=== PATIENT | female | born 1950 | race Caucasian/White ===

== ENCOUNTER → 2016-07-03 | Outpatient (CLI) | payer OTHER ==
[~2016-07-03] MED LIST: CALCTAB5 PO; CHOL100027 PO; CYAN100048 PO; MAGN250T3 PO; METO25TA56 PO; OMEG1CAP26; VNTHFA/IN INH
[2016-07-03 10:44] LABS: HEMATOCRIT 39.1 % (37-47); MEAN CORPUSCULAR HEMOGLOBIN 30.6 pg (25-34); MEAN CORPUSCULAR HGB CONC 33.2 g/dl (32-36); MEAN PLATELET VOLUME 8.8 fL (7.4-10.4); PLATELET COUNT 254 K/uL (130-400); RED BLOOD COUNT 4.25 M/uL (4.2-5.4); WHITE BLOOD COUNT 4.99 K/uL (4.8-10.8)
[2016-07-03 10:50] LABS: POTASSIUM 4.1 mmol/L (3.5-5.1)
[2016-07-03 10:55] LABS: PARTIAL THROMBOPLASTIN RATIO 1.1; PROTHROMBIN TIME (PATIENT) 10.4 SECONDS (9.0-12.0)
== END | disposition home or self-care (01) ==
LOC: C.LAB 08:59
PROVIDERS: ATTEND Physician Assistant
DX: Z01.810 Encounter for preprocedural cardiovascular examination (principal)

== ENCOUNTER → 2016-07-10 | Day surgery (SDC) | payer OTHER ==
[2016-06-26 11:26] VITALS: Ht 165.1 cm; Wt 65.0 kg
[~2016-07-10] VITALS: Ht 165.1 cm; Wt 65.0 kg
[~2016-07-10] MED LIST changes: +ACETAMINOPHEN 325 MG TAB ONE; +ACETAMINOPHEN 325 MG TAB PO PRN; +ARTIFICIAL TEARS OP OINT 3.5 GM TUBE ONE; +ATROPINE SULFATE 0.1 MG/ML 5ML SYR IV PRN; +BSS FLUSH ONE; +CEFAZOLIN 2000 MG/60 ML D5W IV SCH; +ERYTHROMYCIN OP OINT 5 MG/GM 3.5 GM TUBE ONE; +EpHEDrine SULFATE 50MG/5ML SYR ONE; +EpHEDrine SULFATE INJ 50 MG/ML AMP IV PRN; +FENTANYL CITRATE INJ 50 MCG/1 ML 2 ML VIAL IV PRN; +FENTANYL CITRATE INJ 50 MCG/1 ML 2 ML VIAL ONE; +GENTIAN VIOLET TOP SOLN DROP CHARGE ONE; +LACTATED RINGER'S 1000ML 1,000 ML IV SCH; +LIDOCAINE HCL 2% 2 ML VIAL (20MG/ML) ONE; +LIDOCAINE/EPINEPHRINE 1% INJ 50 ML VIAL ONE; +METOCLOPRAMIDE HCL INJ 5 MG/ML 2 ML VIAL IV PRN; +MIDAZOLAM HCL 1 MG/ML 2ML VIAL ONE; +ONDANSETRON INJ 2 MG/ML 2 ML VIAL IV PRN; +ONDANSETRON INJ 2 MG/ML 2 ML VIAL ONE; +OXYCODONE/ACETAMINOPHEN 5-325 TAB PO PRN; +POVIDONE-IODINE OP SOLN 30 ML BTL ONE; +PROPOFOL IV EMULSION 10 MG/ML 20 ML VIAL IV ONE; +SCOPOLAMINE 1.5 MG TDSY TD ONE; +SODIUM CHLORIDE 0.9% 1000ML 1,000 ML IV SCH
--- NOTE | 2016-07-10 11:35 | History & Physical Bridge - [place] ---
H&P Re-Evaluation Bridge Note: I have examined the patient, reviewed the History & Physical and in the interval since the performance of the History & Physical I have noted the following changes of clinical significance: No changes noted
--- NOTE | 2016-07-10 13:00 | [facility] Post Operative Brief Note ---
Immediate Operative Summary Operative Date Jul 10, 2016. Pre-Operative Diagnosis bilateral dermatochalasis Post-Operative Diagnosis same Procedure(s) Performed Bilateral Upper Blepharoplasty Surgeon Dr Cisneros Retouching Operator Surgeon(s) Dennis Newton PA-C Estimated Blood Loss 1 ml Findings good symmetry at close of case Specimens 0 Anesthesia general Disposition Recovery Room / PACU
--- NOTE | 2016-07-10 13:03 | Discharge Instructions ---
Discharge Instructions Date of Service Jul 10, 2016. Admission Reason for Admission: Bilateral Dermatochalasis Discharge Discharge Diagnosis / Problem: dermatochalasis Discharge Goals Goal(s): Decrease discomfort Activity Recommendations Activity Limitations: per Instructions/Follow-up section ACTIVITY RECOMMENDATIONS: __Normal activities _x_No bending, lifting or straining __No driving __Driving allowed when you are off pain medications _x_Walking permitted __You should have help at home for ___ days DRESSINGS: _x_No dressings required __Keep dressings dry/in place until first office visit __Remove dressings ___ and leave dressings off __Apply ice ___ days __Remove dressings and reapply garment _x_Apply antibiotic ointment that was prescribed to you (Bacitracin) to wounds 3 -4 times/day for 10 days BATHING: __Keep dressings dry __Sponge bathing permitted _x_Showering permitted in 48 hours _x_No swimming, hot tubs or soaking in a tub MEDICATIONS: Resume previous medications unless instructed otherwise by your surgeon. _x_Do not use aspirin, Motrin, Advil or Ibuprofen as these may promote bleeding. Please use Tylenol. _x_Prescription(s) provided:pain medication and antibiotic eye ointment were provided at your last office visit OTHER INSTRUCTIONS: __Record drain output 2-3 times per day SPECIAL CARE INSTRUCTIONS: * It is normal to have a mild fever after surgery. If your temperature is higher than 101.5 degrees F, please call the office at [phone]. * Constipation is a typical side effect of pain medication. An over-the- counter stool softener will help relieve this. * Leaking around surgical drains may occur and should not cause concern. Sometimes these drains become clogged. If this happens, remove the bulb and milk the clot out of the tube, then replace the bulb. * Drainage from wounds after liposuction is normal and should be expected. Garments will become soiled. You should protect furniture and bedding. This drainage should mostly subside within 2-3 days. Leave garments in place unless instructed to remove them. * If you have unusual drainage from a wound or are concerned you have an infection or have any questions or concerns, please call the office at [phone]. FOLLOW UP VISIT: If not already scheduled, please call the office, , when you return home after surgery to schedule an appointment to be seen in __3_ days. . Current Hospital Diet Patient's current hospital diet: Discharge Diet Recommended Diet: Regular Diet Procedures Procedures Performed: Bilateral Upper Blepharoplasty Pending Studies Studies pending at discharge: no Medical Emergencies . Who to Call and When: Medical Emergencies: If at any time you feel your situation is an emergency, please call 911 immediately. . Non-Emergent Contact Non-Emergency issues call your: Primary Care Provider, Surgeon . "Provider Documentation" section prepared by Bee Newton. . VTE Core Measure Inpt VTE Proph given/why not?: SCD's [place] Drug Monitoring Program Search Results: no issues identified
[2016-07-10 14:00] VITALS: BP 155/79; PULSE 62; TEMP 36.1; O2SAT 95
--- NOTE | 2016-07-10 14:47 | Anesthesia Progress Nt - [facility] ---
Anesthesia Post Op Note Date & Time Jul 10, 2016 at 14:47 Vital Signs Pain Intensity: 2.0 Vital Signs Past 12 Hours Date Time Temp Pulse Resp B/P Pulse Ox O2 Delivery O2 Flow Rate FiO2 07/10/16 14:00 36.1 62 18 155/79 95 Room Air 07/10/16 13:54 144/82 07/10/16 13:52 62 18 100 07/10/16 13:52 63 18 07/10/16 13:51 36.6 99 Room Air 07/10/16 13:51 67 18 07/10/16 13:51 65 18 100 07/10/16 13:49 148/76 07/10/16 13:46 66 18 07/10/16 13:46 66 18 99 07/10/16 13:44 144/79 07/10/16 13:41 71 18 07/10/16 13:41 71 18 100 07/10/16 13:40 74 18 99 07/10/16 13:40 73 18 07/10/16 13:39 136/84 07/10/16 13:35 66 17 100 07/10/16 13:35 65 17 07/10/16 13:34 139/81 07/10/16 13:30 72 15 100 07/10/16 13:30 72 15 07/10/16 13:29 140/81 07/10/16 13:27 70 17 07/10/16 13:27 70 17 100 07/10/16 13:24 136/81 07/10/16 13:22 66 17 100 07/10/16 13:22 66 17 07/10/16 13:21 76 17 100 07/10/16 13:21 75 17 07/10/16 13:19 143/81 07/10/16 13:16 76 20 07/10/16 13:16 80 20 100 07/10/16 13:15 75 17 100 07/10/16 13:15 76 17 07/10/16 13:14 136/81 07/10/16 13:10 82 17 100 07/10/16 13:10 80 17 07/10/16 13:09 142/78 07/10/16 13:06 73 18 100 07/10/16 13:06 74 18 07/10/16 13:04 134/80 07/10/16 13:01 135/82 07/10/16 13:01 36.4 84 16 135/82 100 Mask 8 07/10/16 10:58 36.8 61 18 152/87 100 Room Air Notes Mental Status: alert / awake / arousable, participated in evaluation Pt Amnestic to Procedure: Yes Nausea / Vomiting: adequately controlled Pain: adequately controlled Airway Patency, RR, SpO2: stable & adequate BP & HR: stable & adequate Hydration State: stable & adequate Anesthetic Complications: no major complications apparent
--- NOTE | 2016-07-10 16:03 | OPERATIVE REPORT ---
DATE OF OPERATION: 07/10/2016 PREOPERATIVE DIAGNOSIS: Bilateral upper eyelid dermatochalasis. POSTOPERATIVE DIAGNOSIS: Same. PROCEDURE: Bilateral noncosmetic upper blepharoplasty. SURGEON: Dr. Cintia Cisneros. TRUCK HOP: Bee Newton PA-C. ANESTHESIA: General. COMPLICATIONS: None. INDICATION FOR THE PROCEDURE: The patient is a 65-year-old female who presented to my office with concerns of visual field obstruction and failed visual field testing due to upper eyelid dermatochalasis. She was felt to be a candidate for noncosmetic upper blepharoplasty. Risks and benefits were discussed. BRIEF DESCRIPTION OF THE PROCEDURE: The risks, benefits and alternatives of the procedure were explained to the patient, who agreed and signed consent. She was identified and marked in the preoperative holding area. She was brought to the operating room, where she was positioned supine and placed under general anesthesia without incident. Surgical site was prepped and draped sterilely. Markings were assessed. The inferior incision was marked at 8 mm above the ciliary margin just inferior to the supratarsal crease on the right, which was measured to be 9 mm and at the supratarsal crease measured to be 8 mm on the left. A trapezoidal shaped incision was marked, taking care not to cross the medial punctum medially and carrying the lateral aspect into the lateral canthal area into one of the pilot station's feet. Superior portion of the incision was marked and this was marked about 1.2 cm superior to the inferior incision making sure it was greater than 1 cm beneath the eyebrow. A Aranda forceps was used to pinch the skin to ensure reasonable possibility of wound closure without lagophthalmos. Similar markings were applied on the right side. I began with the left side. I attempted to place corneal protectors, but due to the small aperture of her lids, I was unable to place these. 1% lidocaine with epinephrine was used to anesthetize the upper lids bilaterally. I began with the left. The incisions as described above were made using a 15 blade scalpel. Skin was removed from the underlying orbicularis muscle in a lateral to medial direction using electrocautery, taking care to provide hemostasis throughout dissection. Once the skin had been removed and the hemostasis was assured, I incised the orbicularis muscle and orbital septum over the medial compartment. There was no return of appreciable fat and therefore, no resection was undertaken. 6-0 nylon sutures were used to reapproximate the incisions beginning in the pupillary line and then closing in a lateral to medial direction. Once the procedure was completed, bacitracin ophthalmic ointment was applied after the eyes were irrigated with BSS. Identical procedure was undertaken on the right hand side. The procedure was tolerated well. The patient was awakened and transferred to recovery room in satisfactory condition. Blood loss was 1 mL. Bee Newton was present and scrubbed throughout the entire procedure and was instrumental in providing retraction as well as assisting in simultaneous wound closure. I attest to the content of the Intraoperative Record and any orders documented therein. Any exceptio ns are noted below.
== END | disposition home or self-care (01) ==
LOC: X.SURG 10:43
PROVIDERS: ATTEND Plastic Surgery
DX: H02.834 Dermatochalasis of left upper eyelid (principal); H02.831 Dermatochalasis of right upper eyelid; J45.909 Unspecified asthma, uncomplicated; I10 Essential (primary) hypertension; I48.0 Paroxysmal atrial fibrillation; Z98.890 Other specified postprocedural states; Z90.89 Acquired absence of other organs; Z98.51 Tubal ligation status; Z98.818 Other dental procedure status; Z80.0 Family history of malignant neoplasm of digestive organs; Z82.0 Family history of epilepsy and other diseases of the nervous system; Z83.3 Family history of diabetes mellitus; Z82.49 Family history of ischemic heart disease and other diseases of the circulatory system; Z80.2 Family history of malignant neoplasm of other respiratory and intrathoracic organs

== ENCOUNTER → 2016-11-27 | Outpatient (CLI) | payer OTHER ==
[~2016-11-27] MED LIST changes: -ACETAMINOPHEN 325 MG TAB ONE; -ACETAMINOPHEN 325 MG TAB PO PRN; -ARTIFICIAL TEARS OP OINT 3.5 GM TUBE ONE; -ATROPINE SULFATE 0.1 MG/ML 5ML SYR IV PRN; -BSS FLUSH ONE; -CEFAZOLIN 2000 MG/60 ML D5W IV SCH; -ERYTHROMYCIN OP OINT 5 MG/GM 3.5 GM TUBE ONE; -EpHEDrine SULFATE 50MG/5ML SYR ONE; -EpHEDrine SULFATE INJ 50 MG/ML AMP IV PRN; -FENTANYL CITRATE INJ 50 MCG/1 ML 2 ML VIAL IV PRN; -FENTANYL CITRATE INJ 50 MCG/1 ML 2 ML VIAL ONE; -GENTIAN VIOLET TOP SOLN DROP CHARGE ONE; -LACTATED RINGER'S 1000ML 1,000 ML IV SCH; -LIDOCAINE HCL 2% 2 ML VIAL (20MG/ML) ONE; -LIDOCAINE/EPINEPHRINE 1% INJ 50 ML VIAL ONE; -METOCLOPRAMIDE HCL INJ 5 MG/ML 2 ML VIAL IV PRN; -MIDAZOLAM HCL 1 MG/ML 2ML VIAL ONE; -OMEG1CAP26; -ONDANSETRON INJ 2 MG/ML 2 ML VIAL IV PRN; -ONDANSETRON INJ 2 MG/ML 2 ML VIAL ONE; -OXYCODONE/ACETAMINOPHEN 5-325 TAB PO PRN; -POVIDONE-IODINE OP SOLN 30 ML BTL ONE; -PROPOFOL IV EMULSION 10 MG/ML 20 ML VIAL IV ONE; -SCOPOLAMINE 1.5 MG TDSY TD ONE; -SODIUM CHLORIDE 0.9% 1000ML 1,000 ML IV SCH
--- NOTE | 2016-11-27 13:42 | MAMMOGRAPHY REPORT ---
BILATERAL DIGITAL SCREENING MAMMOGRAM TOMOSYNTHESIS WITH CAD: 11/27/2016 CLINICAL HISTORY: Routine screening. Patient has no complaints. TECHNIQUE: Breast tomosynthesis in addition to standard 2D mammography was performed. Current study was also evaluated with a Computer Aided Detection (CAD) system. COMPARISON: Comparison is made to exams dated: 11/11/2015 mammogram, 08/24/2014 mammogram, 07/28/2013 m ammogram, 07/01/2012 mammogram, 06/26/2011 mammogram, and 05/23/2010 mammogram - [facility]. BREAST COMPOSITION: There are scattered areas of fibroglandular density in both breasts. FINDINGS: No suspicious masses, calcifications, or areas of architectural distortion are noted in ei ther breast. There has been no significant interval change compared to prior exams. Small benign-daniel earing mass in the left upper outer quadrant is stable dating back to at least the 2008 exam. Bilate ral benign-appearing calcifications are not significantly changed. IMPRESSION: ACR BI-RADS CATEGORY 2: BENIGN There is no mammographic evidence of malignancy. A 1 year screening mammogram is recommended. The pa tient will receive written notification of the results. Approximately 10% of breast cancers are not detected with mammography. A negative mammographic report should not delay biopsy if a clinically suggestive mass is present. Dolly Vivar M.D. /:11/27/2016 13:12:36 Actuarial Intern: Tricia GASTELUM)(Octavio), [facility] letter sent: Normal 1/2 BI-RADS Code: ACR BI-RADS Category 2: Benign
== END | disposition home or self-care (01) ==
LOC: C.MAMM 10:20
PROVIDERS: ATTEND Obstetrics & Gynecology
DX: Z12.31 Encounter for screening mammogram for malignant neoplasm of breast (principal)

== ENCOUNTER → 2016-12-11 | Outpatient (CLI) | payer OTHER | END | disposition home or self-care (01) | LOC: C.PAPS 15:30 | PROVIDERS: ATTEND Obstetrics & Gynecology | DX: Z12.4 Encounter for screening for malignant neoplasm of cervix (principal) ==

== ENCOUNTER → 2017-02-10 | Outpatient (CLI) | payer OTHER ==
--- NOTE | 2017-02-10 15:27 | DIAGNOSTIC IMAGING REPORT ---
L FOOT MIN 3 VIEWS ROUTINE CLINICAL HISTORY: PAIN IN L FOOT COMPARISON: None. DISCUSSION: Moderate generalized degenerative change. Mild soft tissue edema. No evidence for acute fracture or dislocation. Small heel spur. IMPRESSION: Moderate degenerative change. Mild soft tissue edema. Small heel spur. The above report was generated using voice recognition software. It may contain grammatical, syntax or spelling errors. Electronically signed by: Michael Amos M.D. 02/10/2017 3:26 PM Dictated Date/Time: 02/10/2017 3:25 PM
== END | disposition home or self-care (01) ==
LOC: C.RAD 14:57
PROVIDERS: ATTEND Family Medicine
DX: M79.672 Pain in left foot (principal)

== ENCOUNTER 2017-02-26 12:38 | Emergency (ER) | payer OTHER ==
[~2017-02-26] VITALS: Ht 165.1 cm; Wt 66.9 kg
[2017-02-26 12:49] VITALS: TEMP 36.4; Ht 165.1 cm; Wt 66.9 kg
--- NOTE | 2017-02-26 13:15 | EMERGENCY ROOM VISIT NOTE ---
History Report prepared by Camryn: Chadwick Devlin Under the Supervision of: Dr. Bart Garcia M.D. First contact with patient: 13:07 Chief Complaint: HYPERTENSION Stated Complaint: BLOOD PRESSURE HIGH, DIARRHEA, HEAD HURTING History of Present Illness The patient is a 66 year old female who presents to the Emergency Room with complaints of intermittent hypertension beginning a few weeks ago. The patient states she gets intermittent headaches over the past few weeks. She reports she started experiencing diarrhea a few days ago. The patient notes she has not been around anyone sick, and she has not eaten any questionable foods. She states she had a panic attack yesterday. The patient reports she also has a bone spur in her left foot that sometimes causes her to have panic attacks. 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 The patient states she has also been experiencing GERD-like pain which is not normal for her. She reports she is on Metoprolol, and she has not missed a dose. The patient notes she had a laser vein removed in her left leg a few days ago. She denies abdominal pain. Source of History: patient Onset: few weeks ago Position: other (global) Quality: other (HTN) Timing: intermittent Associated Symptoms: + headache, + chest pain, + diarrhea, No abdominal pain Note: Associated symptoms: bone spur, panic attacks Review of Systems See HPI for pertinent positives & negatives. A total of 10 systems reviewed and were otherwise negative. Past Medical & Surgical Medical Problems: (1) Asthma (2) Bronchitis (3) HTN (hypertension) Surgical Problems: (1) Hx of appendectomy Family History Cancer Diabetes mellitus FH: CT (myocardial infarction) Heart disease Heart disease Hypertension Social History Smoking Status: Never Smoker Smokeless Tobacco Use: No Alcohol Use: none Marital Status: Housing Status: lives with significant other Occupation Status: employed Current/Historical Medications Scheduled Calcium (Caltrate), 600 MG PO BID Cholecalciferol (Vitamin D 1000 Unit), 1,000 INTER.UNIT PO DAILY Coenzyme Q10 (Ubidecarenone) (Coq-10), 100 MG PO DAILY Cyanocobalamin (Vitamin B-12), 1 TAB PO DAILY Magnesium (Magnesium 250 mg), 2 TABS PO QAM Metoprolol Tartrate (Lopressor) (Lopressor), 0.5 TAB PO BID Scheduled PRN Albuterol Hfa (Ventolin Hfa), 2-4 PUFFS INH Q6H PRN for SOB/Wheezing Oxycodone/Acetaminophen 5MG/325MG (Percocet 5MG/325MG), 1-2 TAB PO Q4H PRN for Pain Allergies Coded Allergies: No Known Allergies (Unverified , 02/26/17) Physical Exam Vital Signs Date Time Temp Pulse Resp B/P (MAP) Pulse Ox O2 Delivery O2 Flow Rate FiO2 02/26/17 15:18 61 18 137/91 97 Room Air 02/26/17 14:21 66 20 140/85 99 Room Air 02/26/17 12:49 36.4 65 18 174/98 99 Room Air Physical Exam GENERAL: Patient is a healthy-appearing well-nourished 66 year old female. HEAD: Normocephalic atraumatic EYES: Ocular movements intact pupils equal and react to light OROPHARYNX mucous membranes are moist no exudates present no erythema or edema present NECK: Supple no nuchal rigidity CHEST: Good equal expansion LUNGS: Clear and equal to auscultation CARDIAC: Normal S1 and S2 ABDOMEN: Soft nontender no guarding BACK: No CVA tenderness EXTREMITIES: No pain upon palpation normal muscle strength in all groups no clubbing cyanosis or edema NEURO: Patient is following commands and answering questions appropriately. Alert and oriented x3 Cranial Nerves 2-12 grossly intact Medical Decision & Procedures ER Provider Diagnostic Interpretation: Radiology results as stated below per my review and radiologist interpretation: L VENOUS DOPP LOWER EXT UNILAT CLINICAL HISTORY: Pt c/o LLQ abd pain pain. Nausea. TECHNIQUE: Venous Doppler COMPARISON STUDY: None FINDINGS: Superficial thrombophlebitis within the lesser saphenous vein. No evidence for deep venous thrombosis. Compressibility and augmentation characteristics are unremarkable. IMPRESSION: 1. Study is negative for deep venous thrombosis. 2. Study is positive for superficial thrombophlebitis within the lesser saphenous vein. The above report was generated using voice recognition software. It may contain grammatical, syntax or spelling errors. Electronically signed by: Michael Amos M.D. 02/26/2017 2:51 PM Dictated Date/Time: 02/26/2017 2:50 PM CHEST ONE VIEW PORTABLE CLINICAL HISTORY: Severe hypertension. COMPARISON STUDY: Chest radiograph April 24, 2014. FINDINGS: Lung volumes are normal. Lungs are clear. No pneumothorax or pleural effusion is present. Pulmonary vascularity is normal. Cardiomediastinal silhouette is normal. IMPRESSION: No acute cardiopulmonary findings. Electronically signed by: Vinnie Olsen M.D. 02/26/2017 2:00 PM Dictated Date/Time: 02/26/2017 1:57 PM Laboratory Results 02/26/17 13:30 Red Blood Count 4.26, Mean Corpuscular Volume 90.6, Mean Corpuscular Hemoglobin 31.0, Mean Corpuscular Hemoglobin Concent 34.2, Mean Platelet Volume 8.9, Neutrophils (%) (Auto) 72.3, Lymphocytes (%) (Auto) 19.5, Monocytes (%) (Auto) 5.8, Eosinophils (%) (Auto) 1.9, Basophils (%) (Auto) 0.4, Neutrophils # (Auto) 5.38, Lymphocytes # (Auto) 1.45, Monocytes # (Auto) 0.43, Eosinophils # (Auto) 0.14, Basophils # (Auto) 0.03 02/26/17 13:30 Test 02/26/17 00:00 02/26/17 13:30 Urine Color YELLOW Urine Appearance CLEAR (CLEAR) Urine pH 6.5 (4.5-7.5) Urine Specific [place] 1.010 (1.000-1.030) Urine Protein NEG (NEG) Urine Glucose (UA) NEG (NEG) Urine Ketones NEG (NEG) Urine Occult Blood NEG (NEG) Urine Nitrite NEG (NEG) Urine Bilirubin NEG (NEG) Urine Urobilinogen NEG (NEG) Urine Leukocyte Esterase TRACE (NEG) Urine WBC (Auto) /hpf (0-5) Urine RBC (Auto) /hpf (0-4) Urine Hyaline Casts (Auto) /lpf (0-5) Urine Epithelial Cells (Auto) /lpf (0-5) Urine Bacteria (Auto) (NEG) Urine RBC 0-4 /hpf (0-4) Urine WBC 1-5 /hpf (0-5) Urine Epithelial Cells 10-20 /lpf (0-5) Urine Bacteria 1+ (NEG) White Blood Count 7.44 K/uL (4.8-10.8) Red Blood Count 4.26 M/uL (4.2-5.4) Hemoglobin 13.2 g/dL (12.0-16.0) Hematocrit 38.6 % (37-47) Mean Corpuscular Volume 90.6 fL (80-100) Mean Corpuscular Hemoglobin 31.0 pg (25-34) Mean Corpuscular Hemoglobin Concent 34.2 g/dl (32-36) Platelet Count 221 K/uL (130-400) Mean Platelet Volume 8.9 fL (7.4-10.4) Neutrophils (%) (Auto) 72.3 % Lymphocytes (%) (Auto) 19.5 % Monocytes (%) (Auto) 5.8 % Eosinophils (%) (Auto) 1.9 % Basophils (%) (Auto) 0.4 % Neutrophils # (Auto) 5.38 K/uL (1.4-6.5) Lymphocytes # (Auto) 1.45 K/uL (1.2-3.4) Monocytes # (Auto) 0.43 K/uL (0.11-0.59) Eosinophils # (Auto) 0.14 K/uL (0-0.5) Basophils # (Auto) 0.03 K/uL (0-0.2) RDW Standard Deviation 41.4 fL (36.4-46.3) RDW Coefficient of Variation 12.5 % (11.5-14.5) Immature Granulocyte % (Auto) 0.1 % Immature Granulocyte # (Auto) 0.01 K/uL (0.00-0.02) Prothrombin Time 10.2 SECONDS (9.0-12.0) Prothromb Time International Ratio 1.0 (0.9-1.1) Activated Partial Thromboplast Time 26.2 SECONDS (21.0-31.0) Partial Thromboplastin Ratio 1.0 Anion Gap 6.0 mmol/L (3-11) Est Creatinine Clear Calc Drug Dose 69.1 ml/min Estimated GFR () 99.2 Estimated GFR (Non- 85.6 BUN/Creatinine Ratio 9.8 (10-20) Calcium Level 9.1 mg/dl (8.5-10.1) Total Bilirubin 0.9 mg/dl (0.2-1) Direct Bilirubin 0.2 mg/dl (0-0.2) Aspartate Amino Transf (AST/SGOT) 19 U/L (15-37) Alanine Aminotransferase (ALT/SGPT) 25 U/L (12-78) Alkaline Phosphatase 57 U/L (45-117) Total Creatine Kinase 144 U/L (26-192) Creatine Kinase MB 1.5 ng/ml (0.5-3.6) Creatine Kinase MB Ratio 1.0 (0-3.0) Troponin I 0.021 ng/ml (0-0.045) Total Protein 7.5 gm/dl (6.4-8.2) Albumin 3.8 gm/dl (3.4-5.0) Lipase 161 U/L (73-393) Thyroid Stimulating Hormone (TSH) 1.910 uIu/ml (0.300-4.500) Labs reviewed by ED physician. ECG Indication: chest pain Rate (beats per minute): 58 Rhythm: sinus bradycardia Findings: no acute ischemic change, no ectopy ED Course 1309: Past medical records reviewed. The patient was evaluated in room C01B. A complete history and physical examination was performed. 1501: Upon reexamination the patient is resting comfortably. I discussed results and treatment plan with the patient. She verbalizes agreement and understanding. The patient is ready for discharge. Medical Decision Differential diagnosis: Etiologies such as benign hypertension, hypertensive emergency, cardiovascular pathology, pheochromocytoma, electrolyte abnormality, renal disease, endorgan damage, as well as others were entertained. This is a 66-year-old female who presents emergency Department with a number of complaints. The patient is concerned about her blood pressure however I feel this is more in relation to the fact that the patient is on her feet all day and is suffering from leg and foot pain. The patient has not seen an orthopedic tech yet. She refused x-rays of her foot here in the emergency department. She also refused pain medication. She does have a superficial phlebitis in her left lower extremity and I stressed the need for NSAIDs as well as warm compresses for this. She was told to return to the emergency department for leg continues to swell for the pain becomes on parable. She is going to follow-up with orthopedics. I will note that just letting the patient sit and rest will of her blood pressure to come down significantly therefore do not feel it needs to be treated at this point. Patient was in agreement with the treatment plan. Impression Primary Impression: Hypertension Additional Impressions: Thrombophlebitis Foot pain, left Scribe Attestation The scribe's documentation has been prepared under my direction and personally reviewed by me in its entirety. I confirm that the note above accurately reflects all work, treatment, procedures, and medical decision making performed by me. Departure Information Dispostion Home / Self-Care Prescriptions Oxycodone/Acetaminophen 5MG/325MG (PERCOCET 5MG/325MG) Tab 1-2 TAB PO Q4H Y for Pain, #14 TAB Prov: Bart Garcia MD 02/26/17 Referrals Johnathan Cooper DO (PCP) Dannie Barrett DO Forms HOME CARE DOCUMENTATION FORM, IMPORTANT VISIT INFORMATION, WORK / SCHOOL INSTRUCTIONS Patient Instructions ED Phlebitis Superficial, Hypertension Dc, My [facility] Additional Instructions Superficial thrombophlebitis in lesser saphenous vein Take Ibuprofen 600 mg every 6 hours, apply warm compresses Follow up with [facility]/ Dr Barrett's office for continued foot/ leg pain You have been examined and treated today on an emergency basis only. This is not a substitute for, or an effort to provide, complete comprehensive medical care. It is impossible to recognize and treat all injuries or illnesses in a single emergency department visit. It is therefore important that you follow up closely with Dr Cooper. Call as soon as possible for an appointment. Thank you for your time and consideration. I look forward to speaking with you again soon. Please don't hesitate to call us if you have any questions. Problem Qualifiers Primary Impression: Hypertension Hypertension type: unspecified Qualified Codes: I10 - Essential (primary) hypertension
[2017-02-26 13:56] LABS: BASO % 0.4 %; BASO ABS # 0.03 K/uL (0-0.2); COMPLETE YES; EOS % 1.9 %; HEMATOCRIT 38.6 % (37-47); IG% 0.1 %; LYMPH % 19.5 %; LYMPH ABS # 1.45 K/uL (1.2-3.4); MEAN CELL VOLUME 90.6 fL (80-100); MEAN CORPUSCULAR HGB CONC 34.2 g/dl (32-36); MEAN PLATELET VOLUME 8.9 fL (7.4-10.4); MONO % 5.8 %; NEUT % 72.3 %; PLATELET COUNT 221 K/uL (130-400); RED BLOOD COUNT 4.26 M/uL (4.2-5.4); WHITE BLOOD COUNT 7.44 K/uL (4.8-10.8)
--- NOTE | 2017-02-26 14:02 | DIAGNOSTIC IMAGING REPORT ---
CHEST ONE VIEW PORTABLE CLINICAL HISTORY: Severe hypertension. COMPARISON STUDY: Chest radiograph April 24, 2014. FINDINGS: Lung volumes are normal. Lungs are clear. No pneumothorax or pleural effusion is present. Pulmonary vascularity is normal. Cardiomediastinal silhouette is normal. IMPRESSION: No acute cardiopulmonary findings. Electronically signed by: Vinnie Olsen M.D. 02/26/2017 2:00 PM Dictated Date/Time: 02/26/2017 1:57 PM
[2017-02-26 14:09] LABS: PROTHROMBIN TIME (PATIENT) 10.2 SECONDS (9.0-12.0)
[2017-02-26 14:16] LABS: BUN/CREATININE RATIO 9.8 (10-20); CALCIUM 9.1 mg/dl (8.5-10.1); CREATININE 0.74 mg/dl (0.60-1.20); POTASSIUM 3.7 mmol/L (3.5-5.1)
[2017-02-26 14:26] LABS: THYROID STIMULATING HORMONE 1.91 uIu/ml (0.300-4.500)
[2017-02-26 14:40] LABS: URINE APPEARANCE CLEAR (CLEAR); URINE BILIRUBIN NEG (NEG); URINE COLOR YELLOW; URINE NITRITE NEG (NEG); URINE PH 6.5 (4.5-7.5); UROBILINOGEN NEG (NEG)
[2017-02-26 14:44] LABS: MANUAL MICROSCOPIC REQUIRED? YES; REVIEW REQ? NO
--- NOTE | 2017-02-26 14:52 | DIAGNOSTIC IMAGING REPORT ---
L VENOUS DOPP LOWER EXT UNILAT CLINICAL HISTORY: Pt c/o LLQ abd pain pain. Nausea. TECHNIQUE: Venous Doppler COMPARISON STUDY: None FINDINGS: Superficial thrombophlebitis within the lesser saphenous vein. No evidence for deep venous thrombosis. Compressibility and augmentation characteristics are unremarkable. IMPRESSION: 1. Study is negative for deep venous thrombosis. 2. Study is positive for superficial thrombophlebitis within the lesser saphenous vein. The above report was generated using voice recognition software. It may contain grammatical, syntax or spelling errors. Electronically signed by: Michael Amos M.D. 02/26/2017 2:51 PM Dictated Date/Time: 02/26/2017 2:50 PM
[2017-02-26 15:02] LABS: URINE RBC 0-4 /hpf (0-4)
[2017-02-26 15:03] LABS: URINE BACTERIA 1+ (NEG)
[2017-02-26] MEDS ORDERED: OXYC-57 PO (15:10)
[2017-02-26 15:18] VITALS: BP 137/91; PULSE 61; O2SAT 97
[2017-02-26] MEDS ORDERED: COEN100C11 PO (15:22)
== END 2017-02-26 15:20 | disposition home or self-care (01) ==
LOC: C.EDB 12:39 → C.EDC 15:20
DX: I10 Essential (primary) hypertension (principal); I80.02 Phlebitis and thrombophlebitis of superficial vessels of left lower extremity; M79.672 Pain in left foot; J45.909 Unspecified asthma, uncomplicated; Z80.9 Family history of malignant neoplasm, unspecified; Z83.3 Family history of diabetes mellitus; Z82.49 Family history of ischemic heart disease and other diseases of the circulatory system; Z79.899 Other long term (current) drug therapy

== ENCOUNTER → 2017-06-04 | Outpatient (CLI) | payer OTHER ==
[~2017-06-04] MED LIST changes: +COEN100C11 PO; +OXYC-57 PO
== END | disposition home or self-care (01) ==
LOC: C.PATHSPEC 11:04
PROVIDERS: ATTEND Plastic Surgery
DX: L82.1 Other seborrheic keratosis (principal)

== ENCOUNTER → 2017-07-29 | Outpatient (CLI) | payer OTHER ==
[2017-07-29 17:26] LABS: HEMATOCRIT 37.4 % (37-47); HEMOGLOBIN 12.5 g/dL (12.0-16.0); MEAN CELL VOLUME 92.1 fL (80-100); MEAN CORPUSCULAR HEMOGLOBIN 30.8 pg (25-34); MEAN CORPUSCULAR HGB CONC 33.4 g/dl (32-36); MEAN PLATELET VOLUME 8.8 fL (7.4-10.4); PLATELET COUNT 229 K/uL (130-400); RED CELL DISTRIBUTION WIDTH CV 12.4 % (11.5-14.5); RED CELL DISTRIBUTION WIDTH SD 42.3 fL (36.4-46.3); WHITE BLOOD COUNT 5.09 K/uL (4.8-10.8)
[2017-07-29 17:46] LABS: BLOOD UREA NITROGEN 10 mg/dl (7-18); CALCIUM 9.1 mg/dl (8.5-10.1); CARBON DIOXIDE 30 mmol/L (21-32); CREATININE 0.83 mg/dl (0.60-1.20); GLUCOSE 96 mg/dl (70-99); POTASSIUM 4.2 mmol/L (3.5-5.1); SODIUM 139 mmol/L (136-145)
== END | disposition home or self-care (01) ==
LOC: C.LABPBG 12:53
PROVIDERS: ATTEND Family Medicine
DX: I10 Essential (primary) hypertension (principal); I48.0 Paroxysmal atrial fibrillation

== ENCOUNTER → 2017-11-05 | Outpatient (CLI) | payer OTHER ==
[~2017-11-05] MED LIST changes: -OXYC-57 PO
== END | disposition home or self-care (01) ==
LOC: C.PATHSPEC 12:09
PROVIDERS: ATTEND Plastic Surgery
DX: L72.0 Epidermal cyst (principal)

== ENCOUNTER 2019-12-09 19:33 | Observation (INO) ==
[2019-12-09] MEDS ORDERED: ALUMINUM/MAGNESIUM SUSP 30 ML UDC PO STA (20:17)
[2019-12-09 20:28] LABS: Basophils # (auto) 0.02 K/uL (0-0.2); Basophils % (auto) 0.3 %; Eosinophils # (auto) 0.16 K/uL (0-0.5); Eosinophils % (auto) 2.6 %; Hematocrit (blood only) 34.9 % (37-47); Hemoglobin 12.3 g/dL (12.0-16.0); Immature Granulocytes # (auto) 0.01 K/uL (0.00-0.02); Immature Granulocytes % (auto) 0.2 %; Lymphocytes # (auto) 1.81 K/uL (1.2-3.4); Lymphocytes % (auto) 29.7 %; Mean Corpuscular Hemoglobin 31.1 pg (25-34); Mean Corpuscular Hgb Conc 35.2 g/dL (32-36); Mean Corpuscular Volume 88.4 fL (80-100); Mean Platelet Volume 8.5 fL (7.4-10.4); Monocytes # (auto) 0.55 K/uL (0.11-0.59); Neutrophils # (auto) 3.55 K/uL (1.4-6.5); Neutrophils % (auto) 58.2 %; Platelet Count 244 K/uL (130-400); RDW Coefficient of Variation 11.9 % (11.5-14.5); RDW Standard Deviation 38.5 fL (36.4-46.3); Red Blood Count 3.95 M/uL (4.2-5.4)
[2019-12-09] MEDS ORDERED: SODIUM CHLORIDE 0.9% 1000ML 1,000 ML IV SCH (20:30)
[2019-12-09 20:42] LABS: Partial Thromboplastin Ratio 1.1; Partial Thromboplastin Time 31.4 Seconds (21.0-31.0); Prothrombin Time 10.9 Seconds (9.0-12.0)
[2019-12-09 20:44] LABS: Albumin Level 3.5 gm/dl (3.4-5.0); BUN Creatinine Ratio 14.1 (10-20); Calcium 9.2 mg/dl (8.5-10.1); Est GFR (African American) 102.2; Est GFR (Non-African American) 88.1; Potassium 3.5 mmol/L (3.5-5.1)
[2019-12-09 20:49] LABS: Bilirubin,Total 1.1 mg/dl (0.2-1); Globulin 3.4 gm/dl (2.5-4.0); Total Protein 6.9 gm/dl (6.4-8.2); Troponin I 0.025 ng/ml (0-0.045)
--- NOTE | 2019-12-09 21:15 | Emergency Department Note ---
History of Present Illness General Chief complaint: Illness Stated complaint: LIGHTHEADED, SHAKEY, DEHYDRATED, DIARRHEA Time Seen by Provider: 12/09/19 20:01 Source: patient and family ( who is at the bedside) Mode of arrival: ambulatory Limitations: no limitations History of Present Illness Maximum Pain Intensity: 7 This patient comes in after not feeling well for couple days. She said she started with diarrhea a couple days ago but now that is better she had no blood or melena. She said a little bit of nausea but no emesis. She not been eating and feels dehydrated. She is a burning in her throat and towards her chest. No fever. No cough or respiratory symptoms no COVID exposure or body aches flulike symptoms no headache chest pain or abdominal pain. Noticed dysuria hematuria. She says she feels dry in her mouth but denies sore throat. is at the bedside and not sick. Home Medications Home Medications Medication Instructions Recorded Confirmed Type calcium carbonate 600 mg calcium 600 mg PO QAM tab 01/09/19 12/09/19 History (1,500 mg) tablet magnesium 250 mg tablet 250 mg PO QAM tab 01/09/19 12/09/19 History multivitamin 1 tab PO QAM 01/09/19 12/09/19 History omega 4-zvl-hof-fish oil [Fish Oil] 1 cap PO QAM 02/28/19 12/09/19 History metoprolol tartrate 25 mg tablet 12.5 mg PO BID #90 tab 09/14/19 12/09/19 Rx acetaminophen [Tylenol] 325 mg PO QID PRN 12/09/19 12/09/19 History albuterol sulfate [Ventolin HFA] 1 - 2 puff INH .Q4-6H PRN 12/09/19 12/09/19 History Allergies Allergy/AdvReac Type Severity Reaction Status Date / Time No Known Drug Allergies Allergy Verified 12/09/19 21:03 Past Med/Surg History Medical History Anxiety controlled with Medical [facility] Asthma Bony exostosis Chronic sinusitis Hypertension Paroxysmal atrial fibrillation Varicose veins of bilateral lower extremities with other complications Surgical History H/O blepharoplasty H/O ovarian cystectomy right ovary H/O tooth extraction History of appendectomy Hx of tubal ligation S/P skin biopsy benign Family History Mother Colorectal cancer Alzheimer disease Diabetes Hypertension Father Myocardial infarction, Onset Age: 62 Diabetes Hypertension Sister Hypertension Lymphoma Breast cancer, Onset Age: 70 Family/Other Prostate cancer Ovarian cancer Social History Smoking Status: Never smoker Second Hand Exposure: No; Hx Alcohol Use: Yes Alcohol Intake Frequency Comment: occasionally Hx Substance Use: No Preferred Language: Malay Communication Ability: Effective Visual Impairment: No Limitations Hearing Ability: Normal Clean Up Helper Banquet Required: No Beliefs That Will Affect Care: None marital status: Current Living Situation: Spouse current occupational status: retired Feels Safe at Home: Yes Childhood Exposure to Second-Hand Smoke: No caffeine: Yes (Cofee 1 per day. ) during the past year weight has: remained stable Dental Care, Regularly: Yes Physical Activity Frequency: 5-6 Times per Week Seatbelt Use: always Sunscreen Use: No Review of Systems A total of 10 systems reviewed and were otherwise negative Physical Exam Vital Signs Vital Signs - 24 hr 12/09/19 19:50 12/09/19 20:05 12/09/19 20:10 Temperature 36.3 C L Temperature Source Oral Pulse Rate 79 72 Respiratory Rate 20 16 Respiratory Effort / Characteristics Non-Labored Spontaneous Respiratory Depth Normal Blood Pressure 170/99 H 155/88 H Blood Pressure Mean 122 97 Blood Pressure Position Sitting Pulse Oximetry 98 97 97 Oxygen Delivery Method Room Air Room Air Sepsis Recent Fever Within 48 Hours No Sepsis New/Unexplained Change in Mental Status No Sepsis Action Taken by Nursing No Action Required 12/09/19 20:30 12/09/19 21:00 12/09/19 21:30 Temperature Temperature Source Pulse Rate 78 77 70 Respiratory Rate 18 16 20 Respiratory Effort / Characteristics Respiratory Depth Blood Pressure 176/94 H 138/93 135/84 Blood Pressure Mean 127 109 96 Blood Pressure Position Pulse Oximetry 97 96 94 Oxygen Delivery Method Sepsis Recent Fever Within 48 Hours Sepsis New/Unexplained Change in Mental Status Sepsis Action Taken by Nursing 12/09/19 22:00 12/09/19 22:30 12/09/19 23:04 Temperature Temperature Source Pulse Rate 66 64 66 Respiratory Rate 16 20 16 Respiratory Effort / Characteristics Respiratory Depth Blood Pressure 152/96 H 123/70 139/81 Blood Pressure Mean 118 83 97 Blood Pressure Position Pulse Oximetry 96 96 96 Oxygen Delivery Method Sepsis Recent Fever Within 48 Hours Sepsis New/Unexplained Change in Mental Status Sepsis Action Taken by Nursing 12/09/19 23:30 12/10/19 00:00 12/10/19 00:30 Temperature Temperature Source Pulse Rate 68 69 64 Respiratory Rate 20 20 18 Respiratory Effort / Characteristics Respiratory Depth Blood Pressure 130/74 138/77 155/96 H Blood Pressure Mean 93 96 115 Blood Pressure Position Pulse Oximetry 94 95 95 Oxygen Delivery Method Sepsis Recent Fever Within 48 Hours Sepsis New/Unexplained Change in Mental Status Sepsis Action Taken by Nursing General: Well developed well nourished middle-age female who appears in no acute distress, breathing comfortably on room air. Normal speech HEENT: Normal cephalic atraumatic. Pupils are equal round and reactive to light. Extraocular movements are intact. Oropharynx is pink with moist mucous membranes. No swelling of the mouth lips or tongue. Neck: Supple with a midline trachea. No meningeal signs or stiffness, no JVD or bruits. No Stridor. Chest: Clear to auscultation bilaterally. No wheezes or rhonchi. No increased work of breathing. Heart: Regular rate and rhythm without murmurs or gallops. Abdomen: Soft nontender, nondistended without rebound guarding or rigidity. Extremities: No cyanosis clubbing or edema. No calf tenderness or assymetry Spine/Back. Non tender to palpation. No CVA tenderness Skin: Good turgor without rashes. Neurologic exam: Cranial nerves two through 12 are intact. Motor and sensation are intact and symmetrical throughout. Procedures Free Text Procedures ED observation: Indication chest pain Family history: Cardiac diseasefather Due to the patient's complaint of burning in her throat and chest it was felt that a cardiac evaluation needed to be done. She was placed on a leather belt maker and placed in ED observation at 2009. Her initial EKG had some nonspecific ST abnormalities. A follow-up EKG showed no change compared to the first with continuing nonspecific ST abnormalities. Her initial troponin was 0.025. Her 3-hour troponin had increased slightly up 0.035. She was in observation for multiple hours in the ED. Based on her troponin trending upward I have consulted the hospitalist for possible inpatient observation/admission Course Administered Medications Discontinued Medications Al Hydrox/Mg Hydrox/Simethicone (Aluminum/Magnesium Susp 30 Ml Udc) 30 ml PO NOW STA Stop: 12/09/19 20:18 Last Admin: 12/09/19 20:28 Dose: 30 ml Documented by: [id number] Aspirin (Aspirin 81 Mg Chew) 324 mg PO NOW STA Stop: 12/10/19 00:37 Last Admin: 12/10/19 00:46 Dose: 324 mg Documented by: [id number] Sodium Chloride (Nss 1000ml) 1,000 mls @ 999 mls/hr IV .Q1H1M JUWAN Stop: 12/09/19 21:30 Last Infusion: 12/09/19 21:29 Dose: 0 mls/hr Documented by: [id number] Admin: 12/09/19 20:28 Dose: 999 mls/hr Documented by: [id number] Sodium Chloride (Nss 1000ml) 500 mls @ 999 mls/hr IV .Q31M ONE Stop: 12/09/19 22:14 Last Infusion: 12/09/19 22:24 Dose: 0 mls/hr Documented by: [id number] Admin: 12/09/19 21:53 Dose: 999 mls/hr Documented by: [id number] Medical Decision Making Differential Diagnosis Dehydration, acute coronary syndrome, electrolyte or metabolic abnormalities, cardiac disease,infection, GI illness Medical Records Attestation: I reviewed the patient's medical records. Home Medications Current Medication List: was personally reviewed by me Laboratory Data Attestation: I reviewed the patient's lab results. Result diagrams: 12/09/19 20:10 12/09/19 20:10 Lab Results 12/09/19 12/09/19 12/09/19 Range/Units 20:10 20:10 20:10 WBC 6.10 (4.8-10.8) K/uL RBC 3.95 L (4.2-5.4) M/uL Hgb 12.3 (12.0-16.0) g/dL Hct 34.9 L (37-47) % MCV 88.4 (80-100) fL MCH 31.1 (25-34) pg MCHC 35.2 (32-36) g/dL RDW Std Deviation 38.5 (36.4-46.3) fL RDW Coeff of [place] 11.9 (11.5-14.5) % Plt Count 244 (130-400) K/uL MPV 8.5 (7.4-10.4) fL Immature Gran % (Auto) 0.2 % Neut % (Auto) 58.2 % Lymph % (Auto) 29.7 % Mccone % (Auto) 9.0 % Eos % (Auto) 2.6 % Baso % (Auto) 0.3 % Neut # (Auto) 3.55 (1.4-6.5) K/uL Lymph # (Auto) 1.81 (1.2-3.4) K/uL Mccone # (Auto) 0.55 (0.11-0.59) K/uL Eos # (Auto) 0.16 (0-0.5) K/uL Baso # (Auto) 0.02 (0-0.2) K/uL Immature Gran # (Auto) 0.01 (0.00-0.02) K/uL PT 10.9 (9.0-12.0) Seconds INR 1.0 (0.9-1.1) APTT 31.4 H (21.0-31.0) Seconds PTT Ratio 1.1 Sodium 129 L (136-145) mmol/L Potassium 3.5 (3.5-5.1) mmol/L Chloride 94 L (98-107) mmol/L Carbon Dioxide 24 (21-32) mmol/L Anion Gap 11.0 (3-11) BUN 10 (7-18) mg/dl Creatinine 0.71 (0.6-1.2) mg/dl Est Cr Clr Drug Dosing 76.0 ml/min Est GFR ( Amer) 102.2 Est GFR (Non-Af Amer) 88.1 BUN/Creatinine Ratio 14.1 (10-20) Glucose 97 (70-99) mg/dl Calcium 9.2 (8.5-10.1) mg/dl Total Bilirubin 1.1 H (0.2-1) mg/dl AST 23 (15-37) U/L ALT 31 (12-78) U/L Alkaline Phosphatase 52 (45-117) U/L Troponin I 0.025 (0-0.045) ng/ml Total Protein 6.9 (6.4-8.2) gm/dl Albumin 3.5 (3.4-5.0) gm/dl Globulin 3.4 (2.5-4.0) gm/dl Albumin/Globulin Ratio 1.0 (0.9-2) Lipase 99 (73-393) U/L Urine Color Urine Appearance (Clear) Urine pH (4.5-7.5) Ur Specific [place] (1.000-1.030) Urine Protein (Negative) Urine Glucose (UA) (Negative) Urine Ketones (Negative) Urine Blood (Negative) Urine Nitrite (Negative) Urine Bilirubin (Negative) Urine Urobilinogen (Negative) Ur Leukocyte Esterase (Negative) Urine RBC (0-4) /hpf Urine WBC (0-5) /hpf Ur Epithelial Cells (0-5) /lpf Urine Bacteria (Negative) 12/09/19 12/09/19 Range/Units 20:56 23:01 WBC (4.8-10.8) K/uL RBC (4.2-5.4) M/uL Hgb (12.0-16.0) g/dL Hct (37-47) % MCV (80-100) fL MCH (25-34) pg MCHC (32-36) g/dL RDW Std Deviation (36.4-46.3) fL RDW Coeff of [place] (11.5-14.5) % Plt Count (130-400) K/uL MPV (7.4-10.4) fL Immature Gran % (Auto) % Neut % (Auto) % Lymph % (Auto) % Mccone % (Auto) % Eos % (Auto) % Baso % (Auto) % Neut # (Auto) (1.4-6.5) K/uL Lymph # (Auto) (1.2-3.4) K/uL Mccone # (Auto) (0.11-0.59) K/uL Eos # (Auto) (0-0.5) K/uL Baso # (Auto) (0-0.2) K/uL Immature Gran # (Auto) (0.00-0.02) K/uL PT (9.0-12.0) Seconds INR (0.9-1.1) APTT (21.0-31.0) Seconds PTT Ratio Sodium (136-145) mmol/L Potassium (3.5-5.1) mmol/L Chloride (98-107) mmol/L Carbon Dioxide (21-32) mmol/L Anion Gap (3-11) BUN (7-18) mg/dl Creatinine (0.6-1.2) mg/dl Est Cr Clr Drug Dosing ml/min Est GFR ( Amer) Est GFR (Non-Af Amer) BUN/Creatinine Ratio (10-20) Glucose (70-99) mg/dl Calcium (8.5-10.1) mg/dl Total Bilirubin (0.2-1) mg/dl AST (15-37) U/L ALT (12-78) U/L Alkaline Phosphatase (45-117) U/L Troponin I 0.035 (0-0.045) ng/ml Total Protein (6.4-8.2) gm/dl Albumin (3.4-5.0) gm/dl Globulin (2.5-4.0) gm/dl Albumin/Globulin Ratio (0.9-2) Lipase (73-393) U/L Urine Color Yellow Urine Appearance Clear (Clear) Urine pH 5.5 (4.5-7.5) Ur Specific [place] 1.004 (1.000-1.030) Urine Protein Negative (Negative) Urine Glucose (UA) Negative (Negative) Urine Ketones Negative (Negative) Urine Blood Negative (Negative) Urine Nitrite Negative (Negative) Urine Bilirubin Negative (Negative) Urine Urobilinogen Negative (Negative) Ur Leukocyte Esterase 2+ H (Negative) Urine RBC 0-4 (0-4) /hpf Urine WBC 0-5 (0-5) /hpf Ur Epithelial Cells 10-20 H (0-5) /lpf Urine Bacteria Negative (Negative) Imaging Data Attestation: I personally reviewed and interpreted this imaging study as follows: My Impression: Chest x-ray: No acute infiltrate, failure, pneumothorax seen ECG Data Attestation: I personally reviewed and interpreted this ECG as follows: Indication: + weakness Rate (beats per minute): 69 Rhythm: + normal sinus ECG Intervals/blocks: + Normal QRS, + Normal QT and + Normal OR ECG [place]: + Normal ECG ST segments: + Nonspecific ST abnormalities ECG Findings: no PACs and no PVCs Comparison ECG Date: from (03/07/19) Change: no significant change Additional Comments: EKG #2: Normal sinus rhythm [address] abnormality no significant change when compared to EKG #1 Blood Pressure Blood Pressure Findings: Elevated blood pressure Blood Pressure Disposition: elevated BP felt to be situational MDM Narrative This patient comes in as described above. She was placed in room B7. She is here for treatment and evaluation of feeling weak and tired and dehydrated. IV access was established and she was hydrated 1 L IV normal saline bolus. EKG does not suggest any acute ischemic changes or ectopy. Her symptoms are atypical for COVID and she has not had any COVID exposure I offered to test her but she declined. Her main complaint seems to be burning in her throat into her chest I did give her Maalox which did seem to help quite a bit. Her EKG does have some nonspecific ST abnormalities. I did observe her using her heart pathway for over 3 hours. Her second EKG shows no significant change compared to the first however she does have nonspecific ST abnormalities. Her initial troponin is normal at 0.025. The second 3-hour troponin is also in the normal range however it has increased to .035. In light of this increase, I did talk to her more about possible cardiac disease. Her father of a heart attack at age 62 and she also has high blood pressure. I think she may benefit from further cardiac work-up or admission. I have consulted Dr. Gold to see her in the ER for these measures. The patient was given aspirin 324 mg chewable and she will be seen by Dr. Gold Continuous cardiac monitoring: An order in the EMR was placed for continuous cardiac monitoring. She was noted to be in normal sinus rhythm with a rate of 70 Impression & Plan Chest pain, Hypertension, Acute dehydration, Family history of coronary artery disease Discharge Plan Visit Data Chief Complaint: Illness Stated Complaint: LIGHTHEADED, SHAKEY, DEHYDRATED, DIARRHEA ED Provider: Johnathan Avila Discharge Problem: Chest pain, Hypertension, Acute dehydration, Family history of coronary artery disease Forms Stand Alone Forms: My [email or web address] Prescriptions Prescriptions: No Action metoprolol tartrate 25 mg tablet 12.5 mg PO BID Qty: 90 RF: 1 magnesium 250 mg tablet 250 mg PO QAM RF: 0 calcium carbonate [Calcium 600] 600 mg calcium (1,500 mg) tablet 600 mg PO QAM RF: 0 multivitamin tablet 1 tab PO QAM RF: 0 omega 5-wiw-jfw-fish oil [Fish Oil] 1,000 mg (120 mg-180 mg) Capsule 1 cap PO QAM RF: 0 albuterol sulfate [Ventolin HFA] 90 mcg/actuation HFA aerosol inhaler 1 - 2 puff INH .Q4-6H PRN (Reason: shortness of breath or wheezing) RF: 0 acetaminophen [Tylenol] 325 mg Tablet 325 mg PO QID PRN (Reason: Pain) RF: 0 Discharge Problem: Chest pain Qualifiers: Chest pain type: precordial pain Qualified Code(s): R07.2 - Precordial pain Hypertension Qualifiers: Hypertension type: unspecified Qualified Code(s): I10 - Essential (primary) hypertension
[2019-12-09 21:40] LABS: Appearance Urine Clear (Clear); Bilirubin Urine Negative (Negative); Blood Urine Negative (Negative); Color Urine Yellow; Glucose Urine UA Negative (Negative); Ketones Urine Negative (Negative); Leukocyte Esterase Urine 2+ (Negative); Nitrite Urine Negative (Negative); Protein Urine Negative (Negative); Specific Gravity Urine 1.004 (1.000-1.030); Urobilinogen Urine Negative (Negative); pH Urine 5.5 (4.5-7.5)
[2019-12-09] MEDS ORDERED: SODIUM CHLORIDE 0.9% 1000ML 500 ML IV ONE (21:44)
[2019-12-09 22:00] LABS: Bacteria Urine Negative (Negative); RBC Urine 0-4 /hpf (0-4); WBC Urine 0-5 /hpf (0-5)
[2019-12-09 23:32] LABS: Troponin I 0.035 ng/ml (0-0.045)
[2019-12-10] MEDS ORDERED: ASPIRIN 81 MG CHEW PO STA (00:36)
--- NOTE | 2019-12-10 03:46 | History & Physical Report ---
Date of Service December 10, 2019 Assessment & Plan (1) Epigastric pain: Patient describes epigastric burning that started after she had diarrhea. Symptoms are slightly improved with Maalox. Suspect GERD. Her troponin is detectable at baseline. No acute EKG changes. No anginal symptoms. Do not feel strongly that this discomfort is cardiac in nature. -Observation to medical floor -GI cocktail PRN -Repeat troponin in AM Present on Admission?: Yes (2) Hyponatremia: Qp=467. Possibly secondary to mild dehydration. Patient given 1.5L NSS in the ER. She is able to tolerate PO. -Check urine and serum osm, urine Na -Repeat chemistry panel in AM Present on Admission?: Yes (3) Hypertension: Blood pressure well controlled -Continue Metoprolol 12.5mg po BID Present on Admission?: Yes (4) Anxiety: Chronic. Patient uses medical marijuana to manage her anxiety. States she is still trying to find the right balance. She takes marijuana tincture at night to help her nightmares Present on Admission?: Yes (5) Asthma: Exercise induced asthma. Well controlled -Albuterol as needed Present on Admission?: Yes (6) Paroxysmal atrial fibrillation: Rate controlled. Patient is low risk. No anticoagulation -Continue Metoprolol F/E/N - Heplock. Na as above. Heart healthy diet as tolerated Ppx - Low risk for DVT Code - Full Dispo - Observation to medical floor, hyponatremia workup and repeat troponin in AM Present on Admission?: Yes History of Present Illness Chief Complaint: feeling ill Primary Care Provider: DAVIS Arreola Sheila Worthington is a 69yo C female with history of Anxiety, HTN, PAF presenting with feeling ill. Patient reports that she had two days of diarrhea three days ago - watery, non-bloody, 5-6 episodes the first day then 2-3 episodes. Since then she reports epigastric burning and a bad taste in her mouth, tongue feels sore. She took Tylenol with some relief. Patient denies fever/chills/cough/SOB/CP/nausea/vomiting/constipation/palpitations Patient is active and independent at home. She walks frequently and uses a treadmill. No exertional symptoms of dyspnea or chest pain ER Course: ASA, NSS, Maalox with improvement in symptoms Allergies Allergy/AdvReac Type Severity Reaction Status Date / Time No Known Drug Allergies Allergy Verified 12/09/19 21:03 Home Medications Home Medications Medication Instructions Recorded Confirmed Type calcium carbonate 600 mg calcium 600 mg PO QAM tab 01/09/19 12/09/19 History (1,500 mg) tablet magnesium 250 mg tablet 250 mg PO QAM tab 01/09/19 12/09/19 History multivitamin 1 tab PO QAM 01/09/19 12/09/19 History omega 9-oet-fsw-fish oil [Fish Oil] 1 cap PO QAM 02/28/19 12/09/19 History metoprolol tartrate 25 mg tablet 12.5 mg PO BID #90 tab 09/14/19 12/09/19 Rx acetaminophen [Tylenol] 325 mg PO QID PRN 12/09/19 12/09/19 History albuterol sulfate [Ventolin HFA] 1 - 2 puff INH .Q4-6H PRN 12/09/19 12/09/19 History Past Med/Surg History Medical History Anxiety controlled with Medical [facility] Asthma Bony exostosis Chronic sinusitis Hypertension Paroxysmal atrial fibrillation Varicose veins of bilateral lower extremities with other complications Surgical History H/O blepharoplasty H/O ovarian cystectomy right ovary H/O tooth extraction History of appendectomy Hx of tubal ligation S/P skin biopsy benign Family History Mother Colorectal cancer Alzheimer disease Diabetes Hypertension Father Myocardial infarction, Onset Age: 62 Diabetes Hypertension Sister Hypertension Lymphoma Breast cancer, Onset Age: 70 Family/Other Prostate cancer Ovarian cancer Social History Smoking Status: Never smoker Second Hand Exposure: No; Hx Alcohol Use: Yes Alcohol Intake Frequency Comment: occasionally Hx Substance Use: No Preferred Language: Icelandic Communication Ability: Effective Visual Impairment: No Limitations Hearing Ability: Normal Benefits Administrator Required: No Beliefs That Will Affect Care: None marital status: Current Living Situation: Spouse current occupational status: retired Feels Safe at Home: Yes Childhood Exposure to Second-Hand Smoke: No caffeine: Yes (Cofee 1 per day. ) during the past year weight has: remained stable Dental Care, Regularly: Yes Physical Activity Frequency: 5-6 Times per Week Seatbelt Use: always Sunscreen Use: No Review of Systems Review of Systems: All systems reviewed & are unremarkable except as noted in HPI & below +Dry cough - chronic and unchanged Physical Exam Physical Exam: General: patient resting comfortably, NAD, non-toxic in appearance, AA&O x 4 Skin: warm, dry, intact, no rashes or lesions HEENT: NC/AT, PERRL, EOMI, anicteric sclera, conjunctiva without injection, external ear normal to inspection and nontender, nares patent, moist mucus membranes, dentition intact, no oropharyngeal lesions, neck supple, trachea midline, no LAD, no thyromegaly, no JVD Heart: +S1/S2, regular, no m/r/g Lungs: equal air entry bilaterally, no rales/rhonchi/wheezes Abd: +BS, soft, NT/ND, no masses/organomegaly/ascites Ext: warm, 2+ pulses in UE/LE bilaterally, no clubbing/cyanosis or edema Neuro: nonfocal, patient AA&O x 4, speech intact, no facial droop, moving all extremities on command with equal strength 5/5 Results & Data Results & Data ([facility]) Vital Signs (Past 12 Hours) Vital Signs Temp Pulse Resp BP Pulse Ox 12/10/19 03:00 75 18 141/68 H 95 12/10/19 02:30 68 18 110/65 94 12/10/19 02:00 60 18 129/73 95 12/10/19 01:30 65 20 156/73 H 96 12/10/19 01:00 60 20 132/71 95 12/10/19 00:30 64 18 155/96 H 95 12/10/19 00:00 69 20 138/77 95 12/09/19 23:30 68 20 130/74 94 12/09/19 23:04 66 16 139/81 96 12/09/19 22:30 64 20 123/70 96 12/09/19 22:00 66 16 152/96 H 96 12/09/19 21:30 70 20 135/84 94 12/09/19 21:00 77 16 138/93 96 12/09/19 20:30 78 18 176/94 H 97 12/09/19 20:10 97 12/09/19 20:05 72 16 155/88 H 97 12/09/19 19:50 36.3 C L 79 20 170/99 H 98 Laboratory Results Lab Results 12/09/19 12/09/19 12/09/19 Range/Units 20:10 20:10 20:10 WBC 6.10 (4.8-10.8) K/uL RBC 3.95 L (4.2-5.4) M/uL Hgb 12.3 (12.0-16.0) g/dL Hct 34.9 L (37-47) % MCV 88.4 (80-100) fL MCH 31.1 (25-34) pg MCHC 35.2 (32-36) g/dL RDW Std Deviation 38.5 (36.4-46.3) fL RDW Coeff of [place] 11.9 (11.5-14.5) % Plt Count 244 (130-400) K/uL MPV 8.5 (7.4-10.4) fL Immature Gran % (Auto) 0.2 % Neut % (Auto) 58.2 % Lymph % (Auto) 29.7 % Garrett % (Auto) 9.0 % Eos % (Auto) 2.6 % Baso % (Auto) 0.3 % Neut # (Auto) 3.55 (1.4-6.5) K/uL Lymph # (Auto) 1.81 (1.2-3.4) K/uL Garrett # (Auto) 0.55 (0.11-0.59) K/uL Eos # (Auto) 0.16 (0-0.5) K/uL Baso # (Auto) 0.02 (0-0.2) K/uL Immature Gran # (Auto) 0.01 (0.00-0.02) K/uL PT 10.9 (9.0-12.0) Seconds INR 1.0 (0.9-1.1) APTT 31.4 H (21.0-31.0) Seconds PTT Ratio 1.1 Sodium 129 L (136-145) mmol/L Potassium 3.5 (3.5-5.1) mmol/L Chloride 94 L (98-107) mmol/L Carbon Dioxide 24 (21-32) mmol/L Anion Gap 11.0 (3-11) BUN 10 (7-18) mg/dl Creatinine 0.71 (0.6-1.2) mg/dl Est Cr Clr Drug Dosing 76.0 ml/min Est GFR ( Amer) 102.2 Est GFR (Non-Af Amer) 88.1 BUN/Creatinine Ratio 14.1 (10-20) Glucose 97 (70-99) mg/dl Calcium 9.2 (8.5-10.1) mg/dl Total Bilirubin 1.1 H (0.2-1) mg/dl AST 23 (15-37) U/L ALT 31 (12-78) U/L Alkaline Phosphatase 52 (45-117) U/L Troponin I 0.025 (0-0.045) ng/ml Total Protein 6.9 (6.4-8.2) gm/dl Albumin 3.5 (3.4-5.0) gm/dl Globulin 3.4 (2.5-4.0) gm/dl Albumin/Globulin Ratio 1.0 (0.9-2) Lipase 99 (73-393) U/L Urine Color Urine Appearance (Clear) Urine pH (4.5-7.5) Ur Specific [place] (1.000-1.030) Urine Protein (Negative) Urine Glucose (UA) (Negative) Urine Ketones (Negative) Urine Blood (Negative) Urine Nitrite (Negative) Urine Bilirubin (Negative) Urine Urobilinogen (Negative) Ur Leukocyte Esterase (Negative) Urine RBC (0-4) /hpf Urine WBC (0-5) /hpf Ur Epithelial Cells (0-5) /lpf Urine Bacteria (Negative) 12/09/19 12/09/19 Range/Units 20:56 23:01 WBC (4.8-10.8) K/uL RBC (4.2-5.4) M/uL Hgb (12.0-16.0) g/dL Hct (37-47) % MCV (80-100) fL MCH (25-34) pg MCHC (32-36) g/dL RDW Std Deviation (36.4-46.3) fL RDW Coeff of [place] (11.5-14.5) % Plt Count (130-400) K/uL MPV (7.4-10.4) fL Immature Gran % (Auto) % Neut % (Auto) % Lymph % (Auto) % Garrett % (Auto) % Eos % (Auto) % Baso % (Auto) % Neut # (Auto) (1.4-6.5) K/uL Lymph # (Auto) (1.2-3.4) K/uL Garrett # (Auto) (0.11-0.59) K/uL Eos # (Auto) (0-0.5) K/uL Baso # (Auto) (0-0.2) K/uL Immature Gran # (Auto) (0.00-0.02) K/uL PT (9.0-12.0) Seconds INR (0.9-1.1) APTT (21.0-31.0) Seconds PTT Ratio Sodium (136-145) mmol/L Potassium (3.5-5.1) mmol/L Chloride (98-107) mmol/L Carbon Dioxide (21-32) mmol/L Anion Gap (3-11) BUN (7-18) mg/dl Creatinine (0.6-1.2) mg/dl Est Cr Clr Drug Dosing ml/min Est GFR ( Amer) Est GFR (Non-Af Amer) BUN/Creatinine Ratio (10-20) Glucose (70-99) mg/dl Calcium (8.5-10.1) mg/dl Total Bilirubin (0.2-1) mg/dl AST (15-37) U/L ALT (12-78) U/L Alkaline Phosphatase (45-117) U/L Troponin I 0.035 (0-0.045) ng/ml Total Protein (6.4-8.2) gm/dl Albumin (3.4-5.0) gm/dl Globulin (2.5-4.0) gm/dl Albumin/Globulin Ratio (0.9-2) Lipase (73-393) U/L Urine Color Yellow Urine Appearance Clear (Clear) Urine pH 5.5 (4.5-7.5) Ur Specific [place] 1.004 (1.000-1.030) Urine Protein Negative (Negative) Urine Glucose (UA) Negative (Negative) Urine Ketones Negative (Negative) Urine Blood Negative (Negative) Urine Nitrite Negative (Negative) Urine Bilirubin Negative (Negative) Urine Urobilinogen Negative (Negative) Ur Leukocyte Esterase 2+ H (Negative) Urine RBC 0-4 (0-4) /hpf Urine WBC 0-5 (0-5) /hpf Ur Epithelial Cells 10-20 H (0-5) /lpf Urine Bacteria Negative (Negative) ECG Additional Comments: No acute ischemic changes PG Care Time/CCT Total # of Minutes Spent Total Time Spent with Patient: Total time spent is greater than 50% in coordination of care (as documented) at patient's floor/unit and/or counseling patient: Coding Level of Care Code 51745 OBS Care - Level 3 Diagnoses Epigastric pain R10.13 Hyponatremia E87.1 Hypertension I10 Hypertension type: unspecified Anxiety F41.9 Asthma J45.20 Asthma severity: mild Asthma persistence: intermittent Asthma complication type: uncomplicated Paroxysmal atrial fibrillation I48.0 (1) Hypertension Hypertension type: unspecified Qualified Code(s): I10 - Essential (primary) hypertension (2) Asthma Asthma severity: mild Asthma persistence: intermittent Asthma complication type: uncomplicated Qualified Code(s): J45.20 - Mild intermittent asthma, uncomplicated
[2019-12-10] MEDS ORDERED: ACETAMINOPHEN 325 MG TAB PO PRN ×2 (04:10)
[2019-12-10] MEDS ORDERED: ONDANSETRON INJ 2 MG/ML 2 ML VIAL IV PRN (04:10)
[2019-12-10] MEDS ORDERED: ALUMINUM/MAGNESIUM SUSP 72 ML, LIDOCAINE HCL VISCOUS 2% 24 ML, BARCODE IDENTIFIER 1 EA PO PRN (04:10)
[2019-12-10 04:38] LABS: Magnesium 1.4 mg/dl (1.8-2.4)
[2019-12-10] MEDS ORDERED: PNEUMOCOCCAL Polysaccharide Vaccine 25mcg/0.5mL vial/Syr IM ONE (08:00)
[2019-12-10 08:54] LABS: BUN Creatinine Ratio 12.8 (10-20); Creatinine Clr Calc Pharmacy 82.5 ml/min; Est GFR (African American) 106.5; Est GFR (Non-African American) 91.9; Potassium 3.6 mmol/L (3.5-5.1)
[2019-12-10] MEDS ORDERED: METOPROLOL TARTRATE 25 MG TAB PO SCH (09:00)
--- NOTE | 2019-12-10 09:29 | XRay Report ---
XR chest 1V portable HISTORY: 69 years-old Female Chest Pain acute atypical chest pain COMPARISON: Chest radiograph 03/07/2019 TECHNIQUE: Portable AP view of the chest FINDINGS: Cardiomediastinal and hilar silhouettes are within normal limits. There is no pneumothorax, pleural e ffusion, airspace consolidation or overt pulmonary edema. Bones of the chest appear grossly intact. IMPRESSION: No acute process. ACT 112: Negative or not required by law. The above report was generated using voice recognition software. It may contain grammatical, syntax o r spelling errors. Electronically signed by: Dominic Houser M.D. 12/10/2019 9:27 AM
--- NOTE | 2019-12-10 11:32 | Electrocardiogram Report ---
Test Reason : Blood Pressure : / mmHG Vent. Rate : 069 BPM Atrial Rate : 069 BPM P-R Int : 146 ms QRS Dur : 078 ms QT Int : 400 ms P-R-T Axes : 052 055 079 degrees QTc Int : 428 ms Normal sinus rhythm Nonspecific ST abnormality Abnormal ECG When compared with ECG of 07-MAR-2019 10:27, No significant change was found Confirmed by Anders Young ([id number]) on 12/10/2019 11:31:56 AM Referred By: REFERRED SELF Confirmed By:Anders Young
--- NOTE | 2019-12-10 11:34 | Electrocardiogram Report ---
Test Reason : Blood Pressure : / mmHG Vent. Rate : 066 BPM Atrial Rate : 066 BPM P-R Int : 148 ms QRS Dur : 082 ms QT Int : 412 ms P-R-T Axes : 054 056 074 degrees QTc Int : 431 ms Normal sinus rhythm Nonspecific ST abnormality Abnormal ECG When compared with ECG of 09-DEC-2019 20:05, (unconfirmed) No significant change was found Confirmed by Anders Young ([id number]) on 12/10/2019 11:34:20 AM Referred By: REFERRED SELF Confirmed By:Anders Young
--- NOTE | 2019-12-10 14:00 | Discharge Summary ---
Date of Service December 10, 2019 Admission HPI Per Admitting Provider Sheila Worthington is a 69yo C female with history of Anxiety, HTN, PAF presenting with feeling ill. Patient reports that she had two days of diarrhea three days ago - watery, non-bloody, 5-6 episodes the first day then 2-3 episodes. Since then she reports epigastric burning and a bad taste in her mouth, tongue feels sore. She took Tylenol with some relief. Patient denies fever/chills/cough/SOB/CP/nausea/vomiting/con stipation/palpitations Patient is active and independent at home. She walks frequently and uses a treadmill. No exertional symptoms of dyspnea or chest pain ER Course: ASA, NSS, Maalox with improvement in symptoms Principal Diagnosis Mild GI bug with some dehydration Discharge Exam Constitutional WD/WN, vitals as above Eyes EOM intact bilaterally; no conjunctival abnormality ENMT external ear and nose normal, oropharynx normal Neck trachea midline, no thyromegaly normal visual inspection Respiratory normal respiratory effort, lungs clear to auscultation no respiratory distress Cardiovascular RRR, no murmur, no edema Gastrointestinal (Abdomen) Inspection/Auscultation: abdomen normal to inspection; abdomen not distended Musculoskeletal no cyanosis or clubbing, extremities motor strength 5/5 Skin no rashes, warm and dry Neurologic moves all extremities and awake Psychiatric Orientation: alert, oriented to person and cooperative Discharge Data Allergies Allergy/AdvReac Type Severity Reaction Status Date / Time No Known Drug Allergies Allergy Verified 12/09/19 21:03 Consultations 12/10/19 00:35 ED Decision to Admit Stat Hospital Course (1) Epigastric pain: Patient describes epigastric burning that started after she had diarrhea. Symptoms are slightly improved with Maalox. Suspect GERD. Her troponin is detectable at baseline. No acute EKG changes. No anginal symptoms. Do not feel strongly that this discomfort is cardiac in nature. -Observation to medical floor -GI cocktail PRN -Repeat troponin in AM was negative. Improved with Mylanta. Likely heart burn. (2) Hyponatremia: Bn=732. Possibly secondary to mild dehydration. Patient given 1.5L NSS in the ER. She is able to tolerate PO. - Repeat chemistry panel in AM had normal Na (139). Likely hypovolemic hyponatremia from diarrhea and poor PO intake. She was encouraged to drink Pedialyte to stay hydrated if diarrhea returned. (3) Hypertension: Blood pressure well controlled -Continue Metoprolol 12.5mg po BID (4) Anxiety: Chronic. Patient uses medical marijuana to manage her anxiety. States she is still trying to find the right balance. She takes marijuana tincture at night to help her nightmares (5) Asthma: Exercise induced asthma. Well controlled -Albuterol as needed (6) Paroxysmal atrial fibrillation: Rate controlled. Patient is low risk. No anticoagulation -Continue Metoprolol F/E/N - Heplock. Na as above. Heart healthy diet as tolerated Ppx - Low risk for DVT Code - Full Dispo - Observation to medical floor, hyponatremia workup and repeat troponin in AM Total Time Total Time Spent Total Time Spent (In Minutes): 25 Discharge Plan Discharge Items Patient Disposition: Home - Self-Care Reason For Visit: ILLNESS Discharge Diagnosis: GI illness Activity: Resume your previous activity Non-emergency contact: Primary Care Provider Call non-emergency contact if: your symptoms worsen Follow-up/Referrals: Malvin Freeman CRNP [Primary Care Provider] - Diet: Regular Addtl Attending Provider Instructions: You were admitted with some epigastric pain and low sodium. The pain in the chest area was likely not heart-related as your testing came back normal. Additionally, your sodium was a bit low when you first came to the hospital and now it is normal after some IV fluids. This was likely due to your diarrhea. As we discussed, please stay hydrated with Pedia-lyte (mixed with ice or some water if it's too salty). If your diarrhea comes back, please use Imodium a few times to see if that helps. If you feel well by Wednesday, you do not really need to follow up with your PCP apart from your regular check-up. Pending Studies at Discharge: No Stand-Alone Forms: My [employer], Smoking Cessation Medications and DC Order Prescriptions: Continued metoprolol tartrate 25 mg tablet 12.5 mg PO BID Qty: 90 RF: 1 magnesium 250 mg tablet 250 mg PO QAM RF: 0 calcium carbonate [Calcium 600] 600 mg calcium (1,500 mg) tablet 600 mg PO QAM RF: 0 multivitamin tablet 1 tab PO QAM RF: 0 omega 5-usv-kqw-fish oil [Fish Oil] 1,000 mg (120 mg-180 mg) Capsule 1 cap PO QAM RF: 0 albuterol sulfate [Ventolin HFA] 90 mcg/actuation HFA aerosol inhaler 1 - 2 puff INH .Q4-6H PRN (Reason: shortness of breath or wheezing) RF: 0 acetaminophen [Tylenol] 325 mg Tablet 325 mg PO QID PRN (Reason: Pain) RF: 0 Discharge Orders: Discharge Order (Routine); Ordered 12/10/19 Ordered By: Homero Cantrell/Other Patient Handouts: Hyponatremia Dc, ED Dehydration (Adult) Admission Data Admit Date/Time: 12/10/19 01:45 Attending Provider: Homero Bond Admit Provider: Felicia Gold Primary Care Provider: Malvin Freeman Other Providers: Homero Bond Other Interventions: Discharge Summary Assessment (RN) Last Done: 12/10/19 12:16 Coding Level of Care Code 53189 OBS Care - Discharge Diagnoses Epigastric pain R10.13 Hyponatremia E87.1 Hypertension I10 Hypertension type: unspecified Anxiety F41.9 Asthma J45.20 Asthma severity: mild Asthma persistence: intermittent Asthma complication type: uncomplicated Paroxysmal atrial fibrillation I48.0
== END 2019-12-10 13:20 | disposition home or self-care (01) ==
LOC: 3E 19:33 → ED 19:33 → SUATTDRO 12-10 01:45 → 3E 12-10 03:55

== ENCOUNTER 2021-02-16 05:47 | Inpatient (IN) ==
[2021-02-16] MEDS ORDERED: SODIUM CHLORIDE 0.9% 1000ML 500 ML IV ONE ×2 (06:24→06:33)
[2021-02-16 06:31] LABS: Basophils # (auto) 0.01 K/uL (0-0.2); Basophils % (auto) 0.2 %; Eosinophils # (auto) 0.09 K/uL (0-0.5); Eosinophils % (auto) 2.1 %; Hematocrit (blood only) 46.3 % (37-47); Hemoglobin 15.2 g/dL (12.0-16.0); Immature Granulocytes # (auto) 0.01 K/uL (0.00-0.02); Immature Granulocytes % (auto) 0.2 %; Lymphocytes # (auto) 1.94 K/uL (1.2-3.4); Lymphocytes % (auto) 45.1 %; Mean Corpuscular Hgb Conc 32.8 g/dL (32-36); Mean Corpuscular Volume 94.5 fL (80-100); Monocytes # (auto) 0.36 K/uL (0.11-0.59); Monocytes % (auto) 8.4 %; Neutrophils # (auto) 1.89 K/uL (1.4-6.5); Platelet Count 186 K/uL (130-400); RDW Coefficient of Variation 13.1 % (11.5-14.5); RDW Standard Deviation 45.6 fL (36.4-46.3)
[2021-02-16] MEDS ORDERED: METOPROLOL TARTRATE 1 MG/ML VIAL IV STA ×3 (06:33→08:58)
[2021-02-16] MEDS ORDERED: METOPROLOL TARTRATE 50 MG TAB PO STA (06:38)
--- NOTE | 2021-02-16 06:38 | Emergency Department Note ---
Impression & Plan Atrial fibrillation with rapid ventricular response, Pneumonia, Elevated troponin, COVID-19 ED Provider Note NAME: MJ CUETO AGE: 70 SEX: F : 1950 ARRIVES VIA: Walk-In INFORMANT: [Patient] ED PROVIDER(S): [Gallito Berry MD] CHIEF COMPLAINT: Palpitations HISTORY OF PRESENT ILLNESS: The patient is a 70-year-old female presents to the ER with palpitations that h ave been occurring all night. She has had some sweats. No shortness of breath, no chest pain. The patient recently got over a flulike illness but then yesterday, began with some diarrhea. She actually thinks she may be dehydrated. There has been no abdominal pain. The diarrhea is loose and watery, not black or bloody. She has a history of paroxysmal atrial fibrillation and takes metoprolol for rate control, she has not taken any metoprolol yet this morning. The patient is not vaccinated against COVID-19. She was not tested when she was sick with this flulike illness. REVIEW OF SYSTEMS: See HPI for pertinent positives and negatives. A total of ten systems were reviewed and were otherwise negative. PMHx/PSHx: See Below SOCIAL HISTORY: See Below. PHYSICAL EXAM: GENERAL: Patient is in no acute distress. HEENT: No acute trauma, normocephalic atraumatic, mucous membranes moist, no nasal congestion, no scleral icterus. NECK: No stridor, no adenopathy, no meningismus, trachea is midline. LUNGS: A few scattered crackles heard at both bases, no wheezing, no respiratory distress. HEART: Tachycardic with a somewhat irregular rhythm, no murmurs. ABDOMEN: Soft, nontender, bowel sounds positive, no hernias, no peritonitis. EXTREMITIES: No cyanosis or edema, full range of motion of all the joints without pain or difficulty, no signs for acute trauma. NEUROLOGIC: Oriented x 3, no acute motor or sensory deficits, no focal weakness. SKIN: No rash, no jaundice, no diaphoresis. DIFFERENTIAL DIAGNOSIS: Infection, dehydration, metabolic abnormality, hypo/hyperglycemia, dysrhythmia, A. fib, a flutter, SVT, COVID-19, influenza, electrolyte disturbance, anemia, hypoxia, as well as other pathologies. EMERGENCY DEPARTMENT COURSE/PROCEDURES: ECG: Indication was palpitations. The ECG shows a rapid atrial fibrillation with a rate of 150. There is some nonspecific ST change. No ST elevation. No PVCs. The QTc is 474. Continuous Cardiac Monitoring: An order was placed for continuous cardiac monitoring. The monitor shows a rate of 131 with atrial fibrillation. Critical Care Note: I have personally spent 46 minutes of critical care time in the direct management of this patient. This includes bedside care, interpretation of diagnostic studies, and testing, discussion with consultants, patient, and family members, and other required patient management activities. This 46 minutes is in excess of all separately billable procedures. MEDICAL DECISION MAKING: There is no leukocytosis, in fact, the white count is slightly low and more consistent with a viral illness. There is a normal hemoglobin and platelet count. No coagulopathy. No significant electrolyte abnormality or kidney failure. No liver enzyme elevation. The patient had a mildly elevated TSH however, her T4 was normal. Covid testing returned positive. ECG showed a rapid A. fib without any acute ischemia. Cardiac enzyme testing x1 was slightly elevated. This elevation is likely consistent with her tachycardia and some cardiac strain. Chest film does show some parenchymal congestion consistent with potential viral pneumonia or atelectasis. No pneumothorax, no CHF. Chest CT does not show PE, a viral pneumonia was suspected. On exam, the patient did not seem distressed. She was nontoxic-appearing. The patient was given 1 L of IV saline. She was given IV Lopressor 5 mg and then another 5 mg IV. She received oral metoprolol, 25 mg. The patient's heart rate has decreased. She does seem more comfortable. The patient is in need of a hospital stay. She presents in rapid A. fib and has an elevated troponin. She is testing positive for COVID-19. Her troponin will need to be trended. Her heart rate needs controlled, she may qualify for anticoagulation. I did speak with the patient and case management. The on-call hospitalist was consulted. Patient is aware of all her findings. Past Med/Surg History Medical History Anxiety controlled with Medical MJ Asthma Bony exostosis Chronic sinusitis GERD without esophagitis Hyperlipidemia Hypertension Paroxysmal atrial fibrillation Varicose veins of bilateral lower extremities with other complications Surgical History H/O blepharoplasty H/O ovarian cystectomy right ovary H/O tooth extraction History of appendectomy Hx of tubal ligation S/P skin biopsy benign Family History Mother Colorectal cancer Alzheimer disease Diabetes Hypertension Father Myocardial infarction, Onset Age: 62 Diabetes Hypertension Sister Hypertension Lymphoma Breast cancer, Onset Age: 70 Family/Other Prostate cancer Ovarian cancer Social History Smoking Status: Never smoker Second Hand Exposure: No; Hx Alcohol Use: No Hx Substance Use: No Preferred Language: Vietnamese Communication Ability: Effective Visual Impairment: No Limitations Hearing Ability: Normal Marble Cleaner Required: No Beliefs That Will Affect Care: None marital status: Current Living Situation: Spouse current occupational status: retired Feels Safe at Home: Yes Childhood Exposure to Second-Hand Smoke: No caffeine: Yes (Cofee 1 per day. ) during the past year weight has: remained stable Dental Care, Regularly: Yes Physical Activity Frequency: 5-6 Times per Week Seatbelt Use: always Sunscreen Use: No Assistive Devices: None Allergies Allergies Allergy/AdvReac Type Severity Reaction Status Date / Time No Known Drug Allergies Allergy Verified 02/16/21 07:32 Home Meds Home Medications Medication Instructions Recorded Confirmed calcium carbonate 600 mg calcium 600 mg PO QAM tab 01/09/19 02/16/21 (1,500 mg) tablet (Calcium) magnesium 250 mg tablet 250 mg PO QAM tab 01/09/19 02/16/21 omega 0-[id number]-fish oil 1,000 mg 1 cap PO QAM 02/28/19 02/16/21 (120 mg-180 mg) capsule (Fish Oil) albuterol sulfate 90 mcg/actuation 1 - 2 puff INH .Q4-6H PRN 12/09/19 02/16/21 aerosol inhaler (Ventolin HFA) cholecalciferol (vitamin D3) 25 25 mcg PO QAM 03/02/20 02/16/21 mcg (1,000 unit) tablet zinc 50 mg tablet 0 mg PO DAILY 02/16/21 02/16/21 Previous Rx's Medication Instructions Recorded metoprolol tartrate 25 mg tablet 12.5 mg PO BID #90 tab 08/28/20 Results & Data (ED) Vital Signs Vital Signs - 24 hr 02/16/21 05:52 02/16/21 06:16 02/16/21 06:17 Temperature 36.9 C Temperature Source Temporal Artery Scan Pulse Rate 132 H 140 H 159 H Pulse Rate [Apical] Pulse Rate from SpO2 Sensor 115 H Pulse Rhythm Irregular Pulse Rhythm [Apical] Respiratory Rate 20 14 14 Respiratory Effort / Characteristics Respiratory Depth Blood Pressure 130/91 144/102 H Blood Pressure [Right Arm] Blood Pressure Mean 104 116 Blood Pressure Mean [Right Arm] Blood Pressure Position [Right Arm] Pulse Oximetry 97 100 100 Oxygen Delivery Method Room Air Room Air Sepsis Recent Fever Within 48 Hours No Sepsis New/Unexplained Change in Mental Status N/A Sepsis Action Taken by Nursing No Action Required 02/16/21 06:30 02/16/21 06:38 02/16/21 07:12 Temperature Temperature Source Pulse Rate 153 H 118 H Pulse Rate [Apical] 123 H Pulse Rate from SpO2 Sensor 84 Pulse Rhythm Pulse Rhythm [Apical] Irregular Respiratory Rate 12 18 Respiratory Effort / Characteristics Non-Labored Respiratory Depth Normal Blood Pressure 128/88 Blood Pressure [Right Arm] 133/98 Blood Pressure Mean Blood Pressure Mean [Right Arm] 109 Blood Pressure Position [Right Arm] Sitting Pulse Oximetry 98 99 Oxygen Delivery Method Room Air Sepsis Recent Fever Within 48 Hours Sepsis New/Unexplained Change in Mental Status Sepsis Action Taken by Nursing 02/16/21 07:19 02/16/21 07:23 02/16/21 09:00 Temperature Temperature Source Pulse Rate 117 H Pulse Rate [Apical] 87 89 Pulse Rate from SpO2 Sensor Pulse Rhythm Pulse Rhythm [Apical] Irregular Respiratory Rate 18 18 Respiratory Effort / Characteristics Non-Labored Non-Labored Respiratory Depth Normal Normal Blood Pressure 133/98 Blood Pressure [Right Arm] 140/89 142/94 H Blood Pressure Mean Blood Pressure Mean [Right Arm] 106 110 Blood Pressure Position [Right Arm] Sitting Pulse Oximetry 98 95 Oxygen Delivery Method Room Air Room Air Sepsis Recent Fever Within 48 Hours Sepsis New/Unexplained Change in Mental Status Sepsis Action Taken by Snf Medications Current Medication List: was personally reviewed by me Laboratory Data Attestation: I reviewed the patient's lab results. Result diagrams: 02/16/21 06:20 02/16/21 06:20 Lab Results 02/16/21 02/16/21 02/16/21 Range/Units 06:20 06:20 06:20 WBC 4.30 L (4.8-10.8) K/uL RBC 4.90 (4.2-5.4) M/uL Hgb 15.2 (12.0-16.0) g/dL Hct 46.3 (37-47) % MCV 94.5 (80-100) fL MCH 31.0 (25-34) pg MCHC 32.8 (32-36) g/dL RDW Std Deviation 45.6 (36.4-46.3) fL RDW Coeff of Vernon 13.1 (11.5-14.5) % Plt Count 186 (130-400) K/uL MPV 9.0 (7.4-10.4) fL Immature Gran % (Auto) 0.2 % Neut % (Auto) 44.0 % Lymph % (Auto) 45.1 % Barber % (Auto) 8.4 % Eos % (Auto) 2.1 % Baso % (Auto) 0.2 % Neut # (Auto) 1.89 (1.4-6.5) K/uL Lymph # (Auto) 1.94 (1.2-3.4) K/uL Barber # (Auto) 0.36 (0.11-0.59) K/uL Eos # (Auto) 0.09 (0-0.5) K/uL Baso # (Auto) 0.01 (0-0.2) K/uL Immature Gran # (Auto) 0.01 (0.00-0.02) K/uL PT 9.8 (9.0-12.0) Seconds INR 1.0 (0.9-1.1) APTT 30.3 (21.0-31.0) Seconds PTT Ratio 1.2 Sodium 136 (136-145) mmol/L Potassium 3.8 (3.5-5.1) mmol/L Chloride 102 (98-107) mmol/L Carbon Dioxide 28 (21-32) mmol/L Anion Gap 6.0 (3-11) BUN 8 (7-18) mg/dl Creatinine 0.81 (0.6-1.2) mg/dl Est Cr Clr Drug Dosing 59.8 ml/min Est GFR ( Amer) 86.5 ml/min Est GFR (Non-Af Amer) 74.6 ml/min BUN/Creatinine Ratio 10.0 (10-20) Glucose 127 H (70-99) mg/dl Calcium 9.4 (8.5-10.1) mg/dl Magnesium 1.9 (1.8-2.4) mg/dl Total Bilirubin 0.6 (0.2-1) mg/dl AST 33 (15-37) U/L ALT 57 (12-78) Alkaline Phosphatase 63 (45-117) U/L Troponin I 0.106 H* (0-0.045) ng/ml Total Protein 8.1 (6.4-8.2) gm/dl Albumin 3.8 (3.4-5.0) gm/dl Globulin 4.3 H (2.5-4.0) gm/dl Albumin/Globulin Ratio 0.9 (0.9-2) Lipase 180 (73-393) U/L TSH 5.950 H (0.300-4.500) uIu/ml Free T4 1.30 (0.8-1.6) ng/dl SARS-CoV-2, RNA, NAAT (NEGATIVE) 02/16/21 Range/Units 06:45 WBC (4.8-10.8) K/uL RBC (4.2-5.4) M/uL Hgb (12.0-16.0) g/dL Hct (37-47) % MCV (80-100) fL MCH (25-34) pg MCHC (32-36) g/dL RDW Std Deviation (36.4-46.3) fL RDW Coeff of Vernon (11.5-14.5) % Plt Count (130-400) K/uL MPV (7.4-10.4) fL Immature Gran % (Auto) % Neut % (Auto) % Lymph % (Auto) % Barber % (Auto) % Eos % (Auto) % Baso % (Auto) % Neut # (Auto) (1.4-6.5) K/uL Lymph # (Auto) (1.2-3.4) K/uL Barber # (Auto) (0.11-0.59) K/uL Eos # (Auto) (0-0.5) K/uL Baso # (Auto) (0-0.2) K/uL Immature Gran # (Auto) (0.00-0.02) K/uL PT (9.0-12.0) Seconds INR (0.9-1.1) APTT (21.0-31.0) Seconds PTT Ratio Sodium (136-145) mmol/L Potassium (3.5-5.1) mmol/L Chloride (98-107) mmol/L Carbon Dioxide (21-32) mmol/L Anion Gap (3-11) BUN (7-18) mg/dl Creatinine (0.6-1.2) mg/dl Est Cr Clr Drug Dosing ml/min Est GFR ( Amer) ml/min Est GFR (Non-Af Amer) ml/min BUN/Creatinine Ratio (10-20) Glucose (70-99) mg/dl Calcium (8.5-10.1) mg/dl Magnesium (1.8-2.4) mg/dl Total Bilirubin (0.2-1) mg/dl AST (15-37) U/L ALT (12-78) Alkaline Phosphatase (45-117) U/L Troponin I (0-0.045) ng/ml Total Protein (6.4-8.2) gm/dl Albumin (3.4-5.0) gm/dl Globulin (2.5-4.0) gm/dl Albumin/Globulin Ratio (0.9-2) Lipase (73-393) U/L TSH (0.300-4.500) uIu/ml Free T4 (0.8-1.6) ng/dl SARS-CoV-2, RNA, NAAT POSITIVE A* (NEGATIVE) Administered Medications Sodium Chloride (Nss 1000ml) 1,000 mls @ 125 mls/hr IV .Q8H JUWAN Stop: 02/16/21 16:59 Last Admin: 02/16/21 09:11 Dose: 125 mls/hr Documented by: [id number] Discontinued Medications Sodium Chloride (Nss 1000ml) 500 mls @ 999 mls/hr IV .Q31M ONE Stop: 02/16/21 06:54 Last Infusion: 02/16/21 07:25 Dose: 999 mls/hr Documented by: [id number] Admin: 02/16/21 06:29 Dose: 999 mls/hr Documented by: [id number] Sodium Chloride (Nss 1000ml) 500 mls @ 999 mls/hr IV .Q31M ONE Stop: 02/16/21 07:03 Last Infusion: 02/16/21 07:30 Dose: 999 mls/hr Documented by: [id number] Admin: 02/16/21 06:56 Dose: 999 mls/hr Documented by: [id number] Ioversol (Optiray 320 125ml) 120 ml IV ONCE ONE Stop: 02/16/21 08:10 Last Admin: 02/16/21 08:10 Dose: 120 ml Documented by: [id number] Metoprolol Tartrate (Metoprolol Tartrate 1 Mg/Ml Vial) 5 mg IV NOW STA Stop: 02/16/21 06:34 Last Admin: 02/16/21 06:38 Dose: 5 mg Documented by: [id number] Metoprolol Tartrate (Metoprolol Tartrate 50 Mg Tab) 25 mg PO NOW STA Stop: 02/16/21 06:39 Last Admin: 02/16/21 06:47 Dose: 25 mg Documented by: [id number] Metoprolol Tartrate (Metoprolol Tartrate 1 Mg/Ml Vial) 5 mg IV NOW STA Stop: 02/16/21 07:01 Last Admin: 02/16/21 07:19 Dose: 5 mg Documented by: [id number] Metoprolol Tartrate (Metoprolol Tartrate 1 Mg/Ml Vial) 5 mg IV NOW STA Stop: 02/16/21 08:59 Last Admin: 02/16/21 09:12 Dose: 5 mg Documented by: [id number] Metoprolol Tartrate (Metoprolol Tartrate 1 Mg/Ml Vial) Confirm Administered Dose 5 mg IV .STK-MED ONE Stop: 02/16/21 09:06 Last Admin: 02/16/21 11:31 Dose: Not Given Documented by: [id number] Imaging Data Radiologist's Impression: Chest X-Ray 02/16/21 06:01 XR chest 1V portable HISTORY: Atypical Chest Pain COMPARISON: Chest 03/10/2020. FINDINGS: No pneumothorax. No pleural effusions. The heart is normal in size. There is mild interstitial thickening at the lung bases. No evidence for pulmonary edema. IMPRESSION: Mild interstitial thickening at the lung bases which may represent atelectasis. Otherwise, no acute process within the chest. ACT 112: Negative or not required by law. Electronically signed by: Vinayak Gomez M.D. 02/16/2021 8:05 AM Chest CTA 02/16/21 07:13 CT ANGIOGRAPHY OF THE CHEST, PULMONARY EMBOLUS PROTOCOL CLINICAL HISTORY: Shortness of breath. Evaluate for pulmonary embolus. COMPARISON STUDY: Chest CT March 10, 2020. Chest radiograph performed earlier today. TECHNIQUE: Following IV administration of 120 mL of Optiray, helical axial images of the chest were obtained utilizing the pulmonary embolus protocol. Maximal intensity projections and sagittal and coronal reformats were viewed on an independent 3D workstation. IV contrast was administered without complication. Automated exposure control was utilized for the study. A dose lowering technique was utilized adhering to the principles of ALARA. CT DOSE: 284.18 mGy.cm FINDINGS: No pulmonary emboli are identified. Mild cardiomegaly is noted. No pericardial effusion. The thoracic aorta is not significantly opacified. No pneumothorax or pleural effusion is noted. There are mild multifocal groundglass opacities within the lungs. There is no consolidation. Central airways are patent. No pneumomediastinum is present. No acute fracture or suspicious lesion is identified within visualized portions of the bony thorax. There is mild elevation of the left hemidiaphragm. IMPRESSION: 1. No pulmonary emboli identified. 2. Mild multifocal groundglass opacities within the lungs suggestive of viral pneumonia. 3. Mild cardiomegaly. ACT 112: Negative or not required by law. Electronically signed by: Vinnie Olsen M.D. 02/16/2021 8:20 AM Discharge Plan Visit Data Chief Complaint: Arrhythmia/Palpitations Stated Complaint: RAPID HEART RATE,SWEATING,DON'T FEEL GOOD ED Provider: Gallito Berry Discharge Problem: Atrial fibrillation with rapid ventricular response, Pneumonia, Elevated troponin, COVID-19 Patient Disposition: Admitted As Inpatient Condition: Fair Discharge Instructions Interventions: ED Discharge Assessment Last Done: 02/16/21 12:04
[2021-02-16 06:48] LABS: Albumin Level 3.8 gm/dl (3.4-5.0); Calcium 9.4 mg/dl (8.5-10.1); Creatinine Clr Calc Pharmacy 59.8 ml/min; Est GFR (African American) 86.5 ml/min; Est GFR (Non-African American) 74.6 ml/min; Magnesium 1.9 mg/dl (1.8-2.4); Partial Thromboplastin Ratio 1.2; Partial Thromboplastin Time 30.3 Seconds (21.0-31.0); Potassium 3.8 mmol/L (3.5-5.1); Prothrombin Time 9.8 Seconds (9.0-12.0)
[2021-02-16 07:09] LABS: Albumin Globulin Ratio 0.9 (0.9-2); Bilirubin,Total 0.6 mg/dl (0.2-1); Globulin 4.3 gm/dl (2.5-4.0); Thyroid Stimulating Hormone 5.95 uIu/ml (0.300-4.500); Total Protein 8.1 gm/dl (6.4-8.2); Troponin I 0.106 ng/ml (0-0.045)
[2021-02-16 07:26] LABS: T4 Free Thyroxine 1.3 ng/dl (0.8-1.6)
--- NOTE | 2021-02-16 08:06 | XRay Report ---
XR chest 1V portable HISTORY: Atypical Chest Pain COMPARISON: Chest 03/10/2020. FINDINGS: No pneumothorax. No pleural effusions. The heart is normal in size. There is mild interstit ial thickening at the lung bases. No evidence for pulmonary edema. IMPRESSION: Mild interstitial thickening at the lung bases which may represent atelectasis. Otherwise, no acute p rocess within the chest. ACT 112: Negative or not required by law. Electronically signed by: Vinayak Gomez M.D. 02/16/2021 8:05 AM
[2021-02-16] MEDS ORDERED: OPTIRAY 320 125ml IV ONE (08:09)
--- NOTE | 2021-02-16 08:21 | CT Scan Report ---
CT ANGIOGRAPHY OF THE CHEST, PULMONARY EMBOLUS PROTOCOL CLINICAL HISTORY: Shortness of breath. Evaluate for pulmonary embolus. COMPARISON STUDY: Chest CT March 10, 2020. Chest radiograph performed earlier today. TECHNIQUE: Following IV administration of 120 mL of Optiray, helical axial images of the chest were o btained utilizing the pulmonary embolus protocol. Maximal intensity projections and sagittal and cor onal reformats were viewed on an independent 3D workstation. IV contrast was administered without co mplication. Automated exposure control was utilized for the study. A dose lowering technique was ut ilized adhering to the principles of ALARA. CT DOSE: 284.18 mGy.cm FINDINGS: No pulmonary emboli are identified. Mild cardiomegaly is noted. No pericardial effusion. T he thoracic aorta is not significantly opacified. No pneumothorax or pleural effusion is noted. There are mild multifocal groundglass opacities within the lungs. There is no consolidation. Central airwa ys are patent. No pneumomediastinum is present. No acute fracture or suspicious lesion is identified within visualized portions of the bony thorax. There is mild elevation of the left hemidiaphragm. IMPRESSION: 1. No pulmonary emboli identified. 2. Mild multifocal groundglass opacities within the lungs suggestive of viral pneumonia. 3. Mild cardiomegaly. ACT 112: Negative or not required by law. Electronically signed by: Vinnie Olsen M.D. 02/16/2021 8:20 AM
[2021-02-16] MEDS ORDERED: SODIUM CHLORIDE 0.9% 1000ML 1,000 ML IV SCH (09:00)
[2021-02-16] MEDS ORDERED: METOPROLOL TARTRATE 1 MG/ML VIAL IV ONE (09:05)
--- NOTE | 2021-02-16 09:15 | History & Physical Report ---
Date of Service February 16, 2021 Assessment & Plan (1) Atrial fibrillation with RVR: Plan: admit to med tele floor give 1L NSS at 125cc/hr, give Lopressor 5mg IV x 1 now for total of 15mg this morning continue metoprolol tartrate 25mg BID cycle troponin q6 for 2 more sets no need for echo at this time as she is COVID positive, can get echo as outpatient and follow up with cardiology (2) Dehydration: Plan: received 2L of NSS in the ED, still appears slightly dry, due to diarrhea give 1L at 125cc/hr, encourage PO intake BUN/Cr are normal and K is 3.8 BMP in the morning (3) COVID-19: Plan: negative pressure isolation saturations are > 95% on room air, no distress minimal changes on CTA chest, no PE no indication for dexamethasone, likely through the worst of her symptoms (4) Hypertension: Plan: BP is stable, continue metoprolol (5) Anxiety: Plan: mood is stable at this time History of Present Illness Chief Complaint: I had palpitations Primary Care Provider: DAVIS Arreola 70 yo female with past history of HTN, paroxysmal atrial fibrillation who presented to the ED this morning due to 2 weeks of flu like symptoms and then developed palpitations. She felt like her heart was racing, she has a history of atrial fibrillation so she came to the ED to get checked out. She says that her grandson tested positive for COVID about 2 weeks ago, she was exposed to him and she herself had symptoms. She said she had malaise, poor appetite, diarrhea. She never felt short of breath or had a cough. No fevers/chills. She never got tested for COVID, she just stayed home. Over the past two days she has felt more dehydrated, could not drink enough fluids, mouth was dry. She then felt like her heart was racing and skipping, she never had chest pain or pressure. She says in the past she would get afib/palpitations associated with GI issues so this does not surprise her. In the ED her HR was 150's, EKG shows atrial fibrillation. CXR had minimal changes, CTA chest negative for PE and minimal ground glass changes. Cr and K were normal, WBC normal. She was breathing comfortably on room air, saturations > 95%. She was given total of 2 liters of NSS and Lopressor 5mg IV x 2 doses and metoprolol tartrate 25mg PO x 1. HR is better, down to 80-120's at rest. 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 She stresses natural therapy and diet, she says she takes supplements to help control blood pressure and they have been working well. Allergies Allergy/AdvReac Type Severity Reaction Status Date / Time No Known Drug Allergies Allergy Verified 02/16/21 07:32 Home Medications Medication Instructions Recorded Confirmed Type calcium carbonate 600 mg calcium 600 mg PO QAM tab 01/09/19 02/16/21 History (1,500 mg) tablet (Calcium) magnesium 250 mg tablet 250 mg PO QAM tab 01/09/19 02/16/21 History omega 1-ydn-cga-fish oil 1,000 mg 1 cap PO QAM 02/28/19 02/16/21 History (120 mg-180 mg) capsule (Fish Oil) albuterol sulfate 90 mcg/actuation 1 - 2 puff INH .Q4-6H PRN 12/09/19 02/16/21 History aerosol inhaler (Ventolin HFA) cholecalciferol (vitamin D3) 25 25 mcg PO QAM 03/02/20 02/16/21 History mcg (1,000 unit) tablet metoprolol tartrate 25 mg tablet 12.5 mg PO BID #90 tab 08/28/20 02/16/21 Rx zinc 50 mg tablet 0 mg PO DAILY 02/16/21 02/16/21 History Past Med/Surg History Medical History Anxiety controlled with Medical MJ Asthma Bony exostosis Chronic sinusitis GERD without esophagitis Hyperlipidemia Hypertension Paroxysmal atrial fibrillation Varicose veins of bilateral lower extremities with other complications Surgical History H/O blepharoplasty H/O ovarian cystectomy right ovary H/O tooth extraction History of appendectomy Hx of tubal ligation S/P skin biopsy benign Family History Mother Colorectal cancer Alzheimer disease Diabetes Hypertension Father Myocardial infarction, Onset Age: 62 Diabetes Hypertension Sister Hypertension Lymphoma Breast cancer, Onset Age: 70 Family/Other Prostate cancer Ovarian cancer Social History Smoking Status: Never smoker Second Hand Exposure: No; Hx Alcohol Use: No Hx Substance Use: No Preferred Language: Lithuanian Communication Ability: Effective Visual Impairment: No Limitations Hearing Ability: Normal Principal Archaeologist Required: No Beliefs That Will Affect Care: None marital status: Current Living Situation: Spouse current occupational status: retired Feels Safe at Home: Yes Childhood Exposure to Second-Hand Smoke: No caffeine: Yes (Cofee 1 per day. ) during the past year weight has: remained stable Dental Care, Regularly: Yes Physical Activity Frequency: 5-6 Times per Week Seatbelt Use: always Sunscreen Use: No Assistive Devices: None Review of Systems Review of Systems: All systems reviewed & are unremarkable except as noted in HPI & below Physical Exam Physical Exam: General: well developed, well nourished, no acute distress, comfortable Neck: supple, trachea midline, normal thyroid Lungs: clear to auscultation bilaterally, normal respiratory effort, no accessory muscle use, no distress Heart: irreg irreg, tachycardic S1 and S2 normal, no murmur, peripheral pulses normal, capillary refill normal, no edema Abdomen: soft, NT, ND, + BS, no hepatomegaly, normal to percussion Extremities: normal in appearance, no cyanosis, no petechiae, strength is 5/5 bilaterally Neuro: awake, cooperative, moves all extremities, no focal motor deficits, CN II-XII intact, sensation in extremities intact, normal speech Skin: warm, dry, no rash, normal turgor Psych: Awake, alert oriented x 3, euthymic affect Results & Data Results & Data ([facility]) Vital Signs (Past 12 Hours) Vital Signs Temp Pulse Pulse Resp BP BP Pulse Ox 02/16/21 09:00 89 18 142/94 H 95 02/16/21 07:23 87 18 140/89 98 02/16/21 07:19 117 H 133/98 02/16/21 07:12 123 H 18 133/98 99 02/16/21 06:38 118 H 128/88 02/16/21 06:30 153 H 12 98 02/16/21 06:17 159 H 14 144/102 H 100 02/16/21 06:16 140 H 14 100 02/16/21 05:52 36.9 C 132 H 20 130/91 97 Laboratory Results Laboratory Results - last 24 hr 02/16/21 02/16/21 02/16/21 06:20 06:20 06:20 WBC 4.30 L RBC 4.90 Hgb 15.2 Hct 46.3 MCV 94.5 MCH 31.0 MCHC 32.8 RDW Std Deviation 45.6 RDW Coeff of [place] 13.1 Plt Count 186 MPV 9.0 Immature Gran % (Auto) 0.2 Neut % (Auto) 44.0 Lymph % (Auto) 45.1 [place] % (Auto) 8.4 Eos % (Auto) 2.1 Baso % (Auto) 0.2 Neut # (Auto) 1.89 Lymph # (Auto) 1.94 [place] # (Auto) 0.36 Eos # (Auto) 0.09 Baso # (Auto) 0.01 Immature Gran # (Auto) 0.01 PT 9.8 INR 1.0 APTT 30.3 PTT Ratio 1.2 Sodium 136 Potassium 3.8 Chloride 102 Carbon Dioxide 28 Anion Gap 6.0 BUN 8 Creatinine 0.81 Est Cr Clr Drug Dosing 59.8 Est GFR ( Amer) 86.5 Est GFR (Non-Af Amer) 74.6 BUN/Creatinine Ratio 10.0 Glucose 127 H Calcium 9.4 Magnesium 1.9 Total Bilirubin 0.6 AST 33 ALT 57 Alkaline Phosphatase 63 Troponin I 0.106 H* Total Protein 8.1 Albumin 3.8 Globulin 4.3 H Albumin/Globulin Ratio 0.9 Lipase 180 TSH 5.950 H Free T4 1.30 SARS-CoV-2, RNA, NAAT 02/16/21 06:45 WBC RBC Hgb Hct MCV MCH MCHC RDW Std Deviation RDW Coeff of [place] Plt Count MPV Immature Gran % (Auto) Neut % (Auto) Lymph % (Auto) [place] % (Auto) Eos % (Auto) Baso % (Auto) Neut # (Auto) Lymph # (Auto) [place] # (Auto) Eos # (Auto) Baso # (Auto) Immature Gran # (Auto) PT INR APTT PTT Ratio Sodium Potassium Chloride Carbon Dioxide Anion Gap BUN Creatinine Est Cr Clr Drug Dosing Est GFR ( Amer) Est GFR (Non-Af Amer) BUN/Creatinine Ratio Glucose Calcium Magnesium Total Bilirubin AST ALT Alkaline Phosphatase Troponin I Total Protein Albumin Globulin Albumin/Globulin Ratio Lipase TSH Free T4 SARS-CoV-2, RNA, NAAT POSITIVE A* Diagnostic Findings CTA chest: no pulmonary emboli, minimal ground glass changes to suggest viral pneumonia ECG Indication: palpitations and tachycardia Rate (beats per minute): 150 Rhythm: atrial fibrillation Code Status & VTE Plan VTE Prophylaxis Plan VTE Prophylaxis will be ordered: Yes PG Care Time/CCT Total # of Minutes Spent Total Time Spent with Patient: Total time spent is greater than 50% in coordination of care (as documented) at patient's floor/unit and/or counseling patient: Coding Level of Care Code 00959 Initial Inpt Care Lvl 3 Diagnoses Atrial fibrillation with RVR I48.91 Dehydration E86.0 COVID-19 U07.1 Hypertension I10 Hypertension type: unspecified Anxiety F41.9 (1) Hypertension Hypertension type: unspecified Qualified Code(s): I10 - Essential (primary) hypertension
--- NOTE | 2021-02-16 13:09 | Electrocardiogram Report ---
Test Reason : Blood Pressure : / mmHG Vent. Rate : 150 BPM Atrial Rate : 277 BPM P-R Int : 000 ms QRS Dur : 068 ms QT Int : 300 ms P-R-T Axes : 000 027 071 degrees QTc Int : 474 ms Poor data quality, interpretation may be adversely affected Atrial fibrillation with rapid ventricular response Nonspecific ST and T wave abnormality Abnormal ECG When compared with ECG of 11-APR-2020 12:48, Atrial fibrillation has replaced Sinus rhythm Vent. rate has increased BY [address] now depressed in Anterior leads Confirmed by Phong Finnegan ([id number]) on 02/16/2021 1:09:16 PM Referred By: ED Confirmed By:Phong Finnegan
--- NOTE | 2021-02-16 13:13 | Electrocardiogram Report ---
Test Reason : Blood Pressure : / mmHG Vent. Rate : 074 BPM Atrial Rate : 074 BPM P-R Int : 144 ms QRS Dur : 066 ms QT Int : 402 ms P-R-T Axes : 038 029 077 degrees QTc Int : 446 ms Poor data quality, interpretation may be adversely affected Normal sinus rhythm Nonspecific ST and T wave abnormality Abnormal ECG When compared with ECG of 16-FEB-2021 05:59, (unconfirmed) Sinus rhythm has replaced Atrial fibrillation Vent. rate has decreased BY [address] no longer depressed in Inferior leads Confirmed by Phong Finnegan ([id number]) on 02/16/2021 1:13:16 PM Referred By: REFERRED SELF Confirmed By:Phong Finnegan
[2021-02-16] MEDS ORDERED: ONDANSETRON INJ 2 MG/ML 2 ML VIAL IV PRN (16:33)
[2021-02-16] MEDS ORDERED: ACETAMINOPHEN 325 MG TAB PO PRN (16:33)
[2021-02-16] MEDS: METOPROLOL TARTRATE 25 MG TAB PO SCH (20:06)
[2021-02-16] MEDS: ENOXAPARIN 80 MG/0.8 ML SYR SQ SCH (20:06)
[2021-02-17 07:34] LABS: Hematocrit (blood only) 42.8 % (37-47); Hemoglobin 14.2 g/dL (12.0-16.0); Mean Corpuscular Hemoglobin 31.5 pg (25-34); Mean Corpuscular Hgb Conc 33.2 g/dL (32-36); Mean Corpuscular Volume 94.9 fL (80-100); Platelet Count 188 K/uL (130-400); RDW Coefficient of Variation 12.8 % (11.5-14.5); RDW Standard Deviation 44.8 fL (36.4-46.3); Red Blood Count 4.51 M/uL (4.2-5.4); White Blood Count 3.56 K/uL (4.8-10.8)
[2021-02-17 08:04] LABS: BUN Creatinine Ratio 12.1 (10-20); Calcium 8.7 mg/dl (8.5-10.1); Creatinine Clr Calc Pharmacy 79.1 ml/min; Est GFR (African American) 104.7 ml/min; Est GFR (Non-African American) 90.3 ml/min; Potassium 3.9 mmol/L (3.5-5.1)
[2021-02-17] MEDS: METOPROLOL TARTRATE 25 MG TAB PO SCH (08:49)
--- NOTE | 2021-02-17 08:53 | Discharge Summary ---
Date of Service February 17, 2021 Admission HPI Per Admitting Provider 70 yo female with past history of HTN, paroxysmal atrial fibrillation who presented to the ED this morning due to 2 weeks of flu like symptoms and then developed palpitations. She felt like her heart was racing, she has a history of atrial fibrillation so she came to the ED to get checked out. She says that her grandson tested positive for COVID about 2 weeks ago, she was exposed to him and she herself had symptoms. She said she had malaise, poor appetite, diarrhea. She never felt short of breath or had a cough. No fevers/chills. She never got tested for COVID, she just stayed home. Over the past two days she has felt more dehydrated, could not drink enough fluids, mouth was dry. She then felt like her heart was racing and skipping, she never had chest pain or pressure. She says in the past she would get afib/palpitations associated with GI issues so this does not surprise her. In the ED her HR was 150's, EKG shows atrial fibrillation. CXR had minimal changes, CTA chest negative for PE and minimal ground glass changes. Cr and K were normal, WBC normal. She was breathing comfortably on room air, saturations > 95%. She was given total of 2 liters of NSS and Lopressor 5mg IV x 2 doses and metoprolol tartrate 25mg PO x 1. HR is better, down to 80-120's at rest. 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 She stresses natural therapy and diet, she says she takes supplements to help control blood pressure and they have been working well. Principal Diagnosis Atrial fibrillation with RVR COVID 19 Discharge Exam General: well developed, well nourished, no acute distress, comfortable Neck: supple, trachea midline, normal thyroid Lungs: clear to auscultation bilaterally, normal respiratory effort, no accessory muscle use, no distress Heart: regular rate and rhythm, S1 and S2 normal, no murmur, peripheral pulses normal, capillary refill normal, no edema Abdomen: soft, NT, ND, + BS, no hepatomegaly, normal to percussion Extremities: normal in appearance, no cyanosis, no petechiae, strength is 5/5 bilaterally Neuro: awake, cooperative, moves all extremities, no focal motor deficits, CN II-XII intact, sensation in extremities intact, normal speech Skin: warm, dry, no rash, normal turgor Psych: Awake, alert oriented x 3, euthymic affect Discharge Data Allergies Allergy/AdvReac Type Severity Reaction Status Date / Time No Known Drug Allergies Allergy Verified 02/16/21 07:32 Consultations 02/16/21 07:24 ED Decision to Admit Stat Ordered Studies 02/16/21 07:13 CT angio chest PE protocol Stat Hospital Course (1) Atrial fibrillation with RVR: admit [facility] give 1L NSS at 125cc/hr, give Lopressor 5mg IV x 1 now for total of 15mg this morning continue metoprolol tartrate 25mg BID cycle troponin q6 for 2 more sets no need for echo at this time as she is COVID positive, can get echo as outpatient and follow up with cardiology troponin was 0.1 for three sets, likely just from COVID, demand ischemia from RVR no chest pain converted to NSR on 02/16 and remained in NSR discharge on metoprolol 25mg BID prescribed her Eliquis 5mg BID, explained that it reduces risk of stroke, she will think about it, speak with PCP and cardiology (2) Dehydration: received 2L of NSS in the ED, still appears slightly dry, due to diarrhea gave 1L at 125cc/hr, encourage PO intake BUN/Cr are normal and K is 3.8 drinking much better, appears euvolemic (3) COVID-19: negative pressure isolation saturations are > 95% on room air, no distress minimal changes on CTA chest, no PE no indication for dexamethasone, likely through the worst of her symptoms (4) Hypertension: BP is elevated, she says it is always like that, follow up with PCP continue metoprolol (5) Anxiety: mood is stable at this time Total Time Total Time Spent Total Time Spent (In Minutes): 31 Discharge Plan Discharge Items Patient Disposition: Home - Self-Care Reason For Visit: AFIB WITH RVR Discharge Diagnosis: Atrial fibrillation with rapid ventricular response COVID 19 infection Dehydration Hypertension Condition on Discharge: Good Goals: follow up with cardiology in 2 weeks Activity: Resume your previous activity Driving/Machine Use: No limitations Weightbearing: Full weightbearing Non-emergency contact: Primary Care Provider and [employer] Call non-emergency contact if: you have any medication questions and your symptoms worsen Follow-up/Referrals: Malvin Freeman CRNP [Primary Care Provider] - (one week) Raúl Crawley MD [Physician] - (2 weeks, any provider is ERIS mendoza or physician, for afib) Diet: Heart Healthy Addtl Attending Provider Instructions: Medications: - METOPROLOL: dose increased to 25mg (whole tablet) twice a day for rate and rhythm control - ELIQUIS: 5mg twice a day, this is for stroke protection, start this evening Atrial fibrillation with rapid response likely induced by COVID infection, dehydration, stress from being ill converted to sinus rhythm after extra doses of metoprolol recommend continuing with slightly higher dose of metoprolol, 25mg twice a day recommend taking Eliquis for stroke prevention recommend follow up with cardiology in 2 weeks, can get echo as outpatient COVID 19, dehydration, hypertension no hypoxia, lungs are clear and there are minimal changes on CT of the chest likely through the worst of the infection focus on staying well hydrated, well nourished follow up with PCP in a week no need for further quarantine Pending Studies at Discharge: No Stand-Alone Forms: My [facility], Smoking Cessation Medications and DC Order Prescriptions: New metoprolol tartrate 25 mg Tablet 25 mg PO BID 30 Days Qty: 60 RF: 3 Eliquis 5 mg tablet 5 mg PO BID Qty: 60 RF: 3 Continued magnesium 250 mg tablet 250 mg PO QAM RF: 0 calcium carbonate [Calcium 600] 600 mg calcium (1,500 mg) tablet 600 mg PO QAM RF: 0 omega 3-gol-dbe-fish oil [Fish Oil] 1,000 mg (120 mg-180 mg) Capsule 1 cap PO QAM RF: 0 albuterol sulfate [Ventolin HFA] 90 mcg/actuation HFA aerosol inhaler 1 - 2 puff INH .Q4-6H PRN (Reason: shortness of breath or wheezing) RF: 0 cholecalciferol (vitamin D3) 25 mcg (1,000 unit) Tablet 25 mcg PO QAM RF: 0 zinc 50 mg Tablet 0 mg PO DAILY RF: 0 Discontinued metoprolol tartrate 25 mg tablet 12.5 mg PO BID Qty: 90 RF: 1 Discharge Orders: Discharge Order (Routine); Ordered 02/17/21 Ordered By: Mendoza Pryor Admission Data Admit Date/Time: 02/16/21 09:03 Attending Provider: Mendoza Pryor Admit Provider: Mendoza Pryor Primary Care Provider: Malvin Freeman Other Providers: Mendoza Pryor Coding Level of Care Code D/C DAY MANAGEMENT >30 MINS Diagnoses Atrial fibrillation with RVR I48.91 Dehydration E86.0 COVID-19 U07.1 Hypertension I10 Hypertension type: unspecified Anxiety F41.9
[2021-02-17] MEDS ORDERED: CALCIUM CARBONATE 1250MG TAB PO SCH (09:00)
[2021-02-17] MEDS ORDERED: ZINC SULFATE 220 MG CAPSULE PO SCH (09:00)
[2021-02-17] MEDS ORDERED: CHOLECALCIFEROL 1,000 UNITS 25 MCG TAB PO SCH (09:00)
[2021-02-17] MEDS ORDERED: OMEGA-3 (PURIFIED FISH OIL) 1 GM CAP PO SCH (09:00)
[2021-02-17] MEDS ORDERED: MAGNESIUM OXIDE 400 MG TAB PO SCH (09:00)
[2021-02-17] MEDS: ENOXAPARIN 80 MG/0.8 ML SYR SQ SCH (09:38)
[2021-02-17 10:10] VITALS: BP 155/78; PULSE 68; TEMP 98.2; O2SAT 99
== END 2021-02-17 10:10 | disposition home or self-care (01) | DRG 308 ==
LOC: ED 05:47 → EDINP 09:03

== ENCOUNTER 2021-02-18 18:51 | Observation (INO) ==
[2021-02-18 19:22] LABS: Basophils # (auto) 0.01 K/uL (0-0.2); Basophils % (auto) 0.2 %; Eosinophils % (auto) 2.4 %; Hematocrit (blood only) 41.8 % (37-47); Hemoglobin 14.3 g/dL (12.0-16.0); Immature Granulocytes # (auto) 0.01 K/uL (0.00-0.02); Immature Granulocytes % (auto) 0.2 %; Lymphocytes # (auto) 1.71 K/uL (1.2-3.4); Lymphocytes % (auto) 41.6 %; Mean Corpuscular Hemoglobin 31.8 pg (25-34); Mean Corpuscular Hgb Conc 34.2 g/dL (32-36); Mean Corpuscular Volume 93.1 fL (80-100); Monocytes # (auto) 0.49 K/uL (0.11-0.59); Monocytes % (auto) 11.9 %; Neutrophils # (auto) 1.79 K/uL (1.4-6.5); Neutrophils % (auto) 43.7 %; Platelet Count 204 K/uL (130-400); RDW Coefficient of Variation 12.7 % (11.5-14.5); RDW Standard Deviation 43.6 fL (36.4-46.3); Red Blood Count 4.49 M/uL (4.2-5.4); White Blood Count 4.11 K/uL (4.8-10.8)
[2021-02-18 19:37] LABS: Partial Thromboplastin Ratio 1.1; Partial Thromboplastin Time 28.8 Seconds (21.0-31.0); Prothrombin Time 9.9 Seconds (9.0-12.0)
--- NOTE | 2021-02-18 19:48 | Emergency Department Note ---
Impression & Plan Atrial fibrillation with rapid ventricular response ED Provider Note NAME: MJ CUETO AGE: 70 SEX: F : 1950 ARRIVES VIA: Walk-In INFORMANT: Patient, ED PROVIDER(S): Asaf Carver MD Chief Complaint: Palpitations HPI: Patient does present with concern for palpitations. The patient states that this began today. The patient did have a recent hospitalization was prescribed new medications which the patient states she has been compliant. Patient states from a Covid perspective the patient felt much improved. Patient Nuys any fevers chills chest pains. Patient states that with the tachycardia sometimes she does feel somewhat short of breath and fatigue. Patient denies any orthopnea or lower extremity swelling. Patient denies any prior history of thyroid issues. Patient denies any alcohol tobacco or drug use. Patient denies any caffeine use. Patient denies any leg swelling. Patient is not vaccinated for COVID-19. Patient was discharged yesterday due to concern for flulike symptoms and palpitations. Patient did have A. fib and negative CT angiography for PE. She did receive fluids Lopressor metoprolol. Patient's heart rate did improve. Patient did have a troponin 0.1 likely thought secondary to demand ischemia from Covid and rapid ventricular rate. Patient converted to normal sinus rhythm on 12 5. Patient is to be on 25 mg metoprolol twice daily and Eliquis 5 mg twice daily. ROS: See HPI for pertinent positives and negatives. A total of 10 systems were reviewed and otherwise negative. Past medical history: See below Surgical history: See below Social history: See below Physical Exam: GENERAL: NAD, wearing a mask, non-toxic. EYE EXAM: Normal conjunctiva. PERRL, no anisocoria and EOM's grossly intact w/o pain. NECK: Supple, no nuchal rigidity, no adenopathy, non-tender. No signs of meningismus. LUNGS: Clear to auscultation. Normal chest wall mechanics. HEART: NSR, no MRG. ABDOMEN: Abdomen soft, non-tender, normo-active bowel sounds, no masses, no rebound or guarding. BACK: No CVA TTP. SKIN: No rashes and no bruising. UPPER EXTREMITIES: Upper extremities are grossly normal. LOWER EXTREMITIES: Grossly normal, no edema. Negative Homans' sign bilaterally. NEURO EXAM: A&O x3, cranial nerves II-XII grossly intact, normal speech, moves all 4 extremities on command w/o issue. Differential diagnoses: Premature contractions, electrolyte abnormality, cardiac dysrhythmia, thyroid dysfunction, pulmonary embolism, infection, gastrointestinal, as well as other pathologies. Course: Patient was seen and evaluated the bedside. Full history physical exam was performed. EKG interpreted by me Likely a flutter with variable block, rate of 114, normal QRS and normal axis, T wave inversion in aVL. No obvious ST changes. Repeat EKG A. fib with RVR, rate 134, normal QRS, normal axis. Imaging Studies: See Below Cardiac monitoring: An order was placed for continuous cardiac monitoring. The monitor shows a rate of 85 with regular rhythm. MDM: Patient seen due to concern for palpitations and patient was in A. fib RVR. Patient blood work completed. Patient does have a positive troponin but it was improved compared to prior. A. fib has been intermittent even as I see the patient in the room she seemed to be more irregular sinus rhythm. The patient was given 3 doses of IV metoprolol in addition to p.o. dose. Patient was still having intermittent A. fib with RVR. Patient was admitted to the medicine service by Dr. Hall. Critical Care: I have personally spent 47 minutes of critical care time in direct management of this patient. This includes bedside care, interpretation of diagnostic studies, and testing, discussion with consultants, patient, and family members, and other require inpatient management activities. This 47 minutes is in excess of all separately billable procedures. Past Med/Surg History Medical History Anxiety controlled with Medical MJ Asthma Bony exostosis Chronic sinusitis GERD without esophagitis Hyperlipidemia Hypertension Paroxysmal atrial fibrillation Varicose veins of bilateral lower extremities with other complications Surgical History H/O blepharoplasty H/O ovarian cystectomy right ovary H/O tooth extraction History of appendectomy Hx of tubal ligation S/P skin biopsy benign Family History Mother Colorectal cancer Alzheimer disease Diabetes Hypertension Father Myocardial infarction, Onset Age: 62 Diabetes Hypertension Sister Hypertension Lymphoma Breast cancer, Onset Age: 70 Family/Other Prostate cancer Ovarian cancer Social History Smoking Status: Never smoker Second Hand Exposure: No; Hx Alcohol Use: No Hx Substance Use: No Preferred Language: Azerbaijani Communication Ability: Effective Visual Impairment: No Limitations Hearing Ability: Normal Manager [employer]iting Required: No Beliefs That Will Affect Care: None marital status: Current Living Situation: Spouse current occupational status: retired Feels Safe at Home: Yes Childhood Exposure to Second-Hand Smoke: No caffeine: Yes (Cofee 1 per day. ) during the past year weight has: remained stable Dental Care, Regularly: Yes Physical Activity Frequency: 5-6 Times per Week Seatbelt Use: always Sunscreen Use: No Assistive Devices: None Allergies Allergies Allergy/AdvReac Type Severity Reaction Status Date / Time No Known Drug Allergies Allergy Unknown Verified 02/18/21 22:55 Home Meds Home Medications Medication Instructions Recorded Confirmed calcium carbonate 600 mg calcium 600 mg PO QAM tab 01/09/19 02/18/21 (1,500 mg) tablet (Calcium) magnesium 250 mg tablet 250 mg PO QAM tab 01/09/19 02/18/21 omega 9-bfg-acd-fish oil 1,000 mg 1 cap PO QAM 02/28/19 02/18/21 (120 mg-180 mg) capsule (Fish Oil) albuterol sulfate 90 mcg/actuation 1 - 2 puff INH .Q4-6H PRN 12/09/19 02/18/21 aerosol inhaler (Ventolin HFA) cholecalciferol (vitamin D3) 25 25 mcg PO QAM 03/02/20 02/18/21 mcg (1,000 unit) tablet zinc 50 mg tablet 50 mg PO DAILY 02/16/21 02/18/21 Previous Rx's Medication Instructions Recorded apixaban 5 mg tablet (Eliquis) 5 mg PO BID #60 tab 02/17/21 metoprolol tartrate 25 mg tablet 25 mg PO BID 30 Days #60 tab 02/17/21 Results & Data (ED) Vital Signs Vital Signs - 24 hr 02/18/21 18:57 02/18/21 20:42 02/18/21 20:50 Temperature 37.1 C Temperature Source Temporal Artery Scan Pulse Rate 128 H 127 H 116 H Pulse Rhythm Respiratory Rate 16 19 14 Respiratory Effort / Characteristics Non-Labored Spontaneous Respiratory Depth Normal Blood Pressure 127/83 146/100 H Blood Pressure Mean 97 115 Pulse Oximetry 98 96 95 Oxygen Delivery Method Room Air Room Air Room Air Sepsis Recent Fever Within 48 Hours No Sepsis New/Unexplained Change in Mental Status N/A Sepsis Action Taken by Nursing No Action Required 02/18/21 21:00 02/18/21 21:10 02/18/21 21:15 Temperature Temperature Source Pulse Rate 129 H 126 H 118 H Pulse Rhythm Irregular Respiratory Rate 17 20 20 Respiratory Effort / Characteristics Respiratory Depth Blood Pressure 133/113 H Blood Pressure Mean 119 Pulse Oximetry 94 97 Oxygen Delivery Method Room Air Room Air Room Air Sepsis Recent Fever Within 48 Hours Sepsis New/Unexplained Change in Mental Status Sepsis Action Taken by Nursing 02/18/21 21:20 02/18/21 21:30 02/18/21 21:40 Temperature Temperature Source Pulse Rate 75 86 74 Pulse Rhythm Respiratory Rate 18 22 22 Respiratory Effort / Characteristics Respiratory Depth Blood Pressure 186/127 H 168/117 H Blood Pressure Mean 146 134 Pulse Oximetry 97 96 96 Oxygen Delivery Method Room Air Room Air Room Air Sepsis Recent Fever Within 48 Hours Sepsis New/Unexplained Change in Mental Status Sepsis Action Taken by Nursing 02/18/21 21:50 02/18/21 22:00 02/18/21 22:10 Temperature Temperature Source Pulse Rate 122 H 137 H 85 Pulse Rhythm Respiratory Rate 18 23 21 Respiratory Effort / Characteristics Respiratory Depth Blood Pressure 152/91 H Blood Pressure Mean 111 Pulse Oximetry 97 95 95 Oxygen Delivery Method Room Air Room Air Room Air Sepsis Recent Fever Within 48 Hours Sepsis New/Unexplained Change in Mental Status Sepsis Action Taken by Nursing 02/18/21 22:20 02/18/21 22:30 02/18/21 22:40 Temperature Temperature Source Pulse Rate 93 H 131 H 113 H Pulse Rhythm Respiratory Rate 20 22 18 Respiratory Effort / Characteristics Respiratory Depth Blood Pressure 141/118 H Blood Pressure Mean 125 Pulse Oximetry 96 95 Oxygen Delivery Method Sepsis Recent Fever Within 48 Hours Sepsis New/Unexplained Change in Mental Status Sepsis Action Taken by Nursing 02/18/21 22:50 02/18/21 23:00 02/18/21 23:10 Temperature Temperature Source Pulse Rate 94 H 106 H 121 H Pulse Rhythm Respiratory Rate 23 22 23 Respiratory Effort / Characteristics Respiratory Depth Blood Pressure Blood Pressure Mean Pulse Oximetry 96 96 97 Oxygen Delivery Method Sepsis Recent Fever Within 48 Hours Sepsis New/Unexplained Change in Mental Status Sepsis Action Taken by Nursing 02/18/21 23:20 02/18/21 23:30 02/18/21 23:40 Temperature Temperature Source Pulse Rate 120 H 109 H 102 H Pulse Rhythm Respiratory Rate 14 19 18 Respiratory Effort / Characteristics Respiratory Depth Blood Pressure 146/87 H Blood Pressure Mean 106 Pulse Oximetry 96 93 96 Oxygen Delivery Method Sepsis Recent Fever Within 48 Hours Sepsis New/Unexplained Change in Mental Status Sepsis Action Taken by Nursing 02/18/21 23:50 02/19/21 00:00 02/19/21 00:10 Temperature Temperature Source Pulse Rate 104 H 125 H 95 H Pulse Rhythm Respiratory Rate 14 17 20 Respiratory Effort / Characteristics Respiratory Depth Blood Pressure Blood Pressure Mean Pulse Oximetry 97 95 96 Oxygen Delivery Method Sepsis Recent Fever Within 48 Hours Sepsis New/Unexplained Change in Mental Status Sepsis Action Taken by Nursing 02/19/21 00:20 02/19/21 00:30 Temperature Temperature Source Pulse Rate 112 H 83 Pulse Rhythm Respiratory Rate 15 12 Respiratory Effort / Characteristics Respiratory Depth Blood Pressure 133/82 Blood Pressure Mean 99 Pulse Oximetry 96 95 Oxygen Delivery Method Sepsis Recent Fever Within 48 Hours Sepsis New/Unexplained Change in Mental Status Sepsis Action Taken by Long-Term Medications Current Medication List: was personally reviewed by me Laboratory Data Attestation: I reviewed the patient's lab results. Result diagrams: 02/18/21 19:05 02/18/21 20:40 Lab Results 02/18/21 02/18/21 02/18/21 Range/Units 19:05 19:05 19:05 WBC 4.11 L (4.8-10.8) K/uL RBC 4.49 (4.2-5.4) M/uL Hgb 14.3 (12.0-16.0) g/dL Hct 41.8 (37-47) % MCV 93.1 (80-100) fL MCH 31.8 (25-34) pg MCHC 34.2 (32-36) g/dL RDW Std Deviation 43.6 (36.4-46.3) fL RDW Coeff of [place] 12.7 (11.5-14.5) % Plt Count 204 (130-400) K/uL MPV 9.0 (7.4-10.4) fL Immature Gran % (Auto) 0.2 % Neut % (Auto) 43.7 % Lymph % (Auto) 41.6 % [place] % (Auto) 11.9 % Eos % (Auto) 2.4 % Baso % (Auto) 0.2 % Neut # (Auto) 1.79 (1.4-6.5) K/uL Lymph # (Auto) 1.71 (1.2-3.4) K/uL [place] # (Auto) 0.49 (0.11-0.59) K/uL Eos # (Auto) 0.10 (0-0.5) K/uL Baso # (Auto) 0.01 (0-0.2) K/uL Immature Gran # (Auto) 0.01 (0.00-0.02) K/uL PT 9.9 (9.0-12.0) Seconds INR 1.0 (0.9-1.1) APTT 28.8 (21.0-31.0) Seconds PTT Ratio 1.1 Sodium 136 (136-145) mmol/L Potassium (3.5-5.1) mmol/L Chloride 108 H (98-107) mmol/L Carbon Dioxide 22 (21-32) mmol/L Anion Gap 5.0 (3-11) BUN 10 (7-18) mg/dl Creatinine 0.74 (0.6-1.2) mg/dl Est Cr Clr Drug Dosing 65.5 ml/min Est GFR ( Amer) 96.5 ml/min Est GFR (Non-Af Amer) 83.2 ml/min BUN/Creatinine Ratio 13.0 (10-20) Glucose 116 H (70-99) mg/dl Calcium 9.5 (8.5-10.1) mg/dl Phosphorus (2.5-4.9) mg/dl Magnesium (1.8-2.4) mg/dl Total Bilirubin 0.7 (0.2-1) mg/dl AST (15-37) U/L ALT 75 (12-78) Alkaline Phosphatase 62 (45-117) U/L Troponin I 0.066 H* (0-0.045) ng/ml Total Protein 7.8 (6.4-8.2) gm/dl Albumin 3.3 L (3.4-5.0) gm/dl Globulin 4.5 H (2.5-4.0) gm/dl Albumin/Globulin Ratio 0.7 L (0.9-2) 02/18/21 02/18/21 Range/Units 20:40 20:40 WBC (4.8-10.8) K/uL RBC (4.2-5.4) M/uL Hgb (12.0-16.0) g/dL Hct (37-47) % MCV (80-100) fL MCH (25-34) pg MCHC (32-36) g/dL RDW Std Deviation (36.4-46.3) fL RDW Coeff of [place] (11.5-14.5) % Plt Count (130-400) K/uL MPV (7.4-10.4) fL Immature Gran % (Auto) % Neut % (Auto) % Lymph % (Auto) % [place] % (Auto) % Eos % (Auto) % Baso % (Auto) % Neut # (Auto) (1.4-6.5) K/uL Lymph # (Auto) (1.2-3.4) K/uL [place] # (Auto) (0.11-0.59) K/uL Eos # (Auto) (0-0.5) K/uL Baso # (Auto) (0-0.2) K/uL Immature Gran # (Auto) (0.00-0.02) K/uL PT (9.0-12.0) Seconds INR (0.9-1.1) APTT (21.0-31.0) Seconds PTT Ratio Sodium (136-145) mmol/L Potassium 3.7 (3.5-5.1) mmol/L Chloride (98-107) mmol/L Carbon Dioxide (21-32) mmol/L Anion Gap (3-11) BUN (7-18) mg/dl Creatinine (0.6-1.2) mg/dl Est Cr Clr Drug Dosing ml/min Est GFR ( Amer) ml/min Est GFR (Non-Af Amer) ml/min BUN/Creatinine Ratio (10-20) Glucose (70-99) mg/dl Calcium (8.5-10.1) mg/dl Phosphorus 2.9 (2.5-4.9) mg/dl Magnesium 1.8 (1.8-2.4) mg/dl Total Bilirubin (0.2-1) mg/dl AST 32 (15-37) U/L ALT (12-78) Alkaline Phosphatase (45-117) U/L Troponin I (0-0.045) ng/ml Total Protein (6.4-8.2) gm/dl Albumin (3.4-5.0) gm/dl Globulin (2.5-4.0) gm/dl Albumin/Globulin Ratio (0.9-2) Administered Medications Metoprolol Tartrate (Metoprolol Tartrate 1 Mg/Ml Vial) 5 mg IV Q5M PRN PRN Reason: Tachycardia Stop: 03/20/21 20:56 Last Admin: 02/18/21 21:20 Dose: 5 mg Documented by: [id number] Discontinued Medications Sodium Chloride (Nss 1000ml) 500 mls @ 999 mls/hr IV .Q31M ONE Stop: 02/18/21 20:24 Last Infusion: 02/18/21 21:08 Dose: 999 mls/hr Documented by: [id number] Admin: 02/18/21 20:35 Dose: 999 mls/hr Documented by: [id number] Sodium Chloride (Nss 1000ml) 500 mls @ 999 mls/hr IV .Q31M ONE Stop: 02/18/21 21:27 Last Infusion: 02/18/21 21:56 Dose: 999 mls/hr Documented by: [id number] Admin: 02/18/21 21:17 Dose: 999 mls/hr Documented by: [id number] Magnesium Sulfate/Dextrose (Magnesium Sulfate / D5w) 1 gm in 100 mls @ 100 mls/hr IV NOW STA Stop: 02/19/21 00:40 Last Admin: 02/19/21 00:39 Dose: 100 mls/hr Documented by: [id number] Metoprolol Tartrate (Metoprolol Tartrate 1 Mg/Ml Vial) 5 mg IV NOW STA Stop: 02/18/21 19:55 Last Admin: 02/18/21 20:42 Dose: 5 mg Documented by: [id number] Metoprolol Tartrate (Metoprolol Tartrate 50 Mg Tab) 25 mg PO NOW STA Stop: 02/18/21 20:58 Last Admin: 02/18/21 21:17 Dose: 25 mg Documented by: [id number] Potassium Chloride (Potassium Chloride Crtab 20 Meq Tabcr) 40 meq PO NOW STA Stop: 02/18/21 23:41 Last Admin: 02/19/21 00:37 Dose: 40 meq Documented by: [id number] Discharge Plan Visit Data Chief Complaint: Tachycardia Stated Complaint: HEART BEAT IRREGULAR ED Provider: Asaf Carver Discharge Problem: Atrial fibrillation with rapid ventricular response Patient Disposition: Admitted As Inpatient Prescriptions Prescriptions: No Action magnesium 250 mg tablet 250 mg PO QAM RF: 0 calcium carbonate [Calcium 600] 600 mg calcium (1,500 mg) tablet 600 mg PO QAM RF: 0 omega 7-lgm-egi-fish oil [Fish Oil] 1,000 mg (120 mg-180 mg) Capsule 1 cap PO QAM RF: 0 albuterol sulfate [Ventolin HFA] 90 mcg/actuation HFA aerosol inhaler 1 - 2 puff INH .Q4-6H PRN (Reason: shortness of breath or wheezing) RF: 0 cholecalciferol (vitamin D3) 25 mcg (1,000 unit) Tablet 25 mcg PO QAM RF: 0 zinc 50 mg Tablet 50 mg PO DAILY RF: 0 metoprolol tartrate 25 mg Tablet 25 mg PO BID 30 Days Qty: 60 RF: 3 Eliquis 5 mg tablet 5 mg PO BID Qty: 60 RF: 3 Referrals Referrals: Malvin Freeman CRNP [Primary Care Provider] -
[2021-02-18] MEDS ORDERED: METOPROLOL TARTRATE 1 MG/ML VIAL IV STA (19:54)
[2021-02-18] MEDS ORDERED: SODIUM CHLORIDE 0.9% 1000ML 500 ML IV ONE ×2 (19:54→20:57)
[2021-02-18 20:16] LABS: Albumin Globulin Ratio 0.7 (0.9-2); Albumin Level 3.3 gm/dl (3.4-5.0); Bilirubin,Total 0.7 mg/dl (0.2-1); Calcium 9.5 mg/dl (8.5-10.1); Creatinine Clr Calc Pharmacy 65.5 ml/min; Est GFR (African American) 96.5 ml/min; Est GFR (Non-African American) 83.2 ml/min; Globulin 4.5 gm/dl (2.5-4.0); Total Protein 7.8 gm/dl (6.4-8.2); Troponin I 0.066 ng/ml (0-0.045)
[2021-02-18] MEDS ORDERED: METOPROLOL TARTRATE 1 MG/ML VIAL IV PRN (20:57)
[2021-02-18] MEDS ORDERED: METOPROLOL TARTRATE 50 MG TAB PO STA (20:57)
[2021-02-18 21:07] LABS: Potassium 3.7 mmol/L (3.5-5.1)
[2021-02-18 21:12] LABS: Magnesium 1.8 mg/dl (1.8-2.4); Phosphorus 2.9 mg/dl (2.5-4.9)
[2021-02-18] MEDS ORDERED: POTASSIUM CHLORIDE CRTAB 20 MEQ TABCR PO STA (23:40)
--- NOTE | 2021-02-18 23:40 | History & Physical Report ---
Date of Service February 18, 2021 Assessment & Plan (1) Atrial fibrillation with rapid ventricular response: Plan: Atrial fibrillation/atrial flutter with RVR/hypertension- The patient will be admitted to telemetry for serial cardiac enzymes, serial EKG's, cardiac rhythm monitoring and a 2-D echocardiogram with Dopplers. Since this is a recurrence, in a few days, will order an echocardiogram and ask cardiology to see. Potassium 3.8 and magnesium 1.8 upon admission We will give Klor-Con 40 mEq p.o. and magnesium sulfate 1 g IV to target potassium of 4 and magnesium of 2 Increase metoprolol tartrate from 25 mg p.o. twice daily to 50 mg p.o. twice daily Troponin 0.066 upon admission, which is lower than at recent admission from 02/16-02/17 Continue apixaban for now (2) Atrial flutter with rapid ventricular response: Plan: See above (3) Multifocal pneumonia: Plan: Multifocal pneumonia due to COVID-19- As with most recent hospitalization, patient does not have symptoms that are significant enough to require treatment She will however, be admitted with Covid precautions (4) COVID-19: Plan: See above (5) Hypertension: Plan: See above (6) Asthma: Plan: On Ventolin HFA as outpatient (7) Hyperlipidemia: Plan: Continue fish oil History of Present Illness Chief Complaint: The patient presents to the emergency department with complaint of palpitations, with recent admission to [facility] for atrial fibrillation with RVR and COVID-19 infection Primary Care Provider: DAVIS Arreola The patient is a 70-year-old female with a past medical history including atrial fibrillation with RVR, hyperlipidemia, GERD without esophagitis, family history of CAD, bilateral lower extremity varicose veins, hypertension, anxiety and asthma. She was recently admitted to [facility] from 02/16-02/17 for atrial fibrillation with RVR, and was tested positive for COVID-19 infection, but not actively treated due to no active symptoms. Patient presents without the palpitations as noted above developed today, and upon arrival to the emergency department was found in atrial fibrillation/atrial flutter with RVR. She did receive Lopressor 5 mg IV x3 from the ED, and received 1 L of normal saline, with improved rate control and ultimately converted to low rate sinus tachycardia. Allergies Allergy/AdvReac Type Severity Reaction Status Date / Time No Known Drug Allergies Allergy Unknown Verified 02/18/21 22:55 Home Medications Medication Instructions Recorded Confirmed Type calcium carbonate 600 mg calcium 600 mg PO QAM tab 01/09/19 02/18/21 History (1,500 mg) tablet (Calcium) magnesium 250 mg tablet 250 mg PO QAM tab 01/09/19 02/18/21 History omega 6-dls-elk-fish oil 1,000 mg 1 cap PO QAM 02/28/19 02/18/21 History (120 mg-180 mg) capsule (Fish Oil) albuterol sulfate 90 mcg/actuation 1 - 2 puff INH .Q4-6H PRN 12/09/19 02/18/21 History aerosol inhaler (Ventolin HFA) cholecalciferol (vitamin D3) 25 25 mcg PO QAM 03/02/20 02/18/21 History mcg (1,000 unit) tablet zinc 50 mg tablet 50 mg PO DAILY 02/16/21 02/18/21 History apixaban 5 mg tablet (Eliquis) 5 mg PO BID #60 tab 02/17/21 02/18/21 Rx metoprolol tartrate 25 mg tablet 25 mg PO BID 30 Days #60 tab 02/17/21 02/18/21 Rx Past Med/Surg History Medical History Anxiety controlled with Medical MJ Asthma Bony exostosis Chronic sinusitis GERD without esophagitis Hyperlipidemia Hypertension Paroxysmal atrial fibrillation Varicose veins of bilateral lower extremities with other complications Surgical History H/O blepharoplasty H/O ovarian cystectomy right ovary H/O tooth extraction History of appendectomy Hx of tubal ligation S/P skin biopsy benign Family History Mother Colorectal cancer Alzheimer disease Diabetes Hypertension Father Myocardial infarction, Onset Age: 62 Diabetes Hypertension Sister Hypertension Lymphoma Breast cancer, Onset Age: 70 Family/Other Prostate cancer Ovarian cancer Social History Smoking Status: Never smoker Second Hand Exposure: No; Hx Alcohol Use: No Hx Substance Use: No Preferred Language: Greek Communication Ability: Effective Visual Impairment: No Limitations Hearing Ability: 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 ) during the past year weight has: remained stable Dental Care, Regularly: Yes Physical Activity Frequency: 5-6 Times per Week Seatbelt Use: always Sunscreen Use: No Assistive Devices: Glasses Review of Systems Review of Systems: The patient denies chest pain, cough, lower extremity swelling, sore throat, fevers, chills, sweats, nausea, vomiting, diarrhea , constipation, abdominal pain, pelvic pain, blood in urine or stool, dysuria, urinary frequency or urgency, lightheadedness, dizziness, headache, memory loss, loss of consciousness, rash, abnormal bruising or bleeding, imbalance, focal or generalized weakness, numbness or tingling in arms or legs, generalized arthralgias or myalgias, back or neck pain, or night sweats. The review of systems is otherwise negative other than for that already noted above, and at least 10 systems have been reviewed. Physical Exam Physical Exam: The patient is awake, alert and oriented 3, well developed and well nourished, normocephalic and atraumatic, lying in bed and in no acute distress. HEENT--PERRL, EOMI, mucous membranes and oropharynx dry. Neck--supple. No JVD. No bruits. Thyroid normal, trachea midline, no adenopathy. Heart--tachycardic and regular. No murmurs, rubs or gallops. Lungs--clear bilaterally, no respiratory distress, no accessory muscle use. Abdomen--normal bowel sounds and soft. Nontender. Nondistended, no hernias or masses, no organomegaly. Extremities--no cyanosis or clubbing. No edema. Dermatologic--normal skin turgor, normal color, no abnormal lymph nodes, no rash. Neurologic--cranial nerves II through XII grossly intact. Rheumatologic--normal range of motion. Psychiatric--normal affect. Results & Data Results & Data ([facility]) Vital Signs (Past 12 Hours) Vital Signs Temp Pulse Resp BP Pulse Ox 02/18/21 23:00 106 H 22 96 02/18/21 22:50 94 H 23 96 02/18/21 22:40 113 H 18 02/18/21 22:30 131 H 22 141/118 H 95 02/18/21 22:20 93 H 20 96 02/18/21 22:10 85 21 152/91 H 95 02/18/21 22:00 137 H 23 95 02/18/21 21:50 122 H 18 97 02/18/21 21:40 74 22 96 02/18/21 21:30 86 22 168/117 H 96 02/18/21 21:20 75 18 186/127 H 97 02/18/21 21:15 118 H 20 97 02/18/21 21:10 126 H 20 133/113 H 02/18/21 21:00 129 H 17 94 02/18/21 20:50 116 H 14 95 02/18/21 20:42 127 H 19 146/100 H 96 02/18/21 18:57 37.1 C 128 H 16 127/83 98 Laboratory Results Laboratory Results WBC 3.92 K/uL (4.8-10.8) L 02/19/21 04:37 RBC 4.27 M/uL (4.2-5.4) 02/19/21 04:37 Hgb 13.3 g/dL (12.0-16.0) 02/19/21 04:37 Hct 40.1 % (37-47) 02/19/21 04:37 MCV 93.9 fL (80-100) 02/19/21 04:37 MCH 31.1 pg (25-34) 02/19/21 04:37 MCHC 33.2 g/dL (32-36) 02/19/21 04:37 RDW Std Deviation 44.6 fL (36.4-46.3) 02/19/21 04:37 RDW Coeff of [place] 12.9 % (11.5-14.5) 02/19/21 04:37 Plt Count 204 K/uL (130-400) 02/19/21 04:37 MPV 9.0 fL (7.4-10.4) 02/19/21 04:37 Immature Gran % (Auto) 0.0 % 02/19/21 04:37 Neut % (Auto) 44.6 % 02/19/21 04:37 Lymph % (Auto) 41.3 % 02/19/21 04:37 Irion % (Auto) 11.5 % 02/19/21 04:37 Eos % (Auto) 2.3 % 02/19/21 04:37 Baso % (Auto) 0.3 % 02/19/21 04:37 Neut # (Auto) 1.75 K/uL (1.4-6.5) 02/19/21 04:37 Lymph # (Auto) 1.62 K/uL (1.2-3.4) 02/19/21 04:37 Irion # (Auto) 0.45 K/uL (0.11-0.59) 02/19/21 04:37 Eos # (Auto) 0.09 K/uL (0-0.5) 02/19/21 04:37 Baso # (Auto) 0.01 K/uL (0-0.2) 02/19/21 04:37 Immature Gran # (Auto) 0.00 K/uL (0.00-0.02) 02/19/21 04:37 PT 9.9 Seconds (9.0-12.0) 02/18/21 19:05 INR 1.0 (0.9-1.1) 02/18/21 19:05 APTT 28.8 Seconds (21.0-31.0) 02/18/21 19:05 PTT Ratio 1.1 02/18/21 19:05 Sodium 136 mmol/L (136-145) 02/18/21 19:05 Potassium 3.7 mmol/L (3.5-5.1) 02/18/21 20:40 Chloride 108 mmol/L (98-107) H 02/18/21 19:05 Carbon Dioxide 22 mmol/L (21-32) 02/18/21 19:05 Anion Gap 5.0 (3-11) 02/18/21 19:05 BUN 10 mg/dl (7-18) 02/18/21 19:05 Creatinine 0.74 mg/dl (0.6-1.2) 02/18/21 19:05 Est Cr Clr Drug Dosing 65.5 ml/min 02/18/21 19:05 Est GFR ( Amer) 96.5 ml/min 02/18/21 19:05 Est GFR (Non-Af Amer) 83.2 ml/min 02/18/21 19:05 BUN/Creatinine Ratio 13.0 (10-20) 02/18/21 19:05 Glucose 116 mg/dl (70-99) H 02/18/21 19:05 Calcium 9.5 mg/dl (8.5-10.1) 02/18/21 19:05 Phosphorus 2.9 mg/dl (2.5-4.9) 02/18/21 20:40 Magnesium 1.8 mg/dl (1.8-2.4) 02/18/21 20:40 Total Bilirubin 0.7 mg/dl (0.2-1) 02/18/21 19:05 AST 32 U/L (15-37) 02/18/21 20:40 ALT 75 (12-78) 02/18/21 19:05 Alkaline Phosphatase 62 U/L (45-117) 02/18/21 19:05 Troponin I 0.066 ng/ml (0-0.045) H* 02/18/21 19:05 Total Protein 7.8 gm/dl (6.4-8.2) 02/18/21 19:05 Albumin 3.3 gm/dl (3.4-5.0) L 02/18/21 19:05 Globulin 4.5 gm/dl (2.5-4.0) H 02/18/21 19:05 Albumin/Globulin Ratio 0.7 (0.9-2) L 02/18/21 19:05 Diagnostic Findings [place], [place] [phone] CT Scan Report Patient:MJ CUETO Admit Date:02/16/21 MR#:[id number] Address1:[address] [facility] Acct ID:[id number] Address2: Date:1950 [facility] [place] [id number] Age:70 Location:ED Sex:F Room/Bed: Att Phy: Diagnosis:RAPID HEART RATE,SWEATING,DON'T FEEL GOOD,WEAK Lucy Phy:Malvin Freeman CRNP Service Date:02/16/21 Fam Phy: Interpreting Phy:Vinnie Bartlettit Phy: Ordering Phy:Gallito Berry M.D. cc: ~ CT ANGIOGRAPHY OF THE CHEST, PULMONARY EMBOLUS PROTOCOL CLINICAL HISTORY: Shortness of breath. Evaluate for pulmonary embolus. COMPARISON STUDY: Chest CT March 10, 2020. Chest radiograph performed earlier today. TECHNIQUE: Following IV administration of 120 mL of Optiray, helical axial images of the chest were obtained utilizing the pulmonary embolus protocol. Maximal intensity projections and sagittal and coronal reformats were viewed on an independent 3D workstation. IV contrast was administered without complication. Automated exposure control was utilized for the study. A dose lowering technique was utilized adhering to the principles of ALARA. CT DOSE: 284.18 mGy.cm FINDINGS: No pulmonary emboli are identified. Mild cardiomegaly is noted. No pericardial effusion. The thoracic aorta is not significantly opacified. No pneumothorax or pleural effusion is noted. There are mild multifocal groundglass opacities within the lungs. There is no consolidation. Central airways are patent. No pneumomediastinum is present. No acute fracture or suspicious lesion is identified within visualized portions of the bony thorax. There is mild elevation of the left hemidiaphragm. IMPRESSION: 1. No pulmonary emboli identified. 2. Mild multifocal groundglass opacities within the lungs suggestive of viral pneumonia. 3. Mild cardiomegaly. ACT 112: Negative or not required by law. Electronically signed by: Vinnie Olsen M.D. 02/16/2021 8:20 AM Dictated:02/16/21814 Transcribed: 02/16/21814 Code Status & VTE Plan Code Status Full code VTE Prophylaxis Plan VTE Prophylaxis will be ordered: Yes PG Care Time/CCT Total # of Minutes Spent Total Time Spent with Patient: Total time spent is greater than 50% in coordination of care (as documented) at patient's floor/unit and/or counseling patient: Coding Level of Care Code INT OBSERVATION CARE 70M LVL 3 Diagnoses Atrial fibrillation with rapid ventricular response I48.91 Atrial flutter with rapid ventricular response I48.92 Multifocal pneumonia J18.9 COVID-19 U07.1 Hypertension I10 Hypertension type: unspecified Asthma J45.20 Asthma severity: mild Asthma persistence: intermittent Asthma complication type: uncomplicated Hyperlipidemia E78.5 (1) Hypertension Hypertension type: unspecified Qualified Code(s): I10 - Essential (primary) hypertension (2) Asthma Asthma severity: mild Asthma persistence: intermittent Asthma complication type: uncomplicated Qualified Code(s): J45.20 - Mild intermittent asthma, uncomplicated
[2021-02-18] MEDS ORDERED: MAGNESIUM SULFATE / D5W 1 GM/100 ML BAG IV STA (23:41)
[2021-02-19] MEDS ORDERED: ACETAMINOPHEN 325 MG TAB PO PRN (01:59)
[2021-02-19] MEDS ORDERED: NSS + 20MEQ KCL 20 MEQ/1,000 ML BAG IV SCH (01:59)
[2021-02-19] MEDS ORDERED: ONDANSETRON INJ 2 MG/ML 2 ML VIAL IV PRN (01:59)
[2021-02-19 04:54] LABS: Basophils # (auto) 0.01 K/uL (0-0.2); Basophils % (auto) 0.3 %; Eosinophils # (auto) 0.09 K/uL (0-0.5); Eosinophils % (auto) 2.3 %; Hematocrit (blood only) 40.1 % (37-47); Hemoglobin 13.3 g/dL (12.0-16.0); Lymphocytes # (auto) 1.62 K/uL (1.2-3.4); Lymphocytes % (auto) 41.3 %; Mean Corpuscular Hemoglobin 31.1 pg (25-34); Mean Corpuscular Hgb Conc 33.2 g/dL (32-36); Mean Corpuscular Volume 93.9 fL (80-100); Monocytes # (auto) 0.45 K/uL (0.11-0.59); Monocytes % (auto) 11.5 %; Neutrophils # (auto) 1.75 K/uL (1.4-6.5); Neutrophils % (auto) 44.6 %; Platelet Count 204 K/uL (130-400); RDW Coefficient of Variation 12.9 % (11.5-14.5); RDW Standard Deviation 44.6 fL (36.4-46.3); Red Blood Count 4.27 M/uL (4.2-5.4); White Blood Count 3.92 K/uL (4.8-10.8)
[2021-02-19 05:28] LABS: Potassium 4.1 mmol/L (3.5-5.1)
[2021-02-19 05:29] LABS: Albumin Level 3.1 gm/dl (3.4-5.0); BUN Creatinine Ratio 12.4 (10-20); Calcium 8.8 mg/dl (8.5-10.1); Creatinine Clr Calc Pharmacy 79.6 ml/min; Est GFR (African American) 105.2 ml/min; Est GFR (Non-African American) 90.8 ml/min; Magnesium 2.3 mg/dl (1.8-2.4)
[2021-02-19 06:06] LABS: Albumin Globulin Ratio 0.8 (0.9-2); Bilirubin,Total 0.6 mg/dl (0.2-1); Globulin 3.9 gm/dl (2.5-4.0); Troponin I 0.081 ng/ml (0-0.045)
[2021-02-19] MEDS ORDERED: APIXABAN 5 MG TABLET PO SCH (09:00)
[2021-02-19] MEDS ORDERED: ZINC SULFATE 220 MG CAPSULE PO SCH (09:00)
[2021-02-19] MEDS ORDERED: CALCIUM CARBONATE 1250MG TAB PO SCH (09:00)
[2021-02-19] MEDS ORDERED: OMEGA-3 (PURIFIED FISH OIL) 1 GM CAP PO SCH (09:00)
[2021-02-19] MEDS ORDERED: METOPROLOL TARTRATE 50 MG TAB PO SCH (09:00)
[2021-02-19] MEDS ORDERED: MAGNESIUM OXIDE 400 MG TAB PO SCH (09:00)
[2021-02-19] MEDS ORDERED: CHOLECALCIFEROL 1,000 UNITS 25 MCG TAB PO SCH (09:00)
[2021-02-19 10:33] VITALS: TEMP 99
--- NOTE | 2021-02-19 13:33 | Discharge Summary ---
Date of Service February 19, 2021 Admission HPI Per Admitting Provider The patient is a 70-year-old female with a past medical history including atrial fibrillation with RVR, hyperlipidemia, GERD without esophagitis, family history of CAD, bilateral lower extremity varicose veins, hypertension, anxiety and asthma. She was recently admitted to [facility] from 02/16-02/17 for atrial fibrillation with RVR, and was tested positive for COVID-19 infection, but not actively treated due to no active symptoms. Patient presents without the palpitations as noted above developed today, and upon arrival to the emergency department was found in atrial fibrillation/atrial flutter with RVR. She did receive Lopressor 5 mg IV x3 from the ED, and received 1 L of normal saline, with improved rate control and ultimately converted to low rate sinus tachycardia. Principal Diagnosis Paroxysmal atrial fibrillation with rapid ventricular response Discharge Exam General: well developed, well nourished, no acute distress, comfortable Neck: supple, trachea midline, normal thyroid Lungs: clear to auscultation bilaterally, normal respiratory effort, no accessory muscle use, no distress Heart: regular S1 and S2, no murmur, peripheral pulses normal, capillary refill normal, no edema Abdomen: soft, NT, ND, + BS, no hepatomegaly, normal to percussion Extremities: normal in appearance, no cyanosis, no petechiae, strength is 5/5 bilaterally Neuro: awake, cooperative, moves all extremities, no focal motor deficits, CN II-XII intact, sensation in extremities intact, normal speech Skin: warm, dry, no rash, normal turgor Psych: Awake, alert oriented x 3, euthymic affect Discharge Data Allergies Allergy/AdvReac Type Severity Reaction Status Date / Time No Known Drug Allergies Allergy Unknown Verified 02/18/21 22:55 Consultations 02/18/21 22:28 ED Decision to Admit Stat 02/19/21 01:59 Consult Cardiology Routine Hospital Course (1) Atrial fibrillation with rapid ventricular response: Atrial fibrillation/atrial flutter with RVR/hypertension- converted quickly to NSR and has remained in NSR discharge on metoprolol 50mg BID continue Eliquis 5mg BID continue magnesium, potassium stay well hydrated troponin minimally elevated at 0.06, lower than it was two days prior TSH was 5 on 02/16, T4 normal repeat TSH in a few weeks with PCP instructed to avoid caffeine and alcohol follow up with cardiology if these episodes would keep happening would consider referral to EP for possible ablation (2) Atrial flutter with rapid ventricular response: See above (3) Multifocal pneumonia: Multifocal pneumonia due to COVID-19- not on oxygen symptoms for several weeks, no need for dexamethasone (4) COVID-19: See above (5) Hypertension: See above (6) Asthma: On Ventolin HFA as outpatient (7) Hyperlipidemia: Continue fish oil Total Time Total Time Spent Total Time Spent (In Minutes): 31 Total Time Includes: Examination of the Patient, Discharge Planning, Medication Reconciliation and Communication With Other Providers Discharge Plan Discharge Items Patient Disposition: Home - Self-Care Reason For Visit: A-FIB / A-FLUTTER, COVID-19 Discharge Diagnosis: Atrial fibrillation with RVR Condition on Discharge: Good Goals: stay on metoprolol 50mg twice a day follow up with cardiology stay on Eliquis Activity: Resume your previous activity Driving/Machine Use: No limitations Weightbearing: Full weightbearing Non-emergency contact: Primary Care Provider Call non-emergency contact if: you have any medication questions Follow-up/Referrals: Malvin Freeman CRNP [Primary Care Provider] - Diet: Regular Addtl Attending Provider Instructions: Medications: - METOPROLOL: increase to 50mg twice a day, you received 50mg this morning, due for 50mg this evening Paroxysmal atrial fibrillation, recurrent episodes of rapid ventricular response again, this resolved quickly with higher dose of metoprolol, now on 50mg twice a day important that you follow up with cardiology as soon as possible stay well nourished and well hydrated of note, your magnesium and potassium were normal your TSH was slightly elevated last admission but free T4 was normal, recommend repeating outpatient in a few weeks possible triggers for atrial fibrillation are caffeine, excess alcohol, avoid these for time being as we discussed, if you continue to have episodes of rapid heart rate, it may be worthwhile to see electrophysiology with cardiology to discuss ablation procedure you want to remain on Eliquis as an ablation won't be done right away if you are not on anticoagulation cardiology should arrange a follow up please call their office if you do not hear from them by end of the week [phone] Pending Studies at Discharge: No Stand-Alone Forms: My [employer], Smoking Cessation Medications and DC Order Prescriptions: New metoprolol tartrate 50 mg Tablet 50 mg PO BID 30 Days Qty: 60 RF: 3 Continued magnesium 250 mg tablet 250 mg PO QAM RF: 0 calcium carbonate [Calcium 600] 600 mg calcium (1,500 mg) tablet 600 mg PO QAM RF: 0 omega 9-fze-yqn-fish oil [Fish Oil] 1,000 mg (120 mg-180 mg) Capsule 1 cap PO QAM RF: 0 albuterol sulfate [Ventolin HFA] 90 mcg/actuation HFA aerosol inhaler 1 - 2 puff INH .Q4-6H PRN (Reason: shortness of breath or wheezing) RF: 0 cholecalciferol (vitamin D3) 25 mcg (1,000 unit) Tablet 25 mcg PO QAM RF: 0 zinc 50 mg Tablet 50 mg PO DAILY RF: 0 Eliquis 5 mg tablet 5 mg PO BID Qty: 60 RF: 3 Discontinued metoprolol tartrate 25 mg Tablet 25 mg PO BID 30 Days Qty: 60 RF: 3 Discharge Orders: Discharge Order (Routine); Ordered 02/19/21 Ordered By: Mendoza Pryor Admission Data Admit Date/Time: 02/18/21 23:39 Attending Provider: Mendoza Pryor Admit Provider: Reji Bautista Primary Care Provider: Malvin Freeman Other Providers: Reji Bautista ; Phong Finnegan Coding Level of Care Code D/C DAY MANAGEMENT >30 MINS Diagnoses Atrial fibrillation with rapid ventricular response I48.91 Atrial flutter with rapid ventricular response I48.92 Multifocal pneumonia J18.9 COVID-19 U07.1 Hypertension I10 Hypertension type: unspecified Asthma J45.20 Asthma severity: mild Asthma persistence: intermittent Asthma complication type: uncomplicated Hyperlipidemia E78.5
[2021-02-19 13:57] VITALS: BP 158/97; PULSE 81; O2SAT 97
--- NOTE | 2021-02-19 15:44 | Electrocardiogram Report ---
Test Reason : Blood Pressure : / mmHG Vent. Rate : 114 BPM Atrial Rate : 245 BPM P-R Int : 000 ms QRS Dur : 074 ms QT Int : 342 ms P-R-T Axes : 000 047 067 degrees QTc Int : 471 ms Atrial fibrillation with rapid ventricular response Nonspecific ST abnormality Abnormal ECG When compared with ECG of 16-FEB-2021 12:37, Atrial fibrillation has replaced Sinus rhythm Vent. rate has increased BY [address] now depressed in Inferior leads Confirmed by Phong Finnegan ([id number]) on 02/19/2021 3:44:16 PM Referred By: REFERRED SELF Confirmed By:Phong Finnegan
--- NOTE | 2021-02-19 15:51 | Electrocardiogram Report ---
Test Reason : Blood Pressure : / mmHG Vent. Rate : 134 BPM Atrial Rate : 101 BPM P-R Int : 000 ms QRS Dur : 068 ms QT Int : 324 ms P-R-T Axes : 000 033 069 degrees QTc Int : 483 ms Poor data quality, interpretation may be adversely affected Atrial fibrillation with rapid ventricular response Abnormal ECG When compared with ECG of 18-FEB-2021 19:03, (unconfirmed) No significant change Confirmed by Phong Finnegan ([id number]) on 02/19/2021 3:50:40 PM Referred By: REFERRED SELF Confirmed By:Phong Finnegan
--- NOTE | 2021-02-19 16:00 | Electrocardiogram Report ---
Test Reason : Blood Pressure : / mmHG Vent. Rate : 068 BPM Atrial Rate : 068 BPM P-R Int : 148 ms QRS Dur : 078 ms QT Int : 428 ms P-R-T Axes : 048 027 067 degrees QTc Int : 455 ms Normal sinus rhythm Normal ECG When compared with ECG of 18-FEB-2021 20:37, (unconfirmed) Sinus rhythm has replaced Atrial fibrillation Vent. rate has decreased BY 66 BPM Confirmed by Phong Finnegan ([id number]) on 02/19/2021 4:00:02 PM Referred By: REFERRED SELF Confirmed By:Phong Finnegan
== END 2021-02-19 14:28 | disposition home or self-care (01) ==
LOC: ED 18:51 → EDINP 18:51 → SUATTDRO 23:39 → EDINP 02-19 01:59

== ENCOUNTER 2021-08-22 17:07 | Observation (INO) ==
[2021-08-22] MEDS ORDERED: SODIUM CHLORIDE 0.9% 1000ML 500 ML IV ONE (17:54)
--- NOTE | 2021-08-22 17:58 | Emergency Department Note ---
History of Present Illness General Chief complaint: Arrhythmia/Palpitations Stated complaint: PALPITATIONS, HIGH BLOOD PRESSURE Time Seen by Provider: 08/22/21 17:44 Source: patient and family ( who is at the bedside) Mode of arrival: ambulatory Limitations: no limitations History of Present Illness This patient is a 70-year-old female comes in complaining of palpitations. She says this started about an hour and half or 2 ago. She says it feels like her heart is doing funny things she says she is had this before but it is now persistent. She gets this frequently but not persistently. Looking through her chart she does have a history of A. fib and flutter. She is on no blood thinners she tells me. She did take an aspirin and a half dose of metoprolol which she believes was 50 mg at around 3:00. She feels winded when she takes a deep breath no chest pain no fever chills no cough no blood or melena stool no recent illness she has not had the COVID-vaccine but did have COVID back in February she has some chronic mild extremity edema of the left leg after having trauma but has no acute findings in that leg. No numbness or weakness. No redness or warmth Home Medications Medication Instructions Recorded Confirmed Type calcium carbonate 600 mg calcium 600 mg PO QAM tab 01/09/19 08/22/21 History (1,500 mg) tablet (Calcium) magnesium 250 mg tablet 250 mg PO QAM tab 01/09/19 08/22/21 History omega 1-ezy-dmm-fish oil 1,000 mg 1 cap PO QAM 02/28/19 08/22/21 History (120 mg-180 mg) capsule (Fish Oil) albuterol sulfate 90 mcg/actuation 1 - 2 puff INH .Q4-6H PRN 12/09/19 08/22/21 History aerosol inhaler (Ventolin HFA) cholecalciferol (vitamin D3) 25 25 mcg PO QAM 03/02/20 08/22/21 History mcg (1,000 unit) tablet escitalopram oxalate 10 mg tablet 10 mg PO QAM #90 tab 06/03/21 08/22/21 Rx metoprolol tartrate 50 mg tablet 25 mg PO BID #90 tab 06/27/21 08/22/21 Rx Allergies Allergy/AdvReac Type Severity Reaction Status Date / Time No Known Drug Allergies Allergy Unknown Verified 08/22/21 19:59 Past Med/Surg History Medical History Anxiety Atrial fibrillation recent hospital admission A-Fib/RVR. discharged on Eliquis and instructed to follow up with cardiology. pt reports she never followed up and never started the Eliquis. Chronic sinusitis Exercise-induced asthma GERD without esophagitis History of colon polyps History of COVID-19 01/2021; body aches, fatigue, loss taste/smell; resolved. History of DVT (deep vein thrombosis) lower extremity dvt > 40 years ago d/t control Hyperlipidemia Hypertension Non compliance with medical treatment recent hospital admission at [place] w/ A-Fib/RVR. discharged on Eliquis and instructed to follow up with cardiology. pt reports she never followed up and never started the Eliquis. 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 Poor historian Varicose veins of bilateral lower extremities with other complications White coat syndrome with hypertension Surgical History H/O blepharoplasty H/O ovarian cystectomy right ovary H/O tooth extraction History of appendectomy History of colonoscopy History of esophagogastroduodenoscopy (EGD) History of sinus surgery Hx of tubal ligation S/P skin biopsy benign Family History Mother Diabetes Alzheimer disease Colorectal cancer Hypertension Father Diabetes Myocardial infarction, Onset Age: 62 Hypertension Sister Lymphoma Breast cancer, Onset Age: 70 Hypertension Family/Other Ovarian cancer Prostate cancer Other No family history of adverse response to anesthesia Social History Smoking Status: Never smoker Second Hand Exposure: No; Hx Alcohol Use: Yes Alcohol type: wine Hx Substance Use: No Preferred Language: Bulgarian Communication Ability: Effective Visual Impairment: No Limitations Hearing Ability: Normal Relationship Manager Required: No Beliefs That Will Affect Care: None marital status: Current Living Situation: Spouse current occupational status: retired Other Information That Helps Us Care for You: No Feels Safe at Home: Yes Safety Concerns: Feels Safe At This Time Childhood Exposure to Second-Hand Smoke: No caffeine: Yes (Cofee 1 per day. ) during the past year weight has: remained stable Dental Care, Regularly: Yes Physical Activity Frequency: 5-6 Times per Week Seatbelt Use: always Sunscreen Use: No Assistive Devices: None Review of Systems A total of 10 systems reviewed and were otherwise negative Physical Exam Vital Signs Vital Signs - 24 hr 08/22/21 17:11 08/22/21 17:48 08/22/21 18:00 Temperature 36.6 C Temperature Source Temporal Artery Scan Pulse Rate 106 H Pulse Rate [Right Finger] 125 H Pulse Rhythm [Right Finger] Regular Pulse Strength [Right Finger] Normal Respiratory Rate 18 18 Respiratory Effort / Characteristics Non-Labored Non-Labored Respiratory Depth Normal Normal Respiratory Pattern Regular Blood Pressure 124/94 Blood Pressure [Left Arm] 170/138 H Blood Pressure Mean 104 Blood Pressure Mean [Left Arm] 148 Blood Pressure Position [Left Arm] Lying Pulse Oximetry 97 97 Oxygen Delivery Method Room Air Room Air Room Air Sepsis Recent Fever Within 48 Hours No Sepsis New/Unexplained Change in Mental Status No Sepsis Action Taken by Nursing No Action Required 08/22/21 18:47 08/22/21 19:12 08/22/21 20:00 Temperature Temperature Source Pulse Rate 108 H 132 H Pulse Rate [Right Finger] 140 H Pulse Rhythm [Right Finger] Regular Pulse Strength [Right Finger] Normal Respiratory Rate 18 Respiratory Effort / Characteristics Non-Labored Respiratory Depth Normal Respiratory Pattern Blood Pressure 182/147 H 154/94 H Blood Pressure [Left Arm] 126/100 Blood Pressure Mean Blood Pressure Mean [Left Arm] 108 Blood Pressure Position [Left Arm] Lying Pulse Oximetry 98 Oxygen Delivery Method Room Air Sepsis Recent Fever Within 48 Hours Sepsis New/Unexplained Change in Mental Status Sepsis Action Taken by Nursing General: Well developed well nourished older female who appears in no acute distress, breathing comfortably on room air. Normal speech HEENT: Normal cephalic atraumatic. Pupils are equal round and reactive to light. Extraocular movements are intact. Oropharynx is pink with moist mucous membranes. No swelling of the mouth lips or tongue. Neck: Supple with a midline trachea. No meningeal signs or stiffness, no JVD or bruits. No Stridor. Chest: Clear to auscultation bilaterally. No wheezes or rhonchi. No increased work of breathing. Heart: Regular rate and rhythm without murmurs or gallops. Irregularly irregular and mildly tachycardic. Abdomen: Soft nontender, nondistended without rebound guarding or rigidity. Extremities: No cyanosis clubbing or edema. No calf tenderness or assymetry Spine/Back. Non tender to palpation. No CVA tenderness Skin: Good turgor without rashes. Neurologic exam: Cranial nerves two through 12 are intact. Motor and sensation are intact and symmetrical throughout. Course Administered Medications Discontinued Medications Sodium Chloride (Nss 1000ml) 500 mls @ 999 mls/hr IV .Q31M ONE Stop: 08/22/21 18:24 Last Infusion: 08/22/21 19:10 Dose: 0 mls/hr Documented by: [id number] Admin: 08/22/21 18:33 Dose: 999 mls/hr Documented by: [id number] Potassium Chloride (K Faraz / Wtr) 10 meq in 100 mls @ 100 mls/hr IV ONE ONE; Protocol Stop: 08/22/21 22:03 Last Admin: 08/22/21 23:12 Dose: 100 mls/hr Documented by: [id number] Magnesium Sulfate/Dextrose (Magnesium Sulfate / D5w) 1 gm in 100 mls @ 50 mls /hr IV ONE ONE Stop: 08/22/21 23:03 Last Admin: 08/22/21 21:45 Dose: 50 mls/hr Documented by: [id number] Metoprolol Tartrate (Metoprolol Tartrate 1 Mg/Ml Vial) 5 mg IV NOW STA Stop: 08/22/21 18:35 Last Admin: 08/22/21 18:47 Dose: 5 mg Documented by: [id number] Metoprolol Tartrate (Metoprolol Tartrate 1 Mg/Ml Vial) 5 mg IV NOW STA Stop: 08/22/21 19:03 Last Admin: 08/22/21 19:12 Dose: 5 mg Documented by: [id number] Potassium Chloride (Potassium Chloride Crtab 20 Meq Tabcr) 40 meq PO NOW STA Stop: 08/22/21 21:05 Last Admin: 08/22/21 21:45 Dose: 40 meq Documented by: [id number] Medical Decision Making Differential Diagnosis Rapid A. fib, arrhythmia, acute coronary syndrome, electrolyte or metabolic abnormality, PE, thyroid disease, valvular heart disease, CHF, infection Medical Records Attestation: I reviewed the patient's medical records. Home Medications Current Medication List: was personally reviewed by me Laboratory Data Attestation: I reviewed the patient's lab results. Result diagrams: 08/22/21 17:42 08/22/21 17:42 Lab Results 08/22/21 08/22/21 08/22/21 Range/Units 17:42 17:42 17:42 WBC 6.16 (4.8-10.8) K/uL RBC 4.07 L (4.2-5.4) M/uL Hgb 13.3 (12.0-16.0) g/dL Hct 37.9 (37-47) % MCV 93.1 (80-100) fL MCH 32.7 (25-34) pg MCHC 35.1 (32-36) g/dL RDW Std Deviation 43.4 (36.4-46.3) fL RDW Coeff of [place] 12.8 (11.5-14.5) % Plt Count 250 (130-400) K/uL MPV 8.7 (7.4-10.4) fL Immature Gran % (Auto) 0.2 % Neut % (Auto) 62.5 % Lymph % (Auto) 25.8 % Moca % (Auto) 6.5 % Eos % (Auto) 4.5 % Baso % (Auto) 0.5 % Neut # (Auto) 3.85 (1.4-6.5) K/uL Lymph # (Auto) 1.59 (1.2-3.4) K/uL Moca # (Auto) 0.40 (0.11-0.59) K/uL Eos # (Auto) 0.28 (0-0.5) K/uL Baso # (Auto) 0.03 (0-0.2) K/uL Immature Gran # (Auto) 0.01 (0.00-0.02) K/uL PT (9.0-12.0) Seconds INR (0.9-1.1) APTT (21.0-31.0) Seconds PTT Ratio Sodium 139 (136-145) mmol/L Potassium 3.5 (3.5-5.1) mmol/L Chloride 105 (98-107) mmol/L Carbon Dioxide 27 (21-32) mmol/L Anion Gap 7 (3-11) BUN 10 (6-23) mg/dl Creatinine 0.74 (0.6-1.2) mg/dl Est Cr Clr Drug Dosing 71.5 ml/min Est GFR ( Amer) 96.5 ml/min Est GFR (Non-Af Amer) 83.2 ml/min BUN/Creatinine Ratio 13.5 (10-20) Glucose 149 H (70-99(Fasting)) mg/dl Calcium 9.6 (8.5-10.1) mg/dl Total Bilirubin 0.9 (0.2-1.0) mg/dl AST 21 (13-39) U/L ALT 19 (7-52) U/L Alkaline Phosphatase 56 (34-104) U/L Troponin I High Sens 5.3 (0-14) pg/ml Total Protein 7.1 (6.0-8.3) gm/dl Albumin 4.2 (3.4-5.0) gm/dl Globulin 2.9 (2.5-4.0) gm/dl Albumin/Globulin Ratio 1.4 (0.9-2) Lipase 31 (11-82) U/L TSH 3.122 (0.300-4.500) uIu/ml 08/22/21 Range/Units 17:42 WBC (4.8-10.8) K/uL RBC (4.2-5.4) M/uL Hgb (12.0-16.0) g/dL Hct (37-47) % MCV (80-100) fL MCH (25-34) pg MCHC (32-36) g/dL RDW Std Deviation (36.4-46.3) fL RDW Coeff of [place] (11.5-14.5) % Plt Count (130-400) K/uL MPV (7.4-10.4) fL Immature Gran % (Auto) % Neut % (Auto) % Lymph % (Auto) % Moca % (Auto) % Eos % (Auto) % Baso % (Auto) % Neut # (Auto) (1.4-6.5) K/uL Lymph # (Auto) (1.2-3.4) K/uL Moca # (Auto) (0.11-0.59) K/uL Eos # (Auto) (0-0.5) K/uL Baso # (Auto) (0-0.2) K/uL Immature Gran # (Auto) (0.00-0.02) K/uL PT 10.6 (9.0-12.0) Seconds INR 1.0 (0.9-1.1) APTT 28.8 (21.0-31.0) Seconds PTT Ratio 1.0 Sodium (136-145) mmol/L Potassium (3.5-5.1) mmol/L Chloride (98-107) mmol/L Carbon Dioxide (21-32) mmol/L Anion Gap (3-11) BUN (6-23) mg/dl Creatinine (0.6-1.2) mg/dl Est Cr Clr Drug Dosing ml/min Est GFR ( Amer) ml/min Est GFR (Non-Af Amer) ml/min BUN/Creatinine Ratio (10-20) Glucose (70-99(Fasting)) mg/dl Calcium (8.5-10.1) mg/dl Total Bilirubin (0.2-1.0) mg/dl AST (13-39) U/L ALT (7-52) U/L Alkaline Phosphatase (34-104) U/L Troponin I High Sens (0-14) pg/ml Total Protein (6.0-8.3) gm/dl Albumin (3.4-5.0) gm/dl Globulin (2.5-4.0) gm/dl Albumin/Globulin Ratio (0.9-2) Lipase (11-82) U/L TSH (0.300-4.500) uIu/ml Imaging Data Attestation: I personally reviewed and interpreted this imaging study as follows: My Impression: Chest x-rayno acute infiltrate, failure, pneumothorax seen. Radiologist's Impression: Chest X-Ray 08/22/21 17:53 XR chest 1V portable CLINICAL HISTORY: Chest Pain. COMPARISON STUDY: 02/16/2021 TECHNIQUE: 1 view of the chest FINDINGS: Single frontal view of the chest demonstrates the cardiomediastinal silhouette to be within normal limits. The lungs are clear of alveolar opacities. There is no evidence for pleural effusion. There is no evidence for vascular congestion. There is no acute osseous pathology. IMPRESSION: 1. No acute cardiopulmonary disease. ACT 112: Negative or not required by law. Electronically signed by: Carlos Cano M.D. 08/22/2021 6:13 PM ECG Data Attestation: I personally reviewed and interpreted this ECG as follows: Indication: + palpitations Rate (beats per minute): 116 Rhythm: + atrial fibrillation ECG Intervals/blocks: + Normal QRS and + Normal QT ECG [place]: + Normal ECG ST segments: + Nonspecific ST abnormalities ECG Findings: no PACs or no PVCs Comparison ECG Date: from (04/22/20) Change: the following changes noted (A flutter has replaced normal sinus rhythm) MDM Narrative This patient comes in as described above. She was placed on a driveway attendant room a 10 she has a history of A. fib. Looking through the chart she is supposed be on Eliquis but never got it filled. She did take aspirin and 25 of metoprolol before arrival. Her heart rate is ranging from the low 100s up to 130. IV access was established and she was given an IV normal saline bolus. Multiple blood testing was obtained EKG was obtained as well as chest x-ray. She was reassessed frequently. She did receive 2 doses of IV metoprolol 5 mg and her heart rate is trending downward but is still tachycardic. She has no significant electrolyte or metabolic abnormalities. Chest x-ray was unremarkable. she has no fever or white count to suggest infection. She has no significant anemia. She has nothing to suggest thyroid disease or PE. Her Her troponin is not elevated. COVID test was negative. I do think she needs to be admitted/observed for rate control and further treatment and evaluation. I have consulted Dr. Hall to see the patient in ER for these measures Continuous cardiac monitoring: Orders placed in EMR for continuous cardiac monitoring. Upon my interpretation was noted to be in rapid A. fib with a rate averaging about 110. Impression & Plan Atrial fibrillation with rapid ventricular response, Palpitation, Lab test negative for COVID-19 virus, Family history of coronary artery disease Discharge Plan Visit Data Chief Complaint: Arrhythmia/Palpitations Stated Complaint: PALPITATIONS, HIGH BLOOD PRESSURE ED Provider: Johnathan Avila Discharge Problem: Atrial fibrillation with rapid ventricular response, Palpitation, Lab test negative for COVID-19 virus, Family history of coronary artery disease Patient Disposition: Admitted As Inpatient Discharge Instructions Interventions: ED Discharge Assessment Last Done: 08/22/21 22:07
[2021-08-22 18:05] LABS: Basophils # (auto) 0.03 K/uL (0-0.2); Basophils % (auto) 0.5 %; Eosinophils # (auto) 0.28 K/uL (0-0.5); Eosinophils % (auto) 4.5 %; Hematocrit (blood only) 37.9 % (37-47); Hemoglobin 13.3 g/dL (12.0-16.0); Immature Granulocytes # (auto) 0.01 K/uL (0.00-0.02); Immature Granulocytes % (auto) 0.2 %; Lymphocytes # (auto) 1.59 K/uL (1.2-3.4); Lymphocytes % (auto) 25.8 %; Mean Corpuscular Hemoglobin 32.7 pg (25-34); Mean Corpuscular Hgb Conc 35.1 g/dL (32-36); Mean Corpuscular Volume 93.1 fL (80-100); Mean Platelet Volume 8.7 fL (7.4-10.4); Monocytes % (auto) 6.5 %; Neutrophils # (auto) 3.85 K/uL (1.4-6.5); Neutrophils % (auto) 62.5 %; Platelet Count 250 K/uL (130-400); RDW Coefficient of Variation 12.8 % (11.5-14.5); RDW Standard Deviation 43.4 fL (36.4-46.3); Red Blood Count 4.07 M/uL (4.2-5.4); White Blood Count 6.16 K/uL (4.8-10.8)
[2021-08-22 18:13] LABS: Partial Thromboplastin Time 28.8 Seconds (21.0-31.0); Prothrombin Time 10.6 Seconds (9.0-12.0)
--- NOTE | 2021-08-22 18:14 | XRay Report ---
XR chest 1V portable CLINICAL HISTORY: Chest Pain. COMPARISON STUDY: 02/16/2021 TECHNIQUE: 1 view of the chest FINDINGS: Single frontal view of the chest demonstrates the cardiomediastinal silhouette to be within normal li mits. The lungs are clear of alveolar opacities. There is no evidence for pleural effusion. There is no evidence for vascular congestion. There is no acute osseous pathology. IMPRESSION: 1. No acute cardiopulmonary disease. ACT 112: Negative or not required by law. Electronically signed by: Carlos Cano M.D. 08/22/2021 6:13 PM
[2021-08-22 18:29] LABS: Albumin Globulin Ratio 1.4 (0.9-2); Albumin Level 4.2 gm/dl (3.4-5.0); BUN Creatinine Ratio 13.5 (10-20); Bilirubin,Total 0.9 mg/dl (0.2-1.0); Calcium 9.6 mg/dl (8.5-10.1); Creatinine Clr Calc Pharmacy 71.5 ml/min; Est GFR (African American) 96.5 ml/min; Est GFR (Non-African American) 83.2 ml/min; Globulin 2.9 gm/dl (2.5-4.0); Potassium 3.5 mmol/L (3.5-5.1); Total Protein 7.1 gm/dl (6.0-8.3)
[2021-08-22 18:33] LABS: Troponin I High Sensitivity 5.3 pg/ml (0-14)
[2021-08-22] MEDS ORDERED: METOPROLOL TARTRATE 1 MG/ML VIAL IV STA ×2 (18:34→19:02)
[2021-08-22] MEDS ORDERED: POTASSIUM CHLORIDE CRTAB 20 MEQ TABCR PO STA (21:04)
[2021-08-22] MEDS ORDERED: MAGNESIUM SULFATE / D5W 1 GM/100 ML BAG IV ONE (21:04)
[2021-08-22] MEDS ORDERED: POTASSIUM CHLORIDE / WTR 10 MEQ/100 ML PLCT IV ONE (21:04)
[2021-08-22] MEDS ORDERED: METOPROLOL TARTRATE 1 MG/ML VIAL IV PRN (21:15)
--- NOTE | 2021-08-22 21:17 | History & Physical Report ---
Date of Service August 22, 2021 Assessment & Plan (1) Atrial fibrillation with rapid ventricular response: Plan: Atrial fibrillation with RVR/history of paroxysmal A. fib/hypertension- Patient did receive Lopressor 5 mg IV x2 from the emergency department, and 1 L of normal saline. Her potassium was 3.5, for which we will give Klor-Con 40 mEq p.o. and 1 10 mEq K rider Magnesium is 1.8, for which we will give magnesium sulfate 1 g IV. After the above supplementations, patient changed from a A. fib with RVR with variable from 1 20-1 40, to normal sinus rhythm with heart rate in the 60s to low 70s. The patient will be admitted to telemetry for serial cardiac enzymes, serial EKG's, cardiac rhythm monitoring and a 2-D echocardiogram with Dopplers. Increase magnesium sulfate from 200 mg every morning to magnesium oxide 400 mg p.o. twice daily (2) Anxiety: Plan: Continue escitalopram 10 mg p.o. every morning (3) Asthma: Plan: Continue Ventolin HFA 2 puffs every 6 hours as needed (4) Hyperlipidemia: Plan: Continue omega-3 fish oil (5) Hypertension: Plan: See above History of Present Illness Chief Complaint: The patient presents to the emergency department with complaint of palpitations that started about 2 hours prior to arrival to the ED Primary Care Provider: DAVIS Arreola The patient is a 70-year-old female with a past medical history including paroxysmal atrial fibrillation, anxiety, asthma, atrial for with RVR, atrial flutter with RVR, hyperlipidemia, GERD, chronic sinusitis and hypertension. She reports that about 2 hours prior to arrival she developed symptoms of palpitations, which she has had in the past, but these have lasted significantly longer and are more intense. She reports that she did take an extra metoprolol tartrate when she noticed the symptoms first occurring without significant alejandra e. She feels dyspnea on exertion. She denies any recent travels or sick exposures. She did have COVID-19 infection back in February, from which she recovered. Allergies Allergy/AdvReac Type Severity Reaction Status Date / Time No Known Drug Allergies Allergy Unknown Verified 08/22/21 19:59 Home Medications Medication Instructions Recorded Confirmed Type calcium carbonate 600 mg calcium 600 mg PO QAM tab 01/09/19 08/22/21 History (1,500 mg) tablet (Calcium) magnesium 250 mg tablet 250 mg PO QAM tab 01/09/19 08/22/21 History omega 1-gjy-tuc-fish oil 1,000 mg 1 cap PO QAM 02/28/19 08/22/21 History (120 mg-180 mg) capsule (Fish Oil) albuterol sulfate 90 mcg/actuation 1 - 2 puff INH .Q4-6H PRN 12/09/19 08/22/21 History aerosol inhaler (Ventolin HFA) cholecalciferol (vitamin D3) 25 25 mcg PO QAM 03/02/20 08/22/21 History mcg (1,000 unit) tablet escitalopram oxalate 10 mg tablet 10 mg PO QAM #90 tab 06/03/21 08/22/21 Rx metoprolol tartrate 50 mg tablet 25 mg PO BID #90 tab 06/27/21 08/22/21 Rx Past Med/Surg History Medical History (Updated 08/23/21 @ 03:11 by Reji Bautista MD) Anxiety Atrial fibrillation recent hospital admission A-Fib/RVR. discharged on Eliquis and instructed to follow up with cardiology. pt reports she never followed up and never started the Eliquis. Chronic sinusitis Exercise-induced asthma GERD without esophagitis History of colon polyps History of COVID-19 01/2021; body aches, fatigue, loss taste/smell; resolved. History of DVT (deep vein thrombosis) lower extremity dvt > 40 years ago d/t control Hyperlipidemia Hypertension Non compliance with medical treatment recent hospital admission at [place] w/ A-Fib/RVR. discharged on Eliquis and instructed to follow up with cardiology. pt reports she never followed up and never started the Eliquis. 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 Poor historian Varicose veins of bilateral lower extremities with other complications White coat syndrome with hypertension Surgical History H/O blepharoplasty H/O ovarian cystectomy right ovary H/O tooth extraction History of appendectomy History of colonoscopy History of esophagogastroduodenoscopy (EGD) History of sinus surgery Hx of tubal ligation S/P skin biopsy benign Family History Mother Diabetes Alzheimer disease Colorectal cancer Hypertension Father Diabetes Myocardial infarction, Onset Age: 62 Hypertension Sister Lymphoma Breast cancer, Onset Age: 70 Hypertension Family/Other Ovarian cancer Prostate cancer Other No family history of adverse response to anesthesia Social History Smoking Status: Never smoker Second Hand Exposure: No; Hx Alcohol Use: Yes Alcohol type: wine Hx Substance Use: No Preferred Language: Korean Communication Ability: Effective Visual Impairment: No Limitations Hearing Ability: Normal Regional Commercial Sales Manager Required: No Beliefs That Will Affect Care: None marital status: Current Living Situation: Spouse current occupational status: retired Other Information That Helps Us Care for You: No Feels Safe at Home: Yes Safety Concerns: Feels Safe At This Time Childhood Exposure to Second-Hand Smoke: No caffeine: Yes (Cofee 1 per day. ) during the past year weight has: remained stable Dental Care, Regularly: Yes Physical Activity Frequency: 5-6 Times per Week Seatbelt Use: always Sunscreen Use: No Assistive Devices: None Review of Systems Review of Systems: The patient denies chest pain, cough, lower extremity swelling, sore throat, fevers, chills, sweats, nausea, vomiting, diarrhea , constipation, abdominal pain, pelvic pain, blood in urine or stool, dysuria, urinary frequency or urgency, lightheadedness, dizziness, headache, memory loss, loss of consciousness, rash, abnormal bruising or bleeding, imbalance, focal or generalized weakness, numbness or tingling in arms or legs, generalized arthralgias or myalgias, back or neck pain, or night sweats. The review of systems is otherwise negative other than for that already noted above, and at least 10 systems have been reviewed. Physical Exam Physical Exam: The patient is awake, alert and oriented 3, well developed and well nourished, normocephalic and atraumatic, lying in bed and in no acute distress. HEENT--PERRL, EOMI, mucous membranes and oropharynx dry. Neck--supple. No JVD. No bruits. Thyroid normal, trachea midline, no adenopathy. Heart--irregularly irregular. No murmurs, rubs or gallops. Lungs--clear bilaterally, no respiratory distress, no accessory muscle use. Abdomen--normal bowel sounds and soft. Nontender. Nondistended, no hernias or masses, no organomegaly. Extremities--no cyanosis or clubbing. No edema. There are good distal pulses b/l. Dermatologic--normal skin turgor, normal color, no abnormal lymph nodes, no r rose. Neurologic--cranial nerves II through XII grossly intact. Rheumatologic--normal range of motion. Psychiatric--normal affect. Results & Data Results & Data ([facility]) Vital Signs (Past 12 Hours) Vital Signs Temp Pulse Pulse Resp BP BP Pulse Ox 08/22/21 19:12 132 H 154/94 H 08/22/21 18:47 108 H 182/147 H 08/22/21 18:00 125 H 18 170/138 H 97 08/22/21 17:11 36.6 C 106 H 18 124/94 97 Laboratory Results Laboratory Results WBC 6.16 K/uL (4.8-10.8) 08/22/21 17:42 RBC 4.07 M/uL (4.2-5.4) L 08/22/21 17:42 Hgb 13.3 g/dL (12.0-16.0) 08/22/21 17:42 Hct 37.9 % (37-47) 08/22/21 17:42 MCV 93.1 fL (80-100) 08/22/21 17:42 MCH 32.7 pg (25-34) 08/22/21 17:42 MCHC 35.1 g/dL (32-36) 08/22/21 17:42 RDW Std Deviation 43.4 fL (36.4-46.3) 08/22/21 17:42 RDW Coeff of [place] 12.8 % (11.5-14.5) 08/22/21 17:42 Plt Count 250 K/uL (130-400) 08/22/21 17:42 MPV 8.7 fL (7.4-10.4) 08/22/21 17:42 Immature Gran % (Auto) 0.2 % 08/22/21 17:42 Neut % (Auto) 62.5 % 08/22/21 17:42 Lymph % (Auto) 25.8 % 08/22/21 17:42 Andrew % (Auto) 6.5 % 08/22/21 17:42 Eos % (Auto) 4.5 % 08/22/21 17:42 Baso % (Auto) 0.5 % 08/22/21 17:42 Neut # (Auto) 3.85 K/uL (1.4-6.5) 08/22/21 17:42 Lymph # (Auto) 1.59 K/uL (1.2-3.4) 08/22/21 17:42 Andrew # (Auto) 0.40 K/uL (0.11-0.59) 08/22/21 17:42 Eos # (Auto) 0.28 K/uL (0-0.5) 08/22/21 17:42 Baso # (Auto) 0.03 K/uL (0-0.2) 08/22/21 17:42 Immature Gran # (Auto) 0.01 K/uL (0.00-0.02) 08/22/21 17:42 PT 10.6 Seconds (9.0-12.0) 08/22/21 17:42 INR 1.0 (0.9-1.1) 08/22/21 17:42 APTT 28.8 Seconds (21.0-31.0) 08/22/21 17:42 PTT Ratio 1.0 08/22/21 17:42 Sodium 139 mmol/L (136-145) 08/22/21 17:42 Potassium 3.5 mmol/L (3.5-5.1) 08/22/21 17:42 Chloride 105 mmol/L (98-107) 08/22/21 17:42 Carbon Dioxide 27 mmol/L (21-32) 08/22/21 17:42 Anion Gap 7 (3-11) 08/22/21 17:42 BUN 10 mg/dl (6-23) 08/22/21 17:42 Creatinine 0.74 mg/dl (0.6-1.2) 08/22/21 17:42 Est Cr Clr Drug Dosing 71.5 ml/min 08/22/21 17:42 Est GFR ( Amer) 96.5 ml/min 08/22/21 17:42 Est GFR (Non-Af Amer) 83.2 ml/min 08/22/21 17:42 BUN/Creatinine Ratio 13.5 (10-20) 08/22/21 17:42 Glucose 149 mg/dl (70-99(Fasting)) H 08/22/21 17:42 Calcium 9.6 mg/dl (8.5-10.1) 08/22/21 17:42 Magnesium 1.8 mg/dl (1.7-2.4) 08/22/21 Unknown Total Bilirubin 0.9 mg/dl (0.2-1.0) 08/22/21 17:42 AST 21 U/L (13-39) 08/22/21 17:42 ALT 19 U/L (7-52) 08/22/21 17:42 Alkaline Phosphatase 56 U/L (34-104) 08/22/21 17:42 Troponin I High Sens 5.3 pg/ml (0-14) 08/22/21 17:42 Total Protein 7.1 gm/dl (6.0-8.3) 08/22/21 17:42 Albumin 4.2 gm/dl (3.4-5.0) 08/22/21 17:42 Globulin 2.9 gm/dl (2.5-4.0) 08/22/21 17:42 Albumin/Globulin Ratio 1.4 (0.9-2) 08/22/21 17:42 Lipase 31 U/L (11-82) 08/22/21 17:42 TSH 3.122 uIu/ml (0.300-4.500) 08/22/21 17:42 SARS-CoV-2, RNA, NAAT NEGATIVE (NEGATIVE) 08/22/21 Unknown Impressions Chest X-Ray 08/22/21 17:53 XR chest 1V portable CLINICAL HISTORY: Chest Pain. COMPARISON STUDY: 02/16/2021 TECHNIQUE: 1 view of the chest FINDINGS: Single frontal view of the chest demonstrates the cardiomediastinal silhouette to be within normal limits. The lungs are clear of alveolar opacities. There is no evidence for pleural effusion. There is no evidence for vascular congestion. There is no acute osseous pathology. IMPRESSION: 1. No acute cardiopulmonary disease. ACT 112: Negative or not required by law. Electronically signed by: Carlos Cano M.D. 08/22/2021 6:13 PM Code Status & VTE Plan Code Status Full code PG Care Time/CCT Total # of Minutes Spent Total Time Spent with Patient: Total time spent is greater than 50% in coordination of care (as documented) at patient's floor/unit and/or counseling patient: Coding Level of Care Code INT OBSERVATION CARE 70M LVL 3 Diagnoses Atrial fibrillation with rapid ventricular response I48.91 Anxiety F41.9 Asthma J45.20 Asthma severity: mild Asthma persistence: intermittent Asthma complication type: uncomplicated Hyperlipidemia E78.5 Hypertension I10 Hypertension type: unspecified (1) Asthma Asthma severity: mild Asthma persistence: intermittent Asthma complication type: uncomplicated Qualified Code(s): J45.20 - Mild intermittent asthma, uncomplicated (2) Hypertension Hypertension type: unspecified Qualified Code(s): I10 - Essential (primary) hypertension
[2021-08-22] MEDS ORDERED: ALBUTEROL HFA 8 GM INHALER INH PRN (22:59)
[2021-08-22] MEDS ORDERED: ACETAMINOPHEN 325 MG TAB PO PRN (22:59)
[2021-08-22] MEDS ORDERED: ONDANSETRON INJ 2 MG/ML 2 ML VIAL IV PRN (22:59)
[2021-08-23 06:47] LABS: Albumin Level 3.9 gm/dl (3.4-5.0); BUN Creatinine Ratio 15.4 (10-20); Creatinine Clr Calc Pharmacy 81.2 ml/min; Est GFR (African American) 105.7 ml/min; Est GFR (Non-African American) 91.2 ml/min; Phosphorus 2.9 mg/dl (2.5-4.9); Potassium 4.1 mmol/L (3.5-5.1)
[2021-08-23] MEDS ORDERED: OMEGA-3 (PURIFIED FISH OIL) 1 GM CAP PO SCH (09:00)
[2021-08-23] MEDS ORDERED: CALCIUM 600MG + VIT D 400 IU TAB PO SCH (09:00)
[2021-08-23] MEDS ORDERED: CHOLECALCIFEROL 1,000 UNITS 25 MCG TAB PO SCH (09:00)
[2021-08-23] MEDS ORDERED: MAGNESIUM OXIDE 400 MG TAB PO SCH (09:00)
[2021-08-23] MEDS ORDERED: METOPROLOL TARTRATE 25 MG TAB PO SCH (09:00)
[2021-08-23] MEDS ORDERED: ESCITALOPRAM OXALATE 10 MG TAB PO SCH (09:00)
--- NOTE | 2021-08-23 10:40 | Discharge Summary ---
Date of Service August 23, 2021 Admission HPI Per Admitting Provider The patient is a 70-year-old female with a past medical history including paroxysmal atrial fibrillation, anxiety, asthma, atrial for with RVR, atrial flutter with RVR, hyperlipidemia, GERD, chronic sinusitis and hypertension. She reports that about 2 hours prior to arrival she developed symptoms of palpitations, which she has had in the past, but these have lasted significantly longer and are more intense. She reports that she did take an extra metoprolol tartrate when she noticed the symptoms first occurring without significant change. She feels dyspnea on exertion. She denies any recent travels or sick exposures. She did have COVID-19 infection back in February, from which she recovered. Principal Diagnosis Atrial fibrillation with RVR Discharge Exam General: A&Ox3. NAD. Cooperative. HEENT: Atraumatic, normocephalic. Vision/hearing intact Pulm: CTAB A&P. -wheezes, -rales, -rhonchi. Symmetrical chest rise. No increase in work of breathing. No respiratory distress. Cardiac: RRR, -mrg. Radial pulses intact and symmetrical. Abdominal: Nontender, nondistended, soft. BS present. Discharge Data Allergies Allergy/AdvReac Type Severity Reaction Status Date / Time No Known Drug Allergies Allergy Unknown Verified 08/22/21 19:59 Consultations 08/22/21 19:49 ED Decision to Admit Stat Hospital Course (1) Atrial fibrillation with rapid ventricular response: Atrial fibrillation with RVR/history of paroxysmal A. fib/hypertension- Patient had previously been prescribed anticoagulation with Eliquis but had never started this, reports she prefers not to be on medications if possible In ER was in A. fib with RVR with potassium 3.5. Did receive 2 doses of IV Lopressor, 1 L of normal saline, and potassium repletion and converted to normal sinus rhythm and maintained a regular rate overnight Patient remained in normal sinus rhythm on telemetry, high-sensitivity troponin was normal Home magnesium dose was increased from 250 mg daily to twice daily Metoprolol tartrate dose home dose was increased to 25 mg twice daily to 50 mg twice daily Did have a long discussion about stroke risk with A. karyna with patient. She reports that she has never taken a blood thinner for this, and it has never been fully discussed just recommended with her in the past. Did review CHADS2 Vasc = 3 and overall risk of stroke versus risk of bleeding. Patient is agreeable to take Eliquis at this time, and reports does not like getting old but did not realize that her stroke risk was several percent per year. She would like outpatient cardiology referral to discuss potential ablation/watchman procedure if she were able to qualify for these, but feels comfortable following up as an outpatient and continuing anticoagulation at this time. She denies any history of bleeding/bleeding complication/need for transfusion. (2) Anxiety: Continue escitalopram 10 mg p.o. every morning (3) Asthma: Continue Ventolin HFA 2 puffs every 6 hours as needed (4) Hyperlipidemia: Continue omega-3 fish oil (5) Hypertension: See above Total Time Total Time Spent Total Time Spent (In Minutes): Time spend day of discharge 50 minutes including direct patient care, documentation, review of labs and images, and coordination of care. Discharge Plan Discharge Items Patient Disposition: Home - Self-Care Reason For Visit: ATRIAL FIB WITH RVR Discharge Diagnosis: Atrial fibrillation with RVR Activity: As commented below Non-emergency contact: Primary Care Provider and Net Technical Architect Call non-emergency contact if: you have any medication questions and your symptoms worsen Follow-up/Referrals: Malvin Freeman CRNP [Primary Care Provider] - Phong Finnegan MD [Physician] - (Afib followup. Pt would like ablation discussion as outpt) Diet: Heart Healthy Addtl Attending Provider Instructions: You are seen in the hospital for atrial fibrillation with a fast heart rate, called RVR. You received IV heart rate medication and returned to a normal heart rhythm with a normal rate. Your home metoprolol has been increased from 25 mg twice daily to 50 mg twice daily.Your potassium was repleated during admission as it was slightly low. Your [id number] score, a risk score for stroke and A. fib, was >=3 indicating high risk for stroke due to your A. fib for which a blood thinner has been recommended. You have been prescribed Eliquis, a blood thinner to protect you from strokes. You were interested in alternative treatments including ablation/watchman if these could help you come off of a blood thinner, a outpatient evaluation with cardiology is being scheduled for you as above. You have been prescribed a blood thinner, Eliquis. Please take Eliquis 5 mg by mouth twice daily. This is a blood thinner, and will make it easier to bleed. If you sustain a small cut or small nosebleed apply firm direct pressure for 10 minutes without checking the bleed. For any bleed that does not stop or for larger bleeds or injuries please seek medical evaluation. Your high-sensitivity troponin, a sensitive measure for heart attack, was normal and there were no signs of a heart attack during admission Your magnesium has been increased from 2 to 50 mg in the morning to to 50 mg twice daily. This can cause diarrhea, if you do have loose bowels with a twice daily dose please discuss alternatives with your primary care physician at follow-up Please avoid caffeine and alcohol as this may make your A. fib worse/provoke your A. fib. If you develop any new or worsening symptoms including fever, chills, sweats, chest pain, chest pressure, difficulty breathing, uncontrolled nausea/vomiting, rash, wheezing, passing out or nearly passing out, bleeding, black/bloody bowel movements, or other new or concerning symptoms please call your primary care physician, or call 911 for re-evaluation in the emergency department if you are very concerned. Pending Studies at Discharge: No Stand-Alone Forms: My [facility], Smoking Cessation Medications and DC Order Prescriptions: New Eliquis 5 mg tablet 5 mg PO BID Qty: 60 RF: 1 Continued escitalopram oxalate 10 mg tablet 10 mg PO QAM Qty: 90 RF: 1 calcium carbonate [Calcium 600] 600 mg calcium (1,500 mg) tablet 600 mg PO QAM RF: 0 omega 0-opp-bvg-fish oil [Fish Oil] 1,000 mg (120 mg-180 mg) Capsule 1 cap PO QAM RF: 0 albuterol sulfate [Ventolin HFA] 90 mcg/actuation HFA aerosol inhaler 1 - 2 puff INH .Q4-6H PRN (Reason: shortness of breath or wheezing) RF: 0 cholecalciferol (vitamin D3) 25 mcg (1,000 unit) Tablet 25 mcg PO QAM RF: 0 Changed metoprolol tartrate 50 mg tablet 50 mg PO BID Qty: 90 RF: 1 magnesium 250 mg tablet 250 mg PO BID Qty: 0 RF: 0 Discharge Orders: Discharge Order (Routine); Ordered 08/23/21 Ordered By: Moises Gomez Admission Data Admit Date/Time: 08/22/21 21:47 Attending Provider: Moises Gomez Admit Provider: Reji Bautista Primary Care Provider: Malvin Freeman Other Providers: Reji Bautista Coding Level of Care Code D/C DAY MANAGEMENT >30 MINS Diagnoses Atrial fibrillation with rapid ventricular response I48.91 Anxiety F41.9 Asthma J45.20 Asthma severity: mild Asthma persistence: intermittent Asthma complication type: uncomplicated Hyperlipidemia E78.5 Hypertension I10 Hypertension type: unspecified
--- NOTE | 2021-08-23 10:46 | Electrocardiogram Report ---
Test Reason : Blood Pressure : / mmHG Vent. Rate : 116 BPM Atrial Rate : 326 BPM P-R Int : 000 ms QRS Dur : 074 ms QT Int : 340 ms P-R-T Axes : 000 035 070 degrees QTc Int : 472 ms Sinus rhythm with atrial ectopy transitioning to atrial fibrillation Nonspecific ST and T wave abnormality Abnormal ECG When compared with ECG of 19-FEB-2021 06:29, Atrial fibrillation has replaced Sinus rhythm Vent. rate has increased BY 48 BPM Confirmed by Armand Walker ([id number]) on 08/23/2021 10:45:53 AM Referred By: REFERRED SELF Confirmed By:Kenroy Walker
--- NOTE | 2021-08-24 12:33 | Electrocardiogram Report ---
Test Reason : Blood Pressure : / mmHG Vent. Rate : 063 BPM Atrial Rate : 063 BPM P-R Int : 164 ms QRS Dur : 076 ms QT Int : 444 ms P-R-T Axes : 037 029 069 degrees QTc Int : 454 ms Normal sinus rhythm Normal ECG When compared with ECG of 22-AUG-2021 17:28, ST no longer depressed in Inferior leads Confirmed by Armand Walker ([id number]) on 08/24/2021 12:32:59 PM Referred By: REFERRED SELF Confirmed By:Kenroy Walker
== END 2021-08-23 12:19 | disposition home or self-care (01) ==
LOC: 2E 17:07 → ED 17:07 → SUATTDRO 21:47 → 2E 22:07

== ENCOUNTER 2023-03-21 14:22 | Inpatient (IN) ==
--- NOTE | 2023-03-21 14:30 | ED Triage Note ---
Date of Service March 21, 2023 Provider in Triage Author: Yinka Rodriguez History of Present Illness This patient was briefly evaluated while in triage. An abbreviated physical exam was performed. This patient is a 72-year-old Female who presents to the ED for evaluation of confusion. Approximate 35 minutes ago, the patient was curling her hair when the noticed that she was lethargic and not thinking correctly. Physical Exam CONSTITUTIONAL: Healthy and well nourished. Patient appears confused, and does not respond immediately to questions. HEENT: Patient has a mild right facial droop. INTEGUMENTARY: No rash or other significant dermatologic conditions noted. HEMATOLOGIC: No ecchymosis or petechiae. PSYCHIATRIC: Positive affect. Initial orders for labs and / or imaging were placed and patient was placed in the waiting area until a bed is available. Please see further documentation for the full ED course.
--- NOTE | 2023-03-21 14:33 | Emergency Department Note ---
Impression & Plan Acute CVA (cerebrovascular accident) ED Provider Note HISTORY OF PRESENT ILLNESS: Patient is a 72-year-old female presenting with confusion and right-sided facial droop. provides most of the history. Reports that he went to check on her at 1:50 and found her to be curling her hair and told him that something felt off. He states the patient seemed confused and very slow to respond. She is not on any anticoagulation. Patient denies any headache or changes in vision. Denies any numbness or tingling or weakness in extremities. Per report from triage, she had an unsteady gait while ambulating into triage. Patient is not on any anticoagulation. Patient has a history of paroxysmal A-fib and is not currently on any anticoagulation. She is supposed to be on Eliquis but did not take it. Last known well was 12:30. ROS: as above PHYSICAL EXAM: Constitutional: Patient appears in no acute distress. HENT: Head: Normocephalic and atraumatic. Eyes: EOMI, PERRL Mouth/Throat: Mucous membranes moist. Neck: Trachea midline. Neck supple. Cardiovascular: RRR, No murmurs, rubs or gallops. Intact distal pulses. Pulmonary/Chest: No respiratory distress. Breath sounds clear and equal bilaterally. No wheezes or rales. Abdominal: Abdomen soft, no tenderness, rebound or guarding. Musculoskeletal: No edema, tenderness or deformity noted. Skin: Warm and dry. No rash, erythema, pallor or cyanosis Psychiatric: Appropriate mood and affect for situation. Neurological: Alert and keenly responsive. Slight right lower facial droop (+1). Able to raise eyebrows, close eyes, smile, puff mouth, stick out tongue, move tongue left and right and raise palate symmetrically. Able to shrug shoulders. PERRLA. SILT to forehead below eye and at jawline. Can hear soft noise bilaterally. Good finger to nose. Strength 5/5 in bilateral upper and lower extremities. SILT throughout bilateral upper and lower extremities. MDM: - Vitals signs showed hypertension. - History obtained via patient. Patient presents with confusion and right-sided facial droop. reports that patient was last known well at 12:30 PM on 03/21/2023. Reports that he went to check on her at 1:50 PM and found her to be curling her hair and she told him that something was abnormal. States the patient seemed slow to respond and confused. She is not on any anticoagulation. Denies any headache or changes in vision. Denies any numbness or tingling or weakness in extremities. Patient actively was unsteady walking into triage. Not on any anticoagulation. - Chronic conditions affecting care: Paroxysmal A-fib; HTN; HLD - Differential diagnoses include, but are not limited to: CVA; intracranial hemorrhage; ACS; electrolyte abnormality - Order placed for continuous cardiac monitoring. At this time, monitor showed rate of 76 bpm with normal sinus rhythm, per my interpretation. - External medical records reviewed. Primary care visit note dated 06/17/2022 was reviewed. Patient has paroxysmal A-fib. They started on metoprolol. She was instructed to take Eliquis but declines to take it. - CT head wo contrast negative for acute intracranial hemorrhage, per my interpretation - Consulted [facility] teleneurologist, Dr. Cowan, at 14:45. Patient's NIHSS 1 and within the window of TNK. Discussed patient's case and she plans to hop on the total cart to assess the patient. She assessed the patient and discussed plan of care at 1503. - Given patient's low NIH score, as well as her improving symptoms, she is not a TNKase candidate at this time, per Dr. Cowan at 15:12. Recommends obtaining MRI with DWI flair and ADC to determine if stroke vs hypertensive encephalopathy. Recommended aspirin and 300 mg PO plavix. - EKG interpreted by myself showed normal sinus rhythm. Rate 88 bpm. QTc 471. No acute ischemic changes. - Laboratory workup interpreted by myself showed normal WBC; stable electrolytes; normal lactate; normal troponin - CTA head/neck negative - MRI brain showed 3.4 cm acute infarct within the left parieto-occipital region. - Patient given 325 mg PO aspirin and 300 mg PO plavix - Discussion was had with family member caretaker about patient's case and need for admission - Hospitalist consulted for admission - [facility] ASSESSMENT AND PLAN: Diagnosis: Acute CVA Plan: Abdomen Past Med/Surg History Medical History Anxiety Atrial fibrillation Atrial fibrillation with rapid ventricular response Atrial fibrillation with RVR Chronic sinusitis Exercise-induced asthma GERD without esophagitis History of colon polyps History of COVID-19 History of DVT (deep vein thrombosis) Hyperlipidemia Hypertension Non compliance with medical treatment Palpitation Poor historian Varicose veins of bilateral lower extremities with other complications White coat syndrome with hypertension Surgical History H/O blepharoplasty H/O ovarian cystectomy H/O tooth extraction History of appendectomy History of colonoscopy History of esophagogastroduodenoscopy (EGD) History of sinus surgery Hx of tubal ligation S/P skin biopsy Family History Mother Diabetes Alzheimer disease Colorectal cancer Hypertension Father Diabetes Myocardial infarction, Onset Age: 62 Hypertension Sister Lymphoma Breast cancer, Onset Age: 70 Hypertension Family/Other Ovarian cancer Prostate cancer Other No family history of adverse response to anesthesia Social History Smoking Status: Never smoker Second Hand Exposure: No; Do You Dip or Chew Tobacco: No; Hx Alcohol Use: Yes Alcohol type: wine Hx Substance Use: No Preferred Language: Malay Communication Ability: Effective Visual Impairment: No Limitations Hearing Ability: Normal Pen Tender Required: No Beliefs That Will Affect Care: None marital status: Current Living Situation: Spouse current occupational status: retired Feels Safe at Home: Yes Childhood Exposure to Second-Hand Smoke: No Diet: regular Diet Comment: regular caffeine: Yes (Cofee 1 per day. ) during the past year weight has: remained stable Dental Care, Regularly: Yes Physical Activity Frequency: 5-6 Times per Week Seatbelt Use: always Sunscreen Use: No Assistive Devices: None Allergies Allergies Allergy/AdvReac Type Severity Reaction Status Date / Time No Known Drug Allergies Allergy Unknown Verified 06/17/22 10:05 Home Meds Home Medications Medication Instructions Recorded Confirmed calcium carbonate 600 mg calcium 600 mg PO QAM 01/09/19 06/17/22 (1,500 mg) tablet (Calcium) albuterol sulfate 90 mcg/actuation 1 - 2 puff inhalation .Q4-6H PRN 12/09/19 03/21/23 aerosol inhaler (Ventolin HFA) shortness of breath or wheezing cholecalciferol (vitamin D3) 25 25 mcg PO QAM 03/02/20 03/21/23 mcg (1,000 unit) tablet magnesium 250 mg tablet 250 mg PO BID 08/27/21 03/21/23 omega 8-paw-tkx-fish oil 1,000 mg 3 cap PO QAM 08/27/21 03/21/23 (120 mg-180 mg) capsule (Fish Oil) potassium gluconate [potassium] PO DAILY 08/27/21 06/17/22 Previous Rx's Medication Instructions Recorded metoprolol tartrate 50 mg tablet 25 mg (1/2 x 50 mg) PO BID #180 06/17/22 tabs escitalopram oxalate 10 mg tablet 10 mg PO QAM #90 tabs 11/27/22 Results & Data (ED) Vital Signs Vital Signs - 24 hr 03/21/23 14:26 03/21/23 14:43 03/21/23 14:45 Temperature 36.7 C Temperature Source Temporal Artery Scan Pulse Rate 76 88 Pulse Rate [Apical] 83 Pulse Rate from SpO2 Sensor Respiratory Rate 18 24 21 Respiratory Effort / Characteristics Non-Labored Spontaneous Non-Labored Spontaneous Respiratory Depth Normal Normal Respiratory Pattern Blood Pressure 216/112 H 232/130 H Blood Pressure [Right Arm] 232/130 H Blood Pressure Mean 146 164 Blood Pressure Mean [Right Arm] 164 Blood Pressure Position Sitting Pulse Oximetry 99 95 Oxygen Delivery Method Room Air Room Air Room Air Sepsis Recent Fever Within 48 Hours No Sepsis New/Unexplained Change in Mental Status No Sepsis Action Taken by Nursing No Action Required 03/21/23 14:57 03/21/23 15:00 03/21/23 15:09 Temperature Temperature Source Pulse Rate 78 79 Pulse Rate [Apical] Pulse Rate from SpO2 Sensor 78 Respiratory Rate 16 15 Respiratory Effort / Characteristics Respiratory Depth Respiratory Pattern Blood Pressure 220/124 H 229/120 H Blood Pressure [Right Arm] Blood Pressure Mean 156 156 Blood Pressure Mean [Right Arm] Blood Pressure Position Pulse Oximetry 94 97 Oxygen Delivery Method Room Air Room Air Room Air Sepsis Recent Fever Within 48 Hours Sepsis New/Unexplained Change in Mental Status Sepsis Action Taken by Nursing 03/21/23 15:41 03/21/23 15:56 03/21/23 15:58 Temperature Temperature Source Pulse Rate 89 Pulse Rate [Apical] 73 78 Pulse Rate from SpO2 Sensor Respiratory Rate 18 18 Respiratory Effort / Characteristics Non-Labored Spontaneous Non-Labored Spontaneous Respiratory Depth Normal Normal Respiratory Pattern Blood Pressure Blood Pressure [Right Arm] 172/105 H 207/104 H Blood Pressure Mean Blood Pressure Mean [Right Arm] 127 138 Blood Pressure Position Pulse Oximetry 95 96 Oxygen Delivery Method Room Air Room Air Sepsis Recent Fever Within 48 Hours Sepsis New/Unexplained Change in Mental Status Sepsis Action Taken by Nursing 03/21/23 16:08 03/21/23 16:15 03/21/23 16:30 Temperature Temperature Source Pulse Rate Pulse Rate [Apical] 74 79 76 Pulse Rate from SpO2 Sensor Respiratory Rate 18 16 21 Respiratory Effort / Characteristics Non-Labored Spontaneous Non-Labored Spontaneous Non-Labored Spontaneous Respiratory Depth Normal Normal Normal Respiratory Pattern Regular Regular Blood Pressure Blood Pressure [Right Arm] 196/103 H 201/104 H 204/102 H Blood Pressure Mean Blood Pressure Mean [Right Arm] 134 136 136 Blood Pressure Position Pulse Oximetry 94 96 96 Oxygen Delivery Method Room Air Room Air Room Air Sepsis Recent Fever Within 48 Hours Sepsis New/Unexplained Change in Mental Status Sepsis Action Taken by Nursing Laboratory Data 03/21/23 14:48 03/21/23 14:48 Lab Results 03/21/23 03/21/23 03/21/23 Range/Units 14:44 14:48 14:53 WBC 5.73 (4.8-10.8) K/ul RBC 3.99 L (4.20-5.40) M/uL Hgb 12.4 (12.0-16.0) g/dl POC Hgb 12.2 (12.0-16.0) g/dl Hct 37.7 (37.0-47.0) % POC Hct 36 L (37-47) % MCV 94.5 (80.0-100.0) fL MCH 31.1 (25.0-34.0) pg MCHC 32.9 (32.0-36.0) g/dL RDW Std Deviation 43.5 (36.4-46.3) fL RDW Coeff of [place] 12.5 (11.5-14.5) % Plt Count 223 (130-400) K/uL MPV 8.7 L (9.4-12.4) fL Immature Gran % (Auto) 0.2 % Neut % (Auto) 53.4 % Lymph % (Auto) 34.7 % [place] % (Auto) 8.4 % Eos % (Auto) 3.0 % Baso % (Auto) 0.3 % Neut # (Auto) 3.06 (1.40-6.50) K/uL Lymph # (Auto) 1.99 (1.20-3.40) K/uL [place] # (Auto) 0.48 (0.11-0.59) K/uL Eos # (Auto) 0.17 (0.00-0.50) K/uL Baso # (Auto) 0.02 (0.00-0.20) K/uL Immature Gran # (Auto) 0.01 (0.01-0.20) K/uL PT 11.0 (9.0-12.0) Seconds INR 1.0 (0.9-1.1) APTT 29 (21-31) Seconds PTT Ratio 1.0 POC Sodium 137 (135-144) mmol/L Sodium 134 L (136-145) mmol/L POC Potassium 3.7 (3.3-5.0) mmol/L Potassium 3.7 (3.5-5.1) mmol/L POC Chloride 97 L (101-112) mmol/L Chloride 101 (98-107) mmol/L Carbon Dioxide 29 (21-32) mmol/L POC Total CO2 25 (24-31) mmol/L Anion Gap 4 (3-11) POC Anion Gap 19.0 (16-25) mmol/L POC BUN 12 (7-18) mg/dl BUN 13 (6-23) mg/dl Creatinine 0.75 (0.6-1.2) mg/dl POC Creatinine 0.7 (0.6-1.3) mg/dl Est Cr Clr Drug Dosing 68.1 ml/min Est GFR ( Amer) 93.6 ml/min Est GFR (Non-Af Amer) 80.8 ml/min BUN/Creatinine Ratio 17.3 (10-20) Glucose 125 H (70-99(Fasting)) mg/dl POC Glucose 133 H (70-99) mg/dl POC Glucose (other) 121 H (70-99) mg/dl Lactate 1.1 (0.4-2.0) mmol/L Calcium 8.8 (8.6-10.3) mg/dl POC Ioniz Calcium Liu 1.20 (1.12-1.32) mmol/l Magnesium 1.7 (1.7-2.4) mg/dl Total Bilirubin 0.8 (0.2-1.0) mg/dl AST 30 (13-39) U/L ALT 32 (7-52) U/L Alkaline Phosphatase 57 (34-104) U/L Troponin I High Sens 5.0 (0-14) pg/ml Total Protein 6.2 (6.0-8.3) gm/dl Albumin 3.6 (3.4-5.0) gm/dl Globulin 2.6 (2.5-4.0) gm/dl Albumin/Globulin Ratio 1.4 (0.9-2) Blood Type O Negative Antibody Screen NEGATIVE Administered Medications Discontinued Medications Aspirin (Aspirin Chew 324 Mg) 324 mg PO NOW STA Stop: 03/21/23 16:13 Last Admin: 03/21/23 16:35 Dose: 324 mg Documented By: NICOLLE Clopidogrel Bisulfate (Clopidogrel Bisulfate 300 Mg Tab) 300 mg PO NOW STA Stop: 03/21/23 16:13 Last Admin: 03/21/23 16:35 Dose: 300 mg Documented By: NICOLLE Ioversol (Optiray 320 125ml) 118 ml IV ONCE ONE Stop: 03/21/23 14:46 Last Admin: 03/21/23 14:45 Dose: 118 ml Documented By: YARITZA Labetalol HCl (Labetalol Hcl Iv 5 Mg/Ml 20ml) Confirm Administered Dose 5 mg IV .STK-MED ONE Stop: 03/21/23 14:48 Last Admin: 03/21/23 15:21 Dose: Not Given Documented By: SOLE Imaging Data Radiologist's Impression: Head CT 03/21/23 14:33 CT OF THE HEAD WITHOUT CONTRAST CLINICAL HISTORY: neuro deficit, acute stroke suspected. Left facial droop. COMPARISON STUDY: MRI of the brain and head CT March 07, 2019. Sinus CT March 25, 2020. CT DOSE: 1724.9 mGy.cm TECHNIQUE: Helical axial images of the head were obtained without IV contrast. Automated exposure control was utilized for the study. A dose lowering technique was utilized adhering to the principles of ALARA. FINDINGS: No acute intracranial hemorrhage, midline shift or mass effect is present. The ventricular system is unremarkable. Basal cisterns are patent. There are no extra-axial collections. There is a 3.2 x 1.5 cm hypodense focus with loss of berger-white differentiation within the left occipital lobe on image 11 of 20. This is new since head CT of March 07, 2019. Mild white matter hypodensity suggests small vessel disease. Postoperative findings within the sinuses are partially imaged. Air-fluid level within left maxillary sinus is partially imaged IMPRESSION: 1. No acute intracranial hemorrhage. 2. 3.2 x 1.5 cm hypodense focus with loss of berger-white differentiation within the left occipital lobe which is new since head CT of March 07, 2019. This represents an age indeterminate infarct. ACT 112: Negative or not required by law. Electronically signed by: Vinnie Olsen M.D. 03/21/2023 2:48 PM Head CTA 03/21/23 14:33 CTA ANGIOGRAPHY OF THE HEAD CLINICAL HISTORY: neuro deficit, acute stroke suspected COMPARISON STUDY: MRI brain and head CT March 07, 2019. TECHNIQUE: Helical axial images of the head were obtained following uneventful intravenous administration of 118 cc of Optiray. Sagittal and coronal reconstructions were viewed as well as maximal intensity projections on an independent 3-D workstation. Automated exposure control was utilized for the study. A dose lowering technique was utilized adhering to the principles of ALARA. FINDINGS: No acute intracranial hemorrhage was identified head CT which will be reported separately. Vertebral system is unremarkable. Basal cisterns are patent. There are no extra-axial collections. Air-fluid level within the left maxillary sinus is noted. There are postoperative findings within the sinuses. The right A1 segment is diminutive, likely on a congenital basis. No intracranial aneurysm is identified. Posterior circulation is intact. IMPRESSION: No large vessel occlusion. No intracranial aneurysm. ACT 112: Negative or not required by law. Electronically signed by: Vinnie Olsen M.D. 03/21/2023 2:57 PM Neck CTA 03/21/23 14:33 CT ANGIOGRAPHY OF THE NECK WITH CONTRAST CLINICAL HISTORY: neuro deficit, acute stroke suspected COMPARISON STUDY: No previous studies for comparison. Technique: CT angiography of the carotid and vertebral arteries was obtained using Optiray and 3D reconstruction on an independent workstation. NASCET criteria was utilized. Automated exposure control was utilized for the study. A dose lowering technique was utilized adhering to the principles of ALARA. Findings: Visualized portions of the lung apices are unremarkable. There is no cervical lymphadenopathy. There are no cervical spine fractures. The bilateral common carotid, cervical internal carotid and vertebral arteries are patent. There is no stenosis or dissection within these vessels. No significant plaque formation is present. There is no aneurysm within the neck. CTA of the head will be reported separately. Air-fluid level within left maxillary sinus is incidentally noted. There are postoperative findings within the sinuses. IMPRESSION: Unremarkable CTA of the neck. ACT 112: Negative or not required by law. Electronically signed by: Vinnie Olsen M.D. 03/21/2023 2:52 PM Brain MRI 03/21/23 15:10 MRI OF THE BRAIN WITHOUT CONTRAST CLINICAL HISTORY: Stroke. COMPARISON STUDY: MRI of the brain March 07, 2019. Head CT and CTA of the head performed earlier today. TECHNIQUE: Utilizing a 1.5 Yasemin magnet and dedicated coil, multiplanar, multiecho imaging of the brain was performed without IV contrast. FINDINGS: There is a 3.4 cm focus of restricted diffusion within the left parieto-occipital region on axial image 14 of 24. This is hypointense on the ADC map. This was not evident on the CT. No corresponding FLAIR signal abnormality is present. Note is made of a small 3 mm hypointense focus adjacent to this infarct on axial gradient echo sequence image 16 of 24. No additional foci of acute infarction are present. Note is made of a 2.3 cm hyperintense focus within the left occipital lobe which corresponds to the finding on head CT from earlier today. This has gyral T1 hyperintensity consistent with laminar necrosis. There is also minimal T2 hypointensity suggestive of old blood products. This represents a subacute to chronic infarct. Ventricular system is unremarkable. Basal cisterns are patent. No acute intracranial hemorrhage is present. Air- fluid level within the left maxillary sinus with mucosal thickening is present. No intracranial masses identified on unenhanced exam. Catheter white matter T2 hyperintense foci suggest mild small vessel disease. IMPRESSION: 1. 3.4 cm acute infarct within the left parieto-occipital region, not evident on head CT. No corresponding FLAIR signal abnormality. No mass effect. No acute hemorrhage. Adjacent tiny 3 mm hypointense focus on gradient echo sequence probably reflects the associated intraluminal thrombus. Less likely, this could reflect petechial hemorrhage. 2. 2.3 cm left occipital lobe subacute to chronic infarct which corresponds to the finding on head CT. Trace associated old blood products. ACT 112: Negative or not required by law. Electronically signed by: Vinnie Olsen M.D. 03/21/2023 4:31 PM Discharge Plan Visit Data Chief Complaint: Altered Mental Status Stated Complaint: ALTERED MENTAL STATUS ED Provider: Kenyatta Fish Discharge Problem: Acute CVA (cerebrovascular accident) Forms Stand Alone Forms: My [facility] Prescriptions Prescriptions: No Action escitalopram oxalate 10 mg tablet 10 mg PO QAM Qty: 90 1RF calcium carbonate [Calcium 600] 600 mg calcium (1,500 mg) tablet 600 mg PO QAM magnesium 250 mg tablet 250 mg PO BID potassium gluconate [potassium] PO DAILY metoprolol tartrate 50 mg tablet 25 mg PO BID Qty: 180 1RF omega 6-lnv-hxl-fish oil [Fish Oil] 1,000 mg (120 mg-180 mg) capsule 3 cap PO QAM albuterol sulfate [Ventolin HFA] 90 mcg/actuation HFA aerosol inhaler 1 - 2 puff INH .Q4-6H PRN (Reason: shortness of breath or wheezing) Rx Instructions: 1-2puffs inhalation every 4-6 hrs PRN; cholecalciferol (vitamin D3) 25 mcg (1,000 unit) Tablet 25 mcg PO QAM Referrals Referrals: Malvin Freeman CRNP [Primary Care Provider] -
[2023-03-21] MEDS ORDERED: hydrALAZINE HCL 20 MG/ML VIAL IV STA (14:44)
[2023-03-21] MEDS ORDERED: OPTIRAY 320 125ml IV ONE (14:45)
[2023-03-21] MEDS ORDERED: LABETALOL HCL IV 5 MG/ML 20ML IV ONE (14:47)
--- NOTE | 2023-03-21 14:49 | CT Scan Report ---
CT OF THE HEAD WITHOUT CONTRAST CLINICAL HISTORY: neuro deficit, acute stroke suspected. Left facial droop. COMPARISON STUDY: MRI of the brain and head CT March 07, 2019. Sinus CT March 25, 2020. CT DOSE: 1724.9 mGy.cm TECHNIQUE: Helical axial images of the head were obtained without IV contrast. Automated exposure con trol was utilized for the study. A dose lowering technique was utilized adhering to the principles o f ALARA. FINDINGS: No acute intracranial hemorrhage, midline shift or mass effect is present. The ventricular system is unremarkable. Basal cisterns are patent. There are no extra-axial collections. There is a 3 .2 x 1.5 cm hypodense focus with loss of berger-white differentiation within the left occipital lobe on image 11 of 20. This is new since head CT of March 07, 2019. Mild white matter hypodensity sugges ts small vessel disease. Postoperative findings within the sinuses are partially imaged. Air-fluid le [place] within left maxillary sinus is partially imaged IMPRESSION: 1. No acute intracranial hemorrhage. 2. 3.2 x 1.5 cm hypodense focus with loss of berger-white differentiation within the left occipital lob e which is new since head CT of March 07, 2019. This represents an age indeterminate infarct. ACT 112: Negative or not required by law. Electronically signed by: Vinnie Olsen M.D. 03/21/2023 2:48 PM
--- NOTE | 2023-03-21 14:53 | CT Scan Report ---
CT ANGIOGRAPHY OF THE NECK WITH CONTRAST CLINICAL HISTORY: neuro deficit, acute stroke suspected COMPARISON STUDY: No previous studies for comparison. Technique: CT angiography of the carotid and vertebral arteries was obtained using Optiray and 3D rec onstruction on an independent workstation. NASCET criteria was utilized. Automated exposure control was utilized for the study. A dose lowering technique was utilized adhering to the principles of ALA RA. Findings: Visualized portions of the lung apices are unremarkable. There is no cervical lymphadenopat hy. There are no cervical spine fractures. The bilateral common carotid, cervical internal carotid an d vertebral arteries are patent. There is no stenosis or dissection within these vessels. No signific ant plaque formation is present. There is no aneurysm within the neck. CTA of the head will be report ed separately. Air-fluid level within left maxillary sinus is incidentally noted. There are postopera tive findings within the sinuses. IMPRESSION: Unremarkable CTA of the neck. ACT 112: Negative or not required by law. Electronically signed by: Vinnie Olsen M.D. 03/21/2023 2:52 PM
--- NOTE | 2023-03-21 14:59 | CT Scan Report ---
CTA ANGIOGRAPHY OF THE HEAD CLINICAL HISTORY: neuro deficit, acute stroke suspected COMPARISON STUDY: MRI brain and head CT March 07, 2019. TECHNIQUE: Helical axial images of the head were obtained following uneventful intravenous administr ation of 118 cc of Optiray. Sagittal and coronal reconstructions were viewed as well as maximal inten sity projections on an independent 3-D workstation. Automated exposure control was utilized for the study. A dose lowering technique was utilized adhering to the principles of ALARA. FINDINGS: No acute intracranial hemorrhage was identified head CT which will be reported separately. Vertebral system is unremarkable. Basal cisterns are patent. There are no extra-axial collections. r-fluid level within the left maxillary sinus is noted. There are postoperative findings within the s inuses. The right A1 segment is diminutive, likely on a congenital basis. No intracranial aneurysm is identified. Posterior circulation is intact. IMPRESSION: No large vessel occlusion. No intracranial aneurysm. ACT 112: Negative or not required by law. Electronically signed by: Vinnie Olsen M.D. 03/21/2023 2:57 PM
[2023-03-21 15:01] LABS: Basophils # (auto) 0.02 K/uL (0.00-0.20); Basophils % (auto) 0.3 %; Eosinophils # (auto) 0.17 K/uL (0.00-0.50); Hematocrit (blood only) 37.7 % (37.0-47.0); Hemoglobin 12.4 g/dl (12.0-16.0); Immature Granulocytes # (auto) 0.01 K/uL (0.01-0.20); Immature Granulocytes % (auto) 0.2 %; Lymphocytes # (auto) 1.99 K/uL (1.20-3.40); Lymphocytes % (auto) 34.7 %; Mean Corpuscular Hemoglobin 31.1 pg (25.0-34.0); Mean Corpuscular Hgb Conc 32.9 g/dL (32.0-36.0); Mean Corpuscular Volume 94.5 fL (80.0-100.0); Mean Platelet Volume 8.7 fL (9.4-12.4); Monocytes # (auto) 0.48 K/uL (0.11-0.59); Monocytes % (auto) 8.4 %; Neutrophils # (auto) 3.06 K/uL (1.40-6.50); Neutrophils % (auto) 53.4 %; Platelet Count 223 K/uL (130-400); RDW Coefficient of Variation 12.5 % (11.5-14.5); RDW Standard Deviation 43.5 fL (36.4-46.3); Red Blood Count 3.99 M/uL (4.20-5.40); White Blood Count 5.73 K/ul (4.8-10.8)
[2023-03-21 15:04] LABS: iSTAT Creatinine 0.7 mg/dl (0.6-1.3); iSTAT Hemoglobin 12.2 g/dl (12.0-16.0); iSTAT Ionized Calcium 1.2 mmol/l (1.12-1.32); iSTAT Potassium 3.7 mmol/L (3.3-5.0)
[2023-03-21 15:19] LABS: Albumin Globulin Ratio 1.4 (0.9-2); Albumin Level 3.6 gm/dl (3.4-5.0); BUN Creatinine Ratio 17.3 (10-20); Bilirubin,Total 0.8 mg/dl (0.2-1.0); Calcium 8.8 mg/dl (8.6-10.3); Creatinine Clr Calc Pharmacy 68.1 ml/min; Est GFR (African American) 93.6 ml/min; Est GFR (Non-African American) 80.8 ml/min; Globulin 2.6 gm/dl (2.5-4.0); Magnesium 1.7 mg/dl (1.7-2.4); Potassium 3.7 mmol/L (3.5-5.1); Total Protein 6.2 gm/dl (6.0-8.3)
[2023-03-21 15:30] LABS: Partial Thromboplastin Time 29 Seconds (21-31)
[2023-03-21] MEDS ORDERED: ASPIRIN CHEW 324 MG PO STA (16:12)
[2023-03-21] MEDS ORDERED: CLOPIDOGREL BISULFATE 300 MG TAB PO STA (16:12)
--- NOTE | 2023-03-21 16:14 | History & Physical Report ---
Date of Service March 21, 2023 Assessment & Plan (1) Stroke-like symptoms: Plan: Confusion, unsteady gait, and right-sided facial droop starting around 1350 on 03/21 LKW at 1230 on 03/21 Per neurostroke, TNKase not given as symptoms had started to resolve while in the ED They recommended loading dose of Plavix and ASA (given in the ED) as well as atorvastatin 80 mg daily (with first dose to be given in the ED) Head CT on arrival revealed no acute intracranial hemorrhage, but noted a 3.2 x 1.5 cm hypodense focus in the left occipital lobe (age-indeterminate infarct) Head/neck CTA revealed NAF Brain MRI ordered, pending Echo on 10/02/2021 revealed LVEF 55-60% with no evidence of ASD Repeat echocardiogram with bubble study ordered (per neurostroke) EKG NSR at 88 bpm; QTc 471 Neurochecks q4h Permissive HTN; labetalol 5 mg q10m as needed for SBP>220 or DBP>120 Keep n.p.o. pending dysphagia screen, then advance diet as tolerated Continuous telemetry monitoring PT/OT consulted A.m. CBC, BMP, fasting lipid panel, A1c (2) Paroxysmal atrial fibrillation: Plan: [facility] admissions in February 2021 and August 2021 for A-fib with RVR Not currently on anticoagulation Per review of PCP note on 06/17/2022, patient declined Eliquis Discussed this with patient, who reported she normally does not like taking medications Continue metoprolol while inpatient (3) Anxiety: Plan: Continue escitalopram (4) Hypertension: Plan: Permissive HTN in the setting of stroke like symptoms Resume metoprolol tomorrow on 03/22 Plan Disposition: Admit to PCU telemetry Condition code Keep n.p.o. pending dysphagia screen, then advance to regular diet as tolerated VTE PPx: SCDs (hold chemical DVT PPx for 24h in setting of strokelike symptoms, pending MRI) History of Present Illness Chief Complaint: Strokelike symptoms Primary Care Provider: DAVIS Arreola Sheila is a 72-year-old female with PMH of HTN, GERD, HLD, A-fib with RVR, asthma, anxiety, and chronic sinusitis. She presented for confusion, unsteady gait, and mild right-sided facial droop that started around 1310 on 03/21. Her (Kurt) is present at the bedside and provides additional history. Patient reports that she was curling her hair when she came out of living room and said that something was not right. She reports that she was feeling lethargic, and was slow to respond to questioning. No slurred speech. Mild right-sided facial droop (which resolved in the ED). Patient denies numbness or tingling on the right-side of the face, UEs, or LEs. She denies history of strokes. She took all of her regular morning medications today. She reports that she is not on anticoagulation. She notes that she had not recent visual disturbances (blurred vision) around 2 weeks ago, but thought little of them; she denies loss of vision, diplopia, or photophobia. She has never had a prior experience like this today. She denies tobacco, alcohol, and recreational drug use. Patient is hypertensive at 207/104 at time of admission. ED course: Hydralazine 10 mg IV Labetalol 5 mg IV ROS: Patient endorses fatigue, balance issues, intermittent chest palpitations (ongoing), and recent visual changes (blurry vision 2 weeks ago). Patient denies fever, chills, night-sweats, unilateral deficits, slurred speech, HERBERT, diplopia, photophobia, changes in hearing, CP, SOB, abdominal pain, N/V/D, or numbness/tingling in the face, arms, or legs. Allergies Allergy/AdvReac Type Severity Reaction Status Date / Time No Known Drug Allergies Allergy Unknown Verified 03/21/23 17:12 Home Medications Medication Instructions Recorded Confirmed Type calcium carbonate 600 mg calcium 600 mg PO QAM 01/09/19 03/21/23 History (1,500 mg) tablet (Calcium) albuterol sulfate 90 mcg/actuation 1 - 2 puff inhalation .Q4-6H PRN 12/09/19 03/21/23 History aerosol inhaler (Ventolin HFA) shortness of breath or wheezing cholecalciferol (vitamin D3) 25 25 mcg PO QAM 03/02/20 03/21/23 History mcg (1,000 unit) tablet magnesium 250 mg tablet 250 mg PO BID 08/27/21 03/21/23 History omega 5-ehq-nlm-fish oil 1,000 mg 3 cap PO QAM 08/27/21 03/21/23 History (120 mg-180 mg) capsule (Fish Oil) metoprolol tartrate 50 mg tablet 25 mg (1/2 x 50 mg) PO BID #180 06/17/22 03/21/23 Rx tabs escitalopram oxalate 10 mg tablet 10 mg PO QAM #90 tabs 11/27/22 03/21/23 Rx potassium gluconate 595 mg (99 mg) 0 mg PO DAILY 03/21/23 03/21/23 History tablet Past Med/Surg History Medical History Anxiety Atrial fibrillation Atrial fibrillation with rapid ventricular response Atrial fibrillation with RVR Chronic sinusitis Exercise-induced asthma GERD without esophagitis History of colon polyps History of COVID-19 History of DVT (deep vein thrombosis) Hyperlipidemia Hypertension Non compliance with medical treatment Palpitation Poor historian Varicose veins of bilateral lower extremities with other complications White coat syndrome with hypertension Surgical History H/O blepharoplasty H/O ovarian cystectomy H/O tooth extraction History of appendectomy History of colonoscopy History of esophagogastroduodenoscopy (EGD) History of sinus surgery Hx of tubal ligation S/P skin biopsy Family History Mother Diabetes Alzheimer disease Colorectal cancer Hypertension Father Diabetes Myocardial infarction, Onset Age: 62 Hypertension Sister Lymphoma Breast cancer, Onset Age: 70 Hypertension Family/Other Ovarian cancer Prostate cancer Other No family history of adverse response to anesthesia Social History Smoking Status: Never smoker Second Hand Exposure: No; Do You Dip or Chew Tobacco: No; Hx Alcohol Use: No Hx Substance Use: No Preferred Language: Vietnamese Communication Ability: Effective Visual Impairment: No Limitations Hearing Ability: Normal Reference Librarian Required: Yes Beliefs That Will Affect Care: None marital status: Current Living Situation: Spouse current occupational status: retired Other Information That Helps Us Care for You: No Feels Safe at Home: Yes Safety Concerns: Feels Safe At This Time Childhood Exposure to Second-Hand Smoke: No Diet: regular Diet Comment: regular caffeine: Yes (Cofee 1 per day. ) during the past year weight has: remained stable Dental Care, Regularly: Yes Physical Activity Frequency: 5-6 Times per Week Seatbelt Use: always Sunscreen Use: No Assistive Devices: None Review of Systems Review of Systems: See HPI above Physical Exam Physical Exam: General: Mild confusion; no acute distress; non-toxic appearing; well-nourished; cooperative HEENT: normocephalic, atraumatic; no scleral icterus; PERRLA w/ EOMs intact; moist mucus membrane; vision and hearing grossly intact; sensation intact and symmetric in the face bilaterally Neck: supple; no lymphadenopathy; trachea midline; patient is able to shrug shoulders against resistance; she reports some dizziness when turning her head left or right Skin: warm, dry without signs of tenting; no cyanosis; no rashes, bruising, lesions, or erythema noted CV: chest wall NTP; RRR; S1/S2 normal; no murmurs/rubs/gallops; pulses intact and symmetric at radial, DP, and PT Lungs: no acute respiratory distress; symmetrical chest wall expansion; clear breath sounds across all lung spring w/o adventitious sounds; no wheezing ABD: Soft, NTP; BS present; no rebound/guarding; no distention MSK: no tics or fasciculations; no edema noted in the LEs b/l, nonerythematous; patient demonstrates the ability to wiggle toes Neuro: Oriented to name and month; not oriented to or location; normal mood and affect; fluent speech; CN2-12 intact; no focal deficits; sensation grossly intact in LEs/UEs bilaterally Results & Data Results & Data Vital Signs (Past 12 Hours) Vital Signs Temp Pulse Pulse Resp BP BP Pulse Ox 03/21/23 15:58 78 18 207/104 H 96 03/21/23 15:56 73 18 172/105 H 95 03/21/23 15:41 89 03/21/23 15:09 03/21/23 15:00 79 15 229/120 H 97 03/21/23 14:57 78 16 220/124 H 94 03/21/23 14:45 83 21 232/130 H 03/21/23 14:43 88 24 232/130 H 95 03/21/23 14:26 36.7 C 76 18 216/112 H 99 O2 Del Method 03/21/23 15:58 Room Air 03/21/23 15:56 Room Air 03/21/23 15:41 03/21/23 15:09 Room Air 03/21/23 15:00 Room Air 03/21/23 14:57 Room Air 03/21/23 14:45 Room Air 03/21/23 14:43 Room Air 03/21/23 14:26 Room Air Laboratory Results Abnormal lab results 03/21/23 03/21/23 03/21/23 Range/Units 14:44 14:48 14:53 RBC 3.99 L (4.20-5.40) M/uL POC Hct 36 L (37-47) % MPV 8.7 L (9.4-12.4) fL Sodium 134 L (136-145) mmol/L POC Chloride 97 L (101-112) mmol/L Glucose 125 H (70-99(Fasting)) mg/dl POC Glucose 133 H (70-99) mg/dl POC Glucose (other) 121 H (70-99) mg/dl Diagnostic Findings Head CT 03/21/23 14:33 CT OF THE HEAD WITHOUT CONTRAST CLINICAL HISTORY: neuro deficit, acute stroke suspected. Left facial droop. COMPARISON STUDY: MRI of the brain and head CT March 07, 2019. Sinus CT March 25, 2020. CT DOSE: 1724.9 mGy.cm TECHNIQUE: Helical axial images of the head were obtained without IV contrast. Automated exposure control was utilized for the study. A dose lowering technique was utilized adhering to the principles of ALARA. FINDINGS: No acute intracranial hemorrhage, midline shift or mass effect is present. The ventricular system is unremarkable. Basal cisterns are patent. There are no extra-axial collections. There is a 3.2 x 1.5 cm hypodense focus with loss of berger-white differentiation within the left occipital lobe on image 11 of 20. This is new since head CT of March 07, 2019. Mild white matter hypodensity suggests small vessel disease. Postoperative findings within the sinuses are partially imaged. Air-fluid level within left maxillary sinus is partially imaged IMPRESSION: 1. No acute intracranial hemorrhage. 2. 3.2 x 1.5 cm hypodense focus with loss of berger-white differentiation within the left occipital lobe which is new since head CT of March 07, 2019. This represents an age indeterminate infarct. ACT 112: Negative or not required by law. Electronically signed by: Vinnie Olsen M.D. 03/21/2023 2:48 PM Head CTA 03/21/23 14:33 CTA ANGIOGRAPHY OF THE HEAD CLINICAL HISTORY: neuro deficit, acute stroke suspected COMPARISON STUDY: MRI brain and head CT March 07, 2019. TECHNIQUE: Helical axial images of the head were obtained following uneventful intravenous administration of 118 cc of Optiray. Sagittal and coronal reconstructions were viewed as well as maximal intensity projections on an independent 3-D workstation. Automated exposure control was utilized for the study. A dose lowering technique was utilized adhering to the principles of ALARA. FINDINGS: No acute intracranial hemorrhage was identified head CT which will be reported separately. Vertebral system is unremarkable. Basal cisterns are patent. There are no extra-axial collections. Air-fluid level within the left maxillary sinus is noted. There are postoperative findings within the sinuses. The right A1 segment is diminutive, likely on a congenital basis. No intracranial aneurysm is identified. Posterior circulation is intact. IMPRESSION: No large vessel occlusion. No intracranial aneurysm. ACT 112: Negative or not required by law. Electronically signed by: Vinnie Olsen M.D. 03/21/2023 2:57 PM Neck CTA 03/21/23 14:33 CT ANGIOGRAPHY OF THE NECK WITH CONTRAST CLINICAL HISTORY: neuro deficit, acute stroke suspected COMPARISON STUDY: No previous studies for comparison. Technique: CT angiography of the carotid and vertebral arteries was obtained using Optiray and 3D reconstruction on an independent workstation. NASCET crite rahel was utilized. Automated exposure control was utilized for the study. A dose lowering technique was utilized adhering to the principles of ALARA. Findings: Visualized portions of the lung apices are unremarkable. There is no cervical lymphadenopathy. There are no cervical spine fractures. The bilateral common carotid, cervical internal carotid and vertebral arteries are patent. There is no stenosis or dissection within these vessels. No significant plaque formation is present. There is no aneurysm within the neck. CTA of the head will be reported separately. Air-fluid level within left maxillary sinus is incidentally noted. There are postoperative findings within the sinuses. IMPRESSION: Unremarkable CTA of the neck. ACT 112: Negative or not required by law. Electronically signed by: Vinnie Olsen M.D. 03/21/2023 2:52 PM Code Status & VTE Plan Code Status Conditional code Patient does not want a breathing tube under any conditions VTE Prophylaxis Plan VTE Prophylaxis will be ordered: Yes Supervising Physician Co-Signing Physician Notes Patient seen and examined, chart reviewed, case discussed with Vinayak Hankins PA-C and I agree with the assessment and plan as above except as otherwise noted Labs and images reviewed Sheila is a 72-year-old female with a past medical history of A-fib not on anticoagulation after extensive risk/benefit discussions with inpatient/outpatient providers, hyperlipidemia, GERD, hypertension who presented for evaluation of strokelike symptoms. MRI shows a 3.4 acute infarct in the left parieto-occipital region. CThead without acute findings, no acute intracranial hemorrhage is noted, focus of the left occipital is noted compared to 2019.. CTA head and neck are negative. Patient admitted for CVA evaluation. MRI subsequently shows a 3.4 cm acute infarct in the left parieto-occipital region, small/tiny adjacent focus on gradient echo suspected to represent associated intraluminal thrombus but from which petechial hemorrhage cannot be ruled out. 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 Case was [place] [facility] [place] Recommended to continue aspirin/Plavix load. Atorvastatin 80 mg daily. Permissive hypertension with labetalol for systolic pressure greater than 200 and diastolic greater than 100 then lowered to goal [id number] systolic. Intraluminal thrombus versus petechial hemorrhage discussed with neuro Dr. Cowan who recommended. No change in management, neurology consult in the morning, and repeat head CT no sooner than 24-48 hours from admission unless any neurologic change occurs.Patient is nontoxic on admitting assessment. Ironer Hand strength, elbow flexion, ankle dorsiflexion/plantarflexion, hip flexion 5/5 bilaterally without asymmetry. Sensation soft touch in hands and feet is intact without deficit or asymmetry. Heart rate is regular. Agree with BP control as noted, statin therapy, DAPT treatment. Repeat CThead in 24-48 hours. Otherwise agree with assessment and management as above PG Care Time/CCT Total # of Minutes Spent Total Time Spent with Patient: Total time spent is greater than 50% in coordination of care (as documented) at patient's floor/unit and/or counseling patient: [place] [address] INT INP/OBS CARE 2/55MIN Patient Type Established History Comprehensive Exam Comprehensive Medical Decision Making Moderate Complexity Diagnoses Stroke-like symptoms R29.90 Paroxysmal atrial fibrillation I48.0 Anxiety F41.9 Hypertension I10 Hypertension type: unspecified (4) Hypertension Hypertension type: unspecified Qualified Code(s): I10 - Essential (primary) hypertension
--- NOTE | 2023-03-21 16:34 | Magnetic Resonance Report ---
MRI OF THE BRAIN WITHOUT CONTRAST CLINICAL HISTORY: Stroke. COMPARISON STUDY: MRI of the brain March 07, 2019. Head CT and CTA of the head performed earlier t rell. TECHNIQUE: Utilizing a 1.5 Yasemin magnet and dedicated coil, multiplanar, multiecho imaging of the bra in was performed without IV contrast. FINDINGS: There is a 3.4 cm focus of restricted diffusion within the left parieto-occipital region on axial image 14 of 24. This is hypointense on the ADC map. This was not evident on the CT. No corresp onding FLAIR signal abnormality is present. Note is made of a small 3 mm hypointense focus adjacent t o this infarct on axial gradient echo sequence image 16 of 24. No additional foci of acute infarction are present. Note is made of a 2.3 cm hyperintense focus within the left occipital lobe which corres ponds to the finding on head CT from earlier today. This has gyral T1 hyperintensity consistent with laminar necrosis. There is also minimal T2 hypointensity suggestive of old blood products. This repre sents a subacute to chronic infarct. Ventricular system is unremarkable. Basal cisterns are patent. N o acute intracranial hemorrhage is present. Air-fluid level within the left maxillary sinus with muco sebastian thickening is present. No intracranial masses identified on unenhanced exam. Catheter white matte r T2 hyperintense foci suggest mild small vessel disease. IMPRESSION: 1. 3.4 cm acute infarct within the left parieto-occipital region, not evident on head CT. No correspo nding FLAIR signal abnormality. No mass effect. No acute hemorrhage. Adjacent tiny 3 mm hypointense f ocus on gradient echo sequence probably reflects the associated intraluminal thrombus. Less likely, t his could reflect petechial hemorrhage. 2. 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 Trace associated old blood products. ACT 112: Negative or not required by law. Electronically signed by: Vinnie Olsen M.D. 03/21/2023 4:31 PM
[2023-03-21] MEDS ORDERED: PHARMACIST DISCHARGE MED REC CONSULT PRN (18:33)
[2023-03-21] MEDS ORDERED: ALBUTEROL HFA 8 GM INHALER INH PRN (18:33)
[2023-03-21] MEDS ORDERED: ONDANSETRON INJ 2 MG/ML 2 ML VIAL IV PRN (18:33)
[2023-03-21] MEDS ORDERED: ACETAMINOPHEN 325 MG TAB PO PRN (18:33)
[2023-03-21] MEDS ORDERED: LABETALOL HCL IV 5 MG/ML 20ML IV PRN (18:33)
[2023-03-21] MEDS: ATORVASTATIN 40 MG TAB PO SCH (21:23)
[2023-03-21] MEDS: MAGNESIUM OXIDE 400 MG TAB PO SCH (21:24)
--- NOTE | 2023-03-22 00:28 | Electrocardiogram Report ---
Test Reason : Blood Pressure : / mmHG Vent. Rate : 088 BPM Atrial Rate : 088 BPM P-R Int : 166 ms QRS Dur : 076 ms QT Int : 390 ms P-R-T Axes : 050 048 079 degrees QTc Int : 471 ms Normal sinus rhythm Possible Left atrial enlargement Nonspecific ST and T wave abnormality Abnormal ECG When compared with ECG of 23-AUG-2021 06:03, ST now depressed in Inferior leads Confirmed by Raúl Crawley ([id number]) on 03/22/2023 12:28:12 AM Referred By: Confirmed By:Raúl Crawley
[2023-03-22 06:10] LABS: Basophils # (auto) 0.03 K/uL (0.00-0.20); Basophils % (auto) 0.5 %; Eosinophils # (auto) 0.13 K/uL (0.00-0.50); Eosinophils % (auto) 2.3 %; Hematocrit (blood only) 39.1 % (37.0-47.0); Hemoglobin 13.5 g/dl (12.0-16.0); Immature Granulocytes # (auto) 0.01 K/uL (0.01-0.20); Immature Granulocytes % (auto) 0.2 %; Mean Corpuscular Hemoglobin 31.5 pg (25.0-34.0); Mean Corpuscular Hgb Conc 34.5 g/dL (32.0-36.0); Mean Corpuscular Volume 91.1 fL (80.0-100.0); Mean Platelet Volume 8.9 fL (9.4-12.4); Monocytes # (auto) 0.39 K/uL (0.11-0.59); Monocytes % (auto) 6.8 %; Neutrophils # (auto) 3.71 K/uL (1.40-6.50); Neutrophils % (auto) 64.2 %; Platelet Count 212 K/uL (130-400); RDW Coefficient of Variation 12.5 % (11.5-14.5); RDW Standard Deviation 41.5 fL (36.4-46.3); Red Blood Count 4.29 M/uL (4.20-5.40); White Blood Count 5.77 K/ul (4.8-10.8)
[2023-03-22 06:31] LABS: BUN Creatinine Ratio 15.9 (10-20); Calcium 9.1 mg/dl (8.6-10.3); Chol HDL Ratio 2.8 (0-5); Creatinine Clr Calc Pharmacy 75.1 ml/min; Est GFR (African American) 102.2 ml/min; Est GFR (Non-African American) 88.2 ml/min; Potassium 3.5 mmol/L (3.5-5.1)
[2023-03-22 07:53] LABS: Estimated Average Glucose 123 mg/dl; Hemoglobin A1C 5.9 % (4.5-5.6)
[2023-03-22] MEDS: SODIUM CHLORIDE 0.9% 1,000 ML IV SCH (08:56)
[2023-03-22] MEDS: ASPIRIN 81 MG ECTAB PO SCH (08:56)
[2023-03-22] MEDS: ESCITALOPRAM OXALATE 10 MG TAB PO SCH (10:01)
[2023-03-22] MEDS: METOPROLOL TARTRATE 25 MG TAB PO SCH ×2 (10:02→20:14)
[2023-03-22] MEDS: MAGNESIUM OXIDE 400 MG TAB PO SCH ×2 (10:02→20:14)
[2023-03-22] MEDS: CLOPIDOGREL BISULFATE 75 MG TAB PO SCH (10:02)
--- NOTE | 2023-03-22 10:07 | XCELERA ---
[id number]
--- NOTE | 2023-03-22 11:07 | Hospitalist Progress Note ---
Date of Service March 22, 2023 Assessment & Plan (1) Stroke-like symptoms: Plan: Patient came in for confusion, unsteady gait, and right-sided facial droop starting on 03/21 Per neurostroke, patient was not TNKase eligible given symptoms began to resolve in the ED Head CT on 03/21 revealed no acute intracranial hemorrhage, but noted a 3.2 x 1.5 cm hypodense focus in the left occipital lobe (age-indeterminate infarct) Head/neck CTA on 03/21 revealed NAF Brain MRI revealed: - 3.4 cm acute infarct within the left parieto-occipital region, not evident on head CT - 2.3 cm left occipital lobe subacute to chronic infarct which corresponds to the finding on head CT Will defer repeat head CT at this time Neurochecks q4h Permissive HTN; hydralazine 10 mg IV q8h for SBP>220 or DBP>120 Echocardiogram revealed LVEF 60-65% and elevated RVSP at 3040mmHg; injection of contrast documented no interatrial shunt Hemoglobin 5.9% on 03/22/2023 Fasting lipid panel WNL; per neuro's recommendation, will continue atorvastatin 80 mg daily while inpatient Patient will need DAPT x 21 days minimum, with plan to continue Plavix 75 mg daily and follow-up outpatient with neurology Patient passed dysphagia screen, okay to eat Continuous telemetry monitoring PT/OT consulted A.m. CBC, BMP (2) Paroxysmal atrial fibrillation: Plan: [facility] admissions in February 2021 and August 2021 for A-fib with RVR Not currently on anticoagulation Per review of PCP note on 06/17/2022, patient declined Eliquis Discussed this with patient, who reported she normally does not like taking medications Continue metoprolol while inpatient (3) Anxiety: Plan: Continue escitalopram (4) Hypertension: Plan: Permissive HTN in the setting of stroke like symptoms However, given continued high blood pressure and HR 62bpm, hydralazine 10 mg IV (as above) Continue home dose of metoprolol Plan Disposition: PCU telemetry Condition code AHA diet VTE PPx: SCDs (hold chemical DVT PPx for now, encourage ambulation) Admission and Anticipated Discharge Date Admission Date: March 21, 2023 Supervising Physician Co-Signing Physician Notes The patient was not seen by me. The chart was reviewed. Case discussed with ERIS Szymanski. Agree with assessment and plan Subjective Patient has no new complaints at this time She reports that she is feeling better and is experiencing no unilateral deficits; facial droop has fully resolved Review of Systems Review of Systems: See HPI above Physical Exam Physical Exam: General: no acute distress; pleasant affect; non-toxic appearing; well- nourished; cooperative HEENT: normocephalic, atraumatic; no scleral icterus; PERRLA; patient expresses some difficulty/fatigue when looking to the right; negative for nystagmus; moist mucus membrane; hearing intact; facial droop has fully resolved Neck: supple; no lymphadenopathy; trachea midline Skin: warm, dry without signs of tenting; no cyanosis; no rashes, bruising, lesions, or erythema noted CV: chest wall NTP; RRR; S1/S2 normal; no murmurs/rubs/gallops; pulses intact and symmetric at radial, DP, and PT Lungs: no acute respiratory distress; symmetrical chest wall expansion; clear breath sounds across all lung spring w/o adventitious sounds; no wheezing ABD: Soft, NTP; BS present; no rebound/guarding; no distention MSK: no tics or fasciculations; no edema noted in the LEs b/l Neuro: Oriented to name, location, time; still exhibiting some difficulty with her birthday (able to get the date, but not the year); normal mood and affect; fluent speech; no focal deficits; sensation grossly intact in LEs B/L; negative pronator drift; no unilateral deficits; patient demonstrates ability to perform rapid alternating movements without difficulty Results & Data Results & Data Vital Signs (Past 12 Hours) Vital Signs Pulse Resp BP Pulse Ox 03/22/23 09:30 207/117 H 03/22/23 09:30 79 16 97 03/22/23 09:00 70 18 98 03/22/23 09:00 186/105 H 03/22/23 08:30 75 19 97 03/22/23 08:30 171/90 H 03/22/23 08:15 193/100 H 03/22/23 08:15 68 19 96 03/22/23 08:14 66 03/22/23 08:00 72 21 96 03/22/23 07:30 178/96 H 03/22/23 07:30 66 21 96 03/22/23 07:00 76 14 97 03/22/23 07:00 175/99 H 03/22/23 04:30 64 19 157/104 H 95 03/22/23 04:00 67 20 163/101 H 92 03/22/23 03:31 67 17 129/90 95 03/22/23 03:00 62 16 162/85 H 96 03/22/23 02:30 67 20 165/98 H 95 03/22/23 02:00 69 21 155/98 H 96 03/22/23 01:30 65 20 165/83 H 95 03/22/23 01:00 62 16 144/90 H 92 03/22/23 00:00 69 16 125/75 94 03/21/23 23:30 61 16 144/82 H 95 03/21/23 23:20 57 L Laboratory Results Abnormal lab results 03/21/23 03/21/23 03/21/23 Range/Units 14:44 14:48 14:53 RBC 3.99 L (4.20-5.40) M/uL POC Hct 36 L (37-47) % MPV 8.7 L (9.4-12.4) fL Sodium 134 L (136-145) mmol/L POC Chloride 97 L (101-112) mmol/L Glucose 125 H (70-99(Fasting)) mg/dl POC Glucose 133 H (70-99) mg/dl POC Glucose (other) 121 H (70-99) mg/dl Hemoglobin A1c (4.5-5.6) % 03/22/23 Range/Units 05:38 RBC (4.20-5.40) M/uL POC Hct (37-47) % MPV 8.9 L (9.4-12.4) fL Sodium (136-145) mmol/L POC Chloride (101-112) mmol/L Glucose 115 H (70-99(Fasting)) mg/dl POC Glucose (70-99) mg/dl POC Glucose (other) (70-99) mg/dl Hemoglobin A1c 5.9 H (4.5-5.6) % Diagnostic Findings Head CT 03/21/23 14:33 CT OF THE HEAD WITHOUT CONTRAST CLINICAL HISTORY: neuro deficit, acute stroke suspected. Left facial droop. COMPARISON STUDY: MRI of the brain and head CT March 07, 2019. Sinus CT March 25, 2020. CT DOSE: 1724.9 mGy.cm TECHNIQUE: Helical axial images of the head were obtained without IV contrast. Automated exposure control was utilized for the study. A dose lowering technique was utilized adhering to the principles of ALARA. FINDINGS: No acute intracranial hemorrhage, midline shift or mass effect is present. The ventricular system is unremarkable. Basal cisterns are patent. There are no extra-axial collections. There is a 3.2 x 1.5 cm hypodense focus with loss of berger-white differentiation within the left occipital lobe on image 11 of 20. This is new since head CT of March 07, 2019. Mild white matter hypodensity suggests small vessel disease. Postoperative findings within the sinuses are partially imaged. Air-fluid level within left maxillary sinus is partially imaged IMPRESSION: 1. No acute intracranial hemorrhage. 2. 3.2 x 1.5 cm hypodense focus with loss of berger-white differentiation within the left occipital lobe which is new since head CT of March 07, 2019. This represents an age indeterminate infarct. ACT 112: Negative or not required by law. Electronically signed by: Vinnie Olsen M.D. 03/21/2023 2:48 PM Head CTA 03/21/23 14:33 CTA ANGIOGRAPHY OF THE HEAD CLINICAL HISTORY: neuro deficit, acute stroke suspected COMPARISON STUDY: MRI brain and head CT March 07, 2019. TECHNIQUE: Helical axial images of the head were obtained following uneventful intravenous administration of 118 cc of Optiray. Sagittal and coronal reconstructions were viewed as well as maximal intensity projections on an independent 3-D workstation. Automated exposure control was utilized for the study. A dose lowering technique was utilized adhering to the principles of ALARA. FINDINGS: No acute intracranial hemorrhage was identified head CT which will be reported separately. Vertebral system is unremarkable. Basal cisterns are patent. There are no extra-axial collections. Air-fluid level within the left maxillary sinus is noted. There are postoperative findings within the sinuses. The right A1 segment is diminutive, likely on a congenital basis. No intracranial aneurysm is identified. Posterior circulation is intact. IMPRESSION: No large vessel occlusion. No intracranial aneurysm. ACT 112: Negative or not required by law. Electronically signed by: Vinnie Olsen M.D. 03/21/2023 2:57 PM Neck CTA 03/21/23 14:33 CT ANGIOGRAPHY OF THE NECK WITH CONTRAST CLINICAL HISTORY: neuro deficit, acute stroke suspected COMPARISON STUDY: No previous studies for comparison. Technique: CT angiography of the carotid and vertebral arteries was obtained using Optiray and 3D reconstruction on an independent workstation. NASCET criteria was utilized. Automated exposure control was utilized for the study. A dose lowering technique was utilized adhering to the principles of ALARA. Findings: Visualized portions of the lung apices are unremarkable. There is no cervical lymphadenopathy. There are no cervical spine fractures. The bilateral common carotid, cervical internal carotid and vertebral arteries are patent. There is no stenosis or dissection within these vessels. No significant plaque formation is present. There is no aneurysm within the neck. CTA of the head will be reported separately. Air-fluid level within left maxillary sinus is incidentally noted. There are postoperative findings within the sinuses. IMPRESSION: Unremarkable CTA of the neck. ACT 112: Negative or not required by law. Electronically signed by: Vinnie Olsen M.D. 03/21/2023 2:52 PM Brain MRI 03/21/23 15:10 MRI OF THE BRAIN WITHOUT CONTRAST CLINICAL HISTORY: Stroke. COMPARISON STUDY: MRI of the brain March 07, 2019. Head CT and CTA of the head performed earlier today. TECHNIQUE: Utilizing a 1.5 Yasemin magnet and dedicated coil, multiplanar, multiecho imaging of the brain was performed without IV contrast. FINDINGS: There is a 3.4 cm focus of restricted diffusion within the left parieto-occipital region on axial image 14 of 24. This is hypointense on the ADC map. This was not evident on the CT. No corresponding FLAIR signal abnormality is present. Note is made of a small 3 mm hypointense focus adjacent to this infarct on axial gradient echo sequence image 16 of 24. No additional foci of acute infarction are present. Note is made of a 2.3 cm hyperintense focus within the left occipital lobe which corresponds to the finding on head CT from earlier today. This has gyral T1 hyperintensity consistent with laminar necrosis. There is also minimal T2 hypointensity suggestive of old blood products. This represents a subacute to chronic infarct. Ventricular system is unremarkable. Basal cisterns are patent. No acute intracranial hemorrhage is present. Air- fluid level within the left maxillary sinus with mucosal thickening is present. No intracranial masses identified on unenhanced exam. Catheter white matter T2 hyperintense foci suggest mild small vessel disease. IMPRESSION: 1. 3.4 cm acute infarct within the left parieto-occipital region, not evident on head CT. No corresponding FLAIR signal abnormality. No mass effect. No acute hemorrhage. Adjacent tiny 3 mm hypointense focus on gradient echo sequence probably reflects the associated intraluminal thrombus. Less likely, this could reflect petechial hemorrhage. 2. 2.3 cm left occipital lobe subacute to chronic infarct which corresponds to the finding on head CT. Trace associated old blood products. ACT 112: Negative or not required by law. Electronically signed by: Vinnie Olsen M.D. 03/21/2023 4:31 PM PG Care Time/CCT Total # of Minutes Spent Total Time Spent with Patient: Total time spent is greater than 50% in coordination of care (as documented) at patient's floor/unit and/or counseling patient: Coding [place] [address] SUB INP/OBS CARE 3/50MIN Patient Type Established Medical Decision Making High Complexity Diagnoses Stroke-like symptoms R29.90 Paroxysmal atrial fibrillation I48.0 Anxiety F41.9 Hypertension I10 Hypertension type: unspecified (4) Hypertension Hypertension type: unspecified Qualified Code(s): I10 - Essential (primary) hypertension
[2023-03-22] MEDS ORDERED: hydrALAZINE HCL 20 MG/ML VIAL IV STA (12:37)
--- NOTE | 2023-03-22 13:03 | Pharmacy Report ---
- Date of Service March 22, 2023 - Pharmacy CVA/TIA Medication Review Medications to Prevent Stroke handout has been added to the patients discharge packet. Antiplatelet(s) * Aspirin, clopidogrel Cholesterol * High intensity statin: atorvastatin 80 mg daily DVT Prophylaxis * SCD knee Therapeutic Anticoagulation * Hx Afib/Aflutter noted, but anticoagulation is being deferred due to patient refusal Type 2 Diabetes * Patient does not have T2DM
[2023-03-22] MEDS: ATORVASTATIN 40 MG TAB PO SCH (13:55)
[2023-03-22] MEDS ORDERED: hydrALAZINE HCL 20 MG/ML VIAL ONE (15:03)
[2023-03-22] MEDS ORDERED: hydrALAZINE HCL 20 MG/ML VIAL IV PRN ×3 (15:29→20:40)
[2023-03-22] MEDS ORDERED: LORazepam 0.5 MG TAB PO PRN (16:29)
[2023-03-22] MEDS ORDERED: LORazepam 0.5 MG TAB PO STA (16:29)
[2023-03-22] MEDS ORDERED: Nursing to Pharmacy Communication SCH (20:30)
[2023-03-23] MEDS: SODIUM CHLORIDE 0.9% 1,000 ML IV SCH (03:55)
[2023-03-23 06:29] LABS: Basophils # (auto) 0.02 K/uL (0.00-0.20); Basophils % (auto) 0.3 %; Eosinophils # (auto) 0.09 K/uL (0.00-0.50); Eosinophils % (auto) 1.4 %; Hematocrit (blood only) 38.8 % (37.0-47.0); Hemoglobin 13.4 g/dl (12.0-16.0); Immature Granulocytes # (auto) 0.01 K/uL (0.01-0.20); Immature Granulocytes % (auto) 0.2 %; Lymphocytes # (auto) 1.89 K/uL (1.20-3.40); Mean Corpuscular Hemoglobin 31.7 pg (25.0-34.0); Mean Corpuscular Hgb Conc 34.5 g/dL (32.0-36.0); Mean Corpuscular Volume 91.7 fL (80.0-100.0); Mean Platelet Volume 9.1 fL (9.4-12.4); Monocytes # (auto) 0.47 K/uL (0.11-0.59); Monocytes % (auto) 7.4 %; Neutrophils # (auto) 3.83 K/uL (1.40-6.50); Neutrophils % (auto) 60.7 %; Platelet Count 217 K/uL (130-400); RDW Coefficient of Variation 12.9 % (11.5-14.5); RDW Standard Deviation 43.1 fL (36.4-46.3); Red Blood Count 4.23 M/uL (4.20-5.40); White Blood Count 6.31 K/ul (4.8-10.8)
[2023-03-23 06:54] LABS: BUN Creatinine Ratio 21.5 (10-20); Calcium 8.7 mg/dl (8.6-10.3); Est GFR (African American) 87.9 ml/min; Est GFR (Non-African American) 75.8 ml/min; Potassium 3.8 mmol/L (3.5-5.1)
[2023-03-23 07:25] VITALS: TEMP 98.2; O2SAT 94
[2023-03-23] MEDS: CLOPIDOGREL BISULFATE 75 MG TAB PO SCH (09:57)
[2023-03-23] MEDS: ASPIRIN 81 MG ECTAB PO SCH (09:57)
[2023-03-23] MEDS: ATORVASTATIN 40 MG TAB PO SCH (09:57)
[2023-03-23] MEDS: ESCITALOPRAM OXALATE 10 MG TAB PO SCH (09:58)
[2023-03-23] MEDS: MAGNESIUM OXIDE 400 MG TAB PO SCH (09:58)
[2023-03-23] MEDS: METOPROLOL TARTRATE 25 MG TAB PO SCH (09:59)
[2023-03-23 11:15] VITALS: BP 148/88; PULSE 74; RESP 19
--- NOTE | 2023-03-23 13:24 | Discharge Summary ---
Date of Service March 23, 2023 Admission HPI Per Admitting Provider Sheila is a 72-year-old female with PMH of HTN, GERD, HLD, A-fib with RVR, asthma, anxiety, and chronic sinusitis. She presented for confusion, unsteady gait, and mild right-sided facial droop that started around 1310 on 03/21. Her (Kurt) is present at the bedside and provides additional history. Patient reports that she was curling her hair when she came out of living room and said that something was not right. She reports that she was feeling lethargic, and was slow to respond to questioning. No slurred speech. Mild right-sided facial droop (which resolved in the ED). Patient denies numbness or tingling on the right-side of the face, UEs, or LEs. She denies history of strokes. She took all of her regular morning medications today. She reports that she is not on anticoagulation. She notes that she had not recent visual disturbances (blurred vision) around 2 weeks ago, but thought little of them; she denies loss of vision, diplopia, or photophobia. She has never had a prior experience like this today. She denies tobacco, alcohol, and recreational drug use. Patient is hypertensive at 207/104 at time of admission. ED course: Hydralazine 10 mg IV Labetalol 5 mg IV ROS: Patient endorses fatigue, balance issues, intermittent chest palpitations (ongoing), and recent visual changes (blurry vision 2 weeks ago). Patient denies fever, chills, night-sweats, unilateral deficits, slurred speech, HERBERT, diplopia, photophobia, changes in hearing, CP, SOB, abdominal pain, N/V/D, or numbness/tingling in the face, arms, or legs. Principal Diagnosis Left parietal occipital ischemic CVA, uncontrolled hypertension Discharge Exam General: no acute distress; pleasant affect; non-toxic appearing; well- nourished; cooperative HEENT: normocephalic, atraumatic; no scleral icterus; PERRLA; patient expresses some difficulty/fatigue when looking to the right; negative for nystagmus; moist mucus membrane; hearing intact; facial droop has fully resolved Neck: supple; no lymphadenopathy; trachea midline Skin: warm, dry without signs of tenting; no cyanosis; no rashes, bruising, lesions, or erythema noted CV: chest wall NTP; RRR; S1/S2 normal; no murmurs/rubs/gallops; pulses intact and symmetric at radial, DP, and PT Lungs: no acute respiratory distress; symmetrical chest wall expansion; clear breath sounds across all lung spring w/o adventitious sounds; no wheezing ABD: Soft, NTP; BS present; no rebound/guarding; no distention MSK: no tics or fasciculations; no edema noted in the LEs b/l Neuro: Oriented to name, location, time; still exhibiting some difficulty with her birthday (able to get the date, but not the year); normal mood and affect; fluent speech; no focal deficits; sensation grossly intact in LEs B/L; negative pronator drift; no unilateral deficits; patient demonstrates ability to perform rapid alternating movements without difficulty Discharge Data Allergies Allergy/AdvReac Type Severity Reaction Status Date / Time No Known Drug Allergies Allergy Unknown Verified 03/21/23 17:12 Consultations 03/21/23 16:31 ED Decision to Admit Stat Ordered Studies 03/21/23 14:33 CT angio head w con Stat CT angio neck with con Stat CT head/brain wo con Stat 03/21/23 15:10 MRI Brain [MR brain wo con] Stat Hospital Course (1) Stroke-like symptoms: Ischemic left parietal occipital CVA seen on imaging. Neurology evaluation appreciated. OT and PT assessments have been completed and they recommend out patient therapy. Speech therapy has also been completed. She is now on aspirin Plavix and atorvastatin. She will be discharged home with home health services. (2) Paroxysmal atrial fibrillation: Rate controlled. She has refused systemic anticoagulation. It is uncertain if she is suffering from an embolic events causing the CVA. She has agreed however to take aspirin 81 mg daily. (3) Anxiety: Stable. Continue escitalopram (4) Hypertension: Required several doses of intravenous hydralazine for control. Now at baseline. Continue current medical management orally. Plan Home today, March 23, with home health services and home therapies. Total Time Total Time Spent Total Time Spent (In Minutes): 45 minutes Discharge Plan Discharge Items Patient Disposition: Home - Home Health Services Reason For Visit: STROKE-LIKE SYMPTOMS Discharge Diagnosis: Ischemic left parietal/occipital CVA, uncontrolled hypertension Activity: Resume your previous activity Non-emergency contact: Primary Care Provider and Neurologist Call non-emergency contact if: you have any medication questions and your symptoms worsen Follow-up/Referrals: Malvin Freeman CRNP [Primary Care Provider] - Diet: Regular and Heart Healthy Addtl Attending Provider Instructions: Continue aspirin, Plavix, atorvastatin as directed Pending Studies at Discharge: No Stand-Alone Forms: [facility], Smoking Cessation, Medications to Prevent Stroke Medications and DC Order Prescriptions: New atorvastatin 40 mg Tablet 80 mg PO QAM Qty: 3 0RF clopidogrel 75 mg Tablet 75 mg PO QAM Qty: 30 0RF aspirin 81 mg Tablet,Delayed Release (Dr/Ec) 81 mg PO QAM Qty: 0 0RF Continued escitalopram oxalate 10 mg tablet 10 mg PO QAM Qty: 90 1RF calcium carbonate [Calcium 600] 600 mg calcium (1,500 mg) tablet 600 mg PO QAM magnesium 250 mg tablet 250 mg PO BID metoprolol tartrate 50 mg tablet 25 mg PO BID Qty: 180 1RF omega [id number] oil [Fish Oil] 1,000 mg (120 mg-180 mg) capsule 3 cap PO QAM albuterol sulfate [Ventolin HFA] 90 mcg/actuation HFA aerosol inhaler 1 - 2 puff INH .Q4-6H PRN (Reason: shortness of breath or wheezing) Rx Instructions: 1-2puffs inhalation every 4-6 hrs PRN; cholecalciferol (vitamin D3) 25 mcg (1,000 unit) Tablet 25 mcg PO QAM potassium gluconate 595 mg (99 mg) Tablet 0 mg PO DAILY Discharge Orders: Discharge Order (Routine); Ordered 03/23/23 Ordered By: Pacheco Dugan Admission Data Admit Date/Time: 03/21/23 17:08 Attending Provider: Pacheco Dugan Admit Provider: Moises Gomez Primary Care Provider: Malvin Freeman Other Providers: Moises Gomez Coding Level of Care Code 03629 INP/OBS DISCH >30 MIN Diagnoses Stroke-like symptoms R29.90 Paroxysmal atrial fibrillation I48.0 Anxiety F41.9 Hypertension I10 Hypertension type: unspecified
== END 2023-03-23 14:28 | disposition home or self-care (01) | DRG 66 ==
LOC: ED 14:22 → SUATTDRO 17:08 → EDINP 17:08 → 4W 18:33

== ENCOUNTER 2024-09-26 21:57 | Inpatient (IN) ==
[2024-09-26 23:01] LABS: Hematocrit (blood only) 33.6 % (37.0-47.0); Hemoglobin 12.1 g/dl (12.0-16.0); Immature Granulocytes # (auto) 0.02 K/uL (0.01-0.20); Immature Granulocytes % (auto) 0.3 %; Mean Corpuscular Hemoglobin 33.2 pg (25.0-34.0); Mean Corpuscular Volume 92.3 fL (80.0-100.0); Platelet Count 227 K/uL (130-400); RDW Standard Deviation 37.6 fL (36.4-46.3); Red Blood Count 3.64 M/uL (4.20-5.40); White Blood Count 7.06 K/ul (4.8-10.8)
[2024-09-26 23:18] LABS: Alanine Aminotransferase 19.0 U/L (7-52); Albumin Globulin Ratio 1.7 (0.9-2); Alkaline Phosphatase 38.0 U/L (34-104); Anion Gap 10.0 (3-11); Bilirubin,Total 1.5 mg/dl (0.2-1.0); Blood Urea Nitrogen 9.0 mg/dl (6-23); Calcium 9.6 mg/dl (8.6-10.3); Carbon Dioxide 28.0 mmol/L (21-32); Chloride 90.0 mmol/L (98-107); Creatinine Clr Calc Pharmacy 58.8 ml/min; Globulin 2.5 gm/dl (2.5-4.0); Glucose 98.0 mg/dl (70-99(Fasting)); Potassium 3.5 mmol/L (3.5-5.1); Sodium 128.0 mmol/L (136-145); Total Protein 6.7 gm/dl (6.0-8.3)
[2024-09-26] MEDS: SODIUM CHLORIDE 0.9% 1,000 ML IV ONE (23:45)
[2024-09-26] MEDS: ACETAMINOPHEN 1,000 MG/100 ML VIAL IV STA (23:45)
[2024-09-26 23:47] LABS: INR 1.1 (0.9-1.1); Prothrombin Time 11.8 Seconds (9.0-12.0)
[2024-09-27] MEDS: OPTIRAY 320 125ml IV ONE (00:18)
[2024-09-27 00:35] LABS: Magnesium 1.3 mg/dl (1.7-2.4)
--- NOTE | 2024-09-27 00:44 | Emergency Department Note ---
Impression & Plan Acute hyponatremia, Hypomagnesemia, Generalized weakness Admit to the [facility] service ED Provider Note NAME: MJ CUETO AGE: 73 SEX: Female INFORMANT: Patient ED PROVIDER(S): Ibeth Ribera DO CHIEF COMPLAINT: Weakness and shaking PLAN: admit to the [facility] MEDICAL DECISION MAKING: this is a 73-year-old female patient with remote history of stroke who presents to the emergency department with increased weakness and shaking. Patient describes some very mild right sided shake as a result of the stroke but it has been exacerbated over the past couple of days. She describes decreased sleep, headaches and dizziness. Much of the history is obtained from the patient's who is at the bedside. He explains that she was in her usual state of health earlier today. She drove a car and was able to walk normally and unassisted. However tonight, she became significantly weak and he thought it was secondary to dehydration. Laboratory studies here tonight showed significant hyponatremia and hypomagnesemia. There was no leukocytosis or anemia noted. Troponin was normal. Renal function and glucose were normal. Patient began to receive IV normal saline solution along with IV magnesium replacement. She was given a dose of IV Tylenol for the pain she was experiencing in her back. Patient went for CT scan of the brain because of the increased tremor in her right arm as well as the profound generalized weakness and slow response to questioning. [facility] for [facility] care. Care/management discussed with: avionics manager and [facility] Triage Nursing notes: reviewed and agree with them. Vital Signs: reviewed and unremarkable Additional History obtained from: Patient's who is at the bedside Chronic Medical/Social Conditions affecting care: Previous stroke which left her with no acute deficits Differential Diagnosis: TIA, acute CVA, hypoglycemia, hyponatremia, UTI Diagnostics, independently interpreted by me: ECG: normal sinus rhythm at a rate of 87 with a poor baseline secondary to the patient's tremors. Cardiac Monitoring: Normal sinus rhythm at a rate of 91 Imaging studies: CT scan of the brain: As per [facility] CTA of the brain: As per [facility] CTA of the neck: As per [facility] HPI: 73 year old Female arrives for evaluation of dizziness and weakness. Patient has become significantly dizzy and weak tonight. She has noticed that her right arm has begun to shake more than usual. Her is concerned that she may be dehydrated. PAST MEDICAL HISTORY: See Below, PAST SURGICAL HISTORY: See Below, SOCIAL HISTORY: See Below, HOME MEDICATIONS: See list ALLERGIES: None VITALS: See Below PHYSICAL EXAMINATION: HEENT: Head - normocephalic and atraumatic. Pupils are equal, round, and reactive to light. Extraocular eye muscles are intact and sclera are anicteric. Ears - bilaterally patent canals with noninjected tympanic membranes and no evidence of hemotympanum. Nose - moist nasal mucosa without discharge. Mouth - moist buccal mucosa. Oropharynx is nonerythematous and there is no tonsillar exudate or edema noted. Neck: Supple; no JVD, nuchal rigidity, cervical lymphadenopathy, or auscultated bruits. Heart: Regular rate and rhythm. There is a normal S1 and S2 with no murmurs, clicks, or gallops appreciated. Lungs: Clear to auscultation bilaterally with no wheezes, rales, or rhonchi. Abdomen: Soft, completely nontender, nondistended, with good bowel sounds. There are no palpable pulsatile masses or hepatosplenomegaly. There is no guarding, rigidity, or rebound noted. Extremities: No evidence of cyanosis, clubbing, or edema. There are easily palpable peripheral pulses. Neuro:The patient is awake and alert, oriented to day, time, and place. Muscle strength is 5/5 in all 4 extremities. The patient has equal recreation therapy teacher strength and equal pedal push and pull. There are no cerebellar signs. Emergency Department treatment: front desk monitor, IV normal saline solution, IV magnesium, IV Tylenol Emergency Department course: The patient was evaluated in room C-3. A complete history and physical was performed. An order was placed for continuous cardiac monitoring. The patient was in a normal sinus rhythm at a rate of 91. Twelve- lead EKG was obtained as described above. Patient went for CT scan of the brain along with CT angiogram of the head and neck. These were unremarkable and did not show anything new. Patient was started on IV normal saline drip as she appeared somewhat dehydrated and her sodium was low. Magnesium was also noted to be low and she was started on a magnesium IV replacement. [facility] for further inpatient care and additional testing. Past Med/Surg History Problem List (Updated 09/27/24 @ 21:59 by Ibeth Ribera DO) Generalized weakness (Acute) Hypomagnesemia (Acute) Acute hyponatremia (Acute) Tremor H/O: stroke with residual effects Hyponatremia Hypomagnesemia Stroke-like symptoms Cystocele with prolapse (Acute) Acute pelvic pain (Acute) Anticoagulant long-term use Hypertension Paroxysmal atrial fibrillation Anxiety Exercise-induced asthma Asthma (Chronic) Bony exostosis Hyperlipidemia GERD without esophagitis Varicose veins of bilateral lower extremities with other complications Chronic sinusitis Medical History Acute CVA (cerebrovascular accident) Family history of colon cancer Family history of coronary artery disease Multifocal pneumonia Palpitation Non compliance with medical treatment Atrial fibrillation History of COVID-19 White coat syndrome with hypertension History of DVT (deep vein thrombosis) Poor historian History of colon polyps Surgical History History of sinus surgery History of esophagogastroduodenoscopy (EGD) History of colonoscopy Hx of tubal ligation H/O ovarian cystectomy H/O tooth extraction H/O blepharoplasty S/P skin biopsy History of appendectomy Family History Mother Diabetes Alzheimer disease Colorectal cancer Hypertension Father Diabetes Myocardial infarction, Onset Age: 62 Hypertension Sister Lymphoma Breast cancer, Onset Age: 70 Hypertension Family/Other Ovarian cancer Prostate cancer Other No family history of adverse response to anesthesia Social History Smoking Status: Never smoker Second Hand Exposure: No; Do You Dip or Chew Tobacco: No; Hx Alcohol Use: No Hx Substance Use: No Preferred Language: Ghanaian Communication Ability: Impaired Communication Tools: Other Visual Impairment: No Limitations Hearing Ability: Normal Finance Officer Required: No Beliefs That Will Affect Care: None marital status: Current Living Situation: Spouse current occupational status: retired Feels Safe at Home: Yes Childhood Exposure to Second-Hand Smoke: No Diet: regular Diet Comment: regular caffeine: Yes (Cofee 1 per day. ) during the past year weight has: remained stable Dental Care, Regularly: Yes Physical Activity Frequency: 5-6 Times per Week Seatbelt Use: always Sunscreen Use: No Assistive Devices: None Allergies Allergies Allergy/AdvReac Type Severity Reaction Status Date / Time No Known Drug Allergies Allergy Unknown Verified 09/20/24 13:14 Home Meds Home Medications Medication Instructions Recorded Confirmed calcium carbonate (Calcium 600) 600 mg PO QAM 01/09/19 09/27/24 albuterol sulfate 90 mcg/actuation 1 - 2 puff inhalation .Q4-6H PRN 12/09/19 09/27/24 aerosol inhaler (Ventolin HFA) shortness of breath or wheezing cholecalciferol (vitamin D3) 25 25 mcg PO QAM 03/02/20 09/27/24 mcg (1,000 unit) tablet magnesium 250 mg tablet 250 mg PO BID 08/27/21 09/27/24 omega 3-[id number]-otb-fish oil 1,000 mg 3 cap PO QAM 08/27/21 09/27/24 (120 mg-180 mg) capsule (Fish Oil) Previous Rx's Medication Instructions Recorded atorvastatin 80 mg tablet 80 mg PO DAILY #90 tabs 02/25/24 indapamide 1.25 mg tablet 1.25 mg PO QAM #90 tabs 02/25/24 omeprazole 40 mg capsule,delayed 40 mg PO DAILY #90 caps 05/09/24 release escitalopram oxalate 10 mg tablet 10 mg PO QAM #90 tabs 05/29/24 oxycodone 5 mg tablet 5 mg PO Q8H PRN pain #20 tabs 06/26/24 nebivolol 10 mg tablet 10 mg PO DAILY #90 tabs 07/06/24 apixaban 5 mg tablet (Eliquis) 5 mg PO BID #180 tabs 07/17/24 fluticasone propionate 50 2 spray intranasal DAILY #48 grams 07/17/24 mcg/actuation nasal spray,suspension hydralazine 25 mg tablet 25 mg PO BID #180 tabs 09/18/24 estradiol 0.01% (0.1 mg/gram) 1 g vaginal .COMPLEX #42.5 grams 09/20/24 vaginal cream lorazepam 0.5 mg tablet 0.5 mg PO DAILY PRN anxiety #20 09/22/24 tabs Results & Data (ED) Vital Signs Vital Signs - 24 hr 09/26/24 22:00 09/26/24 22:36 09/26/24 22:40 Temperature 36.7 C Temperature Source Temporal Artery Scan Pulse Rate 80 89 89 Pulse Rate [Finger] Pulse Rate from SpO2 Sensor Pulse Rhythm Regular Pulse Rhythm [Finger] Pulse Strength Normal Pulse Strength [Finger] Respiratory Rate 18 23 Respiratory Effort / Characteristics Non-Labored Spontaneous Respiratory Depth Normal Respiratory Pattern Regular Blood Pressure 184/77 H 197/115 H Blood Pressure [Right Arm] Blood Pressure Mean 112 142 Blood Pressure Mean [Right Arm] Blood Pressure Position Sitting Blood Pressure Position [Right Arm] Pulse Oximetry 96 Oxygen Delivery Method Room Air Sepsis Recent Fever Within 48 Hours No Sepsis New/Unexplained Change in Mental Status N/A Sepsis Action Taken by Nursing No Action Required 09/26/24 22:42 09/26/24 23:00 09/26/24 23:09 Temperature Temperature Source Pulse Rate 90 Pulse Rate [Finger] Pulse Rate from SpO2 Sensor Pulse Rhythm Pulse Rhythm [Finger] Pulse Strength Pulse Strength [Finger] Respiratory Rate 21 Respiratory Effort / Characteristics Respiratory Depth Respiratory Pattern Blood Pressure 175/101 H Blood Pressure [Right Arm] Blood Pressure Mean 125 Blood Pressure Mean [Right Arm] Blood Pressure Position Blood Pressure Position [Right Arm] Pulse Oximetry Oxygen Delivery Method Room Air Room Air Sepsis Recent Fever Within 48 Hours Sepsis New/Unexplained Change in Mental Status Sepsis Action Taken by Nursing 09/26/24 23:30 09/26/24 23:58 09/27/24 00:30 Temperature Temperature Source Pulse Rate 88 95 H Pulse Rate [Finger] 91 H Pulse Rate from SpO2 Sensor Pulse Rhythm Pulse Rhythm [Finger] Regular Pulse Strength Pulse Strength [Finger] Normal Respiratory Rate 17 24 20 Respiratory Effort / Characteristics Non-Labored Spontaneous Respiratory Depth Normal Respiratory Pattern Regular Blood Pressure 166/108 H 178/104 H Blood Pressure [Right Arm] 182/102 H Blood Pressure Mean 127 143 Blood Pressure Mean [Right Arm] 128 Blood Pressure Position Blood Pressure Position [Right Arm] Sitting Pulse Oximetry 95 Oxygen Delivery Method Room Air Sepsis Recent Fever Within 48 Hours Sepsis New/Unexplained Change in Mental Status Sepsis Action Taken by Nursing 09/27/24 01:00 09/27/24 02:45 Temperature Temperature Source Pulse Rate 96 H 97 H Pulse Rate [Finger] Pulse Rate from SpO2 Sensor 96 H Pulse Rhythm Pulse Rhythm [Finger] Pulse Strength Pulse Strength [Finger] Respiratory Rate Respiratory Effort / Characteristics Respiratory Depth Respiratory Pattern Blood Pressure 167/99 H Blood Pressure [Right Arm] Blood Pressure Mean 121 Blood Pressure Mean [Right Arm] Blood Pressure Position Blood Pressure Position [Right Arm] Pulse Oximetry 94 Oxygen Delivery Method Sepsis Recent Fever Within 48 Hours Sepsis New/Unexplained Change in Mental Status Sepsis Action Taken by Nursing Laboratory Data 09/26/24 20:22 09/27/24 20:28 Lab Results 09/26/24 09/26/24 09/27/24 Range/Units 20:22 23:56 01:15 WBC 7.06 (4.8-10.8) K/ul RBC 3.64 L (4.20-5.40) M/uL Hgb 12.1 (12.0-16.0) g/dl Hct 33.6 L (37.0-47.0) % MCV 92.3 (80.0-100.0) fL MCH 33.2 (25.0-34.0) pg MCHC 36.0 (32.0-36.0) g/dL RDW Std Deviation 37.6 (36.4-46.3) fL RDW Coeff of [place] 10.9 L (11.5-14.5) % Plt Count 227 (130-400) K/uL MPV 8.6 L (9.4-12.4) fL Immature Gran % (Auto) 0.3 % Neut % (Auto) 57.3 % Lymph % (Auto) 31.3 % Blair % (Auto) 9.9 % Eos % (Auto) 0.8 % Baso % (Auto) 0.4 % Neut # (Auto) 4.04 (1.40-6.50) K/uL Lymph # (Auto) 2.21 (1.20-3.40) K/uL Blair # (Auto) 0.70 H (0.11-0.59) K/uL Eos # (Auto) 0.06 (0.00-0.50) K/uL Baso # (Auto) 0.03 (0.00-0.20) K/uL Immature Gran # (Auto) 0.02 (0.01-0.20) K/uL PT 11.8 (9.0-12.0) Seconds INR 1.1 (0.9-1.1) Sodium 128 L (136-145) mmol/L Potassium 3.5 (3.5-5.1) mmol/L Chloride 90 L (98-107) mmol/L Carbon Dioxide 28 (21-32) mmol/L Anion Gap 10 (3-11) BUN 9 (6-23) mg/dl Creatinine 0.79 (0.6-1.2) mg/dl Est Cr Clr Drug Dosing 58.8 ml/min eGFR 79.92 BUN/Creatinine Ratio 11.4 (10-20) Glucose 98 (70-99(Fasting)) mg/dl Calcium 9.6 (8.6-10.3) mg/dl Magnesium 1.3 L (1.7-2.4) mg/dl Total Bilirubin 1.5 H (0.2-1.0) mg/dl AST 21 (13-39) U/L ALT 19 (7-52) U/L Alkaline Phosphatase 38 (34-104) U/L Troponin I High Sens 4.4 4.8 (0-14) pg/ml Total Protein 6.7 (6.0-8.3) gm/dl Albumin 4.2 (3.4-5.0) gm/dl Globulin 2.5 (2.5-4.0) gm/dl Albumin/Globulin Ratio 1.7 (0.9-2) Urine Color Yellow Urine Appearance Clear (Clear) Urine pH 7.5 (4.5-7.5) Ur Specific [place] 1.022 (1.000-1.030) Urine Protein Negative (Negative) Urine Glucose (UA) Negative (Negative) Urine Ketones 1+ H (Negative) Urine Blood Negative (Negative) Urine Nitrite Negative (Negative) Urine Bilirubin Negative (Negative) Urine Urobilinogen Negative (Negative) Ur Leukocyte Esterase 2+ H (Negative) Urine WBC (Auto) 0-5 (0-5) /hpf Urine RBC (Auto) 0-2 (0-2) /hpf U Hyaline Cast (Auto) 0-2 (0-2) /lpf U Epithel Cells (Auto) 0-2 (0-2) /hpf Urine Bacteria (Auto) None Seen (None Seen) Urine Osmolality 308 L (500-800) mOsm/kg Ur Random Sodium 69 mmol/L Urine Comment Administered Medications Acetaminophen (Acetaminophen 325 Mg Tab) 650 mg PO Q4H PRN PRN Reason: Pain or Fever Stop: 10/27/24 04:53 Last Admin: 09/27/24 05:27 Dose: 650 mg Documented By: CUAUHTEMOC Apixaban (Apixaban 5 Mg Tablet) 5 mg PO BID [facility] Stop: 10/27/24 08:59 Last Admin: 09/27/24 20:36 Dose: 5 mg Documented By: Admin: 09/27/24 08:40 Dose: 5 mg Documented By: MALI Atorvastatin Calcium (Atorvastatin 40 Mg Tab) 80 mg PO HS JUWAN Stop: 10/27/24 20:59 Last Admin: 09/27/24 20:36 Dose: 80 mg Documented By: CUAUHTEMOC Escitalopram Oxalate (Escitalopram Oxalate 10 Mg Tab) 10 mg PO QAM JUWAN Stop: 10/27/24 08:59 Last Admin: 09/27/24 08:40 Dose: 10 mg Documented By: MALI Fluticasone Propionate (Fluticasone Propionate Na Spr 16 Gm Btl) 2 sprays JEAN CARLOS DAILY JUWAN Stop: 10/27/24 08:59 Last Admin: 09/27/24 08:43 Dose: Not Given Documented By: MALI Hydralazine HCl (Hydralazine Hcl 25 Mg Tab) 25 mg PO BID JUWAN Stop: 10/27/24 08:59 Last Admin: 09/27/24 20:36 Dose: 25 mg Documented By: Admin: 09/27/24 08:40 Dose: 25 mg Documented By: MALI Lorazepam (Lorazepam 0.5 Mg Tab) 0.5 mg PO DAILY PRN PRN Reason: anxiety Stop: 10/27/24 04:16 Last Admin: 09/27/24 11:27 Dose: 0.5 mg Documented By: MALI Magnesium Oxide (Magnesium Oxide 400 Mg Tab) 400 mg PO BID [facility] Stop: 10/27/24 08:59 Last Admin: 09/27/24 20:36 Dose: 400 mg Documented By: Admin: 09/27/24 08:40 Dose: 400 mg Documented By: MALI Metoprolol Tartrate (Metoprolol Tartrate 50 Mg Tab) 50 mg PO BID [facility] Stop: 10/27/24 08:59 Last Admin: 09/27/24 20:36 Dose: 50 mg Documented By: Admin: 09/27/24 08:40 Dose: 50 mg Documented By: MALI Miscellaneous (Premarin Vaginal Cream - Order Awaiting Action) 1 each N/A QS [facility] Stop: 10/27/24 07:59 Last Admin: 09/27/24 15:28 Dose: Not Given Documented By: Admin: 09/27/24 12:25 Dose: Not Given Documented By: DIOR Pantoprazole Sodium (Pantoprazole 40 Mg Tab) 40 mg PO DAILY JUWAN Stop: 10/27/24 08:59 Last Admin: 09/27/24 08:40 Dose: 40 mg Documented By: MALI Discontinued Medications Sodium Chloride (Nss) 1,000 mls @ 999 mls/hr IV .Q1H1M ONE Stop: 09/27/24 00:39 Last Infusion: 09/27/24 00:59 Dose: Infused Documented By: Admin: 09/26/24 23:45 Dose: 999 mls/hr Documented By: PAULA Acetaminophen (Ofirmev) 1,000 mg in 100 mls @ 400 mls/hr IV NOW STA Stop: 09/26/24 23:53 Last Infusion: 09/27/24 00:59 Dose: Infused Documented By: Admin: 09/26/24 23:45 Dose: 400 mls/hr Documented By: PAULA Magnesium Sulfate/Dextrose (Magnesium Sulfate / D5w) 1 gm in 100 mls @ 100 mls/hr IV NOW STA Stop: 09/27/24 02:17 Last Infusion: 09/27/24 02:38 Dose: Infused Documented By: Admin: 09/27/24 01:32 Dose: 100 mls/hr Documented By: PAULA Sodium Chloride (Nss) 1,000 mls @ 125 mls/hr IV .Q8H JUWAN Stop: 09/27/24 10:59 Last Infusion: 09/27/24 13:20 Dose: Infused Documented By: Admin: 09/27/24 04:21 Dose: 125 mls/hr Documented By: CUAUHTEMOC Magnesium Sulfate/Dextrose (Magnesium Sulfate / D5w) 1 gm in 100 mls @ 50 mls/hr IV Q2H JUWAN Stop: 09/27/24 10:16 Last Infusion: 09/27/24 10:39 Dose: Infused Documented By: Admin: 09/27/24 08:38 Dose: 50 mls/hr Documented By: Infusion: 09/27/24 08:38 Dose: Infused Documented By: Admin: 09/27/24 06:38 Dose: 50 mls/hr Documented By: Infusion: 09/27/24 06:38 Dose: Infused Documented By: Admin: 09/27/24 04:56 Dose: 50 mls/hr Documented By: CUAUHTEMOC Sodium Chloride (Hypertonic Saline 3%) 100 mls @ 600 mls/hr IV .Q10M ONE; Protocol Stop: 09/27/24 12:39 Last Infusion: 09/27/24 14:14 Dose: Infused Documented By: DIOR Co-signed By: CHITO Admin: 09/27/24 13:53 Dose: 600 mls/hr Documented By: DIOR Co-signed By: BLESSING Sodium Chloride (Hypertonic Saline 3%) 100 mls @ 600 mls/hr IV .Q10M ONE; Protocol Stop: 09/27/24 16:11 Last Infusion: 09/27/24 17:18 Dose: Infused Documented By: DIOR Co-signed By: HUSEYIN Admin: 09/27/24 17:03 Dose: 600 mls/hr Documented By: DIOR Co-signed By: BLESSING Indapamide (Indapamide 1.25 Mg Tab) 1.25 mg PO QAM [facility] Stop: 10/27/24 08:59 Last Admin: 09/27/24 08:41 Dose: 1.25 mg Documented By: MALI Ioversol (Optiray 320 125ml) 125 ml IV ONCE ONE Stop: 09/27/24 00:18 Last Admin: 09/27/24 00:18 Dose: 118 ml Documented By: ISAÍAS Discharge Plan Visit Data Chief Complaint: Dizziness Stated Complaint: DIZZINESS, HEADACHES, WEAKNESS ED Provider: Ibeth Ribera Discharge Problem: Acute hyponatremia, Hypomagnesemia, Generalized weakness Patient Disposition: Admitted As Inpatient Condition: Serious Discharge Instructions Interventions: ED Discharge Assessment Last Done: 09/27/24 03:48
[2024-09-27] MEDS: MAGNESIUM SULFATE / D5W 1 GM/100 ML BAG IV STA (01:32)
--- NOTE | 2024-09-27 01:39 | CT Scan Report ---
EXAM: CT angio neck with con CLINICAL HISTORY: neuro deficit, acute stroke suspected TECHNIQUE: Contrast enhanced thin slice CT angiography scan of the carotid vessels was performed with intravenous contrast. Angiographic images were processed, 3D MIP images were acquired for interpretation.Contiguous axial images were obtained. Reformatted coronal and sagittal images were also reviewed. If IV contrast material had not been administered, the likelihood of detecting abnormalities relevant to the patients condition would have been substantially decreased. CT scan was performed according to ALARA (as low as reasonable achievable). 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 FINDINGS: Included great vessels of the aortic arch are grossly unremarkable. Common carotid artery, carotid Bulb, internal carotid artery , and origin of the external carotid artery are well opacified. Vertebral arteries are well opacified. Jugular veins are well opacified. Included lung apices are grossly unremarkable. Thyroid gland appears unremarkable. IMPRESSION: No evidence of stenosis or aneurysm. No evidence of dissection. No other new interval abnormality since prior study. Electronically signed by Luis Lombardi 09-27-2024 01:39 AM
--- NOTE | 2024-09-27 01:39 | CT Scan Report ---
EXAM: CT angio head w con CLINICAL HISTORY: neuro deficit, acute stroke suspected TECHNIQUE: Contrast enhanced thin slice CT angiography scan of the cerebral vessels was performed with intravenous contrast. Angiographic images were processed, 3D MIP images were acquired for interpretation. Contiguous axial images were obtained. Reformatted coronal and sagittal images were also reviewed. If IV contrast material had not been administered, the likelihood of detecting abnormalities relevant to the patients condition would have been substantially decreased. CT scan was performed according to ALARA (as low as reasonable achievable). 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 FINDINGS: Bilateral internal carotid arteries show normal course, calibre and opacification in the canalicular and cavernous part. Their division into the anterior cerebral artery and middle cerebral artery is defined. A1, A2 and M1, M2 segments are normal on both the sides. Bilateral vertebral arteries are seen to unite the form the basilar artery in a normal fashion. Basilar artery shows normal course, caliber and opacification. Its division into the posterior cerebral arteries is defined. Bilateral P1 and P2 segments are normal. Visualized venous structures show normal opacification. No evidence of intracranial aneurysm or AV malformation is seen. IMPRESSION: No evidence of stenosis or aneurysm. No evidence of dissection. No other new interval abnormality since prior study. Electronically signed by Luis Lombardi 09-27-2024 01:39 AM
--- NOTE | 2024-09-27 01:51 | CT Scan Report ---
EXAM: CT head/brain wo con CLINICAL HISTORY: neuro deficit, acute stroke suspected TECHNIQUE: Multiple axial images are obtained from the skull base to the vertex without contrast. CT scan was performed according to ALARA (as low as reasonable achievable). COMPARISON: 21 mar 2023. FINDINGS: Patch of hypodensity is noted involving left parietal lobe cortex, subcortical white matter and left occipital lobe. There is cerebral atrophy. No evidence of space occupying lesion, hemorrhage, edema, mass effect, midline shift, extra axial collection, or hydrocephalus is noted. Basal cisterns are symmetric and normal in size and configuration. There are scattered periventricular hypodensities as can be seen with chronic microvascular ischemic changes. The berger-white matter differentiation is preserved. Left maxillary sinusitis. Rest of paranasal sinuses and mastoid air cells are well aerated. Orbital contents are within normal limits. Bony structures are intact. IMPRESSION: 1. Patch of hypodensity is noted involving left parietal lobe cortex, subcortical white matter and left occipital lobe- likely sequelae of prior insult. Changes n left parietal lobe are new findings. Advised further evaluation with MRI brain with diffusion weighted imaging. 2. Chronic microvascular ischemic changes.-stable. 3. Cerebral atrophy.-stable. Electronically signed by Luis Lombardi 09-27-2024 01:51 AM
[2024-09-27 01:57] LABS: Appearance Urine Clear (Clear); Bacteria Urine Automated None Seen (None Seen); Cast Urine Automated 0-2 /lpf (0-2); Epithelial Cell Urine Auto 0-2 /hpf (0-2); Glucose Urine UA Negative (Negative); RBC Urine Automated 0-2 /hpf (0-2); WBC Urine Automated 0-5 /hpf (0-5)
--- NOTE | 2024-09-27 01:58 | History & Physical Report ---
Date of Service September 27, 2024 Assessment & Plan (1) Cystocele with prolapse: (2) Stroke-like symptoms: (3) Paroxysmal atrial fibrillation: (4) Hypertension: (5) Hypomagnesemia: (6) Hyponatremia: Plan 73 year old female presents to the ER with dizziness, loss of balance, worsening of prior stroke symptoms #Stroke like symptoms Some concern for malingering or anxiety/depression contributing as minimal movement of her right lower extremity on exam (reportedly afraid of moving as she is concerned it'll cause her to go back into atrial fibrillation) although she walked in to the ER therefore clearly had better movement earlier MRI brain to r/o new CVA Possible recrudescence of prior stroke symptoms from a generalized illness however no acute infection found ?hyponatremia/hypomagnesemia contributing vs. episodes of atrial of fibrillation PT/OT #Hyponatremia Unclear cause on admission, urine Na and osm added NSS @ 125ml/hr Repeat sodium tomorrow #Hypomagnesemia Mg level 1.3, Mg sulfate 3g IV, repeat level in AM #Paroxysmal atrial fibrillation Continue nebivolol and apixaban #Anxiety/depression Continue Lexapro, lorazepam PRN #GERD Continue omeprazole #Hypertension Continue hydralazine and nebivolol VTE Prophylaxis - apixaban Disposition - admit to med/tele Admission and Anticipated Discharge Date Admission Date: September 27, 2024 History of Present Illness Chief Complaint: Headache, dizziness, off balance Primary Care Provider: DAVIS Arreola Sheila Worthington is a 73 year old female who presents to the ER with dizziness, headache and off balance. She reports bad headache for the last 4-5 days with insomnia although currently not having any headache. Headache was on the sides of her head as a constant ache. She reports the dizziness if most like lightheadedness but no syncopal episodes. This is usually first thing in the morning when she is getting up. She denies any current lightheadedness. Her reports her balance is getting progressively much worse and she is generally weak with her right hand tremor being much worse. Reportedly she is having atrial fibrillation episodes at home and he wonders whether these episodes are making her more tired but unclear whether these episodes are becoming more frequent. She is planning on following up with the [facility] for possible ablation of this. She denies any fever, chills, respiratory, urinary or gastrointestinal symptoms. No recent medication changes. Although she recently filled lorazepam she reports only using this once a week. She was prescribed oxycodone in June but reports not taking any of this recently Allergies Allergy/AdvReac Type Severity Reaction Status Date / Time No Known Drug Allergies Allergy Unknown Verified 09/20/24 13:14 Home Medications Medication Instructions Recorded Confirmed Type calcium carbonate (Calcium 600) 600 mg PO QAM 01/09/19 09/27/24 History albuterol sulfate 90 mcg/actuation 1 - 2 puff inhalation .Q4-6H PRN 12/09/19 09/27/24 History aerosol inhaler (Ventolin HFA) shortness of breath or wheezing cholecalciferol (vitamin D3) 25 25 mcg PO QAM 03/02/20 09/27/24 History mcg (1,000 unit) tablet magnesium 250 mg tablet 250 mg PO BID 08/27/21 09/27/24 History omega 1-fld-vhj-fish oil 1,000 mg 3 cap PO QAM 08/27/21 09/27/24 History (120 mg-180 mg) capsule (Fish Oil) atorvastatin 80 mg tablet 80 mg PO DAILY #90 tabs 02/25/24 09/27/24 Rx indapamide 1.25 mg tablet 1.25 mg PO QAM #90 tabs 02/25/24 09/27/24 Rx omeprazole 40 mg capsule,delayed 40 mg PO DAILY #90 caps 05/09/24 09/27/24 Rx release escitalopram oxalate 10 mg tablet 10 mg PO QAM #90 tabs 05/29/24 09/27/24 Rx oxycodone 5 mg tablet 5 mg PO Q8H PRN pain #20 tabs 06/26/24 09/27/24 Rx nebivolol 10 mg tablet 10 mg PO DAILY #90 tabs 07/06/24 09/27/24 Rx apixaban 5 mg tablet (Eliquis) 5 mg PO BID #180 tabs 07/17/24 09/27/24 Rx fluticasone propionate 50 2 spray intranasal DAILY #48 grams 07/17/24 09/27/24 Rx mcg/actuation nasal spray,suspension hydralazine 25 mg tablet 25 mg PO BID #180 tabs 09/18/24 09/27/24 Rx estradiol 0.01% (0.1 mg/gram) 1 g vaginal .COMPLEX #42.5 grams 09/20/24 09/27/24 Rx vaginal cream lorazepam 0.5 mg tablet 0.5 mg PO DAILY PRN anxiety #20 09/22/24 09/27/24 Rx tabs Past Med/Surg History Problem List (Updated 09/27/24 @ 05:22 by Oliver Mauricio MD) Hyponatremia Hypomagnesemia Stroke-like symptoms Cystocele with prolapse (Acute) Acute pelvic pain (Acute) Anticoagulant long-term use Hypertension Paroxysmal atrial fibrillation Anxiety Exercise-induced asthma Asthma (Chronic) Bony exostosis Hyperlipidemia GERD without esophagitis Varicose veins of bilateral lower extremities with other complications Chronic sinusitis Medical History Acute CVA (cerebrovascular accident) Family history of colon cancer Family history of coronary artery disease Multifocal pneumonia Palpitation Non compliance with medical treatment Atrial fibrillation History of COVID-19 White coat syndrome with hypertension History of DVT (deep vein thrombosis) Poor historian History of colon polyps Surgical History History of sinus surgery History of esophagogastroduodenoscopy (EGD) History of colonoscopy Hx of tubal ligation H/O ovarian cystectomy H/O tooth extraction H/O blepharoplasty S/P skin biopsy History of appendectomy Family History Mother Diabetes Alzheimer disease Colorectal cancer Hypertension Father Diabetes Myocardial infarction, Onset Age: 62 Hypertension Sister Lymphoma Breast cancer, Onset Age: 70 Hypertension Family/Other Ovarian cancer Prostate cancer Other No family history of adverse response to anesthesia Social History Smoking Status: Never smoker Second Hand Exposure: No; Do You Dip or Chew Tobacco: No; Hx Alcohol Use: No Hx Substance Use: No Preferred Language: [place] Communication Ability: Impaired Communication Tools: Other Visual Impairment: No Limitations Hearing Ability: Normal Complaints Coordinator Required: No Beliefs That Will Affect Care: None marital status: Current Living Situation: Spouse current occupational status: retired Feels Safe at Home: Yes Childhood Exposure to Second-Hand Smoke: No Diet: regular Diet Comment: regular caffeine: Yes (Cofee 1 per day. ) during the past year weight has: remained stable Dental Care, Regularly: Yes Physical Activity Frequency: 5-6 Times per Week Seatbelt Use: always Sunscreen Use: No Assistive Devices: None Review of Systems Review of Systems: All systems reviewed & are unremarkable except as noted in HPI & below Physical Exam Constitutional: WD/WN, vitals as above ENMT: external ear and nose normal, oropharynx normal Respiratory: normal respiratory effort, lungs clear to auscultation Cardiovascular: RRR, no murmur, no edema Gastrointestinal (Abdomen): normal bowel sounds, soft, nontender, no hepatosplenomegaly Skin: no rashes, warm and dry Neurologic: + focal motor deficit (Right manufacturing engineering technician streng th) and awake; not confused Speech / Cognition: normal speech Motor/Sensory: + tremor (right upper extremity action and resting); no pronator drift Cranial Nerves: PERRL, EOM intact bilaterally (bilateral lateral nystagmus), normal facial strength, tongue midline, able to rotate head bilaterally, able to elevate shoulders bilaterally, no nystagmus and symmetric palate elevation Coordination: normal [id number] test Psychiatric: Eye Contact: + fair eye contact Affect: + flat affect Results & Data Results & Data Vital Signs (Past 12 Hours) Vital Signs Temp Pulse Pulse Resp BP BP Pulse Ox 09/27/24 01:00 96 H 167/99 H 94 09/27/24 00:30 95 H 20 178/104 H 09/26/24 23:58 91 H 24 182/102 H 95 09/26/24 23:30 88 17 166/108 H 09/26/24 23:09 90 21 175/101 H 09/26/24 23:00 09/26/24 22:42 09/26/24 22:40 89 09/26/24 22:36 89 23 197/115 H 09/26/24 22:00 36.7 C 80 18 184/77 H 96 O2 Del Method 09/27/24 01:00 09/27/24 00:30 09/26/24 23:58 Room Air 09/26/24 23:30 09/26/24 23:09 09/26/24 23:00 Room Air 09/26/24 22:42 Room Air 09/26/24 22:40 09/26/24 22:36 09/26/24 22:00 Room Air Laboratory Results Abnormal lab results 09/26/24 09/26/24 Range/Units 20:22 23:56 RBC 3.64 L (4.20-5.40) M/uL Hct 33.6 L (37.0-47.0) % RDW Coeff of [place] 10.9 L (11.5-14.5) % MPV 8.6 L (9.4-12.4) fL [place] # (Auto) 0.70 H (0.11-0.59) K/uL Sodium 128 L (136-145) mmol/L Chloride 90 L (98-107) mmol/L Magnesium 1.3 L (1.7-2.4) mg/dl Total Bilirubin 1.5 H (0.2-1.0) mg/dl Diagnostic Findings CT head/brain wo con CLINICAL HISTORY: neuro deficit, acute stroke suspected TECHNIQUE: Multiple axial images are obtained from the skull base to the vertex without contrast. CT scan was performed according to ALARA (as low as reasonable achievable). COMPARISON: 21 mar 2023. FINDINGS: Patch of hypodensity is noted involving left parietal lobe cortex, subcortical white matter and left occipital lobe. There is cerebral atrophy. No evidence of space occupying lesion, hemorrhage, edema, mass effect, midline shift, extra axial collection, or hydrocephalus is noted. Basal cisterns are symmetric and normal in size and configuration. There are scattered periventricular hypodensities as can be seen with chronic microvascular ischemic changes. The berger-white matter differentiation is preserved. Left maxillary sinusitis. Rest of paranasal sinuses and mastoid air cells are well aerated. Orbital contents are within normal limits. Bony structures are intact. IMPRESSION: 1. Patch of hypodensity is noted involving left parietal lobe cortex, subcortical white matter and left occipital lobe- likely sequelae of prior insult. Changes n left parietal lobe are new findings. Advised further evaluation with MRI brain with diffusion weighted imaging. 2. Chronic microvascular ischemic changes.-stable. 3. Cerebral atrophy.-stable. CT angio head w con CLINICAL HISTORY: neuro deficit, acute stroke suspected TECHNIQUE: Contrast enhanced thin slice CT angiography scan of the cerebral vessels was performed with intravenous contrast. Angiographic images were processed, 3D MIP images were acquired for interpretation. Contiguous axial images were obtained. Reformatted coronal and sagittal images were also reviewed. If IV contrast material had not been administered, the likelihood of detecting abnormalities relevant to the patients condition would have been substantially decreased. CT scan was performed according to ALARA (as low as reasonable achievable). COMPARISON: mar 13:34:01 TELEGRAPH OFFICE ROUTE AIDE FINDINGS: Bilateral internal carotid arteries show normal course, calibre and opacification in the canalicular and cavernous part. Their division into the anterior cerebral artery and middle cerebral artery is defined. A1, A2 and M1, M2 segments are normal on both the sides. Bilateral vertebral arteries are seen to unite the form the basilar artery in a normal fashion. Basilar artery shows normal course, caliber and opacification. Its division into the posterior cerebral arteries is defined. Bilateral P1 and P2 segments are normal. Visualized venous structures show normal opacification. No evidence of intracranial aneurysm or AV malformation is seen. IMPRESSION: No evidence of stenosis or aneurysm. No evidence of dissection. No other new interval abnormality since prior study. CT angio neck with con CLINICAL HISTORY: neuro deficit, acute stroke suspected TECHNIQUE: Contrast enhanced thin slice CT angiography scan of the carotid vessels was performed with intravenous contrast. Angiographic images were processed, 3D MIP images were acquired for interpretation.Contiguous axial images were obtained. Reformatted coronal and sagittal images were also reviewed. If IV contrast material had not been administered, the likelihood of detecting abnormalities relevant to the patients condition would have been substantially decreased. CT scan was performed according to ALARA (as low as reasonable achievable). COMPARISON: 13:34:01 TELEGRAPH OFFICE ROUTE AIDE FINDINGS: Included great vessels of the aortic arch are grossly unremarkable. Common carotid artery, carotid Bulb, internal carotid artery , and origin of the external carotid artery are well opacified. Vertebral arteries are well opacified. Jugular veins are well opacified. Included lung apices are grossly unremarkable. Thyroid gland appears unremarkable. IMPRESSION: No evidence of stenosis or aneurysm. No evidence of dissection. No other new interval abnormality since prior study. XR chest 1V portable CLINICAL HISTORY: altered mental status TECHNIQUE: An X-ray image of the chest is obtained in AP projection. COMPARISON: 03/24/2023. FINDINGS: Pulmonary Parenchyma: Lungs are clear bilaterally. No evidence of consolidation, collapse, or focal opacities. No pulmonary nodules are identified. No evidence of pleural effusion or pleural thickening. Heart and Mediastinum: Heart size and shape are normal. No mediastinal widening or masses. No hilar or mediastinal lymphadenopathy. Bony Thorax: Bilateral AC joint osteoarthritic changes seen. Bony thorax appears intact without fractures or deformities. Soft Tissues: Soft tissues overlying the chest wall are unremarkable. IMPRESSION: Normal chest X-ray. No acute cardiopulmonary abnormalities are identified. No significant time interval changes. Medications Administered ER Medications Given: Normal saline 1000ml bolus Acetaminophen 1000mg IV Magnesium sulfate 1g IV ECG Rate (beats per minute): 87 Rhythm: normal sinus Findings: no acute ischemic change Comparison ECG Date: from (September 26, 2024) Change: no significant change Code Status & VTE Plan Code Status Full VTE Prophylaxis Plan VTE Prophylaxis will be ordered: Yes PG Care Time/CCT Total # of Minutes Spent Total Time Spent with Patient: Total time spent is greater than 50% in coordination of care (as documented) at patient's floor/unit and/or counseling patient: Coding Level of Care Code 33817 INT INP/OBS CARE 375MIN Diagnoses Cystocele with prolapse N81.4 Stroke-like symptoms R29.90 Paroxysmal atrial fibrillation I48.0 Hypertension I10 Hypertension type: unspecified Hypomagnesemia E83.42 Hyponatremia E87.1 (4) Hypertension Hypertension type: unspecified Qualified Code(s): I10 - Essential (primary) hypertension
--- NOTE | 2024-09-27 03:02 | XRay Report ---
EXAM: XR chest 1V portable CLINICAL HISTORY: altered mental status TECHNIQUE: An X-ray image of the chest is obtained in AP projection. COMPARISON: 03/24/2023. FINDINGS: Pulmonary Parenchyma: Lungs are clear bilaterally. No evidence of consolidation, collapse, or focal opacities. No pulmonary nodules are identified. No evidence of pleural effusion or pleural thickening. Heart and Mediastinum: Heart size and shape are normal. No mediastinal widening or masses. No hilar or mediastinal lymphadenopathy. Bony Thorax: Bilateral AC joint osteoarthritic changes seen. Bony thorax appears intact without fractures or deformities. Soft Tissues: Soft tissues overlying the chest wall are unremarkable. IMPRESSION: Normal chest X-ray. No acute cardiopulmonary abnormalities are identified. No significant time interval changes. Electronically signed by Latrell Watts 09-27-2024 03:02 AM
[2024-09-27] MEDS: SODIUM CHLORIDE 0.9% 1,000 ML IV SCH (04:21)
[2024-09-27] MEDS: MAGNESIUM SULFATE / D5W 1 GM/100 ML BAG IV SCH (04:56)
[2024-09-27] MEDS: ACETAMINOPHEN 325 MG TAB PO PRN (05:27)
[2024-09-27] MEDS: ESCITALOPRAM OXALATE 10 MG TAB PO SCH (08:40)
[2024-09-27] MEDS: APIXABAN 5 MG TABLET PO SCH (08:40)
[2024-09-27] MEDS: METOPROLOL TARTRATE 50 MG TAB PO SCH (08:40)
[2024-09-27] MEDS: MAGNESIUM OXIDE 400 MG TAB PO SCH (08:40)
[2024-09-27] MEDS: INDAPAMIDE 1.25 MG TAB PO SCH (08:41)
[2024-09-27] MEDS: FLUTICASONE PROPIONATE NA SPR 16 GM BTL NAE SCH (08:43)
[2024-09-27 10:29] LABS: Alanine Aminotransferase 21.0 U/L (7-52); Alkaline Phosphatase 39.0 U/L (34-104); Anion Gap 5.0 (3-11); Bilirubin,Total 1.6 mg/dl (0.2-1.0); Blood Urea Nitrogen 7.0 mg/dl (6-23); Calcium 8.2 mg/dl (8.6-10.3); Carbon Dioxide 26.0 mmol/L (21-32); Chloride 93.0 mmol/L (98-107); Creatinine Clr Calc Pharmacy 77.4 ml/min; Glucose 157.0 mg/dl (70-99(Fasting)); Magnesium 2.2 mg/dl (1.7-2.4); Potassium 3.5 mmol/L (3.5-5.1); Sodium 124.0 mmol/L (136-145); Total Protein 6.3 gm/dl (6.0-8.3)
[2024-09-27] MEDS: LORazepam 0.5 MG TAB PO PRN (11:27)
[2024-09-27] MEDS ORDERED: SODIUM CHLORIDE 3 % 100 ML IV ONE (11:40)
[2024-09-27] MEDS ORDERED: STAT IV/IM STA ×2 (11:40→16:02)
--- NOTE | 2024-09-27 12:32 | Nephrology Consultation ---
Date of Consultation September 27, 2024 Assessment & Plan (1) Hyponatremia: (2) Hypomagnesemia: (3) Stroke-like symptoms: (4) Hypertension: (5) Paroxysmal atrial fibrillation: Plan 73-year-old female with past medical history significant for paroxysmal atrial fibrillation, on anticoagulation, hypertension, admitted to the hospital fluid worsening symptoms for few days of fatigue, anxiety, tremor as well as imbalance with walking or standing. On admission she was noted to have hyponatremia and hypomagnesemia, sodium was 128 and magnesium 1.3. Urine osmolality was above 300. She received IV normal saline almost 3 L since admission and her sodium this morning dropped further at 124. Magnesium improved. Has normal kidney function. Vital sign has been stable. Heart rate has been controlled. Hyponatremia could be related to some component of high ADH state and some contribution from excessive free water intake last few days. -- Advised to limit free water intake to less than 1.5 L/day, liberalize salt in diet. Unlikely to be from SSRI which she has been on for years. Indapamide has been on hold since admission although unlikely to be the primary cause for hyponatremia as her serum sodium was normal just a week ago. -- Discontinue normal saline, repeat serum sodium this afternoon. If sodium drops further, will consider low-dose loop diuretics. Thank you for allowing me to participate in your patient's care. It was a pleasure to see Sheila. History of Present Illness Reason for Consultation: Hyponatremia, hypomagnesemia. Attending Physician: Cecilia Nunez MD History of Present Illness Ms. Sheila Worthington is a 73 year old F with PMH of A fib, HTN, Dyslipidemia admitted with Hyponatremia, concern for CVA after she presented with dizziness, headache, dizziness and imbalance. Nephrology consult requested for management of above. EMR records were reviewed in detail during patient's visit. Sheila presented to ER yesterday with dizziness, lightheadedness, headache, imbalance and insomnia which has been progressively worsening over last 4 to 5 days. BP slightly elevated since arrival, she has been on indapamide, received the dose this morning but now on hold. Labs notable for normal kidney function, creatinine 0.8 mg/dl, hyponatremia and hypomagnesemia. Sodium was 128, magnesium was 1.3. CT head with questionable abnormality in the left parietal lobe, recommending MRI for further evaluation, consider she did have prior history of CVA in March 2023. Sodium was normal just a week ago on outpatient lab. TSH was normal about 6 months ago. Prior colonoscopy and mammogram was normal. Denies any significant weight loss over last few months. Appetite has b een okay until recently but last few days she has not been eating well although she reports drinking lots of liquids. Since admission she received more than 2 L of IV normal saline. Urine osmolality was above 300. Repeat serum sodium this morning dropped further to 124, magnesium normal. Never smoker, no personal history of malignancy. No history of adrenal insufficiency or hypothyroidism. Past medical history significant for hypertension, has been on indapamide 1.25 mg daily, hydralazine 25 mg twice a day and every prologue 10 mg daily. History of paroxysmal atrial fibrillation, on Eliquis and may be borderline, plan to go to [facility] next week for further management. No history of diabetes or known coronary artery disease. 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 History of anxiety, depression has been on citalopram for years. She reports continuing to feel quite tired, continues to feel imbalance while getting out of the bed and still having some tremor and shaking in her hands but slightly improved. She reports her tremor and shaking gets worse if she hears something she does not like to hear. Denies any shortness of breath or chest pain. No lower extremity edema. Reports voiding normally. Allergies Allergy/AdvReac Type Severity Reaction Status Date / Time No Known Drug Allergies Allergy Unknown Verified 09/20/24 13:14 Home Medications Medication Instructions Recorded Confirmed Type calcium carbonate (Calcium 600) 600 mg PO QAM 01/09/19 09/27/24 History albuterol sulfate 90 mcg/actuation 1 - 2 puff inhalation .Q4-6H PRN 12/09/19 09/27/24 History aerosol inhaler (Ventolin HFA) shortness of breath or wheezing cholecalciferol (vitamin D3) 25 25 mcg PO QAM 03/02/20 09/27/24 History mcg (1,000 unit) tablet magnesium 250 mg tablet 250 mg PO BID 08/27/21 09/27/24 History omega 5-dcd-fel-fish oil 1,000 mg 3 cap PO QAM 08/27/21 09/27/24 History (120 mg-180 mg) capsule (Fish Oil) atorvastatin 80 mg tablet 80 mg PO DAILY #90 tabs 02/25/24 09/27/24 Rx indapamide 1.25 mg tablet 1.25 mg PO QAM #90 tabs 02/25/24 09/27/24 Rx omeprazole 40 mg capsule,delayed 40 mg PO DAILY #90 caps 05/09/24 09/27/24 Rx release escitalopram oxalate 10 mg tablet 10 mg PO QAM #90 tabs 05/29/24 09/27/24 Rx oxycodone 5 mg tablet 5 mg PO Q8H PRN pain #20 tabs 06/26/24 09/27/24 Rx nebivolol 10 mg tablet 10 mg PO DAILY #90 tabs 07/06/24 09/27/24 Rx apixaban 5 mg tablet (Eliquis) 5 mg PO BID #180 tabs 07/17/24 09/27/24 Rx fluticasone propionate 50 2 spray intranasal DAILY #48 grams 07/17/24 09/27/24 Rx mcg/actuation nasal spray,suspension hydralazine 25 mg tablet 25 mg PO BID #180 tabs 09/18/24 09/27/24 Rx estradiol 0.01% (0.1 mg/gram) 1 g vaginal .COMPLEX #42.5 grams 09/20/24 09/27/24 Rx vaginal cream lorazepam 0.5 mg tablet 0.5 mg PO DAILY PRN anxiety #20 09/22/24 09/27/24 Rx tabs Patient History Medical History Acute CVA (cerebrovascular accident) Family history of colon cancer Family history of coronary artery disease Multifocal pneumonia Palpitation Non compliance with medical treatment Atrial fibrillation History of COVID-19 White coat syndrome with hypertension History of DVT (deep vein thrombosis) Poor historian History of colon polyps Surgical History History of sinus surgery History of esophagogastroduodenoscopy (EGD) History of colonoscopy Hx of tubal ligation H/O ovarian cystectomy H/O tooth extraction H/O blepharoplasty S/P skin biopsy History of appendectomy Family History Mother Diabetes Alzheimer disease Colorectal cancer Hypertension Father Diabetes Myocardial infarction, Onset Age: 62 Hypertension Sister Lymphoma Breast cancer, Onset Age: 70 Hypertension Family/Other Ovarian cancer Prostate cancer Other No family history of adverse response to anesthesia Social History Smoking Status: Never smoker Second Hand Exposure: No; Do You Dip or Chew Tobacco: No; Hx Alcohol Use: No Hx Substance Use: No Preferred Language: Venezuelan Communication Ability: Impaired Communication Tools: Other Visual Impairment: No Limitations Hearing Ability: Normal Lockstitch Lining Maker Required: No Beliefs That Will Affect Care: None marital status: Current Living Situation: Spouse current occupational status: retired Feels Safe at Home: Yes Childhood Exposure to Second-Hand Smoke: No Diet: regular Diet Comment: regular caffeine: Yes (Cofee 1 per day. ) during the past year weight has: remained stable Dental Care, Regularly: Yes Physical Activity Frequency: 5-6 Times per Week Seatbelt Use: always Sunscreen Use: No Assistive Devices: None Review of Systems Review of Systems: All systems reviewed & are unremarkable except as noted in HPI & below Physical Exam Constitutional: WD/WN, vitals as above no acute distress Eyes: + anicteric sclerae Neck: normal visual inspection Respiratory: normal respiratory effort Auscultation: lungs clear to auscultation bilaterally Cardiovascular: RRR, no murmur, no edema Gastrointestinal (Abdomen): Inspection/Auscultation: abdomen normal to inspection Musculoskeletal: Extremities: extremities normal to inspection Neurologic: no focal motor deficits Psychiatric: Orientation: alert and oriented x 3 Affect: euthymic affect Results & Data Vital Signs (Past 12 Hours) Vital Signs Temp Pulse Pulse Resp BP BP Pulse Ox 09/27/24 11:21 36.4 C L 61 20 158/88 H 96 09/27/24 08:29 85 09/27/24 08:06 36.5 C 81 20 171/76 H 96 09/27/24 05:00 84 159/83 H 09/27/24 04:32 82 09/27/24 04:05 36.8 C 91 H 18 193/104 H 95 09/27/24 03:48 09/27/24 02:45 97 H 09/27/24 01:00 96 H 167/99 H 94 O2 Del Method 09/27/24 11:21 Room Air 09/27/24 08:29 09/27/24 08:06 Room Air 09/27/24 05:00 09/27/24 04:32 09/27/24 04:05 Room Air 09/27/24 03:48 Room Air 09/27/24 02:45 09/27/24 01:00 PG Care Time/CCT Total # of Minutes Spent Total Time Spent with Patient: Total time spent is greater than 50% in coordination of care (as documented) at patient's floor/unit and/or counseling patient: Coding Level of Care Code 41123 INT INP/OBS CARE 3/75MIN Diagnoses Hyponatremia E87.1 Hypomagnesemia E83.42 Stroke-like symptoms R29.90 Hypertension I10 Hypertension type: unspecified Paroxysmal atrial fibrillation I48.0 (4) Hypertension Hypertension type: unspecified Qualified Code(s): I10 - Essential (primary) hypertension
--- NOTE | 2024-09-27 13:07 | Electrocardiogram Report ---
Test Reason : Blood Pressure : */* mmHG Vent. Rate : 76 BPM Atrial Rate : 76 BPM P-R Int : 134 ms QRS Dur : 80 ms QT Int : 384 ms P-R-T Axes : 66 63 76 degrees QTcB Int : 432 ms Normal sinus rhythm Nonspecific ST abnormality Abnormal ECG When compared with ECG of 06-Jul-2024 10:56, (unconfirmed) Sinus rhythm has replaced Atrial flutter Confirmed by Phong Finnegan ([id number]) on 09/27/2024 1:07:14 PM Referred By: REFERRED SELF Confirmed By: Phong Finnegan
--- NOTE | 2024-09-27 13:08 | Electrocardiogram Report ---
Test Reason : Blood Pressure : */* mmHG Vent. Rate : 87 BPM Atrial Rate : 87 BPM P-R Int : 138 ms QRS Dur : 78 ms QT Int : 378 ms P-R-T Axes : 56 52 73 degrees QTcB Int : 454 ms Poor data quality, interpretation may be adversely affected Normal sinus rhythm Normal ECG When compared with ECG of 26-Sep-2024 22:11, (unconfirmed) No significant change was found Confirmed by Phong Finnegan ([id number]) on 09/27/2024 1:08:17 PM Referred By: REFERRED SELF Confirmed By: Phong Finnegan
[2024-09-27] MEDS: SODIUM CHLORIDE 3 % 100 ML IV ONE ×2 (13:53→17:03)
[2024-09-27 14:39] LABS: Chlamydia pneumoniae PCR Not Detected (NotDetected); Coronavirus 229E PCR Not Detected (NotDetected); Coronavirus CoV-2 (COVID19)PCR Not Detected (NotDetected); Coronavirus HKU1 PCR Not Detected (NotDetected); Coronavirus NL63 PCR Not Detected (NotDetected); Coronavirus OC43PCR Not Detected (NotDetected); Human Metapneumovirus PCR Not Detected (NotDetected); Parainfluenza Virus 1 PCR Not Detected (NotDetected); Parainfluenza Virus 2 PCR Not Detected (NotDetected); Parainfluenza Virus 3 PCR Not Detected (NotDetected); Parainfluenza Virus 4 PCR Not Detected (NotDetected); Respiratory Syncytial VirusPCR Not Detected (NotDetected); Rhinovirus/Enterovirus PCR Not Detected (NotDetected)
[2024-09-27 15:43] LABS: Anion Gap 7.0 (3-11); Blood Urea Nitrogen 7.0 mg/dl (6-23); Calcium 8.2 mg/dl (8.6-10.3); Carbon Dioxide 25.0 mmol/L (21-32); Chloride 94.0 mmol/L (98-107); Creatinine Clr Calc Pharmacy 74.9 ml/min; Glucose 139.0 mg/dl (70-99(Fasting)); Potassium 3.5 mmol/L (3.5-5.1); Sodium 126.0 mmol/L (136-145)
--- NOTE | 2024-09-27 16:06 | Magnetic Resonance Report ---
MR brain wo con CLINICAL HISTORY: RLE weakness, RUE tremor COMPARISON STUDY: 03/21/[address] of 09/27/2024 FINDINGS: No restricted diffusion seen to suggest acute infarction. No mass effect, midline shift, or hydrocephalus. There is a small to moderate-sized old infarction at the posterior left parietal lobe and adjacent left occipital lobe. There are mild chronic small vessel ischemic changes otherwise. No intracranial hemorrhage seen. There is mucosal thickening and fluid at the left maxillary sinus. IMPRESSION: 1. No evidence of acute infarction. 2. Old infarction at the left parieto-occipital junction. 3. Left maxillary sinusitis. ACT 112: Negative or not required by law. Electronically signed by: Moncho Enciso M.D. 09/27/2024 4:03 PM
--- NOTE | 2024-09-27 16:56 | Neurology Consultation ---
Date of Consultation September 27, 2024 Assessment & Plan (1) H/O: stroke with residual effects: (2) Paroxysmal atrial fibrillation: (3) Hyponatremia: (4) Tremor: Plan 73-year-old female with a history of several chronic cardioembolic strokes due to paroxysmal atrial fibrillation, has been on Eliquis. She has a chronic left occipital stroke, and a chronic left parietal lobe infarct. MRI negative for any acute process at this time. She has a chronic residual mild right hemip aresis and associated right upper limb action tremor. She presents with some escalation in her chronic neurologic symptoms in the context of hyponatremia, hypomagnesemia, and has developed a mild hypocalcemia today. She has seen nephrology, limitation of free water and liberalization of sodium intake have been recommended. Although her presentation does not seem highly suggestive of seizures, she does have several chronic cortical infarcts that could increase her seizure risk. I have ordered a routine EEG. She may continue with Eliquis and atorvastatin for secondary stroke risk reduction. Her LDL completed this past March was 40. She may not require high-dose atorvastatin going forward, consider reducing the dosage. She does not have any evidence of significant atherosclerotic disease on CTA of the head and neck. I do not think she requires the addition of daily low-dose aspirin to her medication regimen at this time. She has endorsed significant anxiety related to her chronic neurologic symptoms related to her previous stroke and does admit to some feelings of low mood and depression. She has been on Lexapro 10 mg/day. Would consider increasing her dosage of Lexapro, switching to an alternative SSRI such as fluoxetine or sertraline, or switching to an SNRI such as venlafaxine or duloxetine. If the above EEG reveals epileptiform abnormalities potentially indicating an increased risk for seizures, would consider starting lamotrigine which tends to be beneficial for mood. I suspect her action tremor is related to her chronic left parietal infarct. She does not have signs or symptoms suggestive of Parkinson's disease. I would not recommend a trial of propranolol as she has already been on metoprolol, most recently switched to Nebivolol for management of her paroxysmal atrial fibrillation. Further, I would not recommend a trial of primidone as this medication may worsen fatigue and feelings of depression. I do suspect gradual improvement in her neurologic symptoms with medical management of her hyponatremia, hypocalcemia, and hypomagnesemia. She can be seen in neurology clinic by myself or one of our [facility]'s in 2 to 3 weeks for reassessment of her neurological status. Please call with any questions. History of Present Illness Reason for Consultation: Tremor, history of stroke Requesting Physician: Enrique Attending Physician: Cecilia Nunez MD History of Present Illness Patient is a 73-year-old female with a history of left parieto-occipital stroke occurring in March 2023. A chronic left occipital stroke was identified at that time as well. She was diagnosed with atrial fibrillation and started on Eliquis. She has associated anxiety related to her chronic health issues and has been prescribed Lexapro and lorazepam. She has been functioning independently since her stroke, ambulates independently, able to drive, lives with her spouse, independent for all ADLs. She does have some persistent mild right sided weakness and associated action tremor. She continues to experience palpitations, fatigue, and dizziness associated with her atrial fibrillation and follows with [facility] cardiology. Metoprolol was discontinued in favor of Nebivolol this past June. The patient and her spouse inform me that they are planning to see cardiology at the [facility] at the end of the month for another opinion regarding her management. She has considerable anxiety regarding her atrial fibrillation, associated symptoms, history of stroke, and concern for possible future strokes. She presented to the emergency department earlier today with a feeling of increasing weakness and tremulousness. She had been experiencing a headache for several days and associated insomnia. Her right sided weakness and tremor seem to be worse than baseline according to her spouse. She was hyponatremic and had a low calcium and magnesium at the time of presentation. She denies drinking excessive amounts of water and reports compliance with her medications. She has not had any obvious seizures. A CT of the head was negative for hemorrhage or acute process, chronic infarcts identified in the left parietal and occipital lobes. CTA of the head and neck were unremarkable. Brain MRI completed today was negative for acute stroke. The above chronic infarcts were again seen. I independently reviewed these images. An electrocardiogram has revealed a normal sinus rhythm. An echocardiogram completed in March 2023 was negative for obvious cardioembolic source, negative bubble study, left atrium mildly dilated, normal ejection fraction, normal left ventricular systolic function. Allergies Allergy/AdvReac Type Severity Reaction Status Date / Time No Known Drug Allergies Allergy Unknown Verified 09/20/24 13:14 Home Medications Medication Instructions Recorded Confirmed Type calcium carbonate (Calcium 600) 600 mg PO QAM 01/09/19 09/27/24 History albuterol sulfate 90 mcg/actuation 1 - 2 puff inhalation .Q4-6H PRN 12/09/19 09/27/24 History aerosol inhaler (Ventolin HFA) shortness of breath or wheezing cholecalciferol (vitamin D3) 25 25 mcg PO QAM 03/02/20 09/27/24 History mcg (1,000 unit) tablet magnesium 250 mg tablet 250 mg PO BID 08/27/21 09/27/24 History omega 4-mbp-zid-fish oil 1,000 mg 3 cap PO QAM 08/27/21 09/27/24 History (120 mg-180 mg) capsule (Fish Oil) atorvastatin 80 mg tablet 80 mg PO DAILY #90 tabs 02/25/24 09/27/24 Rx indapamide 1.25 mg tablet 1.25 mg PO QAM #90 tabs 02/25/24 09/27/24 Rx omeprazole 40 mg capsule,delayed 40 mg PO DAILY #90 caps 05/09/24 09/27/24 Rx release escitalopram oxalate 10 mg tablet 10 mg PO QAM #90 tabs 05/29/24 09/27/24 Rx oxycodone 5 mg tablet 5 mg PO Q8H PRN pain #20 tabs 06/26/24 09/27/24 Rx nebivolol 10 mg tablet 10 mg PO DAILY #90 tabs 07/06/24 09/27/24 Rx apixaban 5 mg tablet (Eliquis) 5 mg PO BID #180 tabs 07/17/24 09/27/24 Rx fluticasone propionate 50 2 spray intranasal DAILY #48 grams 07/17/24 09/27/24 Rx mcg/actuation nasal spray,suspension hydralazine 25 mg tablet 25 mg PO BID #180 tabs 09/18/24 09/27/24 Rx estradiol 0.01% (0.1 mg/gram) 1 g vaginal .COMPLEX #42.5 grams 09/20/24 09/27/24 Rx vaginal cream lorazepam 0.5 mg tablet 0.5 mg PO DAILY PRN anxiety #20 09/22/24 09/27/24 Rx tabs Patient History Medical History Acute CVA (cerebrovascular accident) Family history of colon cancer Family history of coronary artery disease Multifocal pneumonia Palpitation Non compliance with medical treatment Atrial fibrillation History of COVID-19 White coat syndrome with hypertension History of DVT (deep vein thrombosis) Poor historian History of colon polyps Surgical History History of sinus surgery History of esophagogastroduodenoscopy (EGD) History of colonoscopy Hx of tubal ligation H/O ovarian cystectomy H/O tooth extraction H/O blepharoplasty S/P skin biopsy History of appendectomy Family History Mother Diabetes Alzheimer disease Colorectal cancer Hypertension Father Diabetes Myocardial infarction, Onset Age: 62 Hypertension Sister Lymphoma Breast cancer, Onset Age: 70 Hypertension Family/Other Ovarian cancer Prostate cancer Other No family history of adverse response to anesthesia Social History Smoking Status: Never smoker Second Hand Exposure: No; Do You Dip or Chew Tobacco: No; Hx Alcohol Use: No Hx Substance Use: No Preferred Language: French Communication Ability: Impaired Communication Tools: Other Visual Impairment: No Limitations Hearing Ability: Normal Photogrammetric Engineer Required: No Beliefs That Will Affect Care: None marital status: Current Living Situation: Spouse current occupational status: retired Feels Safe at Home: Yes Childhood Exposure to Second-Hand Smoke: No Diet: regular Diet Comment: regular caffeine: Yes (Cofee 1 per day. ) during the past year weight has: remained stable Dental Care, Regularly: Yes Physical Activity Frequency: 5-6 Times per Week Seatbelt Use: always Sunscreen Use: No Assistive Devices: None Review of Systems Constitutional: + fatigue Eyes: no blind spots and no diplopia Ear, Nose, Mouth, Throat: no hearing loss Respiratory: no cough and no dyspnea Cardiovascular: as per Subjective / HPI and + palpitations Gastrointestinal: no nausea and no vomiting Genitourinary: no dysuria Musculoskeletal: no myalgia Integumentary: no rash and no lesions Neurologic: as per Subjective / HPI, + localized weakness and + tremor(s); no abnormal speech, no confusion and no memory loss Psychiatric: + depression and + anxiety Hematologic / Lymphatic: no easy bleeding and no easy bruising Exam (Neuro) Constitutional: well developed and well nourished; no acute distress Eyes: normal visual spring by confrontation, PERRL and EOM intact bilaterally; no nystagmus Neurologic: Oriented to:: Person, Place and Time Memory: Short Term Intact and Remote Intact Attention: Span Intact and Concentration Intact Speech Fluency: Slowed; negative Dysarthria or Dysfluency Speech Aphasia: negative Aphasia Fund of Knowledge: Current Events, Past History and Vocabulary Cranial Nerves: Normal II, III, IV, , V, VII, VIII, IX, X, XI and XII Motor Strength: Hemiparesis (Mild) Laterality: Right Motor Tone: Normal Lower Extremities and Normal Upper Extremities Muscle Bulk/Involuntary Movements: Action Tremor Laterality: Right Sensation: Light Touch Intact, Pain/Temperature Intact and Proprioception Intact Coordination: Finger-Nose Abnormal Laterality: Right and Heel-Long Abnormal Laterality: Right Deep Tendon Reflexes: Rt Triceps: 2+, Lt Triceps: 2+, Rt Biceps: 2+, Lt Biceps: 2+, Rt Brachioradialis: 2+, Lt Brachioradialis: 2+, Rt Patellar: 2+, Lt Patellar: 2+, Rt Ankle: 2+ and Lt Ankle: 2+ Special Tests: negative Babinski Present Results & Data Vital Signs (Past 12 Hours) Vital Signs Temp Pulse Pulse Resp BP Pulse Ox O2 Del Method 09/27/24 15:40 69 09/27/24 14:53 36.7 C 69 20 136/78 95 Room Air 09/27/24 11:21 36.4 C L 61 20 158/88 H 96 Room Air 09/27/24 08:29 85 09/27/24 08:06 36.5 C 81 20 171/76 H 96 Room Air 09/27/24 05:00 84 159/83 H Laboratory Results WBC 7.06, hemoglobin 12.1, hematocrit 33.6, platelet count 227, sodium 126, potassium 3.5, BUN 7, creatinine 0.62, glucose 139, calcium 8.2, magnesium 1.3 at time of presentation, 2.2 today, AST 34, ALT 21, triglycerides 62, cholesterol 118, LDL 40, HDL 66 PG Care Time/CCT Total # of Minutes Spent Total Time Spent with Patient: Coding Level of Care Code 64315 INT INP/OBS CARE 3/75MIN Diagnoses H/O: stroke with residual effects I69.30 Paroxysmal atrial fibrillation I48.0 Hyponatremia E87.1 Tremor R25.1 Time Spent (min) 80 Comment Total time includes patient contact, chart review, counseling, note preparation
--- NOTE | 2024-09-27 17:21 | History & Physical Bridge Note ---
Date of Service September 27, 2024 History & Physical Bridge Note I have examined the patient, reviewed the History & Physical and in the interval since the performance of the History & Physical I have noted the following changes of clinical significance: Patient seen in the late afternoon after having her brain MRI which revealed her old stroke but nothing new. Her reports that her mentation is "100% better" than yesterday but she is still little bit slow to respond at times. She describes feeling like she is in a fog. No further headaches since yesterday. Still having generalized weakness and feels she has trouble walking. She is walking to the bathroom and back with her holding onto her with doing so. She does report that she takes a lot of [id number] supplements including Gastrex, turmeric, and recently started ashwagandha in the last 2 weeks. Otherwise, none of her other medications have changed. BMP ordered this morning which shows sodium down further to 124. Urine sodium high at 69 and urine osmolality high at 308 but she has been on indapamide which could falsely raise the urine sodium. 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 Up-to-date only offered that this supplement can cause drug-induced liver injury which she does also have a mildly elevated bilirubin. Repeat magnesium improved/normalized. Also checked respiratory bio fire given headache and weakness-this is negative. - Give 3% saline 100 mL bolus-sodium improved 126 but continues to have symptoms of fogginess, weakness, mild increase in right upper extremity tremor. - Give another bolus of 3% saline and check BMP at 2000 tonight - Appreciate neurology consultation-MRI of the brain with old stroke but nothing new. Ordered EEG to look for seizures -Advised to stop taking turmeric and ashwagandha - Follow [facility] in the morning - OT recommending rehab, awaiting PT evaluation-will ask social work case manager to make referral to [facility] at patient's request
[2024-09-27] MEDS: ATORVASTATIN 40 MG TAB PO SCH (20:36)
[2024-09-27 21:06] LABS: Anion Gap 5.0 (3-11); Blood Urea Nitrogen 8.0 mg/dl (6-23); Calcium 8.7 mg/dl (8.6-10.3); Carbon Dioxide 28.0 mmol/L (21-32); Chloride 99.0 mmol/L (98-107); Creatinine Clr Calc Pharmacy 61.1 ml/min; Glucose 111.0 mg/dl (70-99(Fasting)); Potassium 3.5 mmol/L (3.5-5.1); Sodium 132.0 mmol/L (136-145)
[2024-09-28 06:30] LABS: Alanine Aminotransferase 22.0 U/L (7-52); Albumin Globulin Ratio 1.6 (0.9-2); Alkaline Phosphatase 36.0 U/L (34-104); Anion Gap 6.0 (3-11); Bilirubin,Total 1.6 mg/dl (0.2-1.0); Blood Urea Nitrogen 6.0 mg/dl (6-23); Calcium 8.8 mg/dl (8.6-10.3); Carbon Dioxide 27.0 mmol/L (21-32); Chloride 103.0 mmol/L (98-107); Creatinine Clr Calc Pharmacy 69.3 ml/min; Globulin 2.3 gm/dl (2.5-4.0); Glucose 93.0 mg/dl (70-99(Fasting)); Magnesium 1.8 mg/dl (1.7-2.4); Potassium 3.4 mmol/L (3.5-5.1); Sodium 136.0 mmol/L (136-145); Total Protein 5.9 gm/dl (6.0-8.3)
[2024-09-28 06:49] VITALS: RESP 18
--- NOTE | 2024-09-28 10:42 | Nephrology Progress Note ---
Date of Service September 28, 2024 Assessment & Plan (1) Hyponatremia: (2) Hypomagnesemia: (3) Stroke-like symptoms: (4) Hypertension: (5) Paroxysmal atrial fibrillation: Plan 73-year-old female with past medical history significant for paroxysmal atrial fibrillation, on anticoagulation, hypertension, admitted to the hospital fluid worsening symptoms for few days of fatigue, anxiety, tremor as well as imbalance with walking or standing. On admission she was noted to have hyponatremia and hypomagnesemia, sodium was 128 and magnesium 1.3. Urine osmolality was above 300. She received IV normal saline almost 3 L since admission and her sodium this morning dropped further at 124. Magnesium improved. Has normal kidney function. Vital sign has been stable. Heart rate has been controlled. Hyponatremia could be related to some component of high ADH state and some cont ribution from excessive free water intake last few days. ? possibly related to recent use of Ashwagandha. Sodium normalized. --avoid excessive free water intake but no need for strict fluid restriction, liberalize salt in diet. --advised to avoid Ashwagandha in future. Will sign off. Admission and Anticipated Discharge Date Admission Date: September 27, 2024 Subjective Sheila was seen and evaluated this morning. Reports appetite has been improving. Feels thirsty and would like to drink more as she has been on fluid restriction. Blood pressure stable but she is back on A fib. Sodium low improved to 136 this morning, kidney function normal and other electrolyte acceptable. Review of Systems Review of Systems: All systems reviewed & are unremarkable except as noted in Subjective Physical Exam Constitutional: WD/WN, vitals as above no acute distress Eyes: + anicteric sclerae Respiratory: normal respiratory effort Auscultation: lungs clear to auscultation bilaterally Cardiovascular: Rate/Rhythm: + irregularly irregular Heart Sounds: normal S1 and normal S2 Extremities: no edema Musculoskeletal: Extremities: extremities normal to inspection Neurologic: no focal motor deficits Psychiatric: Orientation: alert and oriented x 3 Affect: euthymic affect Results & Data Vital Signs (Past 12 Hours) Vital Signs Temp Pulse Pulse Resp BP BP Pulse Ox 09/28/24 10:35 36.4 C L 78 18 115/74 95 09/28/24 07:43 36.5 C 84 18 145/86 H 95 09/28/24 06:48 36.8 C 97 H 18 117/70 97 09/28/24 05:48 56 L 09/28/24 04:16 36.8 C 59 L 17 116/78 95 09/28/24 00:11 36.5 C 72 20 136/76 95 O2 Del Method 09/28/24 10:35 Room Air 09/28/24 07:43 Room Air 09/28/24 06:48 Room Air 09/28/24 05:48 09/28/24 04:16 Room Air 09/28/24 00:11 Room Air PG Care Time/CCT Total # of Minutes Spent Total Time Spent with Patient: Total time spent is greater than 50% in coordination of care (as documented) at patient's floor/unit and/or counseling patient: Coding Level of Care Code 55482 SUB INP/OBS CARE 2/35MIN Diagnoses Hyponatremia E87.1 Hypomagnesemia E83.42 Stroke-like symptoms R29.90 Hypertension I10 Hypertension type: unspecified Paroxysmal atrial fibrillation I48.0 (4) Hypertension Hypertension type: unspecified Qualified Code(s): I10 - Essential (primary) h ypertension
--- NOTE | 2024-09-28 16:13 | Electroencephalogram ---
EEG Procedure Note Date of Service September 28, 2024 Start / End Times Start Time: 6:58 AM End Time: 7:18 AM Referring Physician Johnathan Sprague MD History Chronic left parietal and occipital strokes, right upper extremity tremor and weakness, evaluate for focal seizures Home Medication List Medication Instructions Recorded Confirmed Type calcium carbonate (Calcium 600) 600 mg PO QAM 01/09/19 09/27/24 History albuterol sulfate 90 mcg/actuation 1 - 2 puff inhalation .Q4-6H PRN 12/09/19 09/27/24 History aerosol inhaler (Ventolin HFA) shortness of breath or wheezing cholecalciferol (vitamin D3) 25 25 mcg PO QAM 03/02/20 09/27/24 History mcg (1,000 unit) tablet magnesium 250 mg tablet 250 mg PO BID 08/27/21 09/27/24 History omega 8-rhh-rav-fish oil 1,000 mg 3 cap PO QAM 08/27/21 09/27/24 History (120 mg-180 mg) capsule (Fish Oil) atorvastatin 80 mg tablet 80 mg PO DAILY #90 tabs 02/25/24 09/27/24 Rx indapamide 1.25 mg tablet 1.25 mg PO QAM #90 tabs 02/25/24 09/27/24 Rx omeprazole 40 mg capsule,delayed 40 mg PO DAILY #90 caps 05/09/24 09/27/24 Rx release escitalopram oxalate 10 mg tablet 10 mg PO QAM #90 tabs 05/29/24 09/27/24 Rx oxycodone 5 mg tablet 5 mg PO Q8H PRN pain #20 tabs 06/26/24 09/27/24 Rx nebivolol 10 mg tablet 10 mg PO DAILY #90 tabs 07/06/24 09/27/24 Rx apixaban 5 mg tablet (Eliquis) 5 mg PO BID #180 tabs 07/17/24 09/27/24 Rx fluticasone propionate 50 2 spray intranasal DAILY #48 grams 07/17/24 09/27/24 Rx mcg/actuation nasal spray,suspension hydralazine 25 mg tablet 25 mg PO BID #180 tabs 09/18/24 09/27/24 Rx estradiol 0.01% (0.1 mg/gram) 1 g vaginal .COMPLEX #42.5 grams 09/20/24 09/27/24 Rx vaginal cream lorazepam 0.5 mg tablet 0.5 mg PO DAILY PRN anxiety #20 09/22/24 09/27/24 Rx tabs Inpatient Medication List Acetaminophen (Acetaminophen 325 Mg Tab) 650 mg PO Q4H PRN PRN Reason: Pain or Fever Stop: 10/27/24 04:53 Last Admin: 09/28/24 09:45 Dose: 650 mg Documented By: Admin: 09/27/24 05:27 Dose: 650 mg Documented By: CUAUHTEMOC Apixaban (Apixaban 5 Mg Tablet) 5 mg PO BID JUWAN Stop: 10/27/24 08:59 Last Admin: 09/28/24 08:03 Dose: 5 mg Documented By: Admin: 09/27/24 20:36 Dose: 5 mg Documented By: Admin: 09/27/24 08:40 Dose: 5 mg Documented By: MALI Atorvastatin Calcium (Atorvastatin 40 Mg Tab) 80 mg PO HS [facility] Stop: 10/27/24 20:59 Last Admin: 09/27/24 20:36 Dose: 80 mg Documented By: CUAUHTEMOC Escitalopram Oxalate (Escitalopram Oxalate 10 Mg Tab) 10 mg PO QAM JUWAN Stop: 10/27/24 08:59 Last Admin: 09/28/24 08:03 Dose: 10 mg Documented By: Admin: 09/27/24 08:40 Dose: 10 mg Documented By: MALI Fluticasone Propionate (Fluticasone Propionate Na Spr 16 Gm Btl) 2 sprays JEAN CARLOS DAILY JUWAN Stop: 10/27/24 08:59 Last Admin: 09/28/24 08:04 Dose: Not Given Documented By: Admin: 09/27/24 08:43 Dose: Not Given Documented By: MALI Hydralazine HCl (Hydralazine Hcl 25 Mg Tab) 25 mg PO BID JUWAN Stop: 10/27/24 08:59 Last Admin: 09/28/24 08:03 Dose: 25 mg Documented By: Admin: 09/27/24 20:36 Dose: 25 mg Documented By: Admin: 09/27/24 08:40 Dose: 25 mg Documented By: MALI Lorazepam (Lorazepam 0.5 Mg Tab) 0.5 mg PO DAILY PRN PRN Reason: anxiety Stop: 10/27/24 04:16 Last Admin: 09/27/24 11:27 Dose: 0.5 mg Documented By: MALI Magnesium Oxide (Magnesium Oxide 400 Mg Tab) 400 mg PO BID JUWAN Stop: 10/27/24 08:59 Last Admin: 09/28/24 09:47 Dose: 400 mg Documented By: Admin: 09/27/24 20:36 Dose: 400 mg Documented By: Admin: 09/27/24 08:40 Dose: 400 mg Documented By: MALI Metoprolol Tartrate (Metoprolol Tartrate 50 Mg Tab) 50 mg PO BID JUWAN Stop: 10/27/24 08:59 Last Admin: 09/28/24 08:03 Dose: 50 mg Documented By: Admin: 09/27/24 20:36 Dose: 50 mg Documented By: Admin: 09/27/24 08:40 Dose: 50 mg Documented By: MALI Miscellaneous (Estradiol 0.01% Vaginal Cream - Order Awaiting Action) 1 each N/A QS JUWAN Stop: 10/27/24 07:59 Last Admin: 09/28/24 15:44 Dose: Not Given Documented By: Admin: 09/28/24 07:52 Dose: Not Given Documented By: Admin: 09/27/24 23:05 Dose: Not Given Documented By: Admin: 09/27/24 15:28 Dose: Not Given Documented By: Admin: 09/27/24 12:25 Dose: Not Given Documented By: DIOR Pantoprazole Sodium (Pantoprazole 40 Mg Tab) 40 mg PO DAILY JUWAN Stop: 10/27/24 08:59 Last Admin: 09/28/24 08:03 Dose: 40 mg Documented By: Admin: 09/27/24 08:40 Dose: 40 mg Documented By: MALI Discontinued Medications Sodium Chloride (Nss) 1,000 mls @ 999 mls/hr IV .Q1H1M ONE Stop: 09/27/24 00:39 Last Infusion: 09/27/24 00:59 Dose: Infused Documented By: Admin: 09/26/24 23:45 Dose: 999 mls/hr Documented By: PAULA Acetaminophen (Ofirmev) 1,000 mg in 100 mls @ 400 mls/hr IV NOW STA Stop: 09/26/24 23:53 Last Infusion: 09/27/24 00:59 Dose: Infused Documented By: Admin: 09/26/24 23:45 Dose: 400 mls/hr Documented By: PAULA Magnesium Sulfate/Dextrose (Magnesium Sulfate / D5w) 1 gm in 100 mls @ 100 mls/hr IV NOW STA Stop: 09/27/24 02:17 Last Infusion: 09/27/24 02:38 Dose: Infused Documented By: Admin: 09/27/24 01:32 Dose: 100 mls/hr Documented By: PAULA Sodium Chloride (Nss) 1,000 mls @ 125 mls/hr IV .Q8H JUWAN Stop: 09/27/24 10:59 Last Infusion: 09/27/24 13:20 Dose: Infused Documented By: Admin: 09/27/24 04:21 Dose: 125 mls/hr Documented By: CUAUHTEMOC Magnesium Sulfate/Dextrose (Magnesium Sulfate / D5w) 1 gm in 100 mls @ 50 mls/hr IV Q2H JUWAN Stop: 09/27/24 10:16 Last Infusion: 09/27/24 10:39 Dose: Infused Documented By: Admin: 09/27/24 08:38 Dose: 50 mls/hr Documented By: Infusion: 09/27/24 08:38 Dose: Infused Documented By: Admin: 09/27/24 06:38 Dose: 50 mls/hr Documented By: Infusion: 09/27/24 06:38 Dose: Infused Documented By: Admin: 09/27/24 04:56 Dose: 50 mls/hr Documented By: CUAUHTEMOC Sodium Chloride (Hypertonic Saline 3%) 100 mls @ 600 mls/hr IV .Q10M ONE; Protocol Stop: 09/27/24 12:39 Last Infusion: 09/27/24 14:14 Dose: Infused Documented By: DIOR Co-signed By: CHITO Admin: 09/27/24 13:53 Dose: 600 mls/hr Documented By: DIOR Co-signed By: BLESSING Sodium Chloride (Hypertonic Saline 3%) 100 mls @ 600 mls/hr IV .Q10M ONE; Protocol Stop: 09/27/24 16:11 Last Infusion: 09/27/24 17:18 Dose: Infused Documented By: DIOR Co-signed By: HUSEYIN Admin: 09/27/24 17:03 Dose: 600 mls/hr Documented By: DIOR Co-signed By: BLESSING Indapamide (Indapamide 1.25 Mg Tab) 1.25 mg PO QAM JUWAN Stop: 10/27/24 08:59 Last Admin: 09/27/24 08:41 Dose: 1.25 mg Documented By: MALI Ioversol (Optiray 320 125ml) 125 ml IV ONCE ONE Stop: 09/27/24 00:18 Last Admin: 09/27/24 00:18 Dose: 118 ml Documented By: ISAÍAS Description This is a 21 electrode EEG with a single channel dedicated to limited EKG. The electrodes were placed in accordance with the International 10-20 system. There is a posterior dominant rhythm of 9 Hz which is symmetrically distributed and attenuates with eye opening. There is a normal anterior to posterior organization. Photic stimulation is unremarkable. Hyperventilation is not performed. There is a symmetric frontal beta rhythm. There is no focal slowing. There were no epileptiform abnormalities. [facility] EEG Procedure Codes Indication for Procedure (1) Seizure-like activity: Neurology Neurology: 78359 EEG include record awake & drowsy
--- NOTE | 2024-09-28 18:15 | Hospitalist Progress Note ---
Date of Service September 28, 2024 Assessment & Plan (1) Hyponatremia: (2) Paroxysmal atrial fibrillation: (3) Hypertension: (4) Hypomagnesemia: Plan This patient is a 73 year old female with a H/O paroxysmal atrial fibrillation on Eliquis, CVA, HTN, GERD, anxiety disorder who presents to the ER with dizziness, loss of balance, lethargy and confusion, right upper extremity tremor, found to have hyponatremia and there was concern for stroke. #Weakness/Encephalopathy/Right hand action temor-CT angiogram head and neck negative, CT head with old infarct. MRI brain with old infarct in the left parieto-occipital junction but no new strokes. Appreciate neurology consultation. Given right upper extremity tremor which is likely due to metabolic disturbances in the setting of old stroke but EEG ordered and was negative for seizure activity. Her generalized weakness is secondary to hyponatremia as well and is starting to improve. Her mentation is certainly much improved but not quite back to baseline. - Continue PT/OT - Hyponatremia treatment as below - Follow-up with neurology in 2 to 3 weeks #Hyponatremia-sodium 128 on arrival and dropped to 124 after receiving several liters of isotonic fluids. She is on indapamide and Lexapro as an outpatient but has been on these for quite some time and has had normal sodiums even up to 10 days before admission. She does take a lot of supplements and recently started on ashwagandha which as per an Internet search can cause hyponatremia/SIADH. 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 Her headaches, generalized weakness, confusion, and worsening tremor are all symptoms of her hyponatremia and are all now improving after treatment for hyponatremia with 3% saline x 2 and fluid restriction - Continue fluid restriction but lessened to 1500 mL/day - Follow BMP again in the morning - Advised to discontinue her ashwagandha supplement -Continue to hold indapamide and likely will not resume as this may be causing her hypomagnesemia as well #Hypomagnesemia/Hypokalemia-Mg level 1.3 on arrival and was replaced. This could be due to indapamide which has now been held. Magnesium is replaced and is now improved but given A-fib will optimize with another gram of magnesium IV x 1 now - Follow magnesium level in the morning - Give potassium chloride 40 mEq p.o. x 1 - Follow BMP in the morning #Paroxysmal atrial fibrillation-went into rapid atrial fibrillation on 09/28 for approximately 9 hours with rates in the 1 teens to 120s with bursts of the 130s/140s. She was symptomatic with mild lightheadedness and heart palpitations. She spontaneously converted to normal sinus rhythm. She is on Nebivolol and apixaban as an outpatient follows with [facility] cardiology. She is set to have a cardiac ablation next week at [facility] -Continue metoprolol as a substitute for Nebivolol - Continue apixaban - Continue telemetry monitoring - Optimize electrolytes-replace potassium and magnesium #Elevated LFTs-total bilirubin remains elevated at 1.6 and AST also minimally elevated. This also could be from her ashwagandha and turmeric supplements which are now held - Continue to hold supplements and follow LFTs in the morning #Anxiety-exacerbated by her ongoing acute medical issues -Continue Lexapro, lorazepam PRN #GERD -no acute issues -Continue PPI #Hypertension-BPs were quite elevated on arrival possibly due to acute illness and anxiety but are now improved -Continue hydralazine, beta-rashaun - Holding home indapamide and will likely not restart due to causing low magnesium VTE Prophylaxis - apixaban Disposition - cont stay med/tele, possible discharge to rehab on 09/29 if remains stable Admission and Anticipated Discharge Date Admission Date: September 27, 2024 Subjective Patient feeling better today, little bit stronger and less foggy. No headache. She is eating and drinking, no nausea. She did have atrial fibrillation for about 9 hours today and was symptomatic with this-she felt a little lightheaded and heart palpitations. Telemetry with normal sinus rhythm with rates in the 50s to 70s followed by atrial fibrillation from [id number] with heart rates in the 110s to 120s with bursts in the 130s to 140s Physical Exam Constitutional: WD/WN, vitals as above Eyes: PERRL, conjunctivae normal, anicteric sclerae ENMT: external ear and nose normal, oropharynx normal Neck: trachea midline, no thyromegaly Respiratory: normal respiratory effort, lungs clear to auscultation Cardiovascular: RRR, no murmur, no edema Chest (Breasts): Chest: normal inspection of chest Gastrointestinal (Abdomen): normal bowel sounds, soft, nontender, no hepatosplenomegaly Musculoskeletal: Extremities: extremities normal to inspection; no cyanosis and no clubbing Skin: no rashes, warm and dry Neurologic: moves all extremities and awake; no focal motor deficits Psychiatric: A+Ox3, euthymic affect Lymphatic: no lymphedema Results & Data Results & Data Vital Signs (Past 12 Hours) Vital Signs Temp Pulse Resp BP Pulse Ox O2 Del Method 09/28/24 15:48 36.4 C L 75 18 107/70 97 Room Air 09/28/24 10:35 36.4 C L 78 18 115/74 95 Room Air 09/28/24 07:43 36.5 C 84 18 145/86 H 95 Room Air 09/28/24 06:48 36.8 C 97 H 18 117/70 97 Room Air Laboratory Results BMP, LFTs, magnesium, urine culture reviewed Diagnostic Findings EEG reviewed PG Care Time/CCT Total # of Minutes Spent Total Time Spent with Patient: Total time spent is greater than 50% in coordination of care (as documented) at patient's floor/unit and/or counseling patient: Coding Level of Care Code 50987 SUB INP/OBS CARE 3/50MIN Diagnoses Hyponatremia E87.1 Paroxysmal atrial fibrillation I48.0 Hypertension I10 Hypertension type: unspecified Hypomagnesemia E83.42 (3) Hypertension Hypertension type: unspecified Qualified Code(s): I10 - Essential (primary) hypertension
[2024-09-28] MEDS: POTASSIUM CHLORIDE CRTAB 20 MEQ TABCR PO STA (18:25)
[2024-09-28] MEDS: MAGNESIUM SULFATE / D5W 1 GM/100 ML BAG IV ONE (18:30)
[2024-09-29 07:48] LABS: Hematocrit (blood only) 36.0 % (37.0-47.0); Hemoglobin 12.6 g/dl (12.0-16.0); Immature Granulocytes # (auto) 0.01 K/uL (0.01-0.20); Immature Granulocytes % (auto) 0.2 %; Mean Corpuscular Hemoglobin 32.8 pg (25.0-34.0); Mean Corpuscular Volume 93.8 fL (80.0-100.0); Platelet Count 232 K/uL (130-400); RDW Standard Deviation 38.9 fL (36.4-46.3); Red Blood Count 3.84 M/uL (4.20-5.40); White Blood Count 5.34 K/ul (4.8-10.8)
[2024-09-29 08:08] LABS: Alanine Aminotransferase 28.0 U/L (7-52); Alkaline Phosphatase 45.0 U/L (34-104); Anion Gap 6.0 (3-11); Bilirubin,Total 1.2 mg/dl (0.2-1.0); Blood Urea Nitrogen 13.0 mg/dl (6-23); Calcium 9.3 mg/dl (8.6-10.3); Carbon Dioxide 28.0 mmol/L (21-32); Chloride 103.0 mmol/L (98-107); Creatinine Clr Calc Pharmacy 69.3 ml/min; Glucose 100.0 mg/dl (70-99(Fasting)); Magnesium 1.7 mg/dl (1.7-2.4); Potassium 4.0 mmol/L (3.5-5.1); Sodium 137.0 mmol/L (136-145); Total Protein 6.7 gm/dl (6.0-8.3)
[2024-09-29 14:39] VITALS: TEMP 98.2; O2SAT 94
--- NOTE | 2024-09-29 15:42 | Discharge Summary ---
Discharge Summary Date of Service September 29, 2024 Principal Dx & Hospital Course #1 = Principal Diagnosis (1) Hyponatremia: (2) Paroxysmal atrial fibrillation: (3) Hypertension: (4) Hypomagnesemia: Plan This patient is a 73 year old female with a H/O paroxysmal atrial fibrillation on Eliquis, CVA, HTN, GERD, anxiety disorder who presents to the ER with dizziness, loss of balance, lethargy and confusion, right upper extremity t remor, found to have hyponatremia and there was concern for stroke. #Weakness/Encephalopathy/Right hand action tremor-CT angiogram head and neck negative, CT head with old infarct. MRI brain with old infarct in the left parieto-occipital junction but no new strokes. Appreciate neurology consultation. Given right upper extremity tremor which is likely due to metabolic disturbances in the setting of old stroke but EEG ordered and was negative for seizure activity. Her generalized weakness is secondary to hyponatremia as well and is starting to improve. Her mentation is certainly much improved - Continue PT/OT at acute rehab - Hyponatremia treatment as below - Follow-up with neurology in 2 to 3 weeks #Hyponatremia-sodium 128 on arrival and dropped to 124 after receiving several liters of isotonic fluids. She is on indapamide and Lexapro as an outpatient but has been on these for quite some time and has had normal sodiums even up to 10 days before admission. She does take a lot of supplements and recently started on ashwagandha which as per an Internet search can cause hyponatremia/SIADH. 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 Her headaches, generalized weakness, confusion, and worsening tremor are all symptoms of her hyponatremia and are all now improving after treatment for hyponatremia with 3% saline x 2 and fluid restriction. Sodium returned to normal over 36 hours and remained stable on the day of discharge at 137 -No further fluid restriction needed - Follow BMP at the rehab in 2 to 3 days - Advised to discontinue her ashwagandha supplement -Discontinued indapamide as this may be causing her hypomagnesemia as well #Hypomagnesemia/Hypokalemia-Mg level 1.3 on arrival and was replaced. This could be due to indapamide which has now been held. It could also be from PPI chronic use. Magnesium is replaced and is now improved but given A-fib needs to be optimized. Potassium levels normalized after replacement - Follow magnesium level and BMP in 2 to 3 days at the rehab -Increase home magnesium supplement to 400 mg p.o. twice daily #Paroxysmal atrial fibrillation/history of stroke-went into rapid atrial fibrillation on 09/28 for approximately 9 hours with rates in the 1 teens to 120s with bursts of the 130s/140s. She was symptomatic with mild lightheadedness and heart palpitations. She spontaneously converted to normal sinus rhythm. She is on Nebivolol and apixaban as an outpatient follows with [facility] cardiology. She is set to have a cardiac ablation next week at [facility] -Continue metoprolol 50 Mg p.o. twice daily at patient's request as Nebivolol was making her very fatigued - Continue apixaban -Keep appointment at [facility] next week for ablation #Elevated LFTs-total bilirubin elevated at 1.6 and AST also minimally elevated. This also could be from her ashwagandha and turmeric supplements which are now held. LFTs improved by the day of discharge - Continue to hold supplements #Anxiety-exacerbated by her ongoing acute medical issues -Continue Lexapro, but discontinue lorazepam PRN as she does not tolerate this- it makes her very drowsy #GERD -no acute issues -Continue PPI but consider stopping given low magnesium levels-defer to PCP #Hypertension-BPs were quite elevated on arrival possibly due to acute illness and anxiety but are now improved -Continue hydralazine, beta-rashaun -Discontinuing home indapamide due to causing low magnesium - Could increase hydralazine to 50 Mg p.o. twice daily if BPs become elevated off indapamide VTE Prophylaxis - apixaban Disposition -stable for discharge to acute rehab Notes For Next Care Provider Follow BMP, magnesium level in 2 to 3 days Medication Changes From Visit Stop indapamide and ashwagandha Start metoprolol tartrate 50 Mg p.o. twice daily Stop Nebivolol Increase magnesium to 400 mg p.o. twice daily Admission HPI Per Admitting Provider Sheila Worthington is a 73 year old female who presents to the ER with dizziness, headache and off balance. She reports bad headache for the last 4-5 days with insomnia although currently not having any headache. Headache was on the sides of her head as a constant ache. She reports the dizziness if most like lightheadedness but no syncopal episodes. This is usually first thing in the morning when she is getting up. She denies any current lightheadedness. Her reports her balance is getting progressively much worse and she is generally weak with her right hand tremor being much worse. Reportedly she is having atrial fibrillation episodes at home and he wonders whether these episodes are making her more tired but unclear whether these episodes are becoming more frequent. She is planning on following up with the [facility] for possible ablation of this. She denies any fever, chills, respiratory, urinary or gastrointestinal symptoms. No recent medication changes. Although she recently filled lorazepam she reports only using this once a week. She was prescribed oxycodone in June but reports not taking any of this recently Discharge Exam Constitutional WD/WN, vitals as above Neck trachea midline, no thyromegaly Respiratory normal respiratory effort, lungs clear to auscultation Cardiovascular RRR, no murmur, no edema Chest (Breasts) Chest: normal inspection of chest Musculoskeletal Extremities: extremities normal to inspection; no cyanosis and no clubbing Skin no rashes, warm and dry Neurologic moves all extremities and awake; no focal motor deficits Psychiatric A+Ox3, euthymic affect Lymphatic no lymphedema Discharge Plan Discharge Items Patient Disposition: Transfer Inpatient Rehab Fac Reason For Visit: GENERALIZED WEAKNESS, HYPOMAGNESEMIA,HYPONATREMIA Discharge Diagnosis: Generalized weakness secondary to hyponatremia Hypomagnesemia Condition on Discharge: Fair Activity: As commented below Lifting: Gradually increase as tolerated Bathing: No limitations Exercise/Sports: Gradually increase as tolerated Weightbearing: Full weightbearing Non-emergency contact: Primary Care Provider and Neurologist Call non-emergency contact if: you have any medication questions and your symptoms worsen Follow-up/Referrals: Malvin Freeman CRNP [Primary Care Provider] - (Follow-up within 2 weeks after discharge from the rehab) Johnathan Sprague MD [Physician] - (Follow-up within 2-3 weeks with neurology) Diet: Regular Addtl Attending Provider Instructions: You were admitted with low sodium levels and low magnesium levels which was causing generalized weakness, headaches, confusion, lethargy, and increased tremor in your right upper extremity. This may have been caused by taking ashwagandha supplements. Please do not take these in the future. Your indapamide also may be contributing to low magnesium levels and this was discontinued. Your omeprazole can also cause low magnesium levels. Please discuss with your primary care physician if you can stop taking omeprazole. Your magnesium was replaced. Your sodium returned to normal. Please check a BMP and magnesium level in 2 to 3 days at the rehab. You can also have your primary care physician keep track of your sodium and magnesium levels as an outpatient after discharge. If your blood pressures become elevated with discontinuation of indapamide, your hydralazine dose could be increased to 25 mg twice a day. You did have rapid atrial fibrillation for 9 hours on one of the days in the hospital. This resolved spontaneously. At your request, your Nebivolol was discontinued and you were started on metoprolol instead which you tolerate better. Please keep your appointment with the [facility] for atrial fibrillation ablation next week. Pending Studies at Discharge: No Stand-Alone Forms: My [facility] Skilled Items Patient informed of condition?: Yes DNR: No Discharge Level of Care: Acute rehab Communicable Disease: No Discharge Prognosis: Improving Lines: None Urinary Catheter: No Medications and DC Order Prescriptions: New magnesium oxide 400 mg (241.3 mg magnesium) Tablet 400 mg PO BID Qty: 60 0RF metoprolol tartrate 50 mg Tablet 50 mg PO BID Qty: 60 0RF Continued atorvastatin 80 mg tablet 80 mg PO DAILY Qty: 90 2RF omeprazole 40 mg capsule,delayed release(DR/EC) 40 mg PO DAILY Qty: 90 2RF escitalopram oxalate 10 mg tablet 10 mg PO QAM Qty: 90 2RF Eliquis 5 mg tablet 5 mg PO BID Qty: 180 1RF fluticasone propionate 50 mcg/actuation spray,suspension 2 spray intranasal DAILY Qty: 48 2RF Rx Instructions: administer into each nostril hydralazine 25 mg tablet 25 mg PO BID Qty: 180 1RF calcium carbonate [Calcium 600] 600 mg calcium (1,500 mg) tablet 600 mg PO QAM estradiol 0.01 % (0.1 mg/gram) cream 1 g vaginal .COMPLEX Qty: 42.5 1RF Rx Instructions: 1 g vaginal; 1gm PV daily for 14 days, then 1/2gm PV twice weekly omega 0-wsw-wub-fish oil [Fish Oil] 1,000 mg (120 mg-180 mg) capsule 3 cap PO QAM albuterol sulfate [Ventolin HFA] 90 mcg/actuation HFA aerosol inhaler 1 - 2 puff INH .Q4-6H PRN (Reason: shortness of breath or wheezing) Rx Instructions: 1-2puffs inhalation every 4-6 hrs PRN; cholecalciferol (vitamin D3) 25 mcg (1,000 unit) Tablet 25 mcg PO QAM Discontinued indapamide 1.25 mg tablet 1.25 mg PO QAM Qty: 90 1RF oxycodone 5 mg tablet 5 mg PO Q8H PRN (Reason: pain) Qty: 20 0RF Rx Instructions: Take with stool softener lorazepam 0.5 mg tablet 0.5 mg PO DAILY PRN (Reason: anxiety) Qty: 20 0RF magnesium 250 mg tablet 250 mg PO BID nebivolol 10 mg tablet 10 mg PO DAILY Qty: 90 3RF Discharge Orders: Discharge Order (Routine); Ordered 09/29/24 Ordered By: Cecilia Nunez Admission Data Admit Date/Time: 09/27/24 03:05 Attending Provider: Cecilia Nunez Admit Provider: Oliver Mauricio Primary Care Provider: Malvin Freeman Other Providers: Oliver Mauricio; Johnathan Sprague; Tereza Capellan; [facility]; [facility] Stay Data Consultations 09/27/24 01:47 ED Decision to Admit Stat 09/27/24 09:41 Consult Neurology Routine 09/27/24 11:40 Consult Nephrology Routine Diagnostic Imagining Performed 09/26/24 23:49 CT angio head w con Stat CT angio neck with con Stat CT head/brain wo con Stat 09/27/24 04:17 MRI Brain [MR brain wo con] Routine Pending Results Patient Have Any Pending Studies at Discharge: No Discharge Instructions Given to Patient (Per Discharging Provider) You were admitted with low sodium levels and low magnesium levels which was causing generalized weakness, headaches, confusion, lethargy, and increased tremor in your right upper extremity. This may have been caused by taking ashwagandha supplements. Please do not take these in the future. Your indapamide also may be contributing to low magnesium levels and this was discontinued. Your omeprazole can also cause low magnesium levels. Please discuss with your primary care physician if you can stop taking omeprazole. Your magnesium was replaced. Your sodium returned to normal. Please check a BMP and magnesium level in 2 to 3 days at the rehab. You can also have your primary care physician keep track of your sodium and magnesium levels as an outpatient after discharge. If your blood pressures become elevated with discontinuation of indapamide, your hydralazine dose could be increased to 25 mg twice a day. You did have rapid atrial fibrillation for 9 hours on one of the days in the hospital. This resolved spontaneously. At your request, your Nebivolol was discontinued and you were started on metoprolol instead which you tolerate better. Please keep your appointment with the [facility] for atrial fib rillation ablation next week. Total Time Total Time Spent Total Time Spent (In Minutes): 35 min Total Time Includes: Examination of the Patient, Discharge Planning and Medication Reconciliation Coding Level of Care Code 01977 INP/OBS DISCH >30 MIN Diagnoses Hyponatremia E87.1 Paroxysmal atrial fibrillation I48.0 Hypertension I10 Hypertension type: unspecified Hypomagnesemia E83.42
[2024-09-29 15:53] VITALS: BP 122/76; PULSE 58
== END 2024-09-29 16:14 | DRG 641 ==
LOC: ED 21:57 → SUATTDRO 09-27 03:05 → 2W 09-27 03:05

== ENCOUNTER 2024-11-05 19:46 | Inpatient (IN) ==
[2024-11-05 20:33] LABS: Hematocrit (blood only) 35.0 % (37.0-47.0); Hemoglobin 12.4 g/dl (12.0-16.0); Immature Granulocytes # (auto) 0.02 K/uL (0.01-0.20); Immature Granulocytes % (auto) 0.3 %; Mean Corpuscular Hemoglobin 32.9 pg (25.0-34.0); Mean Corpuscular Volume 92.8 fL (80.0-100.0); Platelet Count 258 K/uL (130-400); RDW Standard Deviation 39.8 fL (36.4-46.3); Red Blood Count 3.77 M/uL (4.20-5.40); White Blood Count 6.99 K/ul (4.8-10.8)
[2024-11-05 20:54] LABS: Alanine Aminotransferase 17.0 U/L (7-52); Albumin Globulin Ratio 1.4 (0.9-2); Alkaline Phosphatase 50.0 U/L (34-104); Anion Gap 8.0 (3-11); Bilirubin,Total 1.2 mg/dl (0.2-1.0); Blood Urea Nitrogen 8.0 mg/dl (6-23); Calcium 9.9 mg/dl (8.6-10.3); Carbon Dioxide 28.0 mmol/L (21-32); Chloride 94.0 mmol/L (98-107); Creatinine Clr Calc Pharmacy 63.6 ml/min; Globulin 3.0 gm/dl (2.5-4.0); Glucose 110.0 mg/dl (70-99(Fasting)); Lipase 37.0 U/L (11-82); Magnesium 1.6 mg/dl (1.7-2.4); Potassium 3.4 mmol/L (3.5-5.1); Sodium 130.0 mmol/L (136-145); Total Protein 7.1 gm/dl (6.0-8.3)
[2024-11-05 21:02] LABS: Appearance Urine Clear (Clear); Bacteria Urine Automated None Seen (None Seen); Cast Urine Automated 0-2 /lpf (0-2); Glucose Urine UA Negative (Negative); RBC Urine Automated 0-2 /hpf (0-2)
[2024-11-05 21:06] LABS: INR 1.1 (0.9-1.1); Prothrombin Time 11.5 Seconds (9.0-12.0)
[2024-11-05 21:10] LABS: Thyroid Stimulating Hormone 1.632 uIu/ml (0.300-4.500)
[2024-11-05] MEDS: LORazepam 1 MG/1 ML SYR ED Inj Use IV STA (21:14)
[2024-11-05] MEDS: OPTIRAY 320 125ml IV ONE (21:31)
[2024-11-05] MEDS: SODIUM CHLORIDE 0.9% 1,000 ML IV SCH (21:46)
[2024-11-05] MEDS: MAGNESIUM SULFATE / D5W 1 GM/100 ML BAG IV STA (21:46)
[2024-11-05] MEDS: POTASSIUM CHLORIDE CRTAB 20 MEQ TABCR PO STA (21:51)
--- NOTE | 2024-11-05 22:21 | XRay Report ---
Exam(s): XR CXR 1 VIEW EXAM: XR Chest, 1 View CLINICAL HISTORY: Reason for exam: weakness. TECHNIQUE: Frontal view of the chest. COMPARISON: Prior chest x-ray from September 27, 2024. FINDINGS: Lungs: Mild to moderate peribronchial thickening of the central bronchi with increased interstitial opacities of the perihilar parenchyma. No consolidation. Pleural space: Unremarkable. No pneumothorax. Heart: Unremarkable. No cardiomegaly. Mediastinum: Unremarkable. Normal mediastinal contour. Bones/joints: Unremarkable. No acute fracture. IMPRESSION: Bronchitis, which may be of infectious or inflammatory etiologies. No consolidation or pleural effusion. Electronically signed by: Sandra Oviedo MD 11/05/24 22:19 PM
[2024-11-05] MEDS: METOPROLOL TARTRATE 1 MG/ML VIAL IV STA (22:34)
--- NOTE | 2024-11-05 23:14 | Emergency Department Note ---
Impression & Plan Generalized weakness, Paroxysmal atrial fibrillation, Hypomagnesemia, Hyponatremia, Hypokalemia ED Provider Note ED Provider Note NAME: MJ CUETO AGE:74 SEX: Female : 1950 ARRIVES VIA: Private vehicle INFORMANT: Patient ED PROVIDER(s): Elida Vences DO CHIEF COMPLAINT: Generalized weakness HPI: This is a 74-year-old female who presents to the emergency department with her due to concern for generalized weakness, fatigue, headache, and decreased appetite today. Patient denies any recent illness or change in medications. at bedside states she has had similar presentations with low sodium and low magnesium. She does have a prior history of chronic right- sided weakness due to prior CVA. She is also on anticoagulation due to history of paroxysmal atrial fibrillation. No recent falls or injuries. She denies any change in urine or stools. Patient denies any current chest pain, difficulty breathing, abdominal pain, or nausea. PAST MEDICAL HISTORY:See Below PAST SURGICAL HISTORY:See Below FAMILY HISTORY:See Below SOCIAL HISTORY:See Below HOME MEDICATIONS:See Below ALLERGIES:See Below VITALS:See Below PHYSICAL EXAMINATION: GENERAL: alert, anxious appearing, well nourished, no distress, non-toxic EYE EXAM: normal conjunctiva, PERRL and EOM's grossly intact OROPHARYNX: no exudate, no erythema, lips, buccal mucosa, and tongue normal and mucous membranes are moist NECK: supple, no nuchal rigidity, no adenopathy, non-tender LUNGS: Clear to auscultation. Normal chest wall mechanics, no w/r/r HEART: no murmurs, S1 normal and S2 normal ABDOMEN: abdomen soft, non-tender, normo-active bowel sounds, no masses, no rebound or guarding. BACK: Back is symmetrical on inspection and there is no deformity, no midline tenderness, no CVA tenderness. SKIN: no rashes, petechiae, orbruising UPPER EXTREMITIES: upper extremities are grossly normal. FROM, nml pulses b/l. LOWER EXTREMITIES: No pitting edema. FROM, nml pulses b/l. NEURO EXAM: Normal sensorium, cranial nerves II-XII grossly intact, normal speech, no facial droop,nogross weakness of arms, no gross weakness of legs. Gross sensation intact. No ataxia. Vital Signs: reviewed and remarkable Differential Diagnosis: dehydration, stroke, anemia, hypoglycemia, hyponatremia, hypernatremia, urinary tract infection, pneumonia, bronchitis, sepsis, gastroenteritis, additional abdominal pathology, metabolic abnormalities, as well as others were considered MEDICAL DECISION MAKING: This is a 74-year-old female who presents to the Emergency Department due to concern for increased generalized weakness and hypertension noted at home by . helps provide history at bedside. Patient was afebrile and hemodynamically stable on arrival and noted to be in normal sinus rhythm. Labs drawn and sent, IV established, EKG and CXR performed and interpreted at bedside, and patient placed on telemetry. Patient started on gentle IV fluid hydration and sent for CT/CTA given history of stroke and consideration of neurologic etiology of her symptoms. While awaiting results of imaging patient noted to convert into a rapid A-fib. Patient does have a history of this and has had similar prior episodes according to the . She was given additional dose of IV metoprolol with some mild improvement in her range although still a rapid rate. Patient's labs revealed hyponatremia, hypomagnesemia, and hypokalemia. She was given repletion of these while awaiting other results. Chest x-ray is read by me was reassuring, however over read from outside radiology suggest some mild bronchitis. A bio fire was added as a precaution. No other recent change in medications. Patient blood pressure was initially elevated here however had began downtrending without any intervention. He went on further following administration of metoprolol for her rate control. Given her worsening weakness, complex past medical history, multiple electrolyte abnormalities, rapid A-fib, and in consideration for unclear etiology of the symptoms, case was discussed with the hospitalist team for additional evaluation and management. Consultation(s): 0055: Discussed with FP resident Dr. Amador, with the [facility] hospitalist team, for additional evaluation and management. ER Treatment Provided: See below Diagnostics Interpreted By Me: -ECG: Atrial fibrillation at 156, normal axis, normal intervals, nonspecific ST/T wave changes -Cardiac Monitoring: An order was placed for continuous cardiac monitoring. The monitor shows a rate of 145 with a.fib rhythm. -Laboratory studies: As stated above and show below. -Imaging studies: X-ray Chest: A single view study of the chest was reviewed and was negative for cardiomegaly, focal infiltrate, effusion, pulmonary edema, or wide mediastinum. Triage Nursing Note Reviewed Prior/Outside Records Reviewed -prior discharge summary reviewed Past Med/Surg History Problem List (Updated 11/05/24 @ 23:14 by Elida Vences DO) Hypokalemia (Acute) Hyponatremia (Acute) Hypomagnesemia (Acute) Generalized weakness (Acute) Seizure-like activity Generalized weakness (Acute) Hypomagnesemia (Acute) Tremor H/O: stroke with residual effects Anticoagulant long-term use Hypertension Paroxysmal atrial fibrillation (Acute) Anxiety Exercise-induced asthma Asthma (Chronic) Bony exostosis Hyperlipidemia GERD without esophagitis Varicose veins of bilateral lower extremities with other complications Chronic sinusitis Medical History Acute CVA (cerebrovascular accident) Family history of colon cancer Family history of coronary artery disease Multifocal pneumonia Palpitation Non compliance with medical treatment Atrial fibrillation History of COVID-19 White coat syndrome with hypertension History of DVT (deep vein thrombosis) Poor historian History of colon polyps Surgical History History of sinus surgery History of esophagogastroduodenoscopy (EGD) History of colonoscopy Hx of tubal ligation H/O ovarian cystectomy H/O tooth extraction H/O blepharoplasty S/P skin biopsy History of appendectomy Family History Mother Diabetes Alzheimer disease Colorectal cancer Hypertension Father Diabetes Myocardial infarction, Onset Age: 62 Hypertension Sister Lymphoma Breast cancer, Onset Age: 70 Hypertension Family/Other Ovarian cancer Prostate cancer Other No family history of adverse response to anesthesia Social History Smoking Status: Never smoker Second Hand Exposure: No; Do You Dip or Chew Tobacco: No; Hx Alcohol Use: No Hx Substance Use: No Preferred Language: Yoruba Communication Ability: Effective Communication Tools: Other Visual Impairment: No Limitations Hearing Ability: Normal Toy Painter Required: No Beliefs That Will Affect Care: None marital status: Current Living Situation: Spouse current occupational status: retired Feels Safe at Home: Yes Childhood Exposure to Second-Hand Smoke: No Diet: regular Diet Comment: regular caffeine: Yes (Cofee 1 per day. ) during the past year weight has: remained stable Dental Care, Regularly: Yes Physical Activity Frequency: 5-6 Times per Week Seatbelt Use: always Sunscreen Use: No Assistive Devices: None Allergies Allergies Allergy/AdvReac Type Severity Reaction Status Date / Time No Known Drug Allergies Allergy Unknown Verified 09/20/24 13:14 Home Meds Home Medications Medication Instructions Recorded Confirmed calcium carbonate (Calcium 600) 600 mg PO QAM 01/09/19 11/05/24 cholecalciferol (vitamin D3) 25 25 mcg PO QAM 03/02/20 11/05/24 mcg (1,000 unit) tablet omega 5-wdm-wai-fish oil 1,000 mg 3 cap PO QAM 08/27/21 11/05/24 (120 mg-180 mg) capsule (Fish Oil) lorazepam 0.5 mg tablet 0.5 mg PO DAILY PRN Anxiety 11/05/24 11/05/24 metoprolol succinate 25 mg 12.5 mg PO AMHS 11/05/24 11/05/24 tablet,extended release 24 hr Previous Rx's Medication Instructions Recorded atorvastatin 80 mg tablet 80 mg PO DAILY #90 tabs 02/25/24 escitalopram oxalate 10 mg tablet 10 mg PO QAM #90 tabs 05/29/24 apixaban 5 mg tablet (Eliquis) 5 mg PO BID #180 tabs 07/17/24 hydralazine 25 mg tablet 25 mg PO BID #180 tabs 09/18/24 estradiol 0.01% (0.1 mg/gram) 1 g vaginal .COMPLEX #42.5 grams 09/20/24 vaginal cream magnesium oxide 400 mg (241.3 mg 400 mg PO BID #60 tabs 09/29/24 magnesium) tablet Results & Data (ED) Vital Signs Vital Signs - 24 hr 11/05/24 19:47 11/05/24 19:56 11/05/24 20:00 Temperature 36.7 C Temperature Source Oral Pulse Rate 94 H 92 H 91 H Pulse Rate [Apical] Pulse Rate from SpO2 Sensor 92 H Pulse Rhythm Regular Pulse Rhythm [Apical] Pulse Strength Normal Respiratory Rate 16 21 Respiratory Effort / Characteristics Non-Labored Spontaneous Respiratory Depth Normal Respiratory Pattern Regular Blood Pressure 168/123 H Blood Pressure [Right Arm] Blood Pressure Mean 138 Blood Pressure Mean [Right Arm] Blood Pressure Position Lying Blood Pressure Position [Right Arm] Pulse Oximetry 96 95 Oxygen Delivery Method Room Air Room Air Sepsis Recent Fever Within 48 Hours No Sepsis New/Unexplained Change in Mental Status No Sepsis Action Taken by Nursing No Action Required 11/05/24 20:00 11/05/24 22:22 11/05/24 22:30 Temperature Temperature Source Pulse Rate 146 H Pulse Rate [Apical] 145 H Pulse Rate from SpO2 Sensor Pulse Rhythm Pulse Rhythm [Apical] Irregular Pulse Strength Respiratory Rate 20 Respiratory Effort / Characteristics Non-Labored Spontaneous Respiratory Depth Normal Respiratory Pattern Regular Blood Pressure 171/103 H Blood Pressure [Right Arm] 100/84 Blood Pressure Mean 137 Blood Pressure Mean [Right Arm] 89 Blood Pressure Position Blood Pressure Position [Right Arm] Lying Pulse Oximetry 97 Oxygen Delivery Method Room Air Sepsis Recent Fever Within 48 Hours Sepsis New/Unexplained Change in Mental Status Sepsis Action Taken by Nursing 11/05/24 22:34 11/05/24 23:00 11/05/24 23:02 Temperature Temperature Source Pulse Rate 150 H 139 H 128 H Pulse Rate [Apical] Pulse Rate from SpO2 Sensor 109 H Pulse Rhythm Pulse Rhythm [Apical] Pulse Strength Respiratory Rate 22 Respiratory Effort / Characteristics Respiratory Depth Respiratory Pattern Blood Pressure 123/84 116/84 Blood Pressure [Right Arm] Blood Pressure Mean Blood Pressure Mean [Right Arm] Blood Pressure Position Blood Pressure Position [Right Arm] Pulse Oximetry 95 Oxygen Delivery Method Room Air Sepsis Recent Fever Within 48 Hours Sepsis New/Unexplained Change in Mental Status Sepsis Action Taken by Nursing 11/05/24 23:05 11/05/24 23:23 11/05/24 23:30 Temperature Temperature Source Pulse Rate 137 H Pulse Rate [Apical] Pulse Rate from SpO2 Sensor 119 H Pulse Rhythm Pulse Rhythm [Apical] Pulse Strength Respiratory Rate 22 Respiratory Effort / Characteristics Respiratory Depth Respiratory Pattern Blood Pressure 116/79 125/97 Blood Pressure [Right Arm] Blood Pressure Mean 87 104 Blood Pressure Mean [Right Arm] Blood Pressure Position Blood Pressure Position [Right Arm] Pulse Oximetry 95 Oxygen Delivery Method Room Air Sepsis Recent Fever Within 48 Hours Sepsis New/Unexplained Change in Mental Status Sepsis Action Taken by Nursing 11/06/24 00:11 11/06/24 00:59 11/06/24 01:00 Temperature Temperature Source Pulse Rate 149 H 124 H Pulse Rate [Apical] Pulse Rate from SpO2 Sensor 96 H Pulse Rhythm Pulse Rhythm [Apical] Pulse Strength Respiratory Rate 18 Respiratory Effort / Characteristics Respiratory Depth Respiratory Pattern Blood Pressure 115/83 126/91 Blood Pressure [Right Arm] Blood Pressure Mean 97 Blood Pressure Mean [Right Arm] Blood Pressure Position Blood Pressure Position [Right Arm] Pulse Oximetry 97 Oxygen Delivery Method Room Air Sepsis Recent Fever Within 48 Hours Sepsis New/Unexplained Change in Mental Status Sepsis Action Taken by Nursing 11/06/24 01:29 11/06/24 01:31 11/06/24 01:32 Temperature Temperature Source Pulse Rate 117 H 139 H Pulse Rate [Apical] Pulse Rate from SpO2 Sensor 111 H 108 H Pulse Rhythm Pulse Rhythm [Apical] Pulse Strength Respiratory Rate 20 20 Respiratory Effort / Characteristics Respiratory Depth Respiratory Pattern Blood Pressure 108/70 Blood Pressure [Right Arm] Blood Pressure Mean 75 Blood Pressure Mean [Right Arm] Blood Pressure Position Blood Pressure Position [Right Arm] Pulse Oximetry 95 96 Oxygen Delivery Method Room Air Room Air Sepsis Recent Fever Within 48 Hours Sepsis New/Unexplained Change in Mental Status Sepsis Action Taken by Nursing 11/06/24 01:40 Temperature Temperature Source Pulse Rate 125 H Pulse Rate [Apical] Pulse Rate from SpO2 Sensor Pulse Rhythm Pulse Rhythm [Apical] Pulse Strength Respiratory Rate Respiratory Effort / Characteristics Respiratory Depth Respiratory Pattern Blood Pressure Blood Pressure [Right Arm] Blood Pressure Mean Blood Pressure Mean [Right Arm] Blood Pressure Position Blood Pressure Position [Right Arm] Pulse Oximetry Oxygen Delivery Method Sepsis Recent Fever Within 48 Hours Sepsis New/Unexplained Change in Mental Status Sepsis Action Taken by Nursing Laboratory Data 11/05/24 20:00 11/05/24 20:00 Lab Results 11/05/24 11/05/24 11/05/24 Range/Units 20:00 20:50 23:30 WBC 6.99 (4.8-10.8) K/ul RBC 3.77 L (4.20-5.40) M/uL Hgb 12.4 (12.0-16.0) g/dl Hct 35.0 L (37.0-47.0) % MCV 92.8 (80.0-100.0) fL MCH 32.9 (25.0-34.0) pg MCHC 35.4 (32.0-36.0) g/dL RDW Std Deviation 39.8 (36.4-46.3) fL RDW Coeff of [place] 11.7 (11.5-14.5) % Plt Count 258 (130-400) K/uL MPV 8.8 L (9.4-12.4) fL Immature Gran % (Auto) 0.3 % Neut % (Auto) 65.5 % Lymph % (Auto) 25.2 % [place] % (Auto) 8.3 % Eos % (Auto) 0.4 % Baso % (Auto) 0.3 % Neut # (Auto) 4.58 (1.40-6.50) K/uL Lymph # (Auto) 1.76 (1.20-3.40) K/uL [place] # (Auto) 0.58 (0.11-0.59) K/uL Eos # (Auto) 0.03 (0.00-0.50) K/uL Baso # (Auto) 0.02 (0.00-0.20) K/uL Immature Gran # (Auto) 0.02 (0.01-0.20) K/uL PT 11.5 (9.0-12.0) Seconds INR 1.1 (0.9-1.1) Sodium 130 L (136-145) mmol/L Potassium 3.4 L (3.5-5.1) mmol/L Chloride 94 L (98-107) mmol/L Carbon Dioxide 28 (21-32) mmol/L Anion Gap 8 (3-11) BUN 8 (6-23) mg/dl Creatinine 0.72 (0.6-1.2) mg/dl Est Cr Clr Drug Dosing 63.6 ml/min eGFR 88.78 BUN/Creatinine Ratio 11.1 (10-20) Glucose 110 H (70-99(Fasting)) mg/dl Calcium 9.9 (8.6-10.3) mg/dl Magnesium 1.6 L (1.7-2.4) mg/dl Total Bilirubin 1.2 H (0.2-1.0) mg/dl AST 21 (13-39) U/L ALT 17 (7-52) U/L Alkaline Phosphatase 50 (34-104) U/L Troponin I High Sens 5.5 (0-14) pg/ml Total Protein 7.1 (6.0-8.3) gm/dl Albumin 4.1 (3.4-5.0) gm/dl Globulin 3.0 (2.5-4.0) gm/dl Albumin/Globulin Ratio 1.4 (0.9-2) Lipase 37 (11-82) U/L TSH 1.632 (0.300-4.500) uIu/ml Urine Color Yellow Urine Appearance Clear (Clear) Urine pH 5.5 (4.5-7.5) Ur Specific [place] 1.013 (1.000-1.030) Urine Protein Negative (Negative) Urine Glucose (UA) Negative (Negative) Urine Ketones Trace H (Negative) Urine Blood Negative (Negative) Urine Nitrite Negative (Negative) Urine Bilirubin Negative (Negative) Urine Urobilinogen Negative (Negative) Ur Leukocyte Esterase 2+ H (Negative) Urine WBC (Auto) 6-10 H (0-5) /hpf Urine RBC (Auto) 0-2 (0-2) /hpf U Hyaline Cast (Auto) 0-2 (0-2) /lpf U Epithel Cells (Auto) 3-5 H (0-2) /hpf Urine Bacteria (Auto) None Seen (None Seen) Urine Comment Adenovirus (PCR) Not Detected (NotDetected) B. pertussis DNA (PCR) Not Detected (NotDetected) B.parapertussis DNA PCR Not Detected (NotDetected) C. pneumoniae DNA (PCR) Not Detected (NotDetected) Coronavirus OC43 (PCR) Not Detected (NotDetected) Coronavirus HKU1 (PCR) Not Detected (NotDetected) Coronavirus 229E (PCR) Not Detected (NotDetected) SARS-CoV-2 (PCR) Not Detected (NotDetected) Coronavirus NL63 (PCR) Not Detected (NotDetected) Human Metapneumovir PCR Not Detected (NotDetected) Influenza Type A (PCR) Not Detected (NotDetected) Influenza Type B (PCR) Not Detected (NotDetected) M. pneumoniae (PCR) Not Detected (NotDetected) Parainfluenza 1 (PCR) Not Detected (NotDetected) Parainfluenza 2 (PCR) Not Detected (NotDetected) Parainfluenza 3 (PCR) Not Detected (NotDetected) Parainfluenza 4 (PCR) Not Detected (NotDetected) RSV (PCR) Not Detected (NotDetected) Entero/Rhino (PCR) Not Detected (NotDetected) Administered Medications Sodium Chloride (Nss) 1,000 mls @ 125 mls/hr IV .Q8H JUWAN Stop: 11/08/24 20:14 Last Admin: 11/05/24 21:46 Dose: 125 mls/hr Documented By: KRIS Discontinued Medications Magnesium Sulfate/Dextrose (Magnesium Sulfate / D5w) 1 gm in 100 mls @ 100 mls/hr IV NOW STA Stop: 11/05/24 22:09 Last Infusion: 11/05/24 22:49 Dose: Infused Documented By: Admin: 11/05/24 21:46 Dose: 100 mls/hr Documented By: KRIS Ioversol (Optiray 320 125ml) 119 ml IV ONCE ONE Stop: 11/05/24 21:31 Last Admin: 11/05/24 21:31 Dose: 119 ml Documented By: CHANTEL Lorazepam (Lorazepam 1 Mg/1 Ml Syr Ed Inj Use) 0.5 mg IV ONE STA Stop: 11/05/24 20:55 Last Admin: 11/05/24 21:14 Dose: 0.5 mg Documented By: Metoprolol Tartrate (Metoprolol Tartrate 1 Mg/Ml Vial) 5 mg IV NOW STA Stop: 11/05/24 22:28 Last Admin: 11/05/24 22:34 Dose: 5 mg Documented By: Metoprolol Tartrate (Metoprolol Tartrate 1 Mg/Ml Vial) 5 mg IV NOW STA Stop: 11/06/24 00:06 Last Admin: 11/06/24 00:11 Dose: 5 mg Documented By: Potassium Chloride (Potassium Chloride Crtab 20 Meq Tabcr) 40 meq PO NOW STA Stop: 11/05/24 21:42 Last Admin: 11/05/24 21:51 Dose: 40 meq Documented By: KRIS Imaging Data Radiologist's Impression: Head CT 11/05/24 20:14 CR Exam(s): CT HEAD Without Contrast EXAM: CT Head Without Intravenous Contrast CLINICAL HISTORY: Reason for exam: weak, dizzy, htn, hx cva. TECHNIQUE: Axial computed tomography images of the head/brain without intravenous contrast. CTDI is 11.07 mGy and DLP is 947.57 mGy-cm. Automated exposure control was utilized for the study. A dose lowering technique was utilized adhering to the principles of ALARA. COMPARISON: Prior brain MRI from September 27, 2024. FINDINGS: Brain: Mild ischemic injuries of the left frontal and occipital lobes with encephalomalacia and gliosis. No hemorrhage. No significant white matter disease. No edema. Ventricles: Mild ventriculomegaly. Bones/joints: Unremarkable. No acute fracture. Soft tissues: Unremarkable. Sinuses: Chronic left maxillary sinusitis. No acute sinusitis. Mastoid air cells: Unremarkable as visualized. No mastoid effusion. IMPRESSION: No evidence of acute intracranial pathology. Communications: Call Doctor Stroke Electronically signed by: Sandra Oviedo MD 11/05/24 23:27 PM Head CTA 11/05/24 20:14 CR Exam(s): CTA HEAD With Contrast IV Amt: OPTIRAY 320 119ML EXAM: CT Angiography Head With Intravenous Contrast CLINICAL HISTORY: Reason for exam: weak, htn, hx cva. TECHNIQUE: Axial computed tomographic angiography images of the head with intravenous contrast. CTDI is 11.07 mGy and DLP is 947.57 mGy-cm. Automated exposure control was utilized for the study. A dose lowering technique was utilized adhering to the principles of ALARA. MIP reconstructed images were created and reviewed. CONTRAST: Patient received OPTIRAY 320 119ML of IV contrast COMPARISON: Prior CT angiogram of the head from September 27. FINDINGS: The dural venous sinuses are patent. Right internal carotid artery: No acute findings. Intracranial segment is patent with no significant stenosis. No aneurysm. Right anterior cerebral artery: Hypoplastic right A1 segment. No occlusion or significant stenosis. No aneurysm. Right middle cerebral artery: Unremarkable. No occlusion or significant stenosis. No aneurysm. Right posterior cerebral artery: Unremarkable. No occlusion or significant stenosis. No aneurysm. Right vertebral artery: Unremarkable as visualized. Left internal carotid artery: No acute findings. Intracranial segment is patent with no significant stenosis. No aneurysm. Left anterior cerebral artery: Unremarkable. No occlusion or significant stenosis. No aneurysm. Left middle cerebral artery: Unremarkable. No occlusion or significant stenosis. No aneurysm. Left posterior cerebral artery: Unremarkable. No occlusion or significant stenosis. No aneurysm. Left vertebral artery: Unremarkable as visualized. Basilar artery: Unremarkable. No occlusion or significant stenosis. No aneurysm. IMPRESSION: Negative CT angiogram of the head. Communications: Verify Receipt Call Doctor Stroke Electronically signed by: Sandra Oviedo MD 11/05/24 23:32 PM Neck CTA 11/05/24 20:14 CR Exam(s): CTA NECK With Contrast IV Amt: OPTIRAY 320 119ML EXAM: CT Angiography Neck With Intravenous Contrast CLINICAL HISTORY: Reason for exam: weak, htn, hx cva. TECHNIQUE: Routine carotid CT angiography protocol was performed with intravenous contrast. NASCET criteria using the distal ICAs for comparison were used for evaluation of stenoses. CTDI is 11.07 mGy and DLP is 947.57 mGy-cm. Automated exposure control was utilized for the study. A dose lowering technique was utilized adhering to the principles of ALARA. MIP reconstructed images were created and reviewed. CONTRAST: Patient received OPTIRAY 320 119ML of IV contrast COMPARISON: Prior CT angiogram of the neck from September 27, 2024. FINDINGS: VASCULATURE: Right common carotid artery: Unremarkable. No occlusion or significant stenosis. No dissection. Right internal carotid artery: Unremarkable. Extracranial segment is patent with no occlusion or significant stenosis. No dissection. Right external carotid artery: Unremarkable. No occlusion. Right vertebral artery: Unremarkable. No occlusion or significant stenosis. No dissection. Left common carotid artery: Unremarkable. No occlusion or significant stenosis. No dissection. Left internal carotid artery: Unremarkable. Extracranial segment is patent with no occlusion or significant stenosis. No dissection. Left external carotid artery: Unremarkable. No occlusion. Left vertebral artery: Unremarkable. No occlusion or significant stenosis. No dissection. NECK: Bones/joints: Unremarkable. No acute fracture. Soft tissues: Prominent cervical lymph nodes. Lung apices: Clear. CAROTID STENOSIS REFERENCE USING NASCET CRITERIA: % ICA stenosis = (1 - narrowest ICA diameter/diameter of distal cervical ICA) x 100. Mild - <50% stenosis. Moderate - 50-69% stenosis. Severe - 70-94% stenosis. Near occlusion - 95-99% stenosis. Occluded - 100% stenosis. IMPRESSION: Negative CTA neck. Communications: Verify Receipt Call Doctor Stroke Electronically signed by: Sandra Oviedo MD 11/05/24 23:34 PM Chest X-Ray 11/05/24 20:15 Exam(s): XR CXR 1 VIEW EXAM: XR Chest, 1 View CLINICAL HISTORY: Reason for exam: weakness. TECHNIQUE: Frontal view of the chest. COMPARISON: Prior chest x-ray from September 27, 2024. FINDINGS: Lungs: Mild to moderate peribronchial thickening of the central bronchi with increased interstitial opacities of the perihilar parenchyma. No consolidation. Pleural space: Unremarkable. No pneumothorax. Heart: Unremarkable. No cardiomegaly. Mediastinum: Unremarkable. Normal mediastinal contour. Bones/joints: Unremarkable. No acute fracture. IMPRESSION: Bronchitis, which may be of infectious or inflammatory etiologies. No consolidation or pleural effusion. Electronically signed by: Sandra Oviedo MD 11/05/24 22:19 PM Discharge Plan Visit Data Chief Complaint: TIA Symptoms Stated Complaint: HYPERTENSION, DIZZINESS - HX OF STROKE ED Provider: Eliad Vences Discharge Problem: Generalized weakness, Paroxysmal atrial fibrillation, Hypomagnesemia, Hyponatremia, Hypokalemia Patient Disposition: Being Evaluated by Hospitalist Condition: Fair Forms Stand Alone Forms: [facility] Prescriptions Prescriptions: No Action atorvastatin 80 mg tablet 80 mg PO DAILY Qty: 90 2RF escitalopram oxalate 10 mg tablet 10 mg PO QAM Qty: 90 2RF Eliquis 5 mg tablet 5 mg PO BID Qty: 180 1RF hydralazine 25 mg tablet 25 mg PO BID Qty: 180 1RF calcium carbonate [Calcium 600] 600 mg calcium (1,500 mg) tablet 600 mg PO QAM estradiol 0.01 % (0.1 mg/gram) cream 1 g vaginal .COMPLEX Qty: 42.5 1RF Rx Instructions: 1 g vaginal; 1gm PV daily for 14 days, then 1/2gm PV twice weekly omega 0-egx-haw-fish oil [Fish Oil] 1,000 mg (120 mg-180 mg) capsule 3 cap PO QAM cholecalciferol (vitamin D3) 25 mcg (1,000 unit) Tablet 25 mcg PO QAM magnesium oxide 400 mg (241.3 mg magnesium) Tablet 400 mg PO BID Qty: 60 0RF lorazepam 0.5 mg tablet 0.5 mg PO DAILY PRN (Reason: Anxiety) metoprolol succinate 25 mg tablet extended release 24 hr 12.5 mg PO AMHS Referrals Referrals: Malvin Freeman CRNP [Primary Care Provider] -
--- NOTE | 2024-11-05 23:28 | CT Scan Report ---
Exam(s): CT HEAD Without Contrast EXAM: CT Head Without Intravenous Contrast CLINICAL HISTORY: Reason for exam: weak, dizzy, htn, hx cva. TECHNIQUE: Axial computed tomography images of the head/brain without intravenous contrast. CTDI is 11.07 mGy and DLP is 947.57 mGy-cm. Automated exposure control was utilized for the study. A dose lowering technique was utilized adhering to the principles of ALARA. COMPARISON: Prior brain MRI from September 27, 2024. FINDINGS: Brain: Mild ischemic injuries of the left frontal and occipital lobes with encephalomalacia and gliosis. No hemorrhage. No significant white matter disease. No edema. Ventricles: Mild ventriculomegaly. Bones/joints: Unremarkable. No acute fracture. Soft tissues: Unremarkable. Sinuses: Chronic left maxillary sinusitis. No acute sinusitis. Mastoid air cells: Unremarkable as visualized. No mastoid effusion. IMPRESSION: No evidence of acute intracranial pathology. Communications: Call Doctor Stroke Electronically signed by: Sandra Oviedo MD 11/05/24 23:27 PM
--- NOTE | 2024-11-05 23:33 | CT Scan Report ---
Exam(s): CTA HEAD With Contrast IV Amt: OPTIRAY 320 119ML EXAM: CT Angiography Head With Intravenous Contrast CLINICAL HISTORY: Reason for exam: weak, htn, hx cva. TECHNIQUE: Axial computed tomographic angiography images of the head with intravenous contrast. CTDI is 11.07 mGy and DLP is 947.57 mGy-cm. Automated exposure control was utilized for the study. A dose lowering technique was utilized adhering to the principles of ALARA. MIP reconstructed images were created and reviewed. CONTRAST: Patient received OPTIRAY 320 119ML of IV contrast COMPARISON: Prior CT angiogram of the head from September 27. FINDINGS: The dural venous sinuses are patent. Right internal carotid artery: No acute findings. Intracranial segment is patent with no significant stenosis. No aneurysm. Right anterior cerebral artery: Hypoplastic right A1 segment. No occlusion or significant stenosis. No aneurysm. Right middle cerebral artery: Unremarkable. No occlusion or significant stenosis. No aneurysm. Right posterior cerebral artery: Unremarkable. No occlusion or significant stenosis. No aneurysm. Right vertebral artery: Unremarkable as visualized. Left internal carotid artery: No acute findings. Intracranial segment is patent with no significant stenosis. No aneurysm. Left anterior cerebral artery: Unremarkable. No occlusion or significant stenosis. No aneurysm. Left middle cerebral artery: Unremarkable. No occlusion or significant stenosis. No aneurysm. Left posterior cerebral artery: Unremarkable. No occlusion or significant stenosis. No aneurysm. Left vertebral artery: Unremarkable as visualized. Basilar artery: Unremarkable. No occlusion or significant stenosis. No aneurysm. IMPRESSION: Negative CT angiogram of the head. Communications: Verify Receipt Call Doctor Stroke Electronically signed by: Sandra Oviedo MD 11/05/24 23:32 PM
--- NOTE | 2024-11-05 23:35 | CT Scan Report ---
Exam(s): CTA NECK With Contrast IV Amt: OPTIRAY 320 119ML EXAM: CT Angiography Neck With Intravenous Contrast CLINICAL HISTORY: Reason for exam: weak, htn, hx cva. TECHNIQUE: Routine carotid CT angiography protocol was performed with intravenous contrast. NASCET criteria using the distal ICAs for comparison were used for evaluation of stenoses. CTDI is 11.07 mGy and DLP is 947.57 mGy-cm. Automated exposure control was utilized for the study. A dose lowering technique was utilized adhering to the principles of ALARA. MIP reconstructed images were created and reviewed. CONTRAST: Patient received OPTIRAY 320 119ML of IV contrast COMPARISON: Prior CT angiogram of the neck from September 27, 2024. FINDINGS: VASCULATURE: Right common carotid artery: Unremarkable. No occlusion or significant stenosis. No dissection. Right internal carotid artery: Unremarkable. Extracranial segment is patent with no occlusion or significant stenosis. No dissection. Right external carotid artery: Unremarkable. No occlusion. Right vertebral artery: Unremarkable. No occlusion or significant stenosis. No dissection. Left common carotid artery: Unremarkable. No occlusion or significant stenosis. No dissection. Left internal carotid artery: Unremarkable. Extracranial segment is patent with no occlusion or significant stenosis. No dissection. Left external carotid artery: Unremarkable. No occlusion. Left vertebral artery: Unremarkable. No occlusion or significant stenosis. No dissection. NECK: Bones/joints: Unremarkable. No acute fracture. Soft tissues: Prominent cervical lymph nodes. Lung apices: Clear. CAROTID STENOSIS REFERENCE USING NASCET CRITERIA: % ICA stenosis = (1 - narrowest ICA diameter/diameter of distal cervical ICA) x 100. Mild - <50% stenosis. Moderate - 50-69% stenosis. Severe - 70-94% stenosis. Near occlusion - 95-99% stenosis. Occluded - 100% stenosis. IMPRESSION: Negative CTA neck. Communications: Verify Receipt Call Doctor Stroke Electronically signed by: Sandra Oviedo MD 11/05/24 23:34 PM
[2024-11-06] MEDS: METOPROLOL TARTRATE 1 MG/ML VIAL IV STA (00:11)
--- NOTE | 2024-11-06 00:55 | History & Physical Report ---
Date of Service November 06, 2024 Assessment & Plan (1) Hypokalemia: (2) Hyponatremia: (3) Hypomagnesemia: (4) H/O: stroke with residual effects: (5) Anxiety: (6) Confusion with non-focal neuro exam: Plan #Fatigue/Malaise/Mild confusion/Anxiety increase - patient w/ increased fatigue, malaise, confusion, and anxiety for 1 day now (only slept 1 hr last night) - Head CT, Head & Neck CTA, and CXR all w/out any acute findings - UA: LE, 2+; WBC, 6-10; Ur Cx ordered and pending - MRI, routine ordered #Electrolyte abnormalities/Hypokalemia/Mild hyponatremia/Hypomagnesemia - Na, 130; K, 3.4; Mg, 1.6 upon admission - repleted w/ 80 mEq of KCl, IV; MgSO4, IV, 1 g x 2 - continue NSS, 125 mL/hr, 1000 mL total #Atrial fibrillation w/ RVR - patient went into AFib w/ RVR while in ED - Lopressor, 5 mg, IV x 2 given in ED - continue metoprolo succinate, 12.5 mg, PO, BID; continue Eliquis, 5 mg, PO, BID Chronic conditions #HTN - continue metoprolol but hold hydralazine # Hx of stroke w/ residual right-sided effects/Hyperlipidemia - continue atorvastatin, 80 mg, PO, daily; continue omega-3-DHA/EPA, 1000 mg capsules x 3, AM # Anxiety - continue escitalopram, 10 mg, PO, AM and lorazepam, 0.5 mg, PO, daily Code status: Full code VTE Prophylaxis: Eliquis, 5 mg, PO, BID Disposition: Med-Tele FENGI: 1 L NSS; Regular diet History of Present Illness Chief Complaint: increased fatigue Primary Care Provider: DAVIS Arreola Patient w/ increased fatigue, increased sense of malaise since last night, and she only got 1-hr of sleep last night. Today she has felt "out of sorts" all day, with increased anxiety, slower cognition, general feeling of malaise. Patient denies any respiratory Sx, any GI Sx, no sense of cardiac Sx either (denies CP and palpitations). Denies any focal weakness, numbness/tingling, or gait disturbance outside of her baseline right-sided focal weakness s/p stroke years ago. Allergies Allergy/AdvReac Type Severity Reaction Status Date / Time No Known Drug Allergies Allergy Unknown Verified 09/20/24 13:14 Home Medications Medication Instructions Recorded Confirmed Type calcium carbonate (Calcium 600) 600 mg PO QAM 01/09/19 11/05/24 History cholecalciferol (vitamin D3) 25 25 mcg PO QAM 03/02/20 11/05/24 History mcg (1,000 unit) tablet omega [id number]-iwf-fish oil 1,000 mg 3 cap PO QAM 08/27/21 11/05/24 History (120 mg-180 mg) capsule (Fish Oil) atorvastatin 80 mg tablet 80 mg PO DAILY #90 tabs 02/25/24 11/05/24 Rx escitalopram oxalate 10 mg tablet 10 mg PO QAM #90 tabs 05/29/24 11/05/24 Rx apixaban 5 mg tablet (Eliquis) 5 mg PO BID #180 tabs 07/17/24 11/05/24 Rx hydralazine 25 mg tablet 25 mg PO BID #180 tabs 09/18/24 11/05/24 Rx estradiol 0.01% (0.1 mg/gram) 1 g vaginal .COMPLEX #42.5 grams 09/20/24 11/05/24 Rx vaginal cream magnesium oxide 400 mg (241.3 mg 400 mg PO BID #60 tabs 09/29/24 11/05/24 Rx magnesium) tablet lorazepam 0.5 mg tablet 0.5 mg PO DAILY PRN Anxiety 11/05/24 11/05/24 History metoprolol succinate 25 mg 12.5 mg PO AMHS 11/05/24 11/05/24 History tablet,extended release 24 hr Past Med/Surg History Problem List (Updated 11/06/24 @ 02:26 by Armand Amador MD) Confusion with non-focal neuro exam Hypokalemia (Acute) Hyponatremia (Acute) Hypomagnesemia (Acute) Generalized weakness (Acute) Seizure-like activity Generalized weakness (Acute) Hypomagnesemia (Acute) Tremor H/O: stroke with residual effects Anticoagulant long-term use Hypertension Paroxysmal atrial fibrillation (Acute) Anxiety Exercise-induced asthma Asthma (Chronic) Bony exostosis Hyperlipidemia GERD without esophagitis Varicose veins of bilateral lower extremities with other complications Chronic sinusitis Medical History Acute CVA (cerebrovascular accident) Family history of colon cancer Family history of coronary artery disease Multifocal pneumonia Palpitation Non compliance with medical treatment Atrial fibrillation History of COVID-19 White coat syndrome with hypertension History of DVT (deep vein thrombosis) Poor historian History of colon polyps Surgical History History of sinus surgery History of esophagogastroduodenoscopy (EGD) History of colonoscopy Hx of tubal ligation H/O ovarian cystectomy H/O tooth extraction H/O blepharoplasty S/P skin biopsy History of appendectomy Family History Mother Diabetes Alzheimer disease Colorectal cancer Hypertension Father Diabetes Myocardial infarction, Onset Age: 62 Hypertension Sister Lymphoma Breast cancer, Onset Age: 70 Hypertension Family/Other Ovarian cancer Prostate cancer Other No family history of adverse response to anesthesia Social History Smoking Status: Never smoker Second Hand Exposure: No; Do You Dip or Chew Tobacco: No; Hx Alcohol Use: No Hx Substance Use: No Preferred Language: Wolof Communication Ability: Effective Communication Tools: Other Visual Impairment: No Limitations Hearing Ability: Normal 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 ) during the past year weight has: remained stable Dental Care, Regularly: Yes Physical Activity Frequency: 5-6 Times per Week Seatbelt Use: always Sunscreen Use: No Assistive Devices: None Review of Systems Constitutional: + fatigue; no fever, no chills and no sw eats Respiratory: no cough and no dyspnea Cardiovascular: + lightheadedness (baseline lightheadedn ess); no chest pain and no palpitations Gastrointestinal: no nausea and no vomiting Genitourinary: + nocturia (4x/night to urinate at basel ine) Neurologic: + localized weakness (r. UE and LE weakn ess at baseline post- stroke) Psychiatric: + anxiety and + difficulty concentrating Physical Exam Constitutional: WD/WN, vitals as above Results & Data Results & Data Vital Signs (Past 12 Hours) Vital Signs Temp Pulse Pulse Resp BP BP Pulse Ox 11/06/24 00:11 149 H 115/83 11/05/24 23:30 125/97 11/05/24 23:23 137 H 22 95 11/05/24 23:05 116/79 11/05/24 23:02 128 H 22 95 11/05/24 23:00 139 H 116/84 11/05/24 22:34 150 H 123/84 11/05/24 22:30 145 H 20 100/84 97 11/05/24 22:22 146 H 11/05/24 20:00 171/103 H 11/05/24 20:00 91 H 21 95 11/05/24 19:56 92 H 11/05/24 19:47 36.7 C 94 H 16 168/123 H 96 O2 Del Method 11/06/24 00:11 11/05/24 23:30 11/05/24 23:23 Room Air 11/05/24 23:05 11/05/24 23:02 Room Air 11/05/24 23:00 11/05/24 22:34 11/05/24 22:30 Room Air 11/05/24 22:22 11/05/24 20:00 11/05/24 20:00 Room Air 11/05/24 19:56 11/05/24 19:47 Room Air Supervising Physician Co-Signing Physician Notes Attending addendum: I have physically seen this patient, have supervised the medical residents activities, and agree with the H&P unless as otherwise noted. Assessment and Plan: The patient is a 74-year-old female with past medical history including seizure- like activity, generalized weakness, history of stroke with residual effects, long-term anticoagulant use, hypertension, paroxysmal atrial fibrillation, exercise-induced asthma, hyperlipidemia, GERD without esophagitis, and bilateral lower extremity varicose veins. She presents to the emergency department with her due to concerns regarding generalized weakness, fatigue, headache and decreased appetite today. Her reported that she had similar presentations when her electrolytes were low, in particular particular sodium and magnesium. She reports that she is undergoing a workup at [facility] for a possible Watchman procedure, and is waiting for a call regarding a appointment there for the procedure. Workup in the emergency department included the following radiology studies: CT scan of head without contrast was negative, CTA head and neck were both negative, chest x-ray was negative. Significant laboratories showed a magnesium level 1.6, potassium 3.4, and BioFire testing was negative. Patient was referred to the [facility] for admission for further evaluation and treatment. Atrial fibrillation with RVR/PAF/hypertension- Patient initially presented to the emergency department with a heart rate of 94, and then increased to a maximum heart rate of 149-150. The patient will be admitted to telemetry for serial cardiac enzymes, serial EKG's, cardiac rhythm monitoring and a 2-D echocardiogram with Dopplers. She did receive Lopressor 5 mg IV x 2, She was continued on metoprolol succinate 12.5 mg p.o. twice daily Continue Eliquis 5 mg p.o. twice daily Holding hydralazine due to borderline blood pressure Will do a trial digoxin 0.25 mg IV Target potassium to 4 and magnesium to 2 Consult cardiology Electrolyte disturbances- Sodium 130, potassium 3.4, magnesium 1.6 From the ED she received Klor-Con 40 mEq p.o., magnesium sulfate 1 g IV, and we will repeat both NSS at 125 mL/h for 1 L Recheck laboratories in the a.m. Fatigue/generalized malaise/mild confusion/increased anxiety- feels that she is worse than her baseline CT head, CTA head and neck are both negative MRI brain will be ordered to assess for possible stroke Patient has a known previous left occipital lobe CVA Hyperlipidemia- Continue atorvastatin Depression/anxiety- Continue escitalopram
[2024-11-06] MEDS ORDERED: POLYETHYLENE (MIRALAX) 17 GM PACK PO PRN (01:38)
[2024-11-06] MEDS ORDERED: ONDANSETRON INJ 2 MG/ML 2 ML VIAL IV PRN (01:38)
[2024-11-06] MEDS ORDERED: MELATONIN 3 MG TAB PO PRN (01:41)
[2024-11-06 01:49] LABS: Chlamydia pneumoniae PCR Not Detected (NotDetected); Coronavirus 229E PCR Not Detected (NotDetected); Coronavirus CoV-2 (COVID19)PCR Not Detected (NotDetected); Coronavirus HKU1 PCR Not Detected (NotDetected); Coronavirus NL63 PCR Not Detected (NotDetected); Coronavirus OC43PCR Not Detected (NotDetected); Human Metapneumovirus PCR Not Detected (NotDetected); Parainfluenza Virus 1 PCR Not Detected (NotDetected); Parainfluenza Virus 2 PCR Not Detected (NotDetected); Parainfluenza Virus 3 PCR Not Detected (NotDetected); Parainfluenza Virus 4 PCR Not Detected (NotDetected); Respiratory Syncytial VirusPCR Not Detected (NotDetected); Rhinovirus/Enterovirus PCR Not Detected (NotDetected)
[2024-11-06] MEDS: MAGNESIUM SULFATE / D5W 1 GM/100 ML BAG IV STA (02:23)
[2024-11-06] MEDS: POTASSIUM CHLORIDE / WTR 10 MEQ/100 ML PLCT IV SCH (02:26)
--- NOTE | 2024-11-06 05:17 | Billing Data ---
Date of Service November 06, 2024 Coding Level of Care Code 16402 INT INP/OBS CARE
[2024-11-06] MEDS: DIGOXIN 250 MCG in SYRINGE 9 ML IV ONE (05:34)
[2024-11-06 05:42] LABS: Hematocrit (blood only) 35.3 % (37.0-47.0); Hemoglobin 12.1 g/dl (12.0-16.0); Mean Corpuscular Hemoglobin 32.2 pg (25.0-34.0); Mean Corpuscular Volume 93.9 fL (80.0-100.0); Platelet Count 216 K/uL (130-400); RDW Standard Deviation 41.1 fL (36.4-46.3); Red Blood Count 3.76 M/uL (4.20-5.40); White Blood Count 6.16 K/ul (4.8-10.8)
[2024-11-06 06:06] LABS: Anion Gap 5.0 (3-11); Blood Urea Nitrogen 7.0 mg/dl (6-23); Calcium 9.3 mg/dl (8.6-10.3); Carbon Dioxide 28.0 mmol/L (21-32); Chloride 101.0 mmol/L (98-107); Creatinine Clr Calc Pharmacy 61.8 ml/min; Magnesium 2.0 mg/dl (1.7-2.4); Potassium 4.4 mmol/L (3.5-5.1); Sodium 134.0 mmol/L (136-145)
--- NOTE | 2024-11-06 07:45 | Magnetic Resonance Report ---
MRI OF THE BRAIN WITHOUT IV CONTRAST CLINICAL HISTORY: Change in mental status. COMPARISON STUDY: CT of the brain dated 11/05/2024. MRI of the brain dated 09/27/2024. TECHNIQUE: MRI of the brain was performed utilizing various T1 and T2-weighted sequences in the axial , sagittal, and coronal planes. IV contrast was not administered for this examination. FINDINGS: Brain parenchyma: There is age related involutional change noting mild subcortical and periventricula r microangiopathic disease. Foci of left parietal and occipital encephalomalacia are consistent with remote insults. Linear serpiginous cortical-based T1 hyperintensity along the left occipital cortex i s consistent with laminar necrosis. This is unchanged. There is no hemorrhage or mass effect. There i s no restricted diffusion to suggest acute ischemia. Reyna-white matter differentiation is preserved. No extra-axial fluid collection is seen. The cerebellar tonsils are normal in configuration. Ventricles, sulci, and cisterns: Prominent secondary to involutional change. Pituitary and sella: Unremarkable. Intracranial vasculature: Normal flow voids are maintained at the skull base. Orbits: The bony orbits are grossly intact. Orbital contents are normal in appearance. Sinuses and mastoids: There is moderate mucosal thickening within the left maxillary antrum. Mild muc osal thickening is seen in the right maxillary sinus and ethmoid sinuses. The mastoid air cells are c lear. Calvarium: Unremarkable. Cervical cord: Partially visualized cervical spinal cord is normal in morphology and signal intensity . IMPRESSION: Chronic changes as above with no acute intracranial abnormality identified ACT 112: Negative or not required by law. Electronically signed by: Gallito Chang M.D. 11/06/2024 7:43 AM
[2024-11-06] MEDS: OMEGA-3 (PURIFIED FISH OIL) 1 GM CAP PO SCH (08:23)
[2024-11-06] MEDS: CHOLECALCIFEROL 25 MCG (1000 UNITS) TAB PO SCH (08:23)
[2024-11-06] MEDS: ATORVASTATIN 40 MG TAB PO SCH (08:23)
[2024-11-06] MEDS: ESCITALOPRAM OXALATE 10 MG TAB PO SCH (08:23)
[2024-11-06] MEDS: APIXABAN 5 MG TABLET PO SCH (08:23)
[2024-11-06] MEDS: METOPROLOL SUCC 25MG EXT REL TAB PO SCH (08:23)
[2024-11-06] MEDS: CALCIUM CARBONATE 1250MG TAB PO SCH (08:24)
[2024-11-06] MEDS: MAGNESIUM OXIDE 400 MG TAB PO SCH (08:24)
[2024-11-06 08:49] LABS: Folate (Folic Acid),Ser orPlas > 22.30 ng/ml (>5.38)
[2024-11-06 08:50] LABS: Vitamin B12 887 pg/ml (180-914)
[2024-11-06] MEDS: cefTRIAXone SODIUM 1,000 MG/50 ML BAG IV SCH (09:01)
--- NOTE | 2024-11-06 11:10 | Hospitalist Progress Note ---
Date of Service November 06, 2024 Assessment & Plan (1) Hypokalemia: (2) Hyponatremia: (3) Hypomagnesemia: (4) H/O: stroke with residual effects: (5) Anxiety: (6) Confusion with non-focal neuro exam: Plan #Fatigue/Malaise/Mild confusion/Anxiety increase - patient w/ increased fatigue, malaise, confusion, and anxiety for 1 day now (only slept 1 hr last night) - Head CT, Head & Neck CTA, and CXR all w/out any acute findings - UA: LE, 2+; WBC, 6-10; Ur Cx ordered and pending - MRI, routine ordered 74-year-old female with past medical history including seizure-like activity (No confirmed seizure disorder), generalized weakness, history of stroke with residual effects, long-term anticoagulant use, hypertension, paroxysmal atrial fibrillation, exercise-induced asthma, hyperlipidemia, GERD without esophagitis, and bilateral lower extremity varicose veins. She presents to the emergency department with her due to concerns regarding generalized weakness, fatigue, headache and decreased appetite today. Her reported that she had similar presentations when her electrolytes were low, in particular particular sodium and magnesium. She reports that she is undergoing a workup at [facility] for a possible Watchman procedure, and is waiting for a call regarding a appointment there for the procedure. Workup in the emergency department included the following radiology studies: CT scan of head without contrast was negative, CTA head and neck were both negative, chest x-ray was negative. Significant laboratories showed a magnesium level 1.6, potassium 3.4, and BioFire testing was negative. [facility] evaluation and treatment. Atrial fibrillation with RVR/PAF/hypertension- Patient initially presented to the emergency department with a heart rate of 94, and then increased to a maximum heart rate of 149-150. The patient will be admitted to telemetry for serial cardiac enzymes, serial EKG's, cardiac rhythm monitoring and a 2-D echocardiogram with Dopplers. She did receive Lopressor 5 mg IV x 2, She was continued on metoprolol succinate 12.5 mg p.o. twice daily Continue Eliquis 5 mg p.o. twice daily s/p trial digoxin 0.25 mg IV Target potassium to 4 and magnesium to 2 Consult cardiology Electrolyte disturbances- Sodium 130, potassium 3.4, magnesium 1.6 on admission From the ED she received Klor-Con 40 mEq p.o., magnesium sulfate 1 g IV NSS at 125 mL/h for 1 L Replete as needed. may benefit from supplements Leather Tanner consulted Fatigue/generalized malaise/mild confusion/increased anxiety resolved, Possibly secondary to bronchitis and/or UTI Has returned to baseline Supportive care CT head, CTA head and neck are both negative MRI brain negative Radiographic bronchitis may be implicated. Likely viral self-limiting UTI IV Rocephin Follow urine culture HTN home meds Hyperlipidemia- Continue atorvastatin Depression/anxiety- Continue escitalopram DVT prophylaxis Full code Disposition likely discharge home tomorrow Admission and Anticipated Discharge Date Admission Date: November 06, 2024 Supervising Physician Co-Signing Physician Notes Attending addendum: I have physically seen this patient, have supervised the medical residents activities, and agree with the H&P unless as otherwise noted. Assessment and Plan: The patient is a 74-year-old female with past medical history including seizure- like activity, generalized weakness, history of stroke with residual effects, long-term anticoagulant use, hypertension, paroxysmal atrial fibrillation, exercise-induced asthma, hyperlipidemia, GERD without esophagitis, and bilateral lower extremity varicose veins. She presents to the emergency department with her due to concerns regarding generalized weakness, fatigue, headache and decreased appetite today. Her reported that she had similar presentations when her electrolytes were low, in particular particular sodium and magnesium. She reports that she is undergoing a workup at [facility] for a possible Watchman procedure, and is waiting for a call regarding a appointment there for the procedure. Workup in the emergency department included the following radiology studies: CT scan of head without contrast was negative, CTA head and neck were both negative, chest x-ray was negative. Significant laboratories showed a magnesium level 1.6, potassium 3.4, and BioFire testing was negative. [facility] for further evaluation and treatment. Atrial fibrillation with RVR/PAF/hypertension- Patient initially presented to the emergency department with a heart rate of 94, and then increased to a maximum heart rate of 149-150. The patient will be admitted to telemetry for serial cardiac enzymes, serial EKG's, cardiac rhythm monitoring and a 2-D echocardiogram with Dopplers. She did receive Lopressor 5 mg IV x 2, She was continued on metoprolol succinate 12.5 mg p.o. twice daily Continue Eliquis 5 mg p.o. twice daily Holding hydralazine due to borderline blood pressure Will do a trial digoxin 0.25 mg IV Target potassium to 4 and magnesium to 2 Consult cardiology Electrolyte disturbances- Sodium 130, potassium 3.4, magnesium 1.6 From the ED she received Klor-Con 40 mEq p.o., magnesium sulfate 1 g IV, and we will repeat both NSS at 125 mL/h for 1 L Recheck laboratories in the a.m. Fatigue/generalized malaise/mild confusion/increased anxiety- feels that she is worse than her baseline CT head, CTA head and neck are both negative MRI brain will be ordered to assess for possible stroke Patient has a known previous left occipital lobe CVA Hyperlipidemia- Continue atorvastatin Depression/anxiety- Continue escitalopram Subjective Doing very well in good spirits. Tells me she "feels good" and denies any symptoms at this time. No further fatigue anorexia. No fevers chills cough chest pain shortness of breath nausea or other symptoms at this time.Mentation seems to have returned to baseline. Heart rate better controlled. confirms patient has had urinary frequency recently. We discussed possibly of UTI Review of Systems Review of Systems: Negative except as in HPI Physical Exam Constitutional: WD/WN, vitals as above Results & Data Results & Data Vital Signs (Past 12 Hours) Vital Signs Temp Pulse Pulse Resp BP BP Pulse Ox 11/06/24 08:00 75 11/06/24 07:37 36.4 C L 71 18 153/80 H 94 11/06/24 07:15 11/06/24 06:20 75 11/06/24 06:15 36.5 C 71 20 148/89 H 95 11/06/24 03:50 36.5 C 110 H 24 122/81 97 11/06/24 03:45 11/06/24 03:00 130 H 20 96 11/06/24 02:57 124 H 21 96 11/06/24 02:35 123 H 19 96 11/06/24 02:20 121 H 19 95 11/06/24 01:40 125 H 11/06/24 01:32 139 H 20 96 11/06/24 01:31 108/70 11/06/24 01:29 117 H 20 95 11/06/24 01:00 126/91 11/06/24 00:59 124 H 18 97 11/06/24 00:30 112 H 119/91 11/06/24 00:11 149 H 115/83 11/05/24 23:30 125/97 11/05/24 23:23 137 H 22 95 11/05/24 23:05 116/79 11/05/24 23:02 128 H 22 95 O2 Del Method 11/06/24 08:00 11/06/24 07:37 Room Air 11/06/24 07:15 Room Air 11/06/24 06:20 11/06/24 06:15 Room Air 11/06/24 03:50 Room Air 11/06/24 03:45 Room Air 11/06/24 03:00 11/06/24 02:57 11/06/24 02:35 11/06/24 02:20 11/06/24 01:40 11/06/24 01:32 Room Air 11/06/24 01:31 11/06/24 01:29 Room Air 11/06/24 01:00 11/06/24 00:59 Room Air 11/06/24 00:30 11/06/24 00:11 11/05/24 23:30 11/05/24 23:23 Room Air 11/05/24 23:05 11/05/24 23:02 Room Air PG Care Time/CCT Total # of Minutes Spent Total Time Spent with Patient: Total time spent is greater than 50% in coordination of care (as documented) at patient's floor/unit and/or counseling patient: Coding Level of Care Code 62871 SUB INP/OBS CARE 2/35MIN Diagnoses Hypokalemia E87.6 Hyponatremia E87.1 Hypomagnesemia E83.42 H/O: stroke with residual effects I69.30 Anxiety F41.9 Confusion with non-focal neuro exam R41.0
[2024-11-07 08:00] VITALS: RESP 16
[2024-11-07 08:33] LABS: Hematocrit (blood only) 36.6 % (37.0-47.0); Hemoglobin 12.6 g/dl (12.0-16.0); Mean Corpuscular Hemoglobin 32.5 pg (25.0-34.0); Mean Corpuscular Volume 94.3 fL (80.0-100.0); Platelet Count 226 K/uL (130-400); RDW Standard Deviation 42.0 fL (36.4-46.3); Red Blood Count 3.88 M/uL (4.20-5.40); White Blood Count 4.47 K/ul (4.8-10.8)
[2024-11-07 08:49] LABS: Alanine Aminotransferase 15.0 U/L (7-52); Albumin Globulin Ratio 1.5 (0.9-2); Alkaline Phosphatase 48.0 U/L (34-104); Anion Gap 5.0 (3-11); Bilirubin,Total 1.3 mg/dl (0.2-1.0); Blood Urea Nitrogen 8.0 mg/dl (6-23); Calcium 9.5 mg/dl (8.6-10.3); Carbon Dioxide 27.0 mmol/L (21-32); Chloride 105.0 mmol/L (98-107); Creatinine Clr Calc Pharmacy 63.6 ml/min; Globulin 2.7 gm/dl (2.5-4.0); Glucose 132.0 mg/dl (70-99(Fasting)); Magnesium 1.7 mg/dl (1.7-2.4); Potassium 4.0 mmol/L (3.5-5.1); Sodium 137.0 mmol/L (136-145); Total Protein 6.7 gm/dl (6.0-8.3)
--- NOTE | 2024-11-07 10:47 | Discharge Summary ---
Discharge Summary Date of Service November 07, 2024 She is doing very well. We went over everything again extensively. She tells me she really wants to go home. She denies any further symptoms feels back to baseline. She is declining PT evaluation tells me she feels back to baseline and is able to get around on her own. It seems she has this arranged outpatient as needed for history of stroke. We went over importance of close follow-up and strict return precautions.She is currently requesting be discharged home soon as possible and follow-up with her PCP in a few Days. She does not want any adjustments made to her blood pressure medications feels it is high while here in the hospital and will improve when she goes home Principal Dx & Hospital Course #1 = Principal Diagnosis (1) Hypokalemia: (2) Hyponatremia: (3) Hypomagnesemia: (4) H/O: stroke with residual effects: (5) Anxiety: (6) Confusion with non-focal neuro exam: Plan 74-year-old female with past medical history including seizure-like activity (No confirmed seizure disorder), generalized weakness, history of stroke with residual effects, long-term anticoagulant use, hypertension, paroxysmal atrial fibrillation, exercise-induced asthma, hyperlipidemia, GERD without esophagitis, and bilateral lower extremity varicose veins. She presents to the emergency department with her due to concerns regarding generalized weakness, fatigue, headache and decreased appetite today. Her reported that she had similar presentations when her electrolytes were low, in particular particular sodium and magnesium. She reports that she is undergoing a workup at [facility] for a possible Watchman procedure, and is waiting for a call regarding a appointment there for the procedure. Workup in the emergency department included the following radiology studies: CT scan of head without contrast was negative, CTA head and neck were both negative, chest x-ray was negative. Significant laboratories showed a magnesium level 1.6, potassium 3.4, and BioFire testing was negative. [facility] for admission for further evaluation and treatment. Atrial fibrillation with RVR/PAF/hypertension A-fib likely catecholamine stress response secondary to questionable bronchitis, UTI, dehydration?, Electrolyte deficiencies. Now stable Patient initially presented to the emergency department with a heart rate of 94, and then increased to a maximum heart rate of 149-150. The patient will be admitted to telemetry for serial cardiac enzymes, serial EKG's, cardiac rhythm monitoring and a 2-D echocardiogram with Dopplers. She did receive Lopressor 5 mg IV x 2, She was continued on metoprolol succinate 12.5 mg p.o. twice daily Continue Eliquis 5 mg p.o. twice daily s/p trial digoxin 0.25 mg IV Target potassium to 4 and magnesium to 2 Close outpatient follow-up with cardiology Electrolyte disturbances- Sodium 130, potassium 3.4, magnesium 1.6 on admission From the ED she received Klor-Con 40 mEq p.o., magnesium sulfate 1 g IV NSS at 125 mL/h for 1 L Replete as needed. may benefit from supplements. Close outpatient follow-up And recheck electrolytes in a few days Nnps consulted Fatigue/generalized malaise/mild confusion/increased anxiety resolved, Possibly secondary to bronchitis and/or UTI Has returned to baseline Supportive care CT head, CTA head and neck are both negative MRI brain negative Radiographic bronchitis may be implicated. Likely Subclinical viral self- limiting UTI IV Rocephin. Cefpodoxime prescribed on discharge total 7 days Follow urine culture Final results with PCP HTN home meds Hyperlipidemia- Continue atorvastatin Depression/anxiety- Continue escitalopram DVT prophylaxis Full code Disposition home with Admission HPI Per Admitting Provider Patient w/ increased fatigue, increased sense of malaise since last night, and she only got 1-hr of sleep last night. Today she has felt "out of sorts" all day, with increased anxiety, slower cognition, general feeling of malaise. Patient denies any respiratory Sx, any GI Sx, no sense of cardiac Sx either ( denies CP and palpitations). Denies any focal weakness, numbness/tingling, or gait disturbance outside of her baseline right-sided focal weakness s/p stroke years ago. Discharge Exam Constitutional WD/WN, vitals as above Discharge Plan Discharge Items Patient Disposition: Home - Home Health Services Reason For Visit: FATIGUE, MALAISE Discharge Diagnosis: Fatigue, malaise, confusion, anorexia, low potassium, low magnesium, low sodium, A-fib with RVR Condition on Discharge: Fair Activity: Resume your previous activity Non-emergency contact: Primary Care Provider, Commercial Lease Administrator and Neurologist Call non-emergency contact if: you have any medication questions, your symptoms worsen, your pain is not controlled and you have a fever Follow-up/Referrals: Malvin Freeman CRNP [Primary Care Provider] - Diet: Heart Healthy and Low Fat Addtl Attending Provider Instructions: Follow-up with your primary care doctor, audit clerk and neurologist within 1 week. Repeat blood work through primary doctor in 2 to 3 days to recheck your sodium, potassium and magnesium levels. You may need to be started on potassium supplements. Continue with your magnesium supplements. Eat well and stay hydrated. Monitor blood pressure closely at home. Consider asking your doctor for referral to a dietitian outpatient to ensure yo ur nutrition is optimized As we discussed, ask your doctor to follow the final urine cultures In 1 to 2 days to ensure the bacteria will respond to the antibiotics we are prescribing Pending Studies at Discharge: No Stand-Alone Forms: [facility] [employer], Smoking Cessation Medications and DC Order Prescriptions: New cefpodoxime 200 mg tablet 200 mg PO BID 5 Days Qty: 10 0RF Rx Instructions: must administer with a meal/food Continued atorvastatin 80 mg tablet 80 mg PO DAILY Qty: 90 2RF escitalopram oxalate 10 mg tablet 10 mg PO QAM Qty: 90 2RF Eliquis 5 mg tablet 5 mg PO BID Qty: 180 1RF hydralazine 25 mg tablet 25 mg PO BID Qty: 180 1RF calcium carbonate [Calcium 600] 600 mg calcium (1,500 mg) tablet 600 mg PO QAM estradiol 0.01 % (0.1 mg/gram) cream 1 g vaginal .COMPLEX Qty: 42.5 1RF Rx Instructions: 1 g vaginal; 1gm PV daily for 14 days, then 1/2gm PV twice weekly omega 6-cvq-nit-fish oil [Fish Oil] 1,000 mg (120 mg-180 mg) capsule 3 cap PO QAM cholecalciferol (vitamin D3) 25 mcg (1,000 unit) Tablet 25 mcg PO QAM magnesium oxide 400 mg (241.3 mg magnesium) Tablet 400 mg PO BID Qty: 60 0RF lorazepam 0.5 mg tablet 0.5 mg PO DAILY PRN (Reason: Anxiety) metoprolol succinate 25 mg tablet extended release 24 hr 12.5 mg PO AMHS Discharge Orders: Discharge Order (Routine); Ordered 11/07/24 Ordered By: Divine Velasquez Admission Data Admit Date/Time: 11/06/24 01:35 Attending Provider: Divine Velasquez Admit Provider: Armand Amador Primary Care Provider: Malvin Freeman Other Providers: Reji Bautista Hospital Stay Data Consultations 11/06/24 00:12 ED Decision to Admit Stat Diagnostic Imagining Performed 11/05/24 20:14 CT angio head w con Stat CT angio neck with con Stat CT head/brain wo con Stat 11/06/24 02:22 MRI Brain [MR brain wo con] Routine Pending Results Patient Have Any Pending Studies at Discharge: No Discharge Instructions Given to Patient (Per Discharging Provider) Follow-up with your primary care doctor, audit clerk and neurologist within 1 week. Repeat blood work through primary doctor in 2 to 3 days to recheck your sodium, potassium and magnesium levels. You may need to be started on potassium supplements. Continue with your magnesium supplements. Eat well and stay hydrated. Monitor blood pressure closely at home. Consider asking your doctor for referral to a dietitian outpatient to ensure your nutrition is optimized As we discussed, ask your doctor to follow the final urine cultures In 1 to 2 days to ensure the bacteria will respond to the antibiotics we are prescribing Total Time Total Time Spent Total Time Spent (In Minutes): 35 Coding Level of Care Code 93958 INP/OBS DISCH >30 MIN Diagnoses Hypokalemia E87.6 Hyponatremia E87.1 Hypomagnesemia E83.42 H/O: stroke with residual effects I69.30 Anxiety F41.9 Confusion with non-focal neuro exam R41.0
[2024-11-07 15:41] VITALS: PULSE 82; TEMP 98.2; O2SAT 96
[2024-11-07 16:38] VITALS: BP 151/84
[2024-11-07] MEDS: LORazepam 0.5 MG TAB PO PRN (17:00)
[2024-11-07] MEDS: ACETAMINOPHEN 325 MG TAB PO PRN (17:25)
--- NOTE | 2024-11-09 05:31 | Electrocardiogram Report ---
Test Reason : Blood Pressure : */* mmHG Vent. Rate : 87 BPM Atrial Rate : 87 BPM P-R Int : 150 ms QRS Dur : 78 ms QT Int : 376 ms P-R-T Axes : 58 56 71 degrees QTcB Int : 452 ms Normal sinus rhythm Nonspecific ST abnormality Abnormal ECG When compared with ECG of 27-Sep-2024 00:06, No significant change was found Confirmed by Raúl Crawley ([id number]) on 11/09/2024 5:31:08 AM Referred By: REFERRED SELF Confirmed By: Raúl Crawley
--- NOTE | 2024-11-09 05:32 | Electrocardiogram Report ---
Test Reason : Blood Pressure : */* mmHG Vent. Rate : 156 BPM Atrial Rate : * BPM P-R Int : * ms QRS Dur : 76 ms QT Int : 278 ms P-R-T Axes : * 50 -42 degrees QTcB Int : 448 ms Atrial fibrillation with rapid ventricular response with premature ventricular or aberrantly conducte d complexes Marked ST abnormality, possible inferolateral subendocardial injury Abnormal ECG When compared with ECG of 05-Nov-2024 19:57, Atrial fibrillation has replaced Sinus rhythm Vent. rate has increased by [address] more depressed Inferolateral leads T wave inversion now evident in Lateral leads Confirmed by Raúl Crawley ([id number]) on 11/09/2024 5:32:11 AM Referred By: REFERRED SELF Confirmed By: Raúl Crawley
== END 2024-11-07 18:02 | disposition home health service (06) | DRG 309 ==
LOC: SUATTDRO → ED 19:46 → 2S 11-06 01:35 → SUATTDRO 11-06 01:35 → 2S 11-06 03:45

== ENCOUNTER 2024-12-01 00:08 | Inpatient (IN) ==
--- NOTE | 2024-12-01 00:37 | Emergency Department Note ---
Impression & Plan Atrial fibrillation with rapid ventricular response, Acute hypotension admit to the [facility] ED Provider Note NAME: MJ CUETO AGE: 74 SEX: Female INFORMANT: Patient and her ED PROVIDER(S): Ibeth Ribera DO CHIEF COMPLAINT: weakness and dizziness PLAN: Disposition: admit to the [facility] MEDICAL DECISION MAKING: the patient's explains that she was in bed most of the day because she was not feeling well. When he arrived home from work, he checked her vital signs and found her blood pressure to be elevated along with her heart rate. Patient has a history of A-fib with RVR. She complained of dizziness. gave the patient a second dose of hydralazine which seemed to bring the blood pressure down but she continued to not feel well and became diaphoretic. on presentation to the emergency department, the patient's blood pressure was low and she was in atrial flutter with a rapid ventricular response. Patient appears somewhat dehydrated on physical exam. Magnesium level was low. She was bolused with IV saline and given IV magnesium replacement. Patient's blood pressure seemed to respond to this but she remained tachycardic. The hypotension is most likely secondary to the administration of the second dose of hydralazine. Care/management discussed with: Patient's , arts administrator or manager, and [facility] Triage Nursing notes: reviewed and agree with them. Vital Signs: reviewed and remarkable for tachycardia and hypotension Additional History obtained from: patient's who is at the bedside Chronic Medical/Social Conditions affecting care: previous stroke with RVR for which she is scheduled for an ablation. Differential Diagnosis: Cardiac dysrhythmia, hypokalemia, dehydration, hypomagnesemia, cardiac ischemia Diagnostics, independently interpreted by me: ECG: atrial flutter at a rate of 115. There is no ST segment elevation or signs of ischemia. Cardiac Monitoring: A-fib with RVR at a rate of 114 HPI: 74 year old Female arrives for evaluation of Dizziness and diaphoresis. she was in bed most of the day because she was not feeling well. When he arrived home from work, he checked her vital signs and found her blood pressure to be elevated along with her heart rate. Patient has a history of A-fib with RVR. She complained of dizziness. Has been give the patient a second dose of hydralazine which seemed to bring the blood pressure down but she continued to not feel well and became diaphoretic. PAST MEDICAL HISTORY: See Below, PAST SURGICAL HISTORY: See Below, SOCIAL HISTORY: See Below, HOME MEDICATIONS: see list ALLERGIES: none VITALS: See Below PHYSICAL EXAMINATION: HEENT: Head - normocephalic and atraumatic. Pupils are equal, round, and reactive to light. Extraocular eye muscles are intact, and sclera are anicteric. Nose - moist nasal mucosa without discharge. Mouth - moist buccal mucosa. Oropharynx is nonerythematous and there is no tonsillar exudate or edema noted. Neck: Supple; no JVD, nuchal rigidity, cervical lymphadenopathy, or auscultated bruits. Heart: tachycardic rate with a regular rhythm. There is a normal S1 and S2 with no murmurs, clicks, or gallops appreciated. Lungs: Clear to auscultation bilaterally with no wheezes, rales, or rhonchi. Abdomen: Soft, completely nontender, nondistended, with good bowel sounds. There are no palpable pulsatile masses or hepatosplenomegaly. There is no guarding, rigidity, or rebound noted. Extremities: No evidence of cyanosis, clubbing, or edema. There are easily palpable peripheral pulses. Skin: warm and Diaphoretic with good turgor and no rashes. Emergency Department course: The patient was evaluated in room B-5. A complete history and physical was performed. An order was placed for continuous cardiac monitoring. The patient was then A-fib with RVR at a rate of 114. A twelve- lead EKG was obtained as described above. The patient was bolused with IV normal saline solution and given magnesium replacement. Patient had intermittent episodes of hypotension And Recurrent episodes of diaphoresis. I discussed the case with the [facility] [address] [facility] Hospitalist as the patient has a history of recurrent A-fib/a flutter with RVR. Past Med/Surg History Problem List (Updated 12/01/24 @ 06:10 by Ibeth Ribera DO) Acute hypotension (Acute) Atrial fibrillation with rapid ventricular response (Acute) Medication reaction (Acute) Hypertension (Acute) Dizziness (Acute) Prediabetes Confusion with non-focal neuro exam Hypokalemia (Acute) Hyponatremia (Acute) Hypomagnesemia (Acute) Generalized weakness (Acute) Seizure-like activity Generalized weakness (Acute) Hypomagnesemia (Acute) Tremor H/O: stroke with residual effects Anticoagulant long-term use Hypertension Paroxysmal atrial fibrillation (Acute) Anxiety Exercise-induced asthma Asthma (Chronic) Bony exostosis Hyperlipidemia GERD without esophagitis Varicose veins of bilateral lower extremities with other complications Chronic sinusitis Medical History Acute hyponatremia Acute CVA (cerebrovascular accident) Family history of colon cancer Family history of coronary artery disease Multifocal pneumonia Palpitation Non compliance with medical treatment recent hospital admission [facility] w/ A-Fib/RVR. discharged on Eliquis and instructed to follow up with cardiology. pt reports she never followed up and never started the Eliquis. does have hx a-fib but reports never followed with systems analyst engineer in past Atrial fibrillation recent hospital admission A-Fib/RVR. discharged on Eliquis and instructed to follow up with cardiology. pt reports she never followed up and never started the Eliquis. History of COVID-19 01/2021; body aches, fatigue, loss taste/smell; resolved. White coat syndrome with hypertension History of DVT (deep vein thrombosis) lower extremity dvt > 40 years ago d/t control Poor historian History of colon polyps Surgical History History of sinus surgery History of esophagogastroduodenoscopy (EGD) History of colonoscopy Hx of tubal ligation H/O ovarian cystectomy right ovary H/O tooth extraction H/O blepharoplasty S/P skin biopsy benign History of appendectomy Family History Mother Diabetes Alzheimer disease Colorectal cancer Hypertension Father Diabetes Myocardial infarction, Onset Age: 62 Hypertension Sister Lymphoma Breast cancer, Onset Age: 70 Hypertension Family/Other Ovarian cancer Prostate cancer Other No family history of adverse response to anesthesia Social History Smoking Status: Never smoker Second Hand Exposure: No; Do You Dip or Chew Tobacco: No; Hx Alcohol Use: Yes Alcohol type: wine Hx Substance Use: No Preferred Language: Hebrew Communication Ability: Effective Communication Tools: Other Visual Impairment: No Limitations Hearing Ability: Normal Public Relations Account Executive Required: No Beliefs That Will Affect Care: None marital status: Current Living Situation: Spouse current occupational status: retired Feels Safe at Home: Yes Childhood Exposure to Second-Hand Smoke: No Diet: regular Diet Comment: regular caffeine: Yes (Cofee 1 per day. ) during the past year weight has: remained stable Dental Care, Regularly: Yes Physical Activity Frequency: 5-6 Times per Week Seatbelt Use: always Sunscreen Use: No Assistive Devices: None Allergies Allergies Allergy/AdvReac Type Severity Reaction Status Date / Time No Known Drug Allergies Allergy Unknown Verified 12/01/24 00:55 Home Meds Home Medications Medication Instructions Recorded Confirmed calcium carbonate (Calcium 600) 600 mg PO QAM 01/09/19 12/01/24 cholecalciferol (vitamin D3) 25 25 mcg PO QAM 03/02/20 12/01/24 mcg (1,000 unit) tablet omega 8-vsd-scy-fish oil 1,000 mg 3 cap PO QAM 08/27/21 12/01/24 (120 mg-180 mg) capsule (Fish Oil) metoprolol succinate 25 mg 12.5 mg PO AMHS 11/05/24 12/01/24 tablet,extended release 24 hr Previous Rx's Medication Instructions Recorded atorvastatin 80 mg tablet 80 mg PO DAILY #90 tabs 02/25/24 apixaban 5 mg tablet (Eliquis) 5 mg PO BID #180 tabs 07/17/24 hydralazine 25 mg tablet 25 mg PO BID #180 tabs 09/18/24 estradiol 0.01% (0.1 mg/gram) 1 g vaginal .COMPLEX #42.5 grams 09/20/24 vaginal cream magnesium oxide 400 mg (241.3 mg 400 mg PO BID #60 tabs 09/29/24 magnesium) tablet indapamide 1.25 mg tablet 1.25 mg PO QAM #90 tabs 11/16/24 buspirone 10 mg tablet 10 mg PO BID #180 tabs 11/21/24 lorazepam 0.5 mg tablet 0.5 mg PO DAILY PRN Anxiety #20 11/21/24 tabs lorazepam 1 mg tablet (Ativan) 1 mg PO TID PRN anxiety #7 tabs 11/25/24 Results & Data (ED) Vital Signs Vital Signs - 24 hr 12/01/24 00:13 12/01/24 00:23 12/01/24 00:30 Temperature 36.6 C Temperature Source Temporal Artery Scan Pulse Rate 110 H Pulse Rate [Right Finger] Pulse Rate from SpO2 Sensor Pulse Rhythm [Right Finger] Respiratory Rate 18 Respiratory Effort / Characteristics Non-Labored Spontaneous Non-Labored Spontaneous Respiratory Depth Normal Normal Respiratory Pattern Regular Blood Pressure 94/39 L 126/85 Blood Pressure [Right Arm] Blood Pressure Mean 57 90 Blood Pressure Mean [Right Arm] Pulse Oximetry 95 Oxygen Delivery Method Room Air Room Air Sepsis Recent Fever Within 48 Hours No Sepsis New/Unexplained Change in Mental Status No Sepsis Action Taken by Nursing No Action Required 12/01/24 00:33 12/01/24 02:51 12/01/24 03:00 Temperature Temperature Source Pulse Rate 112 H Pulse Rate [Right Finger] 118 H 114 H Pulse Rate from SpO2 Sensor 112 H Pulse Rhythm [Right Finger] Irregular Irregular Respiratory Rate 22 16 16 Respiratory Effort / Characteristics Respiratory Depth Normal Normal Respiratory Pattern Blood Pressure Blood Pressure [Right Arm] 88/67 L 114/77 Blood Pressure Mean Blood Pressure Mean [Right Arm] 74 89 Pulse Oximetry 96 95 95 Oxygen Delivery Method Room Air Room Air Room Air Sepsis Recent Fever Within 48 Hours Sepsis New/Unexplained Change in Mental Status Sepsis Action Taken by Nursing 12/01/24 03:15 12/01/24 03:30 Temperature Temperature Source Pulse Rate Pulse Rate [Right Finger] 117 H 104 H Pulse Rate from SpO2 Sensor Pulse Rhythm [Right Finger] Irregular Irregular Respiratory Rate 16 16 Respiratory Effort / Characteristics Respiratory Depth Normal Respiratory Pattern Blood Pressure Blood Pressure [Right Arm] 131/97 107/75 Blood Pressure Mean Blood Pressure Mean [Right Arm] 108 85 Pulse Oximetry 95 96 Oxygen Delivery Method Room Air Room Air Sepsis Recent Fever Within 48 Hours Sepsis New/Unexplained Change in Mental Status Sepsis Action Taken by Nursing Laboratory Data 12/01/24 00:28 12/01/24 00:28 Lab Results 12/01/24 12/01/24 12/01/24 Range/Units 00:28 02:39 03:55 WBC 5.77 (4.8-10.8) K/ul RBC 4.06 L (4.20-5.40) M/uL Hgb 13.3 (12.0-16.0) g/dl Hct 37.1 (37.0-47.0) % MCV 91.4 (80.0-100.0) fL MCH 32.8 (25.0-34.0) pg MCHC 35.8 (32.0-36.0) g/dL RDW Std Deviation 39.1 (36.4-46.3) fL RDW Coeff of [place] 11.6 (11.5-14.5) % Plt Count 273 (130-400) K/uL MPV 8.7 L (9.4-12.4) fL Immature Gran % (Auto) 0.2 % Neut % (Auto) 57.5 % Lymph % (Auto) 31.4 % [place] % (Auto) 9.4 % Eos % (Auto) 1.2 % Baso % (Auto) 0.3 % Neut # (Auto) 3.32 (1.40-6.50) K/uL Lymph # (Auto) 1.81 (1.20-3.40) K/uL [place] # (Auto) 0.54 (0.11-0.59) K/uL Eos # (Auto) 0.07 (0.00-0.50) K/uL Baso # (Auto) 0.02 (0.00-0.20) K/uL Immature Gran # (Auto) 0.01 (0.01-0.20) K/uL Sodium 136 (136-145) mmol/L Potassium 3.5 (3.5-5.1) mmol/L Chloride 98 (98-107) mmol/L Carbon Dioxide 28 (21-32) mmol/L Anion Gap 10 (3-11) BUN 9 (6-23) mg/dl Creatinine 0.81 (0.6-1.2) mg/dl Est Cr Clr Drug Dosing 56.5 ml/min eGFR 77.08 BUN/Creatinine Ratio 11.1 (10-20) Glucose 124 H (70-99(Fasting)) mg/dl Calcium 10.1 (8.6-10.3) mg/dl Phosphorus 3.5 (2.5-4.9) mg/dl Magnesium 1.5 L (1.7-2.4) mg/dl Total Bilirubin 1.1 H (0.2-1.0) mg/dl AST 20 (13-39) U/L ALT 17 (7-52) U/L Alkaline Phosphatase 50 (34-104) U/L Troponin I High Sens 5.4 4.8 (0-14) pg/ml Total Protein 6.8 (6.0-8.3) gm/dl Albumin 4.1 (3.4-5.0) gm/dl Globulin 2.7 (2.5-4.0) gm/dl Albumin/Globulin Ratio 1.5 (0.9-2) TSH 3.890 (0.300-4.500) uIu/ml Administered Medications Discontinued Medications Magnesium Sulfate/Dextrose (Magnesium Sulfate / D5w) 1 gm in 100 mls @ 100 mls/hr IV NOW STA Stop: 12/01/24 02:32 Last Infusion: 12/01/24 03:21 Dose: Infused Documented By: Admin: 12/01/24 01:43 Dose: 100 mls/hr Documented By: PAULA Sodium Chloride (Nss) 1,000 mls @ 999 mls/hr IV .Q1H1M ONE Stop: 12/01/24 03:37 Last Infusion: 12/01/24 03:59 Dose: Infused Documented By: Admin: 12/01/24 02:49 Dose: 999 mls/hr Documented By: PAULA Magnesium Sulfate/Dextrose (Magnesium Sulfate / D5w) 1 gm in 100 mls @ 100 mls/hr IV NOW STA Stop: 12/01/24 04:44 Last Admin: 12/01/24 05:38 Dose: Not Given Documented By: PAULA(2) Potassium Chloride (Potassium Chloride Crtab 20 Meq Tabcr) 40 meq PO NOW STA Stop: 12/01/24 03:46 Last Admin: 12/01/24 05:09 Dose: 40 meq Documented By: JEFFYW Discharge Plan Visit Data Chief Complaint: Cardiac Assessment Stated Complaint: HBP 145, DIZZY ED Provider: Ibeth Ribera Discharge Problem: Atrial fibrillation with rapid ventricular response, Acute hypotension Condition: Serious Discharge Instructions Interventions: ED Discharge Assessment Last Done: 12/01/24 05:19
[2024-12-01 01:04] LABS: Hematocrit (blood only) 37.1 % (37.0-47.0); Hemoglobin 13.3 g/dl (12.0-16.0); Immature Granulocytes # (auto) 0.01 K/uL (0.01-0.20); Immature Granulocytes % (auto) 0.2 %; Mean Corpuscular Hemoglobin 32.8 pg (25.0-34.0); Mean Corpuscular Volume 91.4 fL (80.0-100.0); Platelet Count 273 K/uL (130-400); RDW Standard Deviation 39.1 fL (36.4-46.3); Red Blood Count 4.06 M/uL (4.20-5.40); White Blood Count 5.77 K/ul (4.8-10.8)
[2024-12-01 01:22] LABS: Alanine Aminotransferase 17.0 U/L (7-52); Albumin Globulin Ratio 1.5 (0.9-2); Alkaline Phosphatase 50.0 U/L (34-104); Anion Gap 10.0 (3-11); Bilirubin,Total 1.1 mg/dl (0.2-1.0); Blood Urea Nitrogen 9.0 mg/dl (6-23); Calcium 10.1 mg/dl (8.6-10.3); Carbon Dioxide 28.0 mmol/L (21-32); Chloride 98.0 mmol/L (98-107); Creatinine Clr Calc Pharmacy 56.5 ml/min; Globulin 2.7 gm/dl (2.5-4.0); Glucose 124.0 mg/dl (70-99(Fasting)); Magnesium 1.5 mg/dl (1.7-2.4); Potassium 3.5 mmol/L (3.5-5.1); Sodium 136.0 mmol/L (136-145); Total Protein 6.8 gm/dl (6.0-8.3)
[2024-12-01 01:37] LABS: Thyroid Stimulating Hormone 3.89 uIu/ml (0.300-4.500)
[2024-12-01] MEDS: MAGNESIUM SULFATE / D5W 1 GM/100 ML BAG IV STA ×2 (01:43→05:38)
[2024-12-01] MEDS: SODIUM CHLORIDE 0.9% 1,000 ML IV ONE (02:49)
--- NOTE | 2024-12-01 04:22 | History & Physical Report ---
Date of Service December 01, 2024 Assessment & Plan (1) Paroxysmal atrial fibrillation: (2) Generalized weakness: (3) Hypertension: (4) Hyperlipidemia: (5) GERD without esophagitis: Plan 74yo female presenting with AF with RVR, hypotension on arrival. Patient reports feeling generally weak and fatigued #Atrial fibrillation -Admit to medical with telemetry -Gentle hydration with LR at 80mL/hr x 1L -Metoprolol 12.5mg po BID -Metoprolol 4mg IV q 6 hours as needed for HR > 110bpm -Mg x 2 gm given, KCl 40 mEq ordered, repeat chemistry in AM -Continue Apixaban 5mg po BID #Generalized weakness -Electrolyte repletion -Check UA, PO4 #Hypertension -Continue Hydralazine 25mg po BID -Hold Indapamide for now #Hyperlipidemia -Continue Atorvastatin 80mg po daily #Anxiety -Continue Buspirone -Ativan PRN History of Present Illness Chief Complaint: Feels "off" Primary Care Provider: DAVIS Arreola Sheila Worthington is a 74yo female with history of atrial fibrillation on Eliquis anticoagulation, GERD and CAD presenting from home with her with complaint of not feeling well. Patient was in bed most of the day today because she wasn't feeling well. She reports feeling weak and dizzy. When her got home he checked her blood pressure and it was found to be elevated, elevated HR as well. Patient is planning for an ablation to be performed at [facility] in the next couple of weeks. She is complaining of a bladder prolapse as well. Would like to get this fixed at some point. Has some difficulty passing urine at times with incontinence. In the ER patient is in atrial fibrillation. Blood pressure low upon arrival which has improved. Allergies Allergy/AdvReac Type Severity Reaction Status Date / Time No Known Drug Allergies Allergy Unknown Verified 12/01/24 00:55 Home Medications Medication Instructions Recorded Confirmed Type calcium carbonate (Calcium 600) 600 mg PO QAM 01/09/19 12/01/24 History cholecalciferol (vitamin D3) 25 25 mcg PO QAM 03/02/20 12/01/24 History mcg (1,000 unit) tablet omega 0-jce-gos-fish oil 1,000 mg 3 cap PO QAM 08/27/21 12/01/24 History (120 mg-180 mg) capsule (Fish Oil) atorvastatin 80 mg tablet 80 mg PO DAILY #90 tabs 02/25/24 12/01/24 Rx apixaban 5 mg tablet (Eliquis) 5 mg PO BID #180 tabs 07/17/24 12/01/24 Rx hydralazine 25 mg tablet 25 mg PO BID #180 tabs 09/18/24 12/01/24 Rx estradiol 0.01% (0.1 mg/gram) 1 g vaginal .COMPLEX #42.5 grams 09/20/24 12/01/24 Rx vaginal cream magnesium oxide 400 mg (241.3 mg 400 mg PO BID #60 tabs 09/29/24 12/01/24 Rx magnesium) tablet metoprolol succinate 25 mg 12.5 mg PO AMHS 11/05/24 12/01/24 History tablet,extended release 24 hr indapamide 1.25 mg tablet 1.25 mg PO QAM #90 tabs 11/16/24 12/01/24 Rx buspirone 10 mg tablet 10 mg PO BID #180 tabs 11/21/24 12/01/24 Rx lorazepam 0.5 mg tablet 0.5 mg PO DAILY PRN Anxiety #20 11/21/24 12/01/24 Rx tabs lorazepam 1 mg tablet (Ativan) 1 mg PO TID PRN anxiety #7 tabs 11/25/24 12/01/24 Rx Past Med/Surg History Problem List Medication reaction (Acute) Hypertension (Acute) Dizziness (Acute) Prediabetes Confusion with non-focal neuro exam Hypokalemia (Acute) Hyponatremia (Acute) Hypomagnesemia (Acute) Generalized weakness (Acute) Seizure-like activity Generalized weakness (Acute) Hypomagnesemia (Acute) Tremor H/O: stroke with residual effects Anticoagulant long-term use Hypertension Paroxysmal atrial fibrillation (Acute) Anxiety Exercise-induced asthma Asthma (Chronic) Bony exostosis Hyperlipidemia GERD without esophagitis Varicose veins of bilateral lower extremities with other complications Chronic sinusitis Medical History Acute hyponatremia Acute CVA (cerebrovascular accident) Family history of colon cancer Family history of coronary artery disease Multifocal pneumonia Palpitation Non compliance with medical treatment recent [facility] admission [facility] w/ A-Fib/RVR. discharged on Eliquis and instructed to follow up with cardiology. pt reports she never followed up and never started the Eliquis. does have hx a-fib but reports never followed with reed dipper in past Atrial fibrillation recent hospital admission A-Fib/RVR. discharged on Eliquis and instructed to follow up with cardiology. pt reports she never followed up and never started the Eliquis. History of COVID-19 01/2021; body aches, fatigue, loss taste/smell; resolved. White coat syndrome with hypertension History of DVT (deep vein thrombosis) lower extremity dvt > 40 years ago d/t control Poor historian History of colon polyps Surgical History History of sinus surgery History of esophagogastroduodenoscopy (EGD) History of colonoscopy Hx of tubal ligation H/O ovarian cystectomy right ovary H/O tooth extraction H/O blepharoplasty S/P skin biopsy benign History of appendectomy Family History Mother Diabetes Alzheimer disease Colorectal cancer Hypertension Father Diabetes Myocardial infarction, Onset Age: 62 Hypertension Sister Lymphoma Breast cancer, Onset Age: 70 Hypertension Family/Other Ovarian cancer Prostate cancer Other No family history of adverse response to anesthesia Social History Smoking Status: Never smoker Second Hand Exposure: No; Do You Dip or Chew Tobacco: No; Hx Alcohol Use: Yes Alcohol type: wine Hx Substance Use: No Preferred Language: Armenian Communication Ability: Effective Communication Tools: Other Visual Impairment: No Limitations Hearing Ability: Normal Senior Safety Support Manager Required: No Beliefs That Will Affect Care: None marital status: Current Living Situation: Spouse current occupational status: retired Feels Safe at Home: Yes Childhood Exposure to Second-Hand Smoke: No Diet: regular Diet Comment: regular caffeine: Yes (Cofee 1 per day. ) during the past year weight has: remained stable Dental Care, Regularly: Yes Physical Activity Frequency: 5-6 Times per Week Seatbelt Use: always Sunscreen Use: No Assistive Devices: None Review of Systems Review of Systems: All systems reviewed & are unremarkable except as noted in HPI & below Physical Exam Physical Exam: General: patient resting comfortably, NAD, non-toxic in appearance, AA&O x 4, flat affect Skin: warm, dry, intact, no rashes or lesions HEENT: NC/AT, PERRL, EOMI, anicteric sclera, conjunctiva without injection, external ear normal to inspection and nontender, nares patent, moist mucus membranes, dentition intact, no oropharyngeal lesions, neck supple, trachea midline, no LAD, no thyromegaly, no JVD Heart: +S1/S2, irregularly irregular, no m/r/g Lungs: equal air entry bilaterally, no rales/rhonchi/wheezes Abd: +BS, soft, NT/ND, no masses/organomegaly/ascites Ext: warm, 2+ pulses in UE/LE bilaterally, no clubbing/cyanosis or edema Neuro: nonfocal, patient AA&O x 4, speech intact, no facial droop, moving all extremities on command with equal strength 5/5 Results & Data Results & Data Vital Signs (Past 12 Hours) Vital Signs Temp Pulse Pulse Resp BP BP Pulse Ox 12/01/24 03:30 104 H 16 107/75 96 12/01/24 03:15 117 H 16 131/97 95 12/01/24 03:00 114 H 16 114/77 95 12/01/24 02:51 118 H 16 88/67 L 95 12/01/24 00:33 112 H 22 96 12/01/24 00:30 126/85 12/01/24 00:23 12/01/24 00:13 36.6 C 110 H 18 94/39 L 95 O2 Del Method 12/01/24 03:30 Room Air 12/01/24 03:15 Room Air 12/01/24 03:00 Room Air 12/01/24 02:51 Room Air 12/01/24 00:33 Room Air 12/01/24 00:30 12/01/24 00:23 Room Air 12/01/24 00:13 Room Air Laboratory Results Laboratory Results WBC 5.77 K/ul (4.8-10.8) 12/01/24 00:28 RBC 4.06 M/uL (4.20-5.40) L 12/01/24 00:28 Hgb 13.3 g/dl (12.0-16.0) 09/19/25 00:28 Hct 37.1 % (37.0-47.0) 12/01/24: MCV 91.4 fL (80.0-100.0) 12/01/24: MCH 32.8 pg (25.0-34.0) 12/01/24 MCHC 35.8 g/dL (32.0-36.0) 12/01/24 RDW Std Deviation 39.1 fL (36.4-46.3) 12/01/24 RDW Coeff of [place] 11.6 % (11.5-14.5) 12/01/24 Plt Count 273 K/uL (130-400) 12/01/24 MPV 8.7 fL (9.4-12.4) L 12/01/24 Immature Gran % (Auto) 0.2 % 12/01/24: Neut % (Auto) 57.5 % 12/01/24: Lymph % (Auto) 31.4 % 12/01/24: [place] % (Auto) 9.4 % 12/01/24: Eos % (Auto) 1.2 % 12/01/24: Baso % (Auto) 0.3 % 12/01/24 Neut # (Auto) 3.32 K/uL (1.40-6.50) 12/01/24: Lymph # (Auto) 1.81 K/uL (1.20-3.40) 12/01/24: [place] # (Auto) 0.54 K/uL (0.11-0.59) 12/01/24: Eos # (Auto) 0.07 K/uL (0.00-0.50) 12/01/24: Baso # (Auto) 0.02 K/uL (0.00-0.20) 12/01/24 Immature Gran # (Auto) 0.01 K/uL (0.01-0.20) 12/01/24: Sodium 136 mmol/L (136-145) 12/01/24: Potassium 3.5 mmol/L (3.5-5.1) 12/01/24 00:28 Chloride 98 mmol/L (98-107) 12/01/24 00: Carbon Dioxide 28 mmol/L (21-32) 12/01/24 00: Anion Gap 10 (3-11) 12/01/24 00:28 BUN 9 mg/dl (6-23) 12/01/24 00: Creatinine 0.81 mg/dl (0.6-1.2) 12/01/24: Est Cr Clr Drug Dosing 56.5 ml/min 12/01/24 00: eGFR 77.08 12/01/24 00: BUN/Creatinine Ratio 11.1 (10-20) 12/01/24: Glucose 124 mg/dl (70-99(Fasting)) H 12/01/24 00: Calcium 10.1 mg/dl (8.6-10.3) 12/01/24: Magnesium 1.5 mg/dl (1.7-2.4) L 12/01/24: Total Bilirubin 1.1 mg/dl (0.2-1.0) H 12/01/24 00: AST 20 U/L (13-39) 12/01/24 00: ALT 17 U/L (7-52) 12/01/24 00: Alkaline Phosphatase 50 U/L (34-104) 12/01/24: Troponin I High Sens 4.8 pg/ml (0-14) 12/01/24 03:55 Total Protein 6.8 gm/dl (6.0-8.3) 12/01/24 00:28 Albumin 4.1 gm/dl (3.4-5.0) 12/01/24 00:28 Globulin 2.7 gm/dl (2.5-4.0) 12/01/24 00:28 Albumin/Globulin Ratio 1.5 (0.9-2) 12/01/24: TSH 3.890 uIu/ml (0.300-4.500) 12/01/24 00:28 PG Care Time/CCT Total # of Minutes Spent Total Time Spent with Patient: Total time spent is greater than 50% in coordination of care (as documented) at patient's floor/unit and/or counseling patient: Coding Level of Care Code 37345 INT INP/OBS CARE MIN Diagnoses Paroxysmal atrial fibrillation I48.0 Generalized weakness R53.1 Hypertension I10 Hypertension type: unspecified Hyperlipidemia, unspecified hyperlipidemia type E78.5 Hyperlipidemia type: unspecified GERD without esophagitis K21.9 (3) Hypertension Hypertension type: unspecified Qualified Code(s): I10 - Essential (primary) hypertension (4) Hyperlipidemia Hyperlipidemia type: unspecified Qualified Code(s): E78.5 - Hyperlipidemia, unspecified
[2024-12-01] MEDS: POTASSIUM CHLORIDE CRTAB 20 MEQ TABCR PO STA (05:09)
[2024-12-01] MEDS ORDERED: DOCUSATE SODIUM 100 MG CAP PO PRN (05:20)
[2024-12-01] MEDS ORDERED: ONDANSETRON INJ 2 MG/ML 2 ML VIAL IV PRN (05:20)
[2024-12-01] MEDS ORDERED: ACETAMINOPHEN 325 MG TAB PO PRN (05:20)
[2024-12-01] MEDS: LACTATED RINGER'S 1,000 ML IV SCH (06:04)
[2024-12-01] MEDS ORDERED: METOPROLOL SUCC 25MG EXT REL TAB PO SCH (09:00)
[2024-12-01] MEDS: APIXABAN 5 MG TABLET PO SCH (09:26)
[2024-12-01] MEDS: ATORVASTATIN 40 MG TAB PO SCH (09:26)
[2024-12-01] MEDS: MAGNESIUM OXIDE 400 MG TAB PO SCH (09:27)
[2024-12-01] MEDS: METOPROLOL SUCC 25MG EXT REL TAB PO SCH (09:28)
--- NOTE | 2024-12-01 09:28 | Electrocardiogram Report ---
Test Reason : Blood Pressure : */* mmHG Vent. Rate : 115 BPM Atrial Rate : 357 BPM P-R Int : * ms QRS Dur : 94 ms QT Int : 372 ms P-R-T Axes : * 18 5 degrees QTcB Int : 514 ms Atrial flutter with variable A-V block Nonspecific ST abnormality Abnormal ECG When compared with ECG of 25-Nov-2024 09:52, Atrial flutter has replaced Sinus rhythm ST more depressed Anterolateral leads Confirmed by Anders Young ([id number]) on 12/01/2024 9:27:44 AM Referred By: REFERRED SELF Confirmed By: Anders Young
[2024-12-01] MEDS: busPIRone 5 MG TAB PO SCH (09:29)
[2024-12-01] MEDS: METOPROLOL TARTRATE 1 MG/ML VIAL IV PRN (11:23)
--- NOTE | 2024-12-01 14:47 | Hospitalist Progress Note ---
Date of Service December 01, 2024 Assessment & Plan (1) Paroxysmal atrial fibrillation: (2) Generalized weakness: (3) Hypertension: (4) Hyperlipidemia: (5) GERD without esophagitis: Plan 74yo female presenting with AF with RVR, hypotension on arrival. Patient reports feeling generally weak and fatigued #Atrial fibrillation EKG on admission w/ A flutter & rate of 115bpm. CBC w/o anemia or leukocytosis. TSH WNL w/ normal Free T4 + Free T3 Troponin negative x 2. Increase Metoprolol XL to 25mg AMHS Lopressor 5mg IV q4h prn for sustained rates > 110bpm Continue Eliquis 5mg PO BID. s/p IVF Follows w/ [facility] - is on wait list for ablation currently. ---> follow up w/ them upon discharge. #Hypomagnesemia Mg 1.5 on admission, s/p repletion Repeat in AM #Hypertension Continue Hydralazine 25mg po BID Resume Indapamide in AM #Hyperlipidemia-Continue Atorvastatin 80mg po daily #Anxiety- Continue Buspirone; Ativan PRN DVT prophylaxis: Eliquis Code: Full Anticipate discharge home 12/02. Admission and Anticipated Discharge Date Admission Date: December 01, 2024 Supervising Physician Co-Signing Physician Notes The patient was not seen by me. The chart was reviewed. Case discussed with ERIS Shipman. Agree with assessment and plan Subjective Sheila was seen and examined this morning. She reports feeling "jittery" but a ttributes this to being in the hospital. She denied any CP, SOB, or heart palpitations this morning. Physical Exam Physical Exam: General: NAD, VS as above Resp: normal respiratory effort, lungs clear to auscultation CV: irregularly irregular. no murmurs Extremities: no edema Neuro: A&O x3 Skin: intact, no lesions noted Results & Data Results & Data Vital Signs (Past 12 Hours) Vital Signs Temp Pulse Pulse Resp BP BP Pulse Ox 12/01/24 13:50 72 12/01/24 13:26 36.7 C 74 16 114/74 94 12/01/24 12:25 75 16 117/76 96 12/01/24 11:41 105 H 117/91 12/01/24 11:40 105 H 20 117/91 95 12/01/24 11:23 114 H 138/112 H 12/01/24 10:52 105 H 17 153/125 H 97 12/01/24 08:06 126 H 12/01/24 06:29 104 H 12/01/24 03:30 104 H 16 107/75 96 12/01/24 03:15 117 H 16 131/97 95 12/01/24 03:00 114 H 16 114/77 95 12/01/24 02:51 118 H 16 88/67 L 95 O2 Del Method 12/01/24 13:50 12/01/24 13:26 Room Air 12/01/24 12:25 Room Air 12/01/24 11:41 12/01/24 11:40 Room Air 12/01/24 11:23 12/01/24 10:52 Room Air 12/01/24 08:06 12/01/24 06:29 12/01/24 03:30 Room Air 12/01/24 03:15 Room Air 12/01/24 03:00 Room Air 12/01/24 02:51 Room Air PG Care Time/CCT Total # of Minutes Spent Total Time Spent with Patient: Total time spent is greater than 50% in coordination of care (as documented) at patient's floor/unit and/or counseling patient: Coding Level of Care Code None Diagnoses Paroxysmal atrial fibrillation I48.0 Generalized weakness R53.1 Hypertension I10 Hypertension type: unspecified Hyperlipidemia, unspecified hyperlipidemia type E78.5 Hyperlipidemia type: unspecified GERD without esophagitis K21.9 (3) Hypertension Hypertension type: unspecified Qualified Code(s): I10 - Essential (primary) hypertension (4) Hyperlipidemia Hyperlipidemia type: unspecified Qualified Code(s): E78.5 - Hyperlipidemia, unspecified
--- NOTE | 2024-12-01 15:47 | XCELERA ---
[id number]
[2024-12-01] MEDS: LORazepam 1 MG TAB PO PRN (18:29)
[2024-12-02] MEDS: FAMOTIDINE 20MG IV PUSH 20 MG/5 ML SYR IV ONE (00:53)
[2024-12-02 03:37] VITALS: RESP 18
[2024-12-02 06:55] LABS: Hematocrit (blood only) 34.9 % (37.0-47.0); Hemoglobin 11.4 g/dl (12.0-16.0); Mean Corpuscular Hemoglobin 31.2 pg (25.0-34.0); Mean Corpuscular Volume 95.6 fL (80.0-100.0); Platelet Count 205 K/uL (130-400); RDW Standard Deviation 42.0 fL (36.4-46.3); Red Blood Count 3.65 M/uL (4.20-5.40); White Blood Count 4.06 K/ul (4.8-10.8)
[2024-12-02 07:06] LABS: Anion Gap 2.0 (3-11); Blood Urea Nitrogen 8.0 mg/dl (6-23); Calcium 9.0 mg/dl (8.6-10.3); Carbon Dioxide 31.0 mmol/L (21-32); Chloride 105.0 mmol/L (98-107); Creatinine Clr Calc Pharmacy 68.3 ml/min; Glucose 110.0 mg/dl (70-99(Fasting)); Magnesium 1.6 mg/dl (1.7-2.4); Potassium 3.9 mmol/L (3.5-5.1); Sodium 138.0 mmol/L (136-145)
[2024-12-02 07:14] VITALS: PULSE 75; TEMP 97.9; O2SAT 97
[2024-12-02] MEDS: MAGNESIUM SULFATE / D5W 1 GM/100 ML BAG IV SCH (08:25)
--- NOTE | 2024-12-02 08:46 | Discharge Summary ---
Discharge Summary Date of Service December 02, 2024 Principal Dx & Hospital Course #1 = Principal Diagnosis (1) Paroxysmal atrial fibrillation: (2) Generalized weakness: (3) Hypertension: (4) Hyperlipidemia: (5) GERD without esophagitis: Plan 74yo female presenting with AF with RVR, hypotension on arrival. Patient reports feeling generally weak and fatigued #Atrial fibrillation EKG on admission w/ A flutter & rate of 115bpm. --> 12/02 normal sinus overnight w/ rates in 50s-70s. CBC w/o anemia or leukocytosis. TSH WNL w/ normal Free T4 + Free T3 Troponin negative x 2. Increase Metoprolol XL to 25mg AMHS --> continue on discharge. Lopressor 5mg IV given x 1 on 12/01. Continue Eliquis 5mg PO BID. s/p IVF Follows w/ [facility] - is on wait list for ablation currently. ---> follow up w/ them upon discharge. #Hypomagnesemia Mg 1.5 on admission, s/p repletion Mag 1.6 prior to dc --> did order IV repletion but patient refused. Advised to continue on PO supplementation & follow up w/ PCP for further recs. #Hypertension Increase Hydralazine 25mg po from BID to TID Stop Lozol #Hyperlipidemia-Continue Atorvastatin 80mg po daily #Anxiety- Continue Buspirone; Ativan PRN Discharged home 12/02. Admission HPI Per Admitting Provider Sheila Worthington is a 74yo female with history of atrial fibrillation on Eliquis anticoagulation, GERD and CAD presenting from home with her with complaint of not feeling well. Patient was in bed most of the day today because she wasn't feeling well. She reports feeling weak and dizzy. When her got home he checked her blood pressure and it was found to be elevated, elevated HR as well. Patient is planning for an ablation to be performed at [facility] in the next couple of weeks. She is complaining of a bladder prolapse as well. Would like to get this fixed at some point. Has some difficulty passing urine at times with incontinence. In the ER patient is in atrial fibrillation. Blood pressure low upon arrival which has improved. Discharge Exam General: NAD, VS as above Resp: normal respiratory effort, Extremities: Moves all extremities, no edema Neuro: A&O x3, Skin: intact, no lesions noted Discharge Plan Discharge Items Patient Disposition: Home - Self-Care Reason For Visit: FEELS ILL, AF WITH RVR Discharge Diagnosis: Atrial Fibrillation Activity: Resume your previous activity Non-emergency contact: Primary Care Provider and [employer] Call non-emergency contact if: you have any medication questions and your symptoms worsen Follow-up/Referrals: Malvin Freeman CRNP [Primary Care Provider] - 12/05/24 1:00 pm Diet: Heart Healthy Addtl Attending Provider Instructions: Mrs. Worthington, You were recently hospitalized for not feeling well. You were found to have high blood pressure and you were in atrial fibrillation. You were treated with medications with improvement of your blood pressure and heart rate. Medications: Your medication list has been reviewed and reconciled upon discharge to ensure accuracy and continuity of care. An updated list of all your medications is included with your hospital discharge paperwork. Please review this list closely, and make note of any changes. Your Metoprolol dose has been increased to 25mg twice daily. Lozol has been discontinued to reduce medication burden. Hydralazine has been increased to 25mg three times daily. By reducing the amount of medications you take this also helps reduce side effects and medication interactions. Please follow up with your PCP regarding your low magnesium and supplementation advice. Take your medications as instructed; do not skip a dose of your medicines. Make sure all of your doctors know every medicine you are taking (including gcnx-rvd-lfgqukt medicines, vitamins, and supplements). Call your primary care provider before taking any new medicines (including over- the-counter medicines, vitamins, and supplements), because some of these may interact with your current medications, or may make your symptoms worse. Tell your primary care provider if you cannot afford your medications. Activity: You can do normal everyday activities as your body allows. Take rest breaks if you feel tired. Do not overexert. Stop activity if you have pain, shortness of breath or feel dizzy. Follow-up appointments: Make an appointment with your primary care physician within one week of discharge. A copy of this summary will be sent to them. Every time you see your primary care physician, or any other doctor, bring your medication list, and a list of questions. Please follow up with your outpatient hide sorter for continued care. CONTACT YOUR PRIMARY CARE PROVIDER if you experience any of the following: Shortness of breath or difficulty breathing Fevers or chills Feeling tired with normal activity or experiencing dizziness or fainting Difficulty following your treatment plan, or difficulty taking medications CALL 911 OR GO TO THE EMERGENCY DEPARTMENT if you experience any of the following: Severe abdominal pain or nausea/vomiting Severe chest pain, or chest pain that radiates (moves) to your jaw or arm Sudden, severe shortness of breath or difficulty breathing Thank you for allowing us to participate in your care. Pending Studies at Discharge: No Stand-Alone Forms: My [facility], Smoking Cessation Medications and DC Order Prescriptions: New hydralazine 25 mg Tablet 25 mg PO TID Qty: 90 0RF metoprolol succinate 25 mg Tablet Extended Release 24 Hr 25 mg PO AMHS Qty: 60 0RF Continued atorvastatin 80 mg tablet 80 mg PO DAILY Qty: 90 2RF Eliquis 5 mg tablet 5 mg PO BID Qty: 180 1RF calcium carbonate [Calcium 600] 600 mg calcium (1,500 mg) tablet 600 mg PO QAM buspirone 10 mg tablet 10 mg PO BID Qty: 180 3RF lorazepam 0.5 mg tablet 0.5 mg PO DAILY PRN (Reason: Anxiety) Qty: 20 0RF estradiol 0.01 % (0.1 mg/gram) cream 1 g vaginal .COMPLEX Qty: 42.5 1RF Rx Instructions: 1 g vaginal; 1gm PV daily for 14 days, then 1/2gm PV twice weekly omega 3-ido-zjb-fish oil [Fish Oil] 1,000 mg (120 mg-180 mg) capsule 3 cap PO QAM cholecalciferol (vitamin D3) 25 mcg (1,000 unit) Tablet 25 mcg PO QAM magnesium oxide 400 mg (241.3 mg magnesium) Tablet 400 mg PO BID Qty: 60 0RF lorazepam [Ativan] 1 mg tablet 1 mg PO TID PRN (Reason: anxiety) Qty: 7 0RF Discontinued hydralazine 25 mg tablet 25 mg PO BID Qty: 180 1RF indapamide 1.25 mg tablet 1.25 mg PO QAM Qty: 90 3RF metoprolol succinate 25 mg tablet extended release 24 hr 12.5 mg PO AMHS Discharge Orders: Discharge Order (Routine); Ordered 12/02/24 Ordered By: Shabnam Nance Admission Data Admit Date/Time: 12/01/24 04:29 Attending Provider: Pacheco Dugan Admit Provider: Felicia Gold Primary Care Provider: Malvin Freeman Other Providers: Felicia Gold Hospital Stay Data Consultations 12/01/24 03:40 ED Decision to Admit Stat Pending Results Patient Have Any Pending Studies at Discharge: No Discharge Instructions Given to Patient (Per Discharging Provider) Mrs. Worthington, You were recently hospitalized for not feeling well. You were found to have high blood pressure and you were in atrial fibrillation. You were treated with medications with improvement of your blood pressure and heart rate. Medications: Your medication list has been reviewed and reconciled upon discharge to ensure accuracy and continuity of care. An updated list of all your medications is included with your hospital discharge paperwork. Please review this list closely, and make note of any changes. Your Metoprolol dose has been increased to 25mg twice daily. Lozol has been discontinued to reduce medication burden. Hydralazine has been increased to 25mg three times daily. By reducing the amount of medications you take this also helps reduce side effects and medication interactions. Please follow up with your PCP regarding your low magnesium and supplementation advice. Take your medications as instructed; do not skip a dose of your medicines. Make sure all of your doctors know every medicine you are taking (including bdut-ilh-sbhzibc medicines, vitamins, and supplements). Call your primary care provider before taking any new medicines (including over- the-counter medicines, vitamins, and supplements), because some of these may interact with your current medications, or may make your symptoms worse. Tell your primary care provider if you cannot afford your medications. Activity: You can do normal everyday activities as your body allows. Take rest breaks if you feel tired. Do not overexert. Stop activity if you have pain, shortness of breath or feel dizzy. Follow-up appointments: Make an appointment with your primary care physician within one week of discharge. A copy of this summary will be sent to them. Every time you see your primary care physician, or any other doctor, bring your medication list, and a list of questions. Please follow up with your outpatient hide sorter for continued care. CONTACT YOUR PRIMARY CARE PROVIDER if you experience any of the following: Shortness of breath or difficulty breathing Fevers or chills Feeling tired with normal activity or experiencing dizziness or fainting Difficulty following your treatment plan, or difficulty taking medications CALL 911 OR GO TO THE EMERGENCY DEPARTMENT if you experience any of the following: Severe abdominal pain or nausea/vomiting Severe chest pain, or chest pain that radiates (moves) to your jaw or arm Sudden, severe shortness of breath or difficulty breathing Thank you for allowing us to participate in your care. Supervising Physician Co-Signing Physician Notes The patient was not seen by me. The chart was reviewed. Case discussed with ERIS Shipman. Agree with assessment and plan Total Time Total Time Spent Total Time Spent (In Minutes): 45 Total Time Includes: Examination of the Patient, Discharge Planning and Medication Reconciliation Coding Level of Care Code 59485 INP/OBS DISCH >30 MIN Diagnoses Paroxysmal atrial fibrillation I48.0 Generalized weakness R53.1 Hypertension I10 Hypertension type: unspecified Hyperlipidemia, unspecified hyperlipidemia type E78.5 Hyperlipidemia type: unspecified GERD without esophagitis K21.9
[2024-12-02] MEDS ORDERED: INDAPAMIDE 1.25 MG TAB PO SCH (09:00)
[2024-12-02 10:28] VITALS: BP 131/81
== END 2024-12-02 11:10 | disposition home or self-care (01) | DRG 310 ==
LOC: ED 00:08 → EDINP 04:29 → SUATTDRO 04:29 → 2W 05:19